=== PATIENT | male | born 1965 | race Caucasian/White ===

== ENCOUNTER 2021-10-31 12:19 | Emergency (ER) | payer OTHER ==
[~2021-10-31] VITALS: Ht 177.8 cm; Wt 81.7 kg
[2021-10-31 13:41] LABS: BASOPHILS ABSOLUTE AUTO 0.04 K/mm3 (0.00-0.23); BASOPHILS PERCENT AUTO 1 % (0-2); EOSINOPHILS ABSOLUTE AUTO 0.12 K/mm3 (0.00-0.68); EOSINOPHILS PERCENT AUTO 2 % (0-6); Hematocrit 37.1 % (37.0-53.0); Hemoglobin 12.7 g/dL (13.5-17.5); IMMATURE GRAN ABSOLUTE AUTO 0.01 K/mm3 (0.00-0.10); IMMATURE GRAN PERCENT AUTO 0 % (0-1); LYMPHOCYTES ABSOLUTE AUTO 0.56 K/mm3 (0.84-5.20); LYMPHOCYTES PERCENT AUTO 9 % (21-46); MONOCYTES ABSOLUTE AUTO 0.57 K/mm3 (0.16-1.47); MONOCYTES PERCENT AUTO 9 % (4-13); Mean Corpuscular HGB 29.3 pg (26.0-34.0); Mean Corpuscular HGB Conc 34.2 g/dL (31.5-36.5); Mean Corpuscular Volume 86 fL (80-100); Mean Platelet Volume 9.1 fL (9.1-12.4); NEUTROPHILS ABSOLUTE AUTO 5.01 K/mm3 (1.96-9.15); NEUTROPHILS PERCENT AUTO 79 % (41-73); Platelet Count 329 K/mm3 (150-400); RDW Coefficient Variation 12.9 % (11.7-14.2); RDW Standard Deviation 39.8 fL (35.1-46.3); Red Blood Cell Count 4.33 M/mm3 (4.30-5.90); White Blood Cell Count 6.31 K/mm3 (4.00-11.30)
[2021-10-31 13:58] LABS: Alanine Aminotransfer (ALT/SGP 138 U/L (12-78); Albumin, Blood 3.3 g/dL (3.4-5.0); Albumin/Globulin Ratio 0.8 (0.8-1.8); Alk Phos 80 U/L (50-136); Anion Gap 7 mmol/L (6-16); Aspartate Aminotrans (AST/SGOT 80 U/L (12-37); Bilirubin, Total 0.5 mg/dL (0.1-1.0); Blood Urea Nitrogen 11 mg/dL (8-24); Bun/Creatinine Ratio 15.2 (12.0-20.0); CO2, Blood 32 mmol/L (21-32); Calcium, Blood 9.4 mg/dL (8.5-10.1); Chloride, Blood 98 mmol/L (98-108); Creatinine, Blood 0.72 mg/dL (0.60-1.20); Glomerular Filtration Rate >60 (60-); Glucose, Blood 122 mg/dL (70-99); Potassium, Blood 2.8 mmol/L (3.5-5.5); Sodium, Blood 137 mmol/L (136-145); Total Protein, Blood 7.3 g/dL (6.4-8.2)
[2021-10-31] MEDS ORDERED: INSULIN GL100 UNIT/1 SQ (15:32)
[2021-10-31] MEDS ORDERED: KETOROLAC TROME10 M2 PO (15:32)
[2021-10-31] MEDS ORDERED: AMLODIPINE BESY10 MG PO (15:32)
[2021-10-31] MEDS ORDERED: REMERON30 M6 PO (15:32)
[2021-10-31] MEDS ORDERED: Potassium Chlo20 ME1 PO (15:33)
[2021-10-31] MEDS ORDERED: HUMULIN R100 UNIT/2 IJ (15:33)
[2021-10-31] MEDS ORDERED: ROSUVASTATIN CA20 MG PO (15:33)
[2021-10-31] MEDS ORDERED: LISI20 PO (15:33)
[2021-10-31] MEDS ORDERED: CHLO25B PO (15:34)
[2021-10-31] MEDS ORDERED: METF500 PO ×2 (15:34→16:13)
[2021-10-31] MEDS ORDERED: ETODOLAC PO (15:34)
[2021-10-31 15:47] LABS: Source, Urine Clean Catch
[2021-10-31 15:59] LABS: Bilirubin, Urine Neg (Neg); Blood, Urine 1+ (Neg); Glucose Qualitative, Urine Neg (Neg); Ketones, Urine Neg (Neg); Leukocyte Esterase, Urine 1+ (Neg); Nitrite, Urine Neg (Neg); Protein, Urine 1+ (Neg); Specific Gravity, Urine 1.015 (1.003-1.022); Urobilinogen, Urine NORM (Normal)
[2021-10-31 16:01] LABS: Appearance, Urine Hazy (Clear); Bacteria Few /hpf; Color, Urine Pale Yellow (P-Yellow); Squamous Epithelial Cells Few /hpf (Few)
[2021-10-31] MEDS ORDERED: K-Dur20 MEQ PO (16:13)
[2021-10-31] MEDS ORDERED: HUMULIN R100 UNIT/2 SC (16:21)
== END 2021-10-31 16:23 | disposition home or self-care (01) ==
LOC: ER 12:19
PROVIDERS: Physician Assistant
DX: S20.212A Contusion of left front wall of thorax, initial encounter (principal); E87.6 Hypokalemia; R42 Dizziness and giddiness; Z76.0 Encounter for issue of repeat prescription; E11.9 Type 2 diabetes mellitus without complications; I10 Essential (primary) hypertension; W18.30XA Fall on same level, unspecified, initial encounter
CPT/HCPCS: 36415; 71101; 80053; 81001; 84484; 85025; 87086; 93005; 93010; 99285-25; A9270

== ENCOUNTER 2022-02-01 12:41 | Inpatient (IN) | payer OTHER ==
[~2022-02-01] VITALS: Ht 177.8 cm; Wt 80.1 kg
[~2022-02-01 12:41] MED LIST: AMLODIPINE BESY10 MG PO; CHLO25B PO; ETODOLAC PO; HUMULIN R100 UNIT/2 IJ; HUMULIN R100 UNIT/2 SC; INSULIN GL100 UNIT/1 SQ; K-Dur20 MEQ PO; KETOROLAC TROME10 M2 PO; LISI20 PO; METF500 PO; Potassium Chlo20 ME1 PO; REMERON30 M6 PO; ROSUVASTATIN CA20 MG PO
[2022-02-01 13:48] LABS: Base Excess Venous 6.2 mmol/L; Bicarbonate Venous 28.8 mmol/L (24.0-30.0); PCO2 Venous 40.3 mmHg (38-42); pH Blood Venous 7.48 (7.34-7.37)
[2022-02-01 13:56] LABS: BASOPHILS ABSOLUTE AUTO 0.04 K/mm3 (0.00-0.23); BASOPHILS PERCENT AUTO 0 % (0-2); EOSINOPHILS ABSOLUTE AUTO 0.06 K/mm3 (0.00-0.68); EOSINOPHILS PERCENT AUTO 0 % (0-6); Hematocrit 35.5 % (37.0-53.0); Hemoglobin 12.9 g/dL (13.5-17.5); IMMATURE GRAN ABSOLUTE AUTO 0.26 K/mm3 (0.00-0.10); IMMATURE GRAN PERCENT AUTO 1 % (0-1); LYMPHOCYTES ABSOLUTE AUTO 0.37 K/mm3 (0.84-5.20); LYMPHOCYTES PERCENT AUTO 2 % (21-46); MONOCYTES ABSOLUTE AUTO 1.49 K/mm3 (0.16-1.47); MONOCYTES PERCENT AUTO 8 % (4-13); Mean Corpuscular HGB 29.3 pg (26.0-34.0); Mean Corpuscular HGB Conc 36.3 g/dL (31.5-36.5); Mean Corpuscular Volume 81 fL (80-100); Mean Platelet Volume 10.1 fL (9.1-12.4); NEUTROPHILS ABSOLUTE AUTO 16.01 K/mm3 (1.96-9.15); NEUTROPHILS PERCENT AUTO 88 % (41-73); Platelet Count 305 K/mm3 (150-400); RDW Coefficient Variation 12.9 % (11.7-14.2); RDW Standard Deviation 37.6 fL (35.1-46.3); White Blood Cell Count 18.23 K/mm3 (4.00-11.30)
[2022-02-01 14:13] LABS: Albumin, Blood 3.3 g/dL (3.4-5.0); Albumin/Globulin Ratio 0.7 (0.8-1.8); Bilirubin, Total 1.2 mg/dL (0.1-1.0); Bun/Creatinine Ratio 31.4 (12.0-20.0); Calcium, Blood 8.8 mg/dL (8.5-10.1); Creatinine, Blood 0.8 mg/dL (0.60-1.20); Globulin, Blood 4.7 g/dL (2.2-4.0); Potassium, Blood 2.7 mmol/L (3.5-5.5)
[2022-02-01 14:19] LABS: Source, Urine Foley catheter
[2022-02-01 14:35] LABS: Appearance, Urine Clear (Clear); Bilirubin, Urine Neg (Neg); Blood, Urine 5+ (Neg); Color, Urine Yellow (P-Yellow); Glucose Qualitative, Urine 4+ (Neg); Ketones, Urine 3+ (Neg); Leukocyte Esterase, Urine Neg (Neg); Nitrite, Urine Neg (Neg); Protein, Urine 2+ (Neg); Urobilinogen, Urine NORM (Normal)
[2022-02-01 14:53] LABS: Amorphous Light (0-Heavy); Bacteria Mod /hpf; Mucus Light (0-Heavy); Squamous Epithelial Cells Rare /hpf (Few); White Blood Cells, Urine 0-2 /hpf (0-5)
[2022-02-01 18:25] LABS: Bun/Creatinine Ratio 29.3 (12.0-20.0); Calcium, Blood 7.8 mg/dL (8.5-10.1); Creatinine, Blood 0.68 mg/dL (0.60-1.20); Potassium, Blood 2.4 mmol/L (3.5-5.5)
[2022-02-01 19:33] LABS: U Amphetamine Screen DETECTED; U Barbituate Screen Not Detected; U Benzodiazapine Screen Not Detected; U Buprenorphine Screen Not Detected; U Cannabinoids Screen Not Detected; U Cocaine Screen Not Detected; U Methadone Screen Not Detected; U Methamphetamine Screen DETECTED; U Opiates Screen Not Detected; U Oxycodone Screen Not Detected; U Phencyclidine Screen Not Detected; U Propoxyphene Screen Not Detected
[2022-02-01 19:52] LABS: Bun/Creatinine Ratio 28.9 (12.0-20.0); Calcium, Blood 8.2 mg/dL (8.5-10.1); Creatinine, Blood 0.73 mg/dL (0.60-1.20); Potassium, Blood 2.7 mmol/L (3.5-5.5)
[2022-02-01] MEDS ORDERED: GABA100 PO ×2 (21:53)
--- NOTE | 2022-02-02 02:11 | NUR ---
CARE ASSUMPTION: RECEIVED REPORT FROM JULY ED RN. PATIENT ARRIVED BY GURNEY AND WAS SLID TO PCU BED. PATIENT IS FEVERISH AND PAINFUL IN EXTREMETIES. MUNOZ PROBE IN PLACE FOR TEMP MONITORING. IV MEDICATIONS INFUSING. PATIENT STATES HE CAN WALK TO TOILET BUT REQUIRED HELP FROM TWO RNS TO ACHIEVE THE SITTING POSITION ON ADMIT. PATIENT ABLE TO GET OUT OF BED WITH SBA AND USE OF WALKER TO BSC, BUT IS NOT VERY STEADY ON HIS FEET D/T CELLULITIS OF THE RIGHT LEG. WOUND CONSULT ENTERED FOR ULCERS ON TOES/FEET; ED PUT IN A PODIATRY CONSULT WELL. BED LOW WITH CALL LIGHT IN REACH.
--- NOTE | 2022-02-02 03:11 | NUR ---
CRITICAL VALUE NOTIFICATION: JULY FROM LAB CALLED THAT BOTH BLOOD CUTURES WERE GRAM+ COCCI IN CHAINS. PHARMACIST WAS CALLED AND CONFIRMED CURRENT ABX REGIMENT WILL TREAT BACTERIA.
--- NOTE | 2022-02-02 05:25 | NUR ---
SHIFT SUMMARY: PATIENT FEBRILE, BP WNL, AND TACHYCARDIC. DENIES CHEST PAIN OR SOB. NEURO IMPROVED FROM TIME OF ADMIT. PATIENT PAINFUL IN EXTREMETIES AND TESTICLES. PATIENT ALSO REPORTS DEHYDRATION. FLUIDS RUNNING PER EMAR AND WATER PROVIDED. PATIENT FREQUENTLY REQUESTS DIET SODA, EDUCATED ON HYDRATION AND DISEASE PROCESS. MUNOZ DRAINING TO GRAVITY. LOWER EXTREMETIES ELEVATED BUT PATIENT KEEPS READJUSTING BED TO LOWER THEM - EDUCATION PROVIDED. BED LOW WITH CALL LIGHT IN PLACE. WILL CONTINUE TO MONITOR AND REPORT TO ONCOMING RN.
[2022-02-02 06:53] LABS: BASOPHILS ABSOLUTE AUTO 0.02 K/mm3 (0.00-0.23); BASOPHILS PERCENT AUTO 0 % (0-2); Hematocrit 26.3 % (37.0-53.0); Hemoglobin 9.4 g/dL (13.5-17.5); LYMPHOCYTES ABSOLUTE AUTO 0.38 K/mm3 (0.84-5.20); LYMPHOCYTES PERCENT AUTO 3 % (21-46); MONOCYTES ABSOLUTE AUTO 0.97 K/mm3 (0.16-1.47); MONOCYTES PERCENT AUTO 8 % (4-13); Mean Corpuscular HGB 29.7 pg (26.0-34.0); Mean Corpuscular HGB Conc 35.7 g/dL (31.5-36.5); Mean Corpuscular Volume 83 fL (80-100); Platelet Count 190 K/mm3 (150-400); RDW Coefficient Variation 13.2 % (11.7-14.2); Red Blood Cell Count 3.17 M/mm3 (4.30-5.90); White Blood Cell Count 11.54 K/mm3 (4.00-11.30)
[2022-02-02 06:57] LABS: EOSINOPHILS PERCENT AUTO 0 % (0-6); IMMATURE GRAN PERCENT AUTO 1 % (0-1); NEUTROPHILS ABSOLUTE AUTO 10.07 K/mm3 (1.96-9.15); NEUTROPHILS PERCENT AUTO 87 % (41-73)
[2022-02-02 07:21] LABS: Albumin, Blood 2.2 g/dL (3.4-5.0); Albumin/Globulin Ratio 0.7 (0.8-1.8); Bilirubin, Total 0.8 mg/dL (0.1-1.0); Bun/Creatinine Ratio 32.6 (12.0-20.0); Creatinine, Blood 0.58 mg/dL (0.60-1.20); Globulin, Blood 3.3 g/dL (2.2-4.0); Potassium, Blood 2.6 mmol/L (3.5-5.5)
[2022-02-02 07:22] LABS: Total Protein, Blood 5.5 g/dL (6.4-8.2)
[2022-02-02 15:05] LABS: Potassium, Blood 2.9 mmol/L (3.5-5.5); Uric Acid, Blood 3.2 mg/dL (3.5-7.2)
--- NOTE | 2022-02-02 18:33 | NUR ---
END OF SHIFT SUMMARY: PATIENT HAS BEEN ON AND OFF SLEEPING MOST OF THE DAY, INBETWEEN REQUESTING FOOD, AND LIQUIDS TO DRINK. PATIENT HAS BEEN INCREASED TO AC HS, LONG ACTING AND SHORT ARE ON BOARD, PATIENT HAD A LOW K+ OF 2.6 DROP FROM 2.7 AND THE MECCA AFTER 40MEQ,IV AND 60MEQ'S PO WAS 2.9. PATIETN RECIEVED ANOTHER DOSE OF 60MEQ PO. NO MECCA OF YET. PATIENT HAD DIFFICULTY PATIENT HAS AN RIGHT AC IV AND WOULD NOT LEAVE ARM IN POSITION. PATIENT ALSO WAS FIDGETING, MOVING, AND PRESSING BUTTONS ON THE MRI MACHINE DURING WHICH ULTIMATELY MADE THEM STOP THE PROCESS, NO MRI WAS PREFORMED, ORDERING PROVIDER AWARE. PATIENT HAS BEEN FEBRILE MOST OF THE DAY, TYLENOL GIVEN Q6 POSSIBLE. PATIENT CBG'S HAVE BEEN HIGH WILL CONTINUE TO MONITOR UNTIL SHIFT CHANGE. PATIENT DENIES CHEST PAIN/PRESSURE OR SOB.
[2022-02-02 19:05] LABS: Bun/Creatinine Ratio 21.6 (12.0-20.0); Calcium, Blood 7.8 mg/dL (8.5-10.1); Creatinine, Blood 0.65 mg/dL (0.60-1.20); Potassium, Blood 2.7 mmol/L (3.5-5.5)
[2022-02-03 04:30] LABS: BASOPHILS ABSOLUTE AUTO 0.01 K/mm3 (0.00-0.23); BASOPHILS PERCENT AUTO 0 % (0-2); Hematocrit 27.9 % (37.0-53.0); Hemoglobin 9.7 g/dL (13.5-17.5); LYMPHOCYTES ABSOLUTE AUTO 0.81 K/mm3 (0.84-5.20); LYMPHOCYTES PERCENT AUTO 6 % (21-46); MONOCYTES ABSOLUTE AUTO 0.82 K/mm3 (0.16-1.47); MONOCYTES PERCENT AUTO 6 % (4-13); Mean Corpuscular HGB 29.1 pg (26.0-34.0); Mean Corpuscular HGB Conc 34.8 g/dL (31.5-36.5); Mean Corpuscular Volume 84 fL (80-100); Mean Platelet Volume 10.1 fL (9.1-12.4); Platelet Count 203 K/mm3 (150-400); RDW Coefficient Variation 13.2 % (11.7-14.2); RDW Standard Deviation 40.1 fL (35.1-46.3); Red Blood Cell Count 3.33 M/mm3 (4.30-5.90); White Blood Cell Count 12.91 K/mm3 (4.00-11.30)
[2022-02-03 04:31] LABS: EOSINOPHILS ABSOLUTE AUTO 0.02 K/mm3 (0.00-0.68); EOSINOPHILS PERCENT AUTO 0 % (0-6); IMMATURE GRAN ABSOLUTE AUTO 0.33 K/mm3 (0.00-0.10); IMMATURE GRAN PERCENT AUTO 3 % (0-1); NEUTROPHILS ABSOLUTE AUTO 10.92 K/mm3 (1.96-9.15); NEUTROPHILS PERCENT AUTO 84 % (41-73)
[2022-02-03 04:53] LABS: Albumin, Blood 2.1 g/dL (3.4-5.0); Albumin/Globulin Ratio 0.6 (0.8-1.8); Bilirubin, Total 0.6 mg/dL (0.1-1.0); Bun/Creatinine Ratio 21.1 (12.0-20.0); Calcium, Blood 8.4 mg/dL (8.5-10.1); Creatinine, Blood 0.62 mg/dL (0.60-1.20); Globulin, Blood 3.7 g/dL (2.2-4.0); Total Protein, Blood 5.8 g/dL (6.4-8.2)
--- NOTE | 2022-02-03 05:07 | NUR ---
SHIFT SUMMARY: PATIENT HR 90-110S, BP WNL, STABLE ON RA, AND AFEBRILE. REPORTS PAIN IN LEGS AND ALL TOUCH/MOVEMENT MAKES HIM WINCE. MEDICATED PER EMAR. SLEEPS SOUNDLY AND DIFFICULT TO WAKE. MUNOZ DRAINING NARA URINE TO GRAVITY. POWERGLIDE IS POSITIONAL TO FLUSH/DRAW. PATIENT STATED HE THOUGHT HE WAS DISCHARGING LAST NIGHT AND WANTS TO KNOW WHEN HE CAN LEAVE. EDUCATED ON HIS CURRENT HEALTH STATUS. STATES "JUST CUT MY LEG OFF AND STRAP A RUBBER BRICK TO IT." BED LOW WITH CALL LIGHT IN PLACE. WILL CONTINUE TO MONITOR AND REPORT TO ONCOMING RN.
--- NOTE | 2022-02-03 05:51 | NUR ---
NOTIFIED MD OF K 3.0, NA 132, AND CA 8.4. DR. Bolden TO PUT IN NEW ORDERS.
--- NOTE | 2022-02-03 17:34 | NUR ---
SHIFT SUMMARY PT HAS SLEPT OFF AND ON THROUGHOUT THE DAY. PT BEGAN THE DAY LETHARGIC AND SLOW TO RESPOND. THE DAY PROGRESSED, PT BECAME LESS LETHARGIC THOUGH STILL SLOW TO RESPOND AND UNABLE TO FULLY ANSWER ORIENTATION QUESTIONS. PT C/O / PAIN TO BOTH LEGS THAT WAS MANAGED WELL, 2/, WITH MEDICATION AND NON-PHARMACOLOGIC INTERVENTIONS. SBP RANGE 137-149, HEART RATE HAS MAINTAINED 110-120.
--- NOTE | 2022-02-03 22:53 | NUR ---
CARE ASSUMPTION: RECEIVED REPORT FROM KENNETH JAY RN. PATIENT IN BED WITH NS RUNNING, MUNOZ DRAINING, AND LEGS ELEVATED. PATIENT IS AGITATED, PULLING AT LINES, AND SWEARING. REDIRECTABLE. TEMP SLIGHTLY ELEVATED, TACHYPNEIC, TACHYCARDIC. MEDICATED PER EMAR. BED LOW WITH CALL LIGHT IN REACH.
--- NOTE | 2022-02-04 05:51 | NUR ---
SHIFT SUMMARY: PATIENT DENIES CHEST PAIN OR SOB. VSS AND A&O X4. RESTED WELL T/O NIGHT. MEDICATED PER EMAR. MUNOZ DRAINING YELLOW URINE TO GRAVITY. NO ADVERSE EVENTS THIS SHIFT. BED LOW WITH CALL LIGHT IN REACH. WILL CONTINUE TO MONITOR AND REPORT TO ONCOMING RN.
[2022-02-04 07:58] LABS: BASOPHILS ABSOLUTE AUTO 0.02 K/mm3 (0.00-0.23); BASOPHILS PERCENT AUTO 0 % (0-2); Hematocrit 28.8 % (37.0-53.0); Hemoglobin 9.8 g/dL (13.5-17.5); Mean Corpuscular Volume 85 fL (80-100); Platelet Count 220 K/mm3 (150-400); RDW Coefficient Variation 13.7 % (11.7-14.2); RDW Standard Deviation 42.5 fL (35.1-46.3); Red Blood Cell Count 3.38 M/mm3 (4.30-5.90); White Blood Cell Count 11.36 K/mm3 (4.00-11.30)
[2022-02-04 08:01] LABS: EOSINOPHILS ABSOLUTE AUTO 0.06 K/mm3 (0.00-0.68); EOSINOPHILS PERCENT AUTO 1 % (0-6); IMMATURE GRAN PERCENT AUTO 1 % (0-1); LYMPHOCYTES ABSOLUTE AUTO 0.85 K/mm3 (0.84-5.20); LYMPHOCYTES PERCENT AUTO 8 % (21-46); MONOCYTES ABSOLUTE AUTO 0.61 K/mm3 (0.16-1.47); MONOCYTES PERCENT AUTO 5 % (4-13); NEUTROPHILS ABSOLUTE AUTO 9.72 K/mm3 (1.96-9.15); NEUTROPHILS PERCENT AUTO 86 % (41-73)
[2022-02-04 08:18] LABS: Albumin, Blood 1.8 g/dL (3.4-5.0); Albumin/Globulin Ratio 0.5 (0.8-1.8); Bilirubin, Total 0.4 mg/dL (0.1-1.0); Bun/Creatinine Ratio 14.8 (12.0-20.0); Creatinine, Blood 0.54 mg/dL (0.60-1.20); Globulin, Blood 3.7 g/dL (2.2-4.0); Potassium, Blood 2.5 mmol/L (3.5-5.5); Total Protein, Blood 5.5 g/dL (6.4-8.2)
--- NOTE | 2022-02-04 09:17 | NUR ---
WOUND ASSESSMENT AND PHOTOS IN HARD CHART. DRESSING ORDERS IN [facility]
--- NOTE | 2022-02-04 13:16 | NUR ---
CODE STATUS NOTE THIS NURSE WAS NOTIFIED AT APPROX. 1000 BY EMPLOYEE RELATIONS DIRECTOR THAT PT HAD EXPRESSED CONCERNS TO HER OVER CHANGING HIS CODE STATUS FROM FULL CODE TO DNR. THIS NURSE HAD A DISCUSSION WITH PT AND EDUCATED HIM ABOUT BOTH DNR CODE STATUS AND FULL CODE MEASURES. HE CONTINUED TO EXPRESS THAT HE DID NOT WANT CHEST COMPRESSIONS NOR SHOCK SHOULD HIS HEART STOP. HE ALSO EXPRESSED THAT HE WOULD NOT WANT INTUBATION SHOULD HE STOP BREATHING. THIS NURSE NOTIFIED DR. DIANA PLEITEZ ABOUT PT WISHES AT APPROX. 1315 AND CODE STATUS CHANGED TO REFLECT PT WISHES. HE HAS BEEN ALERT AND ORIENTED X 4 T/O SHIFT. CALL LIGHT IN REACH. PURPLE DNR WRISTBAND ON LEFT WRIST.
--- NOTE | 2022-02-04 17:19 | NUR ---
SHIFT SUMMARY PT HAS REMAINED ALERT AND ORIENTED X 4, HE ANSWERS QUESTIONS APPROPRIATLY AND IS COOPERATIVE WITH CARE. HE HAS HAD TEARFUL EPISODES DURING SHIFT BUT STATED THAT HE FELT BEETER AFTER EX FELA WAS AT BEDSIDE THIS AFTERNOON. HE APEARED ANXIOUS BUT BECAME MORE CALM WITH THERAPEUTIC COMMUNICATION. HR AND BP STABLE, SPO2 98% VIA ROOM AIR. HE COMPLAINED OF PAIN IN RIGHT FOOT, SEE EMAR. HE IS ABLE TO CHANGE POSITION IN BED BUT Q2 TURNING IMPLIMENTED TO ALLEVIATE PRESSURE POINTS. EX FELA AT BEDSIDE THIS AFTERNOON. MUNOZ CATHETER IS IN PLACE AND DRAINING TO GRAVITY CLEAR YELLOW OUTPUT. HE HAS DENIED FEELINGS OF CHEST PAIN/PRESSURE WELL FEELINGS OF NAUSEA/VOMITTING. WOUND RN DEN AT BEDSIDE AND PHOTOS IN CHART. R FOOT WOUNDS COVERED IN ABD DRESSING/GAUZE, DRESSING APPEARS DRY/CLEAN. LEFT FOOT WOUNDS OPEN TO AIR AND ARE DRY/CLEAN. WOUND CARE PROVIDED BY DEN CANSECO. NO OTHER ACUTE CHANGES NOTED, WILL CONTINUE TO MONITOR UNTIL REPORT GIVEN. CALL LIGHT IN REACH.
--- NOTE | 2022-02-04 23:41 | NUR ---
CARE ASSUMPTION: PATIENT AWAKE AT BEGINNING OF SHIFT WITH SODAS AT BEDSIDE AND TALKING TO STAFF. PATIENT COMPLAINS OF ROOM TEMPERATURE, WHICH IS VERY COLD, AND CALL IS MADE TO MAINTENANCE ROOM THERMOSTAT HAS BEEN TURNED ON HIGH SINCE PREVIOUS NOC SHIFT. PATIENT BECOMES FIXATED ON TESTICLES AND PULLING OFF SCABS/ SKIN ON TESTICLES, WELL SAVING THE SKIN "TO PUT ON SOMEONE'S CORN FLAKES LATER." STEEPLE JACK ADVISED NOT TO GIVE PATIENT PLASTIC BAGGIES. PATIENT ASKED TO STOP PULLING SKIN HE ALREADY HAS AN INFECTION AND SOME FRESH SCRATCHES ARE NOTED ON SKIN. PATIENT STATES "MA'AM, I'VE BEEN DOING THIS MY WHOLE LIFE." BARRIER CREAM IS APPLIED TO TESTICLES FOR RELIEF. PATIENT COMPLAINING OF PENIS/CATHETER PAIN. CATHETER REPOSITIONED AND SOME SEDIMENTATION IS NOTED IN TUBING. PATIENT NOW ASLEEP. BED LOW WITH CALL LIGHT IN REACH.
--- NOTE | 2022-02-05 05:59 | NUR ---
TX SUMMARY PT TX TO [facility] AT 0550 THIS AM. PT IS ALERT AND ORIENTED BUT MAKES ODD AND SOMEWHAT INAPPROPRIATE STATEMENTS. PT ASKING ABOUT BREAKFAST AND ASKING FOR WATER MIXED WITH SODA, STATING HE CANNOT DRINK REGULAR WATER BECAUSE HE KNOWS WHAT FISH DO IN IT. PT GIVEN CALL LIGHT.
[2022-02-05 08:38] LABS: Albumin, Blood 1.8 g/dL (3.4-5.0); Albumin/Globulin Ratio 0.4 (0.8-1.8); Bilirubin, Total 0.6 mg/dL (0.1-1.0); Bun/Creatinine Ratio 17.2 (12.0-20.0); Creatinine, Blood 0.52 mg/dL (0.60-1.20); Potassium, Blood 2.7 mmol/L (3.5-5.5); Total Protein, Blood 5.8 g/dL (6.4-8.2)
[2022-02-05 08:44] LABS: Hematocrit 23.6 % (37.0-53.0); Hemoglobin 8.5 g/dL (13.5-17.5); Mean Corpuscular HGB 29.3 pg (26.0-34.0); Mean Corpuscular Volume 81 fL (80-100); Mean Platelet Volume 10.4 fL (9.1-12.4); Platelet Count 254 K/mm3 (150-400); RDW Coefficient Variation 13.5 % (11.7-14.2); RDW Standard Deviation 40.6 fL (35.1-46.3); White Blood Cell Count 10.99 K/mm3 (4.00-11.30)
[2022-02-05 10:38] LABS: BAND PERCENT MAN 2 % (0-8); BASOPHILS PERCENT MAN 0 % (0-2); EOSINOPHILS ABSOLUTE MAN 0.21 K/mm3 (0.00-0.68); EOSINOPHILS PERCENT MAN 2 % (0-6); LYMPHOCYTES ABSOLUTE MAN 0.43 K/mm3 (0.84-5.20); LYMPHOCYTES PERCENT MAN 4 % (21-46); METAMYELOCYTE PERCENT MAN 1 % (0-0); MONOCYTES ABSOLUTE MAN 0.21 K/mm3 (0.16-1.47); MONOCYTES PERCENT MAN 2 % (4-13); SEG NEUTROPHILS PERCENT MAN 89 % (41-73); TOTAL CELLS COUNTED 100
--- NOTE | 2022-02-05 18:17 | NUR ---
SHIFT SUMMARY PT A/O X3 AND COOPERATIVE WITH CARE. WOUND DRESSINGS CHANGED THIS SHIFT PER EMR ORDERS. LARGE BLISTER ON CALF BOTHERING PATIENT AND COVERED FOR COMFORT. PT TO POSSIBLY DC HOME TOMORROW PENDING HE IS ABLE TO GET IN TOUCH WITH HIS FAMILY MEMBERS. VSS.
--- NOTE | 2022-02-06 04:51 | NUR ---
SHIFT SUMMARY 56 YR M ADMITTED ON 02/01/22 FOR SEPSIS/CELLULITIS. DNR. NO ACUTE CHANGES THIS SHIFT. PT C/O THAT HIS BUTTOCKS WERE SORE AND ASKED IF A BANDAGE COULD BE PUT ON IT TO PREVENT IT FROM RUBBING ON THE BED. A MEPILEX WAS PLACED AND PT STATED THAT IT FELT MUCH BETTER. HE DID MOAN AND GROAN ALOT THROUGHOUT THE SHIFT, BUT NO DIRECT C/O PAIN.
[2022-02-06 05:41] LABS: Hematocrit 27.5 % (37.0-53.0); Hemoglobin 9.4 g/dL (13.5-17.5); Mean Corpuscular HGB 28.8 pg (26.0-34.0); Mean Corpuscular HGB Conc 34.2 g/dL (31.5-36.5); Mean Corpuscular Volume 84 fL (80-100); Platelet Count 290 K/mm3 (150-400); RDW Coefficient Variation 13.8 % (11.7-14.2); RDW Standard Deviation 43.1 fL (35.1-46.3); Red Blood Cell Count 3.26 M/mm3 (4.30-5.90); White Blood Cell Count 11.22 K/mm3 (4.00-11.30)
[2022-02-06 06:02] LABS: Albumin, Blood 1.8 g/dL (3.4-5.0); Albumin/Globulin Ratio 0.4 (0.8-1.8); Bilirubin, Total 0.4 mg/dL (0.1-1.0); Bun/Creatinine Ratio 11.7 (12.0-20.0); Calcium, Blood 8.1 mg/dL (8.5-10.1); Creatinine, Blood 0.6 mg/dL (0.60-1.20); Globulin, Blood 4.5 g/dL (2.2-4.0); Potassium, Blood 2.9 mmol/L (3.5-5.5); Total Protein, Blood 6.3 g/dL (6.4-8.2)
[2022-02-06 06:07] LABS: BAND PERCENT MAN 5 % (0-8); BASOPHILS PERCENT MAN 0 % (0-2); EOSINOPHILS PERCENT MAN 0 % (0-6); LYMPHOCYTES % ATYPICAL MANUAL 1 % (0-0); LYMPHOCYTES ABSOLUTE MAN 0.89 K/mm3 (0.84-5.20); LYMPHOCYTES PERCENT MAN 7 % (21-46); METAMYELOCYTE ABSOLUTE MAN 0.11 K/mm3 (0.00-0.00); METAMYELOCYTE PERCENT MAN 1 % (0-0); MONOCYTES ABSOLUTE MAN 1.23 K/mm3 (0.16-1.47); MONOCYTES PERCENT MAN 11 % (4-13); NEUTROPHILS ABSOLUTE MAN 8.97 K/mm3 (1.96-9.15); SEG NEUTROPHILS PERCENT MAN 75 % (41-73); TOTAL CELLS COUNTED 100
[2022-02-07 05:34] LABS: Hematocrit 30.2 % (37.0-53.0); Hemoglobin 10.1 g/dL (13.5-17.5); Mean Corpuscular HGB Conc 33.4 g/dL (31.5-36.5); Mean Corpuscular Volume 87 fL (80-100); Mean Platelet Volume 9.7 fL (9.1-12.4); NRBC ABSOLUTE 0.02 K/mm3 (0.00-0.02); NRBC Auto 0.2 /100 WBC (0.0-0.2); Platelet Count 358 K/mm3 (150-400); RDW Coefficient Variation 14.1 % (11.7-14.2); RDW Standard Deviation 43.9 fL (35.1-46.3); Red Blood Cell Count 3.48 M/mm3 (4.30-5.90); White Blood Cell Count 11.71 K/mm3 (4.00-11.30)
--- NOTE | 2022-02-07 05:37 | NUR ---
SHIFT SUMMARY 56 YR M ADMITTED ON 02/01/22 FOR SEPSIS/CELLULITIS. DNR. PT WAS HOPING TO GO HOME BUT WAS INFORMED THAT HIS BLOOD CULTURES TODAY WERE STILL POSITIVE. HE IS VERY PARTICULAR IN WHAT HE WANTS AND HAD A VERBAL LIST FOR THIS NURSE. HE IS RELENTLESS UNTIL HIS WANTS AND/OR NEEDS ARE SATISFIED, THEN HE WILL SLEEP FOR THE REST OF THE SHIFT. HE IS PLEASANT, BUT DEMANDING. NO ACUTE CHANGES THIS SHIFT.
[2022-02-07 05:54] LABS: BAND PERCENT MAN 3 % (0-8); BASOPHILS ABSOLUTE MAN 0.11 K/mm3 (0.00-0.23); BASOPHILS PERCENT MAN 1 % (0-2); EOSINOPHILS ABSOLUTE MAN 0.11 K/mm3 (0.00-0.68); EOSINOPHILS PERCENT MAN 1 % (0-6); LYMPHOCYTES ABSOLUTE MAN 1.17 K/mm3 (0.84-5.20); LYMPHOCYTES PERCENT MAN 10 % (21-46); MONOCYTES ABSOLUTE MAN 0.35 K/mm3 (0.16-1.47); MONOCYTES PERCENT MAN 3 % (4-13); MYELOCYTE ABSOLUTE MAN 0.11 K/mm3 (0.00-0.00); MYELOCYTE PERCENT MAN 1 % (0-0); NEUTROPHILS ABSOLUTE MAN 9.83 K/mm3 (1.96-9.15); SEG NEUTROPHILS PERCENT MAN 81 % (41-73); TOTAL CELLS COUNTED 100
[2022-02-07 06:00] LABS: Albumin, Blood 2.2 g/dL (3.4-5.0); Albumin/Globulin Ratio 0.4 (0.8-1.8); Bilirubin, Total 0.4 mg/dL (0.1-1.0); Bun/Creatinine Ratio 16.3 (12.0-20.0); Calcium, Blood 8.6 mg/dL (8.5-10.1); Creatinine, Blood 0.61 mg/dL (0.60-1.20); Globulin, Blood 5.2 g/dL (2.2-4.0); Total Protein, Blood 7.4 g/dL (6.4-8.2)
--- NOTE | 2022-02-07 17:26 | NUR ---
SHIFT SUMMARY PATIENT A&O X4, WILL START TO RAMBLE OFF TOPIC. SBA WITH WALKER TO RESTROOM. DRESSINGS TO BLE CHANGED AND PHOTOS UPDATED IN CHART. NEW MEPILEX DRESSING APPLIED TO WOUNDS ON PATIENTS BOTTOM. IV DISLODGED AND KINKED. PATIENT VERY FEARFUL OF NEEDLES AND CLENCHES DOWN AND HAD SEVERE ANXIETY WHEN ATTEMPTING TO PLACE IV. NEW IV PLACED. PATIENT EXPRESSED HIS DESIRE TO GO HOME MULTIPLE TIMES T/O SHIFT. C/O PAIN, MEDICATED X1. VSS. WILL CONTINUE TO MONITOR.
[2022-02-08 05:39] LABS: BASOPHILS ABSOLUTE AUTO 0.04 K/mm3 (0.00-0.23); BASOPHILS PERCENT AUTO 0 % (0-2); EOSINOPHILS ABSOLUTE AUTO 0.12 K/mm3 (0.00-0.68); EOSINOPHILS PERCENT AUTO 1 % (0-6); Hematocrit 31.2 % (37.0-53.0); Hemoglobin 10.2 g/dL (13.5-17.5); IMMATURE GRAN ABSOLUTE AUTO 0.36 K/mm3 (0.00-0.10); IMMATURE GRAN PERCENT AUTO 2 % (0-1); LYMPHOCYTES ABSOLUTE AUTO 1.55 K/mm3 (0.84-5.20); LYMPHOCYTES PERCENT AUTO 10 % (21-46); MONOCYTES PERCENT AUTO 6 % (4-13); Mean Corpuscular HGB 28.7 pg (26.0-34.0); Mean Corpuscular HGB Conc 32.7 g/dL (31.5-36.5); Mean Corpuscular Volume 88 fL (80-100); Mean Platelet Volume 9.3 fL (9.1-12.4); NEUTROPHILS ABSOLUTE AUTO 11.96 K/mm3 (1.96-9.15); NEUTROPHILS PERCENT AUTO 80 % (41-73); Platelet Count 451 K/mm3 (150-400); RDW Coefficient Variation 13.9 % (11.7-14.2); RDW Standard Deviation 44.2 fL (35.1-46.3); Red Blood Cell Count 3.56 M/mm3 (4.30-5.90); White Blood Cell Count 14.93 K/mm3 (4.00-11.30)
[2022-02-08 06:16] LABS: Albumin, Blood 2.3 g/dL (3.4-5.0); Albumin/Globulin Ratio 0.4 (0.8-1.8); Bilirubin, Total 0.3 mg/dL (0.1-1.0); Bun/Creatinine Ratio 14.7 (12.0-20.0); Calcium, Blood 8.4 mg/dL (8.5-10.1); Creatinine, Blood 0.75 mg/dL (0.60-1.20); Potassium, Blood 3.6 mmol/L (3.5-5.5); Total Protein, Blood 8.3 g/dL (6.4-8.2)
--- NOTE | 2022-02-08 06:35 | NUR ---
SHIFT SUMMARY PATIENT ALERT AND ORIENTED. WAS VERY ANXIOUS AND WANTING TO LEAVE. NO ACUTE ISSUES NOTED OVERNIGHT. CALL LIGHT WITHIN REACH. REPORT GIVEN TO ONCOMING RN.
--- NOTE | 2022-02-08 18:47 | NUR ---
PT PREMEDICATED FOR WOUND CHANGE TODAY. PATIENT TOLERATED WELL. LEG WOUND APPEARS TO HAVE OLD BLISTER THAT WAS NOT INTACT. WRAPPED PER ORDERS. HE HAS BEEN LISTENING TO [employer] [facility] MOST OF DAY. MED FOR VERONICA ONCE MY SHIFT. BED CHANGED. BED IN LOW POSITION, CALL LITE IN REACH, CALLS APPROP
[2022-02-09 06:02] LABS: BASOPHILS ABSOLUTE AUTO 0.03 K/mm3 (0.00-0.23); BASOPHILS PERCENT AUTO 0 % (0-2); EOSINOPHILS ABSOLUTE AUTO 0.09 K/mm3 (0.00-0.68); EOSINOPHILS PERCENT AUTO 1 % (0-6); Hematocrit 26.6 % (37.0-53.0); Hemoglobin 8.8 g/dL (13.5-17.5); IMMATURE GRAN ABSOLUTE AUTO 0.23 K/mm3 (0.00-0.10); IMMATURE GRAN PERCENT AUTO 3 % (0-1); LYMPHOCYTES ABSOLUTE AUTO 1.27 K/mm3 (0.84-5.20); LYMPHOCYTES PERCENT AUTO 15 % (21-46); MONOCYTES ABSOLUTE AUTO 0.66 K/mm3 (0.16-1.47); MONOCYTES PERCENT AUTO 8 % (4-13); Mean Corpuscular HGB 28.7 pg (26.0-34.0); Mean Corpuscular HGB Conc 33.1 g/dL (31.5-36.5); Mean Corpuscular Volume 87 fL (80-100); Mean Platelet Volume 9.2 fL (9.1-12.4); NEUTROPHILS ABSOLUTE AUTO 6.37 K/mm3 (1.96-9.15); NEUTROPHILS PERCENT AUTO 74 % (41-73); Platelet Count 350 K/mm3 (150-400); RDW Coefficient Variation 13.9 % (11.7-14.2); RDW Standard Deviation 43.6 fL (35.1-46.3); Red Blood Cell Count 3.07 M/mm3 (4.30-5.90); White Blood Cell Count 8.65 K/mm3 (4.00-11.30)
--- NOTE | 2022-02-09 06:03 | NUR ---
SHIFT SUMMARY PATIENT ALERT AND ORIENTED. MEDICATED PER EMAR FOR PAIN. NO ACUTE ISSUES NOTED OVERNIGHT. CALL LIGHT WITHIN REACH. REPORT GIVEN TO ONCOMING RN.
[2022-02-09 06:19] LABS: Bun/Creatinine Ratio 14.2 (12.0-20.0); Calcium, Blood 8.1 mg/dL (8.5-10.1); Creatinine, Blood 0.56 mg/dL (0.60-1.20); Potassium, Blood 3.6 mmol/L (3.5-5.5)
--- NOTE | 2022-02-09 16:19 | NUR ---
DRESSING CHANGE BEING PERFORMED AT THIS TIME.
--- NOTE | 2022-02-09 18:27 | NUR ---
PT HAD WOUND CHANGED TODAY ON BOTTOM AND ON RT LEG PER THT DR LIMA. DR ADJUSTED HIS INSULIN TODAY FOR LONG ACTING. PT GOT A SHOWER TODAY. FELISHA WELL. STATES READY TO GO HOME TOMORROW. LISTENING TO [employer] ON HIS PHONE ALL DAY. CONTINUES TO BE EMOTIONALLY LABILE. NO NEW CONCERNS NOTED. BED IN LOW POSITION, CALL LITE IN REACH, CALLS APPROP
[2022-02-10 05:50] LABS: BASOPHILS ABSOLUTE AUTO 0.04 K/mm3 (0.00-0.23); BASOPHILS PERCENT AUTO 1 % (0-2); EOSINOPHILS ABSOLUTE AUTO 0.08 K/mm3 (0.00-0.68); EOSINOPHILS PERCENT AUTO 1 % (0-6); Hematocrit 27.9 % (37.0-53.0); Hemoglobin 9.2 g/dL (13.5-17.5); IMMATURE GRAN ABSOLUTE AUTO 0.19 K/mm3 (0.00-0.10); IMMATURE GRAN PERCENT AUTO 2 % (0-1); LYMPHOCYTES ABSOLUTE AUTO 1.38 K/mm3 (0.84-5.20); LYMPHOCYTES PERCENT AUTO 16 % (21-46); MONOCYTES ABSOLUTE AUTO 0.75 K/mm3 (0.16-1.47); MONOCYTES PERCENT AUTO 9 % (4-13); Mean Corpuscular HGB 28.8 pg (26.0-34.0); Mean Corpuscular Volume 88 fL (80-100); NEUTROPHILS ABSOLUTE AUTO 6.36 K/mm3 (1.96-9.15); NEUTROPHILS PERCENT AUTO 72 % (41-73); Platelet Count 403 K/mm3 (150-400); RDW Coefficient Variation 13.7 % (11.7-14.2); RDW Standard Deviation 43.7 fL (35.1-46.3); Red Blood Cell Count 3.19 M/mm3 (4.30-5.90)
[2022-02-10 06:33] LABS: Albumin, Blood 2.2 g/dL (3.4-5.0); Albumin/Globulin Ratio 0.4 (0.8-1.8); Bilirubin, Total 0.3 mg/dL (0.1-1.0); Bun/Creatinine Ratio 14.6 (12.0-20.0); Calcium, Blood 8.7 mg/dL (8.5-10.1); Creatinine, Blood 0.55 mg/dL (0.60-1.20); Globulin, Blood 5.4 g/dL (2.2-4.0); Potassium, Blood 3.9 mmol/L (3.5-5.5); Total Protein, Blood 7.6 g/dL (6.4-8.2)
--- NOTE | 2022-02-10 07:39 | NUR ---
SHIFT SUMMARY PATIENT ALERT AND ORIENTED. HAD NO COMPLAINTS OF PAIN OR SHORTNESS OF BREATH. NO ACUTE ISSUES NOTED OVERNIGHT. CALL LIGHT WITHIN REACH. REPORT GIVEN TO ONCOMING RN.
[2022-02-10] MEDS ORDERED: VISBIOME 112.51 EACH PO ×2 (16:17)
[2022-02-10] MEDS ORDERED: HUMULIN R100 UNIT/2 SC ×2 (16:18)
[2022-02-10] MEDS ORDERED: CEFP200 PO ×2 (16:18)
[2022-02-10] MEDS ORDERED: CEFTRIAXONE2 G1 IV ×2 (16:24)
--- NOTE | 2022-02-10 18:36 | NUR ---
SHIFT SUMMARY PT AxOx4. COOPERATIVE WITH CARE. PT HAD DRESSING CHANGE AND WOUND CARE COMPLETED TODAY ON RLE. PT DC COMPLETE FOR HIM TO DC TO HIS FRIEND'S HOME. PT GIVEN DC INSTRUCTIONS, INCLUDING FOLLOW UP APPOINTMENTS, DC MEDICATIONS, PATIENT EDUCATION, AND WOUND CARE ORDERS. PT VERBALIZES UNDERSTANDING. PT IS CURRENTLY RESTING IN BED WAITING FOR WHEEL CHAIR FROM [facility] SO HE CAN LEAVE. VERIFIED ORDER BY CONFERENCE SERVICES DIRECTOR. VITALS REVIEWED. PT MEDICATED FOR PAIN x2 TODAY. CURRENTLY DENIES ANY NEEDS. CALL LIGHT IN REACH.
--- NOTE | 2022-02-11 04:33 | NUR ---
AQUATIC ECOLOGIST SUMMARY WAS SCHEDULED TO BE DSICHARGED YESTERDAY, BUT AM RN VOICED HIS WHEELCHAIR HAD NOT BEEN DELIVERED AND PT HAS RIGHT LEG CELLULITIS AND CANNOT WALK. SO DISCHARGE WAS REARRANGED TO BE DISCHARGED TODAY INSTEAD. WILL BE OUT PT WOUND CARE. HAS BEEN RESTING QUIETLY WITH FEW INTERRUPTIONS OTHER THAN ASKING FOR PAIN MEDS AND SNACKS
--- NOTE | 2022-02-11 16:42 | NUR ---
DISCHARGE 1642 PATIENT WAS DUE TO DISCHARGE YESTERDAY, BUT HAD TO WAIT FOR HIS WC TO BE DELIVERED. TODAY, IT WAS AND HE WAS OFFICALLY DISCHARGED AT 0642. HE IS BEING PICKED UP BY A FRIEND, AFTER BEING WHEELED OUT BY [facility] STAFF. HIS IV WAS REMOVED YESTERDAY, AND HIS PAPERWORK, DISCHARGE INSTRUCTIONS AND EDUCATION WERE REVIEWED. HE IS AWARE OF [facility] BEING PREFERRED PHARMACY AND OF HIS PODIATRY APT TOMORROW. WOUND CARE ITEMS WERE SENT HOME WITH THE PATIENT.
== END 2022-02-11 16:44 | disposition home or self-care (01) | DRG 853 ==
LOC: ER 12:41 → PCU 18:18 → MEDS 02-05 05:52
PROVIDERS: Emergency Medicine; Family Medicine; Physician Assistant; Student in an Organized Health Care Education/Training Program; ADMIT Internal Medicine
PROC: 3E03329 Introduction of Other Anti-infective into Peripheral Vein, Percutaneous Approach (ICD-10-PCS; principal; 2022-02-01)
PROC: 0JBQ0ZZ Excision of Right Foot Subcutaneous Tissue and Fascia, Open Approach (ICD-10-PCS; 2022-02-02)
PROC: 0QBN0ZZ Excision of Right Metatarsal, Open Approach (ICD-10-PCS; 2022-02-02)
DX: A40.0 Sepsis due to streptococcus, group A (principal); G92.8 Other toxic encephalopathy; E87.1 Hypo-osmolality and hyponatremia; L03.115 Cellulitis of right lower limb; E87.2 Acidosis; A41.01 Sepsis due to Methicillin susceptible Staphylococcus aureus; Z66 Do not resuscitate; E11.621 Type 2 diabetes mellitus with foot ulcer; A40.1 Sepsis due to streptococcus, group B; R65.20 Severe sepsis without septic shock; L97.519 Non-pressure chronic ulcer of other part of right foot with unspecified severity; R74.02 Elevation of levels of lactic acid dehydrogenase [LDH]; E87.6 Hypokalemia; F15.10 Other stimulant abuse, uncomplicated; K59.03 Drug induced constipation; T43.625A Adverse effect of amphetamines, initial encounter; I10 Essential (primary) hypertension; E11.40 Type 2 diabetes mellitus with diabetic neuropathy, unspecified; L97.529 Non-pressure chronic ulcer of other part of left foot with unspecified severity; D64.9 Anemia, unspecified; E11.649 Type 2 diabetes mellitus with hypoglycemia without coma; E11.65 Type 2 diabetes mellitus with hyperglycemia; F17.210 Nicotine dependence, cigarettes, uncomplicated; Z79.84 Long term (current) use of oral hypoglycemic drugs; Z71.51 Drug abuse counseling and surveillance of drug abuser; Z88.0 Allergy status to penicillin; Z79.4 Long term (current) use of insulin; Z59.00 Homelessness unspecified; Z79.899 Other long term (current) drug therapy
CPT/HCPCS: 36415; 51702; 71045; 73620; 73701; 73718; 80048; 80053; 81001; 82010; 82803; 82947; 83036; 83605; 83690; 83735; 84132; 84550; 85025; 85651; 86140; 87040; 87070; 87075; 87077; 87086; 87147; 87186; 87205; 93306; 96361; 96365; 96366; 96367; 96368; 96375; 99285-25; A9270; C1751; J0692; J0696; J1650; J1815; J1885; J2405; J3370; J3480; J7030; J7050; J7060; J7120; Q9967

== ENCOUNTER 2022-02-12 03:38 | Day surgery (SDC) | payer OTHER ==
[~2022-02-12 03:38] MED LIST changes: +CEFP200 PO; +CEFTRIAXONE2 G1 IV; +GABA100 PO; +VISBIOME 112.51 EACH PO
== END 2022-02-12 10:25 | disposition home or self-care (01) ==
LOC: ATC 03:38
DX: L03.115 Cellulitis of right lower limb (principal); R78.81 Bacteremia; E11.40 Type 2 diabetes mellitus with diabetic neuropathy, unspecified; E11.65 Type 2 diabetes mellitus with hyperglycemia; I10 Essential (primary) hypertension; Z88.0 Allergy status to penicillin
CPT/HCPCS: 96372; J0696; J2001

== ENCOUNTER 2022-02-12 10:16 | Day surgery (SDC) | payer OTHER | END 2022-02-12 23:59 | disposition home or self-care (01) | LOC: WOUND 10:16 | DX: E11.621 Type 2 diabetes mellitus with foot ulcer (principal); L97.512 Non-pressure chronic ulcer of other part of right foot with fat layer exposed; E11.622 Type 2 diabetes mellitus with other skin ulcer; L89.152 Pressure ulcer of sacral region, stage 2; L89.312 Pressure ulcer of right buttock, stage 2; L03.115 Cellulitis of right lower limb; F15.10 Other stimulant abuse, uncomplicated; Z88.0 Allergy status to penicillin; F17.210 Nicotine dependence, cigarettes, uncomplicated; I10 Essential (primary) hypertension; Z59.00 Homelessness unspecified; Z79.899 Other long term (current) drug therapy; Z79.4 Long term (current) use of insulin | CPT/HCPCS: 99281; 99406; G0463 ==

== ENCOUNTER → 2022-02-18 | Day surgery (SDC) | payer OTHER | LOC: WOUND 03:33 | DX: L89.312 Pressure ulcer of right buttock, stage 2 (principal); L89.152 Pressure ulcer of sacral region, stage 2; E11.621 Type 2 diabetes mellitus with foot ulcer; L97.519 Non-pressure chronic ulcer of other part of right foot with unspecified severity; L03.115 Cellulitis of right lower limb; F15.10 Other stimulant abuse, uncomplicated; Z72.0 Tobacco use; R77.0 Abnormality of albumin; E11.65 Type 2 diabetes mellitus with hyperglycemia; D50.9 Iron deficiency anemia, unspecified; E11.610 Type 2 diabetes mellitus with diabetic neuropathic arthropathy | CPT/HCPCS: 99406; A9270; G0463 ==

== ENCOUNTER 2022-02-27 01:46 | Day surgery (SDC) | payer OTHER | END 2022-02-27 10:14 | disposition home or self-care (01) | LOC: ATC 01:46 | DX: E11.622 Type 2 diabetes mellitus with other skin ulcer (principal); L97.929 Non-pressure chronic ulcer of unspecified part of left lower leg with unspecified severity; Z87.891 Personal history of nicotine dependence; Z79.4 Long term (current) use of insulin; Z79.899 Other long term (current) drug therapy | CPT/HCPCS: 96372; J0696; J2001 ==

== ENCOUNTER 2022-02-28 01:00 | Day surgery (SDC) | payer OTHER | END 2022-02-28 09:07 | disposition home or self-care (01) | LOC: ATC 01:00 | DX: E11.622 Type 2 diabetes mellitus with other skin ulcer (principal); L97.929 Non-pressure chronic ulcer of unspecified part of left lower leg with unspecified severity; Z87.891 Personal history of nicotine dependence; Z79.4 Long term (current) use of insulin; Z79.899 Other long term (current) drug therapy | CPT/HCPCS: 96372; J0696; J2001 ==

== ENCOUNTER 2022-03-01 14:58 | Day surgery (SDC) | payer OTHER | END 2022-03-01 15:20 | disposition home or self-care (01) | LOC: ATC 14:58 | DX: E11.622 Type 2 diabetes mellitus with other skin ulcer (principal); L97.929 Non-pressure chronic ulcer of unspecified part of left lower leg with unspecified severity; I10 Essential (primary) hypertension; E11.40 Type 2 diabetes mellitus with diabetic neuropathy, unspecified; Z88.0 Allergy status to penicillin; Z79.4 Long term (current) use of insulin; F15.10 Other stimulant abuse, uncomplicated | CPT/HCPCS: 96372; J0696; J2001 ==

== ENCOUNTER 2022-03-02 04:09 | Day surgery (SDC) | payer OTHER | END 2022-03-03 23:20 | disposition home or self-care (01) | LOC: ATC 04:09 | DX: E11.622 Type 2 diabetes mellitus with other skin ulcer (principal); L97.929 Non-pressure chronic ulcer of unspecified part of left lower leg with unspecified severity; I10 Essential (primary) hypertension; E11.40 Type 2 diabetes mellitus with diabetic neuropathy, unspecified; Z88.0 Allergy status to penicillin; Z79.4 Long term (current) use of insulin; Z79.84 Long term (current) use of oral hypoglycemic drugs | CPT/HCPCS: J0696; J2001 ==

== ENCOUNTER 2022-03-03 01:41 | Day surgery (SDC) | payer OTHER | END 2022-03-03 09:37 | disposition home or self-care (01) | LOC: ATC 01:41 | DX: E11.622 Type 2 diabetes mellitus with other skin ulcer (principal); L97.929 Non-pressure chronic ulcer of unspecified part of left lower leg with unspecified severity; I10 Essential (primary) hypertension; E11.40 Type 2 diabetes mellitus with diabetic neuropathy, unspecified; Z88.0 Allergy status to penicillin | CPT/HCPCS: 96372; J0696; J0713; J2001 ==

== ENCOUNTER 2022-03-04 00:14 | Day surgery (SDC) | payer OTHER | END 2022-03-04 11:19 | disposition home or self-care (01) | LOC: ATC 00:14 | DX: E11.622 Type 2 diabetes mellitus with other skin ulcer (principal); L97.929 Non-pressure chronic ulcer of unspecified part of left lower leg with unspecified severity; I10 Essential (primary) hypertension; Z88.0 Allergy status to penicillin; Z79.4 Long term (current) use of insulin; L03.115 Cellulitis of right lower limb; L97.512 Non-pressure chronic ulcer of other part of right foot with fat layer exposed; F15.10 Other stimulant abuse, uncomplicated; L89.152 Pressure ulcer of sacral region, stage 2; L89.312 Pressure ulcer of right buttock, stage 2; R77.0 Abnormality of albumin; Z72.0 Tobacco use; E11.65 Type 2 diabetes mellitus with hyperglycemia; D50.9 Iron deficiency anemia, unspecified; E11.610 Type 2 diabetes mellitus with diabetic neuropathic arthropathy; L97.529 Non-pressure chronic ulcer of other part of left foot with unspecified severity | CPT/HCPCS: 96372; 99406; A9270; G0463; J0696; J2001 ==

== ENCOUNTER 2022-03-04 01:09 | Day surgery (SDC) | payer OTHER | END 2022-03-05 00:09 | disposition home or self-care (01) | LOC: WOUND 01:09 | DX: L03.115 Cellulitis of right lower limb (principal); L97.512 Non-pressure chronic ulcer of other part of right foot with fat layer exposed; E11.621 Type 2 diabetes mellitus with foot ulcer; F15.10 Other stimulant abuse, uncomplicated; Z72.0 Tobacco use; L89.152 Pressure ulcer of sacral region, stage 2; L89.312 Pressure ulcer of right buttock, stage 2; R77.0 Abnormality of albumin; E11.65 Type 2 diabetes mellitus with hyperglycemia; D50.9 Iron deficiency anemia, unspecified; E11.610 Type 2 diabetes mellitus with diabetic neuropathic arthropathy; L97.529 Non-pressure chronic ulcer of other part of left foot with unspecified severity | CPT/HCPCS: 99406; A9270; G0463 ==

== ENCOUNTER 2022-03-10 10:25 | Day surgery (SDC) | payer OTHER | END 2022-03-10 23:51 | disposition home or self-care (01) | LOC: WOUND 10:25 | DX: E11.621 Type 2 diabetes mellitus with foot ulcer (principal); L97.512 Non-pressure chronic ulcer of other part of right foot with fat layer exposed; E11.622 Type 2 diabetes mellitus with other skin ulcer; L97.312 Non-pressure chronic ulcer of right ankle with fat layer exposed; E11.65 Type 2 diabetes mellitus with hyperglycemia; F15.10 Other stimulant abuse, uncomplicated; D50.9 Iron deficiency anemia, unspecified; E11.610 Type 2 diabetes mellitus with diabetic neuropathic arthropathy; Z72.0 Tobacco use | CPT/HCPCS: 99406; A9270; G0463 ==

== ENCOUNTER 2022-03-20 13:31 | Emergency (ER) | payer OTHER ==
[~2022-03-20] VITALS: Ht 177.8 cm; Wt 72.6 kg
[2022-03-20] MEDS ORDERED: DOXY100 PO (17:33)
== END 2022-03-20 18:21 | disposition home or self-care (01) ==
LOC: ER 13:31
DX: L03.115 Cellulitis of right lower limb (principal); E11.9 Type 2 diabetes mellitus without complications; F17.210 Nicotine dependence, cigarettes, uncomplicated; Z79.4 Long term (current) use of insulin; Z88.0 Allergy status to penicillin
CPT/HCPCS: 73630; 96372; 99283-25; A9270; J1885

== ENCOUNTER 2022-04-04 23:06 | Inpatient (IN) | payer OTHER ==
[~2022-04-04] VITALS: Ht 177.8 cm; Wt 73.8 kg
[~2022-04-04 23:06] MED LIST changes: +DOXY100 PO
[2022-04-04 23:28] LABS: BASOPHILS ABSOLUTE AUTO 0.03 K/mm3 (0.00-0.23); BASOPHILS PERCENT AUTO 0 % (0-2); EOSINOPHILS ABSOLUTE AUTO 0.11 K/mm3 (0.00-0.68); EOSINOPHILS PERCENT AUTO 1 % (0-6); Hematocrit 29.4 % (37.0-53.0); Hemoglobin 10.1 g/dL (13.5-17.5); IMMATURE GRAN ABSOLUTE AUTO 0.04 K/mm3 (0.00-0.10); IMMATURE GRAN PERCENT AUTO 0 % (0-1); LYMPHOCYTES ABSOLUTE AUTO 0.77 K/mm3 (0.84-5.20); LYMPHOCYTES PERCENT AUTO 8 % (21-46); MONOCYTES ABSOLUTE AUTO 0.46 K/mm3 (0.16-1.47); MONOCYTES PERCENT AUTO 5 % (4-13); Mean Corpuscular HGB 28.6 pg (26.0-34.0); Mean Corpuscular HGB Conc 34.4 g/dL (31.5-36.5); Mean Corpuscular Volume 83 fL (80-100); Mean Platelet Volume 8.8 fL (9.1-12.4); NEUTROPHILS ABSOLUTE AUTO 7.89 K/mm3 (1.96-9.15); NEUTROPHILS PERCENT AUTO 85 % (41-73); Platelet Count 280 K/mm3 (150-400); RDW Coefficient Variation 13.7 % (11.7-14.2); RDW Standard Deviation 41.5 fL (35.1-46.3); Red Blood Cell Count 3.53 M/mm3 (4.30-5.90)
[2022-04-04 23:49] LABS: Albumin, Blood 3.5 g/dL (3.4-5.0); Albumin/Globulin Ratio 0.9 (0.8-1.8); Bilirubin, Total 0.4 mg/dL (0.1-1.0); Bun/Creatinine Ratio 14.5 (12.0-20.0); Creatinine, Blood 0.69 mg/dL (0.60-1.20); Globulin, Blood 3.9 g/dL (2.2-4.0); Potassium, Blood 2.6 mmol/L (3.5-5.5); Total Protein, Blood 7.4 g/dL (6.4-8.2)
[2022-04-05 00:07] LABS: C-REACTIVE PROTEIN, EXT RANGE 1.69 mg/dL (0.000-0.300)
[2022-04-05 05:17] LABS: BASOPHILS ABSOLUTE AUTO 0.03 K/mm3 (0.00-0.23); BASOPHILS PERCENT AUTO 0 % (0-2); EOSINOPHILS ABSOLUTE AUTO 0.16 K/mm3 (0.00-0.68); EOSINOPHILS PERCENT AUTO 2 % (0-6); Hematocrit 28.3 % (37.0-53.0); Hemoglobin 9.9 g/dL (13.5-17.5); IMMATURE GRAN ABSOLUTE AUTO 0.03 K/mm3 (0.00-0.10); IMMATURE GRAN PERCENT AUTO 0 % (0-1); LYMPHOCYTES ABSOLUTE AUTO 1.27 K/mm3 (0.84-5.20); LYMPHOCYTES PERCENT AUTO 18 % (21-46); MONOCYTES ABSOLUTE AUTO 0.49 K/mm3 (0.16-1.47); MONOCYTES PERCENT AUTO 7 % (4-13); Mean Corpuscular Volume 83 fL (80-100); Mean Platelet Volume 9.3 fL (9.1-12.4); NEUTROPHILS ABSOLUTE AUTO 5.24 K/mm3 (1.96-9.15); NEUTROPHILS PERCENT AUTO 73 % (41-73); Platelet Count 251 K/mm3 (150-400); RDW Coefficient Variation 13.8 % (11.7-14.2); RDW Standard Deviation 41.1 fL (35.1-46.3); Red Blood Cell Count 3.41 M/mm3 (4.30-5.90); White Blood Cell Count 7.22 K/mm3 (4.00-11.30)
[2022-04-05 05:39] LABS: Bun/Creatinine Ratio 12.4 (12.0-20.0); Calcium, Blood 8.7 mg/dL (8.5-10.1); Creatinine, Blood 0.64 mg/dL (0.60-1.20); Potassium, Blood 2.9 mmol/L (3.5-5.5)
--- NOTE | 2022-04-05 06:30 | NUR ---
SHIFT SUMMARY PT ARRIVED TO THE UNIT FROM THE ER AT 0335 WITH A DIABETIC FOOT ULCER WITH POSSIBLE OSTEOMYLITIS. A PODEITRY CONSULT WAS PUT INTO DR. CLINE'S ANSWERING SERVICE. PT IS AOX4, PLEASANT AND COOPERATIVE WITH CARE. PT HAS SKIN BREAKDOWN ON BOTH FEET, NEUROPATHY AND DM2. IN THE ER PT HAD A POTASSIUM OF 2.6, HE RECIEVED PO POTASSIUM IN THE ER AND HIS MOST RECENT LAB HERE WAS 2.9. PT IS ON MULTIPLE IV ANTIBIOTICS AND ONLY HAS 1 IV ACCESS DUE TO HAVING DIFFICULT VEINS.
--- NOTE | 2022-04-05 11:10 | NUR ---
DR CLINE ROUNDED, REPORTED NO BONE INVOLVEMENT AND NO NEED FOR SURGERY, DR WANTS PATIENT TO FOLLOW UP WITH HIM. PATIENT PLEASANT TO CARE, DENIES PAIN, DR SMITH ROUNDED EARLIER THIS AM SS INSULIN STARTED, CALL LIGHT WITH IN REACH, WCTM
--- NOTE | 2022-04-05 18:31 | NUR ---
ALERT, MORE ORIENTED TO SELF, STAFF, THING, PLACE. SLOW STAND BY GAIT FOR TRANSFERS. DR CLINE ROUNDED AND REPORTED NO BONE INVOLVEMENT IN JAMES FEET, MESSAGE LEFT WITH [employer] FOR HOME FACILILTY, PATIENT IN HOMELESS. VSS, LS CLEAR, SHALLOW CLEAR RESPIRATIONS, CLEARS CONGESTION WITH COUGH. ACTIVE BT, GOOD APPETITE, VOIDING PER BRP OR BSU. JAMES FEET WOUNDS DRAINING, ELEVATED ON CHUCKS, AREA CLEAN AND REDDEND, IV ANTIBIOTICS INFUSING. CALL LIGHT WITH IN REACH, WCTM
--- NOTE | 2022-04-05 19:30 | NUR ---
RECEIVED BEDSIDE REPORT FROM DAY SHIFT RN. PICTURES TAKEN OF PT'S BILAT FEET WOUNDS, PERMISSION TO PHOTOGRAPH GIVEN BY PT. A/O. ON RA. PLEASANT AND COOPERATIVE WITH CARE. WILL CONTINUE TO PROVIDE CARE T/O SHIFT. CALL LT IN REACH.
--- NOTE | 2022-04-05 20:23 | NUR ---
NOTIFIED HOSPITALIST PT NOT TOLERATING IV POTASSIUM. ORDER GIVEN TO DC IV POTASSIUM AND TO GIVE PO KCL 40 MEQ X 1 NOW AND THREE HOURS LATER GIVE A SECOND DOSE OF PO KCL 40 MEQ X 1.
--- NOTE | 2022-04-05 20:45 | NUR ---
WOUND CLEANSER APPLIED TO BILAT FOOT ULCERS AND DRIED WITH 4X4 GAUZE PADS, MEPILEX PADS AND FOAM BANDAGES PLACED, DRESSINGS TO R FOOT SECURED WITH ANTHONY BANDAGE.
--- NOTE | 2022-04-05 21:49 | NUR ---
PT RESTING QUIETLY, LYING ON LEFT SIDE. CALL LT IN REACH.
--- NOTE | 2022-04-05 22:08 | NUR ---
PT WOKE UP AND ASKED FOR A SNACK. NO OTHER NEEDS. CALL LT IN REACH.
--- NOTE | 2022-04-06 00:37 | NUR ---
ABX HUNG, NICOTINE GUM GIVEN TO PT. VOIDING WELL. NO OTHER NEEDS AT THIS TIME. CALL LT IN REACH.
--- NOTE | 2022-04-06 01:58 | NUR ---
PT RESTING QUIETLY. CALL LT IN REACH.
--- NOTE | 2022-04-06 02:03 | NUR ---
SNACK GIVEN TO PT.
[2022-04-06 02:12] LABS: BASOPHILS ABSOLUTE AUTO 0.04 K/mm3 (0.00-0.23); BASOPHILS PERCENT AUTO 1 % (0-2); EOSINOPHILS ABSOLUTE AUTO 0.17 K/mm3 (0.00-0.68); EOSINOPHILS PERCENT AUTO 4 % (0-6); Hemoglobin 9.6 g/dL (13.5-17.5); IMMATURE GRAN ABSOLUTE AUTO 0.01 K/mm3 (0.00-0.10); IMMATURE GRAN PERCENT AUTO 0 % (0-1); LYMPHOCYTES PERCENT AUTO 32 % (21-46); MONOCYTES ABSOLUTE AUTO 0.38 K/mm3 (0.16-1.47); MONOCYTES PERCENT AUTO 9 % (4-13); Mean Corpuscular HGB 28.7 pg (26.0-34.0); Mean Corpuscular HGB Conc 34.3 g/dL (31.5-36.5); Mean Corpuscular Volume 84 fL (80-100); Mean Platelet Volume 9.3 fL (9.1-12.4); NEUTROPHILS ABSOLUTE AUTO 2.44 K/mm3 (1.96-9.15); NEUTROPHILS PERCENT AUTO 55 % (41-73); Platelet Count 244 K/mm3 (150-400); RDW Coefficient Variation 13.8 % (11.7-14.2); Red Blood Cell Count 3.34 M/mm3 (4.30-5.90); White Blood Cell Count 4.44 K/mm3 (4.00-11.30)
[2022-04-06 03:00] LABS: Vancomycin, Trough 8.7 ug/mL (5.0-10.0)
[2022-04-06 03:53] LABS: Albumin, Blood 2.9 g/dL (3.4-5.0); Anion Gap 6 mmol/L (6-16); Blood Urea Nitrogen 11 mg/dL (8-24); Bun/Creatinine Ratio 15.8 (12.0-20.0); CO2, Blood 26 mmol/L (21-32); Calcium, Blood 8.8 mg/dL (8.5-10.1); Chloride, Blood 104 mmol/L (98-108); Glomerular Filtration Rate 109 (60-); Glucose, Blood 268 mg/dL (70-99); Magnesium, Blood 1.7 mg/dL (1.6-2.4); Phosphorus, Blood 3.5 mg/dL (2.5-4.9); Potassium, Blood 3.6 mmol/L (3.5-5.5); Sodium, Blood 136 mmol/L (136-145)
--- NOTE | 2022-04-06 04:12 | NUR ---
SHIFT SUMMARY: ALERT. ON RA. RESP E/U. USING URINAL AT BEDSIDE AND VOIDING WELL. RECEIVED RADHA ABX. PICS TAKEN OF BILAT FOOT WOUNDS AND PLACED IN CHART. WOUND CARE AND DRESSINGS PROVIDE TO BOTH FEET. R FOOT WRAPPED IN ANTHONY BANDAGE. PT PREFERS THE NICOTINE GUM REPLACEMENT WHILE IN HOSPITAL. REFUSES NICOTINE PATCH. PT EATING AND DRINKING FLUIDS WELL. NO ACUTE CHANGES. WILL CONTINUE TO PROVIDE CARE UNTIL SHIFT REPORT.
--- NOTE | 2022-04-06 04:15 | NUR ---
VANCO INFUSING. PT RESTING QUIETLY. NO NEEDS AT THIS TIME. CALL LT IN REACH.
--- NOTE | 2022-04-06 09:34 | NUR ---
WOUND CONSULT- MULTIPLE CALLS MADE FOR WOUND CARE CONSULT TO [phone] AND [phone]. [id number] IS CONSTANTLY BUSY AND [id number] IS DISCONNECTED. REPORTED TO SALES TRAINEE DYANI, WILL TRY CALLING AGAIN
--- NOTE | 2022-04-06 17:41 | NUR ---
MAKES NEEDS KNOWN, RESTING THROUGH OUT DAY, WAKES EASILY, USES CALL LIGHT, ALERT AND ORIENTED, INDEPENDENT TO BR OR BSU. LS CLEAR THROUGH OUT, ACTIVE BT, [place] N/V, [place] CP, VSS. ANTIBIOTIC CHANGES TODAY. RIGHT FOOT DRESSING WRAP INTACT. CALL LIGHT WITH IN REACH, NO ACUTE CHANGES, WCTM
--- NOTE | 2022-04-06 19:29 | NUR ---
RECEIVED REPORT FROM DAY SHIFT RN. PT SLEEPING AT THIS TIME. NO NEEDS. WILL PROVIDE CARE T/O SHIFT. CALL LT IN REACH.
--- NOTE | 2022-04-06 19:45 | NUR ---
PT EMOTIONAL WHEN IV DRESSING CHANGED, STATES, IT HURTS SO BAD, IT'S PULLING THE HAIR ON MY ARM, I WANT TO GO HOME. EXPLAINED TO PT THAT THIS NURSE WAS TRYING TO SAVE HIS IV AND WE MIGHT NOT NEED TO PUT ANOTHER IV IN BY CHANGING THE DRESSING. SNACK BROUGHT INTO PT WHICH HELPED HIS MOOD. CLEANSED WOUND AND LET IT AIR DRY FOR A WHILE. WILL PUT ON NEW DRESSINGS LATER. NO OTHER NEEDS. CALL LT IN REACH.
--- NOTE | 2022-04-06 20:45 | NUR ---
NEW DRESSING PLACED ON ULCER OF RIGHT FOOT AND WRAPPED WITH ANTHONY BANDAGE. ELEVATED RIGHT LEG ON PILLOW. NO OTHER NEEDS. CALL LT IN REACH.
--- NOTE | 2022-04-06 22:06 | NUR ---
PT RESTING QUIETLY. NO NEEDS AT THIS TIME. CALL LT IN REACH.
--- NOTE | 2022-04-06 23:40 | NUR ---
IV ABX INFUSING. PT LYING IN BED WITH EYES CLOSED, RESTING. CALL LT IN REACH.
--- NOTE | 2022-04-07 02:32 | NUR ---
PT RESTING QUIETLY. CALL LT IN REACH.
--- NOTE | 2022-04-07 04:23 | NUR ---
SHIFT SUMMARY: NO ACUTE CHANGES. ON RA. EMOTIONAL AT TIMES. WOUND CARE GIVEN FOR RIGHT FOOT, RIGHT FOOT WOUNDS CLEANSED AND NEW DRESSINGS APPLIED. RIGHT FOOT ELEVATED ON PILLOW. APPETITE GOOD. ORAL INTAKE OF FLUIDS GOOD. PT STATES HE'S READY TO GO HOME AND HOPES TO SOON. RADHA ABX GIVEN. WILL CONTINUE TO PROVIDE CARE UNTIL SHIFT REPORT.
--- NOTE | 2022-04-07 06:11 | NUR ---
PT RESTING WELL. CALL LT IN REACH.
[2022-04-07 08:32] LABS: Hematocrit 31.5 % (37.0-53.0); Hemoglobin 10.7 g/dL (13.5-17.5); Mean Corpuscular HGB 28.8 pg (26.0-34.0); Mean Corpuscular Volume 85 fL (80-100); Mean Platelet Volume 9.2 fL (9.1-12.4); Platelet Count 242 K/mm3 (150-400); RDW Coefficient Variation 13.9 % (11.7-14.2); RDW Standard Deviation 41.9 fL (35.1-46.3); Red Blood Cell Count 3.72 M/mm3 (4.30-5.90); White Blood Cell Count 5.22 K/mm3 (4.00-11.30)
[2022-04-07 08:52] LABS: Bun/Creatinine Ratio 21.2 (12.0-20.0); Calcium, Blood 9.3 mg/dL (8.5-10.1); Creatinine, Blood 0.66 mg/dL (0.60-1.20); Percent Saturation 20.4 % (20.0-50.0); Potassium, Blood 3.8 mmol/L (3.5-5.5)
--- NOTE | 2022-04-07 16:49 | NUR ---
PATIENT A/OX4, UNCOOPERATIVE AT TIMES WITH CARE. TEARFUL FOR A LOT OF THIS SHIFT DUE TO LAB DRAWS, IV STARTS, AND DIET ORDERED. ACHS BLOOD SUGARS, COVERAGE PER SLIDING SCALE. PATIENT EATING ALL OF HIS MEALS AND HAS BEEN GIVEN FREQUENT SNACKS AND STILL FEELS HUNGRY ALL THE TIME AND STATES "YOU GUYS ARE STARVING ME." EDUCATED PATIENT ABOUT AN ADA DIET AND THE IMPORTANCE OF CONTROLLING BLOOD SUGARS FOR THE HEALING PROCESS. DRESSINGS REMAIN C/D/I TO FEET. WOUND CARE CONSULT ORDERED. 22G IV TO R AC WNL, RECEIVING CEFEPIME TO TREAT INFECTION. VSS, ON RA. CONTINENT OF BOWEL/BLADDER. REPORTS NUMBNESS FROM THE ANKLE DOWN WHICH IS BASELINE.
--- NOTE | 2022-04-08 00:17 | NUR ---
SI THOUGHTS/PHYSICIAN COMMUNICATION DURING THIS EVENINGS ASSESSMENT PT VERY TEARFUL & EMOTIONAL. ASKED PT IF HE WAS FEELING DEPRESSED & HE STATED YES. PT ALSO STATED "IF I WAS IN MY CAR I WOULD JUST WANT TO SHOOT MYSELF," ASKED PT IF HE HAD ANY CURRENT THOUGHTS OR SI PLANS, PT DENIED ANY WHILE BEING IN THE HOSPITAL. ASKED HOW HE ISH c DEPRESSION & HE REFUSED THE IDEA OF MEDICATION. STATED HES JUST LIKE TO GO IN HIS TENT & IS A DAILY METH USER & HASNT USED IN 4 DAYS. 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 USED THERAPEUTIC LISTENING. INFORMED DR HYDE OF PTS THOUGHTS & HOW IT MAY BE RELATED TO PT NOT HAVING ANY DRUGS IN 4 DAYS. SHELBI ASKED FOR PT TO BE REASSESSED IN AM. WILL MONITOR PT CLOSELY.
--- NOTE | 2022-04-08 04:19 | NUR ---
SHIFT SUMMARY AOX3. TEARFUL, EMOTIONAL, DEPRESSED, READ PREVIOUS NOTE. DENIES N/V, DYSPNEA. REPORTS CHRONIC NEUROPATHY PAIN IN BLE, DENIES NEED FOR MEDICATION. VSS. CLEANSED & CHANGED BANDAGES ON R FOOT WOUNDS, SMALL AMOUNT PURULENT FOUL SMELLING DRAINAGE ON OLD BANDAGE. IND c URINAL. CALL LIGHT IN REACH & PT ABLE TO MAKE NEEDS KNOWN. WILL MONITOR.
--- NOTE | 2022-04-08 08:30 | NUR ---
PATIENT DENIES OF HAVING SI AT THIS TIME. PATIENT REPORT HE HAD IV INSERTION YESTERDAY THAT WAS REALLY PAINFUL. PATIENT STATES,"THE PAIN WAS UNBEARABLE AND I JUST WANT TO GO AND BE DONE WITH IT. THAT WAS LAST NIGHT AND I'M GOOD NOW". PATIENT DENIES OF HAVING PAIN ON IV INSERTION SITE. PATIENT REQUESTED TO BE DISCHARGE TODAY. DR SMITH IS AWARE OF THIS REQUEST. AWAITING FOR THE WOUND CONSULT.
--- NOTE | 2022-04-08 14:33 | NUR ---
Pt screaming and crying loudly into the hallway that hes being neglected and starved. Repeatedly. other pt family members and M.D. present dealing w actual emergencies. Continued yelling so went fast as possibly to see whats the cause. Pt started cryng saying he hasnt eaten yet today and when i reminded him he just finished lunch and snacks, he changed it to "my bandaid is loose and its an emergency." Bandaid on leg is placed and stuck well. NOT LOOSE. I comforted and reminded to call for help w issues, screaming "neglect" for extra snacks is innapropriate... but were doing our best to make you feel ok .
[2022-04-08] MEDS ORDERED: DOXY100 PO (14:57)
--- NOTE | 2022-04-08 15:51 | NUR ---
DISCHARGE SUMMARY: PATIENT D/C HOME VIA WHEELCHAIR VAN. PATIENT RIDE WAS ARRANGED BY D/C MARINE WELDER. DISCHARGED INSTRUCTION PACKET GIVEN TO PATIENT. [facility]. RX VOUCHER WAS GIVEN TO CIVIL ENGINEER. EDUCATE PATIENT WITH NEW RX MEDS SIDE EFFECTS. INSTRUCT PATIENT TO TAKE MEDICATION DIRECTED AND FINISHED INDICATED TIME FRAME. PATIENT WAS ANXIOUS AND EAGER TO GO HOME.
== END 2022-04-08 15:50 | disposition home or self-care (01) | DRG 603 ==
LOC: ER 23:06 → MEDS 23:07
PROVIDERS: Emergency Medicine; Internal Medicine; Student in an Organized Health Care Education/Training Program; ADMIT Family Medicine
DX: L03.115 Cellulitis of right lower limb (principal); I10 Essential (primary) hypertension; E87.6 Hypokalemia; E83.42 Hypomagnesemia; F17.210 Nicotine dependence, cigarettes, uncomplicated; D64.9 Anemia, unspecified; F15.10 Other stimulant abuse, uncomplicated; F12.10 Cannabis abuse, uncomplicated; F32.A Depression, unspecified; L97.519 Non-pressure chronic ulcer of other part of right foot with unspecified severity; F19.10 Other psychoactive substance abuse, uncomplicated; F10.10 Alcohol abuse, uncomplicated; E11.621 Type 2 diabetes mellitus with foot ulcer; Z88.0 Allergy status to penicillin; Z59.00 Homelessness unspecified; Z79.899 Other long term (current) drug therapy; Z79.811 Long term (current) use of aromatase inhibitors; Z79.4 Long term (current) use of insulin; Z79.2 Long term (current) use of antibiotics
CPT/HCPCS: 36415; 73620; 80048; 80053; 80069; 80202; 82728; 82947; 83036; 83540; 83550; 83605; 83735; 85025; 85027; 85651; 86140; 87040; 94760; 96365; 96366; 96367; 96372; 99285-25; A9270; G0378; J0692; J0696; J1650; J1815; J3370; J3475; J3480; J7050

== ENCOUNTER 2022-04-15 19:37 | Emergency (ER) | payer OTHER ==
[~2022-04-15] VITALS: Ht 177.8 cm; Wt 70.3 kg
[2022-04-15 20:12] LABS: BASOPHILS ABSOLUTE AUTO 0.04 K/mm3 (0.00-0.23); BASOPHILS PERCENT AUTO 1 % (0-2); EOSINOPHILS ABSOLUTE AUTO 0.05 K/mm3 (0.00-0.68); EOSINOPHILS PERCENT AUTO 1 % (0-6); Hematocrit 33.3 % (37.0-53.0); Hemoglobin 11.6 g/dL (13.5-17.5); IMMATURE GRAN ABSOLUTE AUTO 0.01 K/mm3 (0.00-0.10); IMMATURE GRAN PERCENT AUTO 0 % (0-1); LYMPHOCYTES ABSOLUTE AUTO 1.59 K/mm3 (0.84-5.20); LYMPHOCYTES PERCENT AUTO 24 % (21-46); MONOCYTES ABSOLUTE AUTO 0.29 K/mm3 (0.16-1.47); MONOCYTES PERCENT AUTO 4 % (4-13); Mean Corpuscular HGB 28.8 pg (26.0-34.0); Mean Corpuscular HGB Conc 34.8 g/dL (31.5-36.5); Mean Corpuscular Volume 83 fL (80-100); Mean Platelet Volume 9.2 fL (9.1-12.4); NEUTROPHILS ABSOLUTE AUTO 4.77 K/mm3 (1.96-9.15); NEUTROPHILS PERCENT AUTO 71 % (41-73); Platelet Count 291 K/mm3 (150-400); RDW Coefficient Variation 14.1 % (11.7-14.2); RDW Standard Deviation 42.6 fL (35.1-46.3); Red Blood Cell Count 4.03 M/mm3 (4.30-5.90); White Blood Cell Count 6.75 K/mm3 (4.00-11.30)
[2022-04-15 20:31] LABS: Albumin, Blood 3.7 g/dL (3.4-5.0); Albumin/Globulin Ratio 0.9 (0.8-1.8); Bilirubin, Total 0.3 mg/dL (0.1-1.0); Calcium, Blood 8.8 mg/dL (8.5-10.1); Creatinine, Blood 0.59 mg/dL (0.60-1.20); Globulin, Blood 4.3 g/dL (2.2-4.0); Potassium, Blood 3.2 mmol/L (3.5-5.5)
[2022-04-15] MEDS ORDERED: Mupirocin22 GM TOP (23:46)
== END 2022-04-16 00:18 | disposition home or self-care (01) ==
LOC: ER 19:37
PROVIDERS: Physician Assistant
DX: E11.621 Type 2 diabetes mellitus with foot ulcer (principal); I10 Essential (primary) hypertension; Z79.899 Other long term (current) drug therapy; Z79.4 Long term (current) use of insulin; Z88.0 Allergy status to penicillin
CPT/HCPCS: 36415; 73630; 80053; 85025; 85651; 99283-25

== ENCOUNTER → 2022-05-22 | Outpatient (CLI) | payer OTHER ==
[~2022-05-22] MED LIST changes: +Mupirocin22 GM TOP
[2022-05-22 15:18] LABS: BASOPHILS ABSOLUTE AUTO 0.05 K/mm3 (0.00-0.23); BASOPHILS PERCENT AUTO 0 % (0-2); EOSINOPHILS ABSOLUTE AUTO 0.04 K/mm3 (0.00-0.68); EOSINOPHILS PERCENT AUTO 0 % (0-6); Hematocrit 35.9 % (37.0-53.0); Hemoglobin 12.3 g/dL (13.5-17.5); IMMATURE GRAN ABSOLUTE AUTO 0.05 K/mm3 (0.00-0.10); IMMATURE GRAN PERCENT AUTO 0 % (0-1); LYMPHOCYTES ABSOLUTE AUTO 1.54 K/mm3 (0.84-5.20); LYMPHOCYTES PERCENT AUTO 13 % (21-46); MONOCYTES ABSOLUTE AUTO 0.88 K/mm3 (0.16-1.47); MONOCYTES PERCENT AUTO 7 % (4-13); Mean Corpuscular HGB 28.7 pg (26.0-34.0); Mean Corpuscular HGB Conc 34.3 g/dL (31.5-36.5); Mean Corpuscular Volume 84 fL (80-100); Mean Platelet Volume 9.6 fL (9.1-12.4); NEUTROPHILS ABSOLUTE AUTO 9.48 K/mm3 (1.96-9.15); NEUTROPHILS PERCENT AUTO 79 % (41-73); Platelet Count 226 K/mm3 (150-400); RDW Coefficient Variation 14.2 % (11.7-14.2); RDW Standard Deviation 43.3 fL (35.1-46.3); Red Blood Cell Count 4.29 M/mm3 (4.30-5.90); White Blood Cell Count 12.04 K/mm3 (4.00-11.30)
[2022-05-22 15:22] LABS: Bun/Creatinine Ratio 25.7 (12.0-20.0); Calcium, Blood 9.5 mg/dL (8.5-10.1); Creatinine, Blood 1.05 mg/dL (0.60-1.20); Potassium, Blood 3.7 mmol/L (3.5-5.5)
== END | disposition home or self-care (01) ==
LOC: LAB SHORT 15:13 → LAB 15:13
PROVIDERS: Physician Assistant Surgical
DX: R50.9 Fever, unspecified (principal)
CPT/HCPCS: 80048; 85025; 87040

== ENCOUNTER 2022-09-11 17:45 | Emergency (ER) | payer OTHER ==
[~2022-09-11] VITALS: Ht 177.8 cm; Wt 81.7 kg
[~2022-09-11 17:45] MED LIST changes: +Glucophage 850850 MG PO; +HUMALOG KW100 UNIT/1 SC; +INSULIN GL100 UNIT/1 SC; -INSULIN GL100 UNIT/1 SQ; +MIRT30 PO; +NEURONTIN300 MG PO; -REMERON30 M6 PO
== END 2022-09-11 21:09 | disposition left against medical advice (07) ==
LOC: ER 17:45
DX: M79.674 Pain in right toe(s) (principal); Z53.21 Procedure and treatment not carried out due to patient leaving prior to being seen by health care provider
CPT/HCPCS: 73630; 99282-25

== ENCOUNTER 2022-09-13 11:06 | Inpatient (IN) | payer OTHER ==
[~2022-09-13] VITALS: Ht 180.3 cm; Wt 77.0 kg
[2022-09-13 12:11] LABS: BASOPHILS ABSOLUTE AUTO 0.02 K/mm3 (0.00-0.23); BASOPHILS PERCENT AUTO 0 % (0-2); EOSINOPHILS ABSOLUTE AUTO 0.07 K/mm3 (0.00-0.68); EOSINOPHILS PERCENT AUTO 1 % (0-6); Hematocrit 33.8 % (37.0-53.0); Hemoglobin 11.7 g/dL (13.5-17.5); IMMATURE GRAN ABSOLUTE AUTO 0.03 K/mm3 (0.00-0.10); IMMATURE GRAN PERCENT AUTO 0 % (0-1); LYMPHOCYTES ABSOLUTE AUTO 0.68 K/mm3 (0.84-5.20); LYMPHOCYTES PERCENT AUTO 7 % (21-46); MONOCYTES ABSOLUTE AUTO 0.69 K/mm3 (0.16-1.47); MONOCYTES PERCENT AUTO 7 % (4-13); Mean Corpuscular HGB 28.5 pg (26.0-34.0); Mean Corpuscular HGB Conc 34.6 g/dL (31.5-36.5); Mean Corpuscular Volume 82 fL (80-100); Mean Platelet Volume 8.9 fL (9.1-12.4); NEUTROPHILS ABSOLUTE AUTO 8.17 K/mm3 (1.96-9.15); NEUTROPHILS PERCENT AUTO 85 % (41-73); Platelet Count 347 K/mm3 (150-400); RDW Coefficient Variation 12.8 % (11.7-14.2); RDW Standard Deviation 38.6 fL (35.1-46.3); Red Blood Cell Count 4.11 M/mm3 (4.30-5.90); White Blood Cell Count 9.66 K/mm3 (4.00-11.30)
[2022-09-13 12:25] LABS: Albumin, Blood 3.1 g/dL (3.4-5.0); Albumin/Globulin Ratio 0.6 (0.8-1.8); Bilirubin, Total 0.6 mg/dL (0.1-1.0); Bun/Creatinine Ratio 19.2 (12.0-20.0); Creatinine, Blood 0.89 mg/dL (0.60-1.20); Globulin, Blood 5.2 g/dL (2.2-4.0); Potassium, Blood 3.3 mmol/L (3.5-5.5); Total Protein, Blood 8.3 g/dL (6.4-8.2)
[2022-09-13 12:40] LABS: Ethanol (Alcohol), Blood, Med <3 mg/dL
[2022-09-13 13:26] LABS: Source, Urine Clean Catch
[2022-09-13 13:38] LABS: Appearance, Urine Clear (Clear); Bilirubin, Urine Neg (Neg); Blood, Urine 3+ (Neg); Color, Urine Yellow (P-Yellow); Glucose Qualitative, Urine 4+ (Neg); Ketones, Urine Neg (Neg); Leukocyte Esterase, Urine Neg (Neg); Nitrite, Urine Neg (Neg); Protein, Urine 2+ (Neg); Specific Gravity, Urine 1.015 (1.003-1.022); Urobilinogen, Urine NORM (Normal); pH, Urine 6.5 (5.0-8.0)
[2022-09-13 13:49] LABS: Amorphous Light (0-Heavy); Bacteria Few /hpf; Squamous Epithelial Cells Not Seen /hpf (Few); White Blood Cells, Urine 0-2 /hpf (0-5)
[2022-09-13 13:50] LABS: Mucus Light (0-Heavy)
[2022-09-13 13:53] LABS: U Amphetamine Screen DETECTED; U Barbituate Screen Not Detected; U Benzodiazapine Screen Not Detected; U Buprenorphine Screen Not Detected; U Cannabinoids Screen DETECTED; U Cocaine Screen Not Detected; U Methadone Screen Not Detected; U Methamphetamine Screen DETECTED; U Opiates Screen Not Detected; U Oxycodone Screen Not Detected; U Phencyclidine Screen Not Detected; U Propoxyphene Screen Not Detected
--- NOTE | 2022-09-13 19:12 | NUR ---
PT ALERT NO S/S OF ACUTE DISTRESS. SAFETY MEASURES IN PLACE, REPORT GIVEN TO ON COMING NURSE.
--- NOTE | 2022-09-14 05:09 | NUR ---
SHIFT SUMMARY 56 YR M ADMITTED ON 09/13/22 FOR DIABETIC FOOT ULCER OF RIGHT GREAT TOE. FULL CODE. NO ACUTE CHANGES THIS SHIFT. UNDERNEATH OF GREAT TOE ON RIGHT FOOT HAS A LARGE OPEN WOUND THAT PT WOULD NOT ALLOW THIS NURSE TO PUT A DRESSING ON IT. HIS ONLY C/O THIS SHIFT WAS THAT HE WAS HUNGRY AND HE ASKED FOR FOOD CONSTANTLY. HE MOANS AND MUMBLES ALOT BUT FOR NO APPARENT SPECIFIC REASON.
[2022-09-14 05:18] LABS: Hematocrit 28.6 % (37.0-53.0); Hemoglobin 9.8 g/dL (13.5-17.5); Mean Corpuscular HGB 28.2 pg (26.0-34.0); Mean Corpuscular HGB Conc 34.3 g/dL (31.5-36.5); Mean Corpuscular Volume 82 fL (80-100); Platelet Count 291 K/mm3 (150-400); RDW Coefficient Variation 12.8 % (11.7-14.2); RDW Standard Deviation 38.5 fL (35.1-46.3); Red Blood Cell Count 3.47 M/mm3 (4.30-5.90); White Blood Cell Count 7.97 K/mm3 (4.00-11.30)
[2022-09-14 06:23] LABS: Bun/Creatinine Ratio 21.1 (12.0-20.0); Calcium, Blood 8.4 mg/dL (8.5-10.1); Creatinine, Blood 0.76 mg/dL (0.60-1.20); Potassium, Blood 3.1 mmol/L (3.5-5.5)
--- NOTE | 2022-09-14 11:19 | NUR ---
CLEANED WOUND ON RIGHT GREAT TOE WITH WOUND FABRICATOR INDUSTRIAL FURNACE AND GUAZE. PETROLEUM DRESSING AND GUAZE PLACED OVER WOUND. WRAPED WITH GAUZE BANDAGE. PT TOLERATED WELL. NO C/O PAIN. PT VERABILZED NO FEELING IN BLE.
--- NOTE | 2022-09-14 18:39 | NUR ---
SHIFT SUMMARY PT A&OX4 AND COOPERATIVE OF CARE. PODIATRY IN TO SEE PT THIS AM. PT DECLINED SURGERY AND PREFERED TO TAKE ABX FOR TREATMENT. CONSULT FOR WOUND CARE PUT IN PER DR CLINE. DRESSING PLACED ON RIGHT GREAT TOE. PICTURES IN CHART. PT CONTINUES TO FEEL VERY HUNGRY AND ASKS FOR SNACKS THROUGH OUT DAY. EDUCATION GIVEN ON CONTROLLING BG TO HELP WITH WOUND HEALING AND SPREAD OF INFECTION. PT USES CALL LIGHT APPROPRIATELY. BED IN LOWEST POSITIOIN AND CALL LIGHT IN REACH.
[2022-09-15 01:14] LABS: Hematocrit 28.3 % (37.0-53.0); Hemoglobin 9.8 g/dL (13.5-17.5); Mean Corpuscular HGB 28.7 pg (26.0-34.0); Mean Corpuscular HGB Conc 34.6 g/dL (31.5-36.5); Mean Corpuscular Volume 83 fL (80-100); Platelet Count 273 K/mm3 (150-400); RDW Coefficient Variation 12.8 % (11.7-14.2); RDW Standard Deviation 39.2 fL (35.1-46.3); Red Blood Cell Count 3.41 M/mm3 (4.30-5.90); White Blood Cell Count 5.69 K/mm3 (4.00-11.30)
[2022-09-15 01:32] LABS: Albumin, Blood 2.2 g/dL (3.4-5.0); Anion Gap 5 mmol/L (6-16); Blood Urea Nitrogen 12 mg/dL (8-24); CO2, Blood 30 mmol/L (21-32); Calcium, Blood 8.2 mg/dL (8.5-10.1); Chloride, Blood 97 mmol/L (98-108); Creatinine, Blood 0.63 mg/dL (0.60-1.20); Glomerular Filtration Rate 112 (60-); Glucose, Blood 325 mg/dL (70-99); Potassium, Blood 3.2 mmol/L (3.5-5.5); Sodium, Blood 132 mmol/L (136-145)
--- NOTE | 2022-09-15 04:51 | NUR ---
SHIFT SUMMARY 56 YR M ADMITTED ON 09/13/21 FOR DIABETIC FOOT ULCER. FULL CODE. NO ACUTE CHANGES THIS SHIFT. BS HAS BEEN IN THE 300'S AND PT IS CONTINUALLY ASKED FOR SNAKS. IT WAS EXPLAINED TO HIM THAT SNACKS HAVE TO BE LIMITED DUE TO HIS HIGH BG LEVELS. HE C/O OF CHRONIC, SEVERE BACK PAIN AND WAS MEDICATED PER EMAR. HE HAS SLEPT FOR MOST OF THIS SHIFT BUT MOANS OUT LOUD WHEN HE IS AWAKE OR HAS TO MOVE.
--- NOTE | 2022-09-15 15:51 | NUR ---
WOUND CARE R GREAT TOE PHOTO AND ASSESSMENT IN HARD CHART. WOUND CLEANSED WITH NS, XEROFORM TO BONE, CALCIUM ALGINATE TO REMAINING WOUND BED, EXU-DRY, ROLLED GAUZE. PT EMOTIONALLY LABILE TODAY WITH SUICIDAL IDEATATION. PRIMARY RN AND CM NOTIFIED
--- NOTE | 2022-09-15 18:35 | NUR ---
SHIFT SUMMARY A&O X 4. VSS. DRESSING APPLIED TO L GREAT TOE WOUND. NO ACUTE CHANGES THIS SHIFT. PT COOPERATIVE WITH ALL CARE. PLAN IS FOR POSSIBLE PLACEMENT. PSYCH CONSULT PLACED PER MD.
[2022-09-16 05:40] LABS: Bun/Creatinine Ratio 20.8 (12.0-20.0); Calcium, Blood 8.4 mg/dL (8.5-10.1); Creatinine, Blood 0.62 mg/dL (0.60-1.20); Potassium, Blood 3.7 mmol/L (3.5-5.5)
--- NOTE | 2022-09-16 06:37 | NUR ---
COMPRESSED GASES TESTER SUMMARY: A&Ox4. PLEASANT AND COOPERATIVE WITH CARE. CALLS APPROPRIATELY AND IS ABLE TO COMMUNICATE NEEDS EFFECTIVELY, THOUGH SOMETIMES CALLS INTO HALLWAY. MEDICATED PRN PAIN x2. PT NOTED TO BE CRYING WHEN NURSE PRESENTED TO ROOM; IN A LOT OF PAIN BUT DID NOT WANT TO "BE A BOTHER" TO ASK FOR PAIN MEDS. WILL PASS ON TO NEXT SHIFT'S NURSE TO CHECK ON PAIN LEVEL AND OFFER PAIN MEDS. PSYCH CONSULT D/T SI AND HI COMMENTS WHEN TOLD HE WOULD LIKELY BE DISCHARGING. LABS DRAWN THIS MORNING; NO CRITICAL RESULTS RECEIVED. WILL REPORT TO ONCOMING RN.
[2022-09-16 13:40] LABS: Vancomycin, Trough 14.8 ug/mL (5.0-10.0)
--- NOTE | 2022-09-16 14:55 | NUR ---
Supportive visit this afternoon. Pt resting in bed and reports plan to have his toe amputated. Offered therapeutic listening and emotional support as Pt is tearful throughout visit. Pt reports having no family or friends. Listened as Pt reports being suicidal and states if he had gun "I would blow my head off or if I had my insulin I would take 60 units and just fall asleep". Contineud therapeutic listening and validated concerns. Instructed on distraction techniques. Pt agreeable to continued PC visits. Spoke with Heavy Duty Mechanic Ge and discussed case. Palliative Care will remain available
--- NOTE | 2022-09-16 15:43 | NUR ---
Patient is lying in bed and alert. He immediately tells me that he hates God and everyone who is associated with him. I explain that God can be off the topic list. He then talks about the horrible events and losses he has experienced. He shares his absolute bitterness toward God, Law Enforcement, [employer] and the medical system. He explains about how angery he is that he has to have his toe amputated and that subsequent to recovery he is forced back to the streets or to residential (for not registering as a sex offender). I attempt to highlight all that he has overcome, his ability to survive and the brighter future that still could be possible. I provide therapeutic listening and a calm presence. Patient does not show signs of change or improvement as a result of our converastion. I will continue to remain available to patient and family.
--- NOTE | 2022-09-16 16:13 | NUR ---
LATE ENTRY/1544 PT WAS OFFERED CHANCE TO LEAVE HOSPITAL BUT WOULD NEED TO SIGN AMA. HIS MEDICAL CHOICES WERE PRESENTED TO HIM AND HIS CLINICAL SITUATION WAS EXPLAINED TO HIM AGAIN. HIS DECISION UPON REFLECTION OF HIS CHOICES, HE HAS DECIDED TO REMAIN IN THE HOSPITAL AND AGREED TO PODIATRY SURGERY. DR. GARNER MADE AWARE.
--- NOTE | 2022-09-16 18:55 | NUR ---
SHIFT SUMMARY DR. DESHAUN SCHULTZ'd PT TODAY. PROVIDED NEW ORDER/SCRIPT FOR ONI TO START TONIGHT. PT CONTINUES TO STATE HE'S NOW WILLING & AGREEABLE TO HAVE PODIATRY DO SURGERY ON HIS R FOOT/R GREAT TOE. NO ACUTE CHANGES TODAY. MEDICATED FOR C/O PAIN ONCE PER EMAR WITH GOOD RELIEF STATED BY PT. BLOOD SUGARS COVERED PER INSULIN CORRECTION SCALE PER EMAR. BLOOD SUGARS REMAIN >200.
--- NOTE | 2022-09-17 06:31 | NUR ---
RETAIL BANKER SUMMARY: A&Ox4. VERY EMOTIONAL AND TEARFUL. STATED IF RN DID NOT REMOVE THE IV LINE, HE WAS GOING TO RIP IT OUT OF HIS ARM. ASKED THIS RN IF 60 UNITS OF INSULIN WAS ENOUGH TO KILL SOMEONE. HE DID HAVE A CIGARETTE SENIOR SQL SERVER DEVELOPER ON HIS BEDSIDE TABLE THAT WAS PLACED IN THE DRAWER OUTSIDE OF HIS ROOM. AWAITING PLAN FROM PROVIDER R/T SURGERY. CONTINUES w/ PAIN MEDS Q6H PRN. NO ACUTE EVENTS OVER THE NIGHT. WILL REPORT TO ONCOMING RN.
--- NOTE | 2022-09-17 17:14 | NUR ---
Shift Summary A/O, quite pleasant and cooperative today. Voiced frustration RE "losing my toe". Up with SBA. Eating well. Medicating for pain per EMAR. Dr. Prakash in to see patient. No acute concerns.
[2022-09-18 02:39] LABS: Vancomycin, Trough 15.3 ug/mL (5.0-10.0)
--- NOTE | 2022-09-18 05:37 | NUR ---
PATIENT ALERT AND ORIENTED, ROOM AIR, USES URINAL IN BED, STANBY ASSIST, NO TELE, 18 LAC. PATIENT DIAPHORETIC AND COMPLAINING OF INTENSE PAIN WITH MOVEMENT AND TOUCH, MEDICATED PER EMAR. PATIENT STATES HE HAS USED ALOT OF METHANPHETAMINES THROUGHOUT HIS LIFE AND JUST QUIT TWO WEEKS AGO. PATIENT ALSO STATES THAT A WEEK AGO SOMEONE PUT METHAMPHETAMINES IN HIS ALCOHOLIC BEVERAGE A JOKE. PATIENT STATED THAT HE USES MARIJUANA REGULARY AND NEEDS SOMETHING FOR ANXIETY. PATIENT CONTINUOUSLY CRIES AND SAYS HE WANTS TO MOVE ON TO THE NEXT LIFE AND START OVER. PATIENT CONTINUOUSLY MAKES REMARKS ABOUT WHY DOES GOD HATE HIM AND HE IS READY TO GO.
[2022-09-18] MEDS ORDERED: Cleocin HCl150 MG PO (13:45)
[2022-09-18] MEDS ORDERED: ACET500 PO (13:45)
[2022-09-18] MEDS ORDERED: LEVO750 PO (13:46)
[2022-09-18] MEDS ORDERED: VISBIOME 112.51 EACH PO (13:47)
--- NOTE | 2022-09-18 15:07 | NUR ---
DISCHARGE SUMMARY PATIENT IS ALERT AND ORIENTED. PATIENT HAS HAD NO ACUTE EVENTS THIS SHIFT. PATIENT IS BEING DISCHARGED HOME, OF WHICH IS THE STREETS. TRANSPORTATION IS BEING PROVIDED TO THE [place]. VITAL SIGNS REVIEWED. KARINA MONTOYA TRANSPORTED PATIENT TO [facility].
== END 2022-09-18 15:19 | disposition home or self-care (01) | DRG 637 ==
LOC: ER 11:06 → MEDS 13:46
PROVIDERS: Emergency Medicine; Student in an Organized Health Care Education/Training Program; ADMIT Internal Medicine
DX: E11.621 Type 2 diabetes mellitus with foot ulcer (principal); G92.8 Other toxic encephalopathy; L03.115 Cellulitis of right lower limb; M86.8X7 Other osteomyelitis, ankle and foot; R45.851 Suicidal ideations; L97.519 Non-pressure chronic ulcer of other part of right foot with unspecified severity; E11.69 Type 2 diabetes mellitus with other specified complication; F34.1 Dysthymic disorder; I10 Essential (primary) hypertension; E87.6 Hypokalemia; D63.8 Anemia in other chronic diseases classified elsewhere; F32.A Depression, unspecified; F17.210 Nicotine dependence, cigarettes, uncomplicated; F10.10 Alcohol abuse, uncomplicated; F15.10 Other stimulant abuse, uncomplicated; F12.10 Cannabis abuse, uncomplicated; Z91.199 Patient's noncompliance with other medical treatment and regimen due to unspecified reason; Z23 Encounter for immunization; Z59.00 Homelessness unspecified; Z88.0 Allergy status to penicillin; Z79.899 Other long term (current) drug therapy; Z79.811 Long term (current) use of aromatase inhibitors; Z79.84 Long term (current) use of oral hypoglycemic drugs; Z79.4 Long term (current) use of insulin; Z79.2 Long term (current) use of antibiotics
CPT/HCPCS: 36415; 73620; 80048; 80053; 80069; 80202; 81001; 82947; 83036; 83605; 85025; 85027; 86140; 87040; 90686; 93005; 93010; 96365; 96375; 99285-25; A9270; G0480; J0690; J0696; J1650; J1815; J1885; J3370; J7040; J7050; J7120

== ENCOUNTER → 2022-09-22 | Outpatient (CLI) | payer OTHER ==
[~2022-09-22] MED LIST changes: +ACET500 PO; +Cleocin HCl150 MG PO; +LEVO750 PO
== END ==
LOC: LAB 15:49 → LAB SHORT 15:49
DX: M86.171 Other acute osteomyelitis, right ankle and foot (principal)
CPT/HCPCS: 87070; 87075; 87077; 87186; 87205

== ENCOUNTER 2022-09-29 12:11 | Inpatient (IN) | payer OTHER ==
[~2022-09-29] VITALS: Ht 177.8 cm; Wt 76.4 kg
[2022-09-29 13:52] LABS: Albumin, Blood 3.1 g/dL (3.4-5.0); Albumin/Globulin Ratio 0.6 (0.8-1.8); Bilirubin, Total 0.2 mg/dL (0.1-1.0); Bun/Creatinine Ratio 33.8 (12.0-20.0); Calcium, Blood 9.1 mg/dL (8.5-10.1); Creatinine, Blood 0.53 mg/dL (0.60-1.20); Globulin, Blood 5.2 g/dL (2.2-4.0); Potassium, Blood 3.5 mmol/L (3.5-5.5); Total Protein, Blood 8.3 g/dL (6.4-8.2)
[2022-09-29 14:00] LABS: BASOPHILS ABSOLUTE AUTO 0.05 K/mm3 (0.00-0.23); BASOPHILS PERCENT AUTO 1 % (0-2); EOSINOPHILS PERCENT AUTO 1 % (0-6); Hematocrit 32.4 % (37.0-53.0); Hemoglobin 10.7 g/dL (13.5-17.5); IMMATURE GRAN ABSOLUTE AUTO 0.03 K/mm3 (0.00-0.10); IMMATURE GRAN PERCENT AUTO 0 % (0-1); LYMPHOCYTES ABSOLUTE AUTO 1.57 K/mm3 (0.84-5.20); LYMPHOCYTES PERCENT AUTO 18 % (21-46); MONOCYTES ABSOLUTE AUTO 0.49 K/mm3 (0.16-1.47); MONOCYTES PERCENT AUTO 6 % (4-13); Mean Corpuscular HGB 27.9 pg (26.0-34.0); Mean Corpuscular Volume 84 fL (80-100); Mean Platelet Volume 8.7 fL (9.1-12.4); NEUTROPHILS ABSOLUTE AUTO 6.44 K/mm3 (1.96-9.15); NEUTROPHILS PERCENT AUTO 74 % (41-73); Platelet Count 423 K/mm3 (150-400); RDW Coefficient Variation 13.1 % (11.7-14.2); RDW Standard Deviation 39.8 fL (35.1-46.3); Red Blood Cell Count 3.84 M/mm3 (4.30-5.90); White Blood Cell Count 8.68 K/mm3 (4.00-11.30)
--- NOTE | 2022-09-30 03:06 | NUR ---
SUPERVISOR CARBON ELECTRODES SUMMARY NO ACUTE EVENTS THROUGHOUT THE NIGHT. A&OX4. PATIENT EFFECTIVELY COMMUNICATES NEEDS. VSS. RR EVEN AND UNLABORED ON RA. RIGHT GREAT TOE OSTEOMYELITIS. AMPUTATION IS SCHEDULED FOR TOMORROW AFTERNOON. PATIENT NPO AFTER 0600 THIS MORNING. RIGHT GREAT TOE WOUND CARE PROVIDED PER ORDERS. BEDTIME MEDICATIONS ADMINISTERED PER EMAR. PATIENT OBSERVED SLEEPING THROUGHOUT THE NIGHT. BED LOW AND LOCKED. CALL LIGHT WITHIN REACH. THIS RN WILL CONTINUE TO MONITOR.
[2022-09-30 05:33] LABS: BASOPHILS ABSOLUTE AUTO 0.05 K/mm3 (0.00-0.23); BASOPHILS PERCENT AUTO 1 % (0-2); EOSINOPHILS ABSOLUTE AUTO 0.23 K/mm3 (0.00-0.68); EOSINOPHILS PERCENT AUTO 3 % (0-6); Hemoglobin 10.2 g/dL (13.5-17.5); IMMATURE GRAN ABSOLUTE AUTO 0.02 K/mm3 (0.00-0.10); IMMATURE GRAN PERCENT AUTO 0 % (0-1); LYMPHOCYTES ABSOLUTE AUTO 1.77 K/mm3 (0.84-5.20); LYMPHOCYTES PERCENT AUTO 25 % (21-46); MONOCYTES PERCENT AUTO 7 % (4-13); Mean Corpuscular HGB 27.4 pg (26.0-34.0); Mean Corpuscular HGB Conc 32.9 g/dL (31.5-36.5); Mean Corpuscular Volume 83 fL (80-100); Mean Platelet Volume 8.8 fL (9.1-12.4); NEUTROPHILS ABSOLUTE AUTO 4.53 K/mm3 (1.96-9.15); NEUTROPHILS PERCENT AUTO 64 % (41-73); Platelet Count 374 K/mm3 (150-400); RDW Coefficient Variation 13.2 % (11.7-14.2); RDW Standard Deviation 39.5 fL (35.1-46.3); Red Blood Cell Count 3.72 M/mm3 (4.30-5.90)
[2022-09-30 07:10] LABS: Albumin, Blood 2.7 g/dL (3.4-5.0); Anion Gap 6 mmol/L (6-16); Blood Urea Nitrogen 16 mg/dL (8-24); CO2, Blood 27 mmol/L (21-32); Calcium, Blood 8.7 mg/dL (8.5-10.1); Chloride, Blood 105 mmol/L (98-108); Creatinine, Blood 0.52 mg/dL (0.60-1.20); Glomerular Filtration Rate 119 (60-); Glucose, Blood 257 mg/dL (70-99); Phosphorus, Blood 3.5 mg/dL (2.5-4.9); Potassium, Blood 3.2 mmol/L (3.5-5.5); Sodium, Blood 138 mmol/L (136-145)
--- NOTE | 2022-09-30 10:00 | NUR ---
NEW DRESSING APPLIED TO PT'S RIGHT GREAT TOE. NON ADHERRENT PAD PLACED AND WRAPPED WITH GAUZE ROLE. PT TOLERATED WELL.
[2022-09-30] MEDS ORDERED: HUMULIN R100 UNIT/2 SC (15:18)
--- NOTE | 2022-09-30 15:51 | NUR ---
PT BROUGHT FROM FLOOR TO DAY SURGERY FOR PROCEDURE.
--- NOTE | 2022-09-30 15:52 | NUR ---
PT TAKEN TO SURGERY. TRANSPORTED BY [facility]. PT ABLE TO AMBULATE TO [facility] INDEPENDENTLY. PT VOIDED AND UNDERWEAR REMOVED. PT PROVIDED WARM BLANKET DURING TRANSPORT.
--- NOTE | 2022-09-30 16:01 | NUR ---
PT HAS 20G IV TO RIGHT AC THAT FLUSHES WELL AND FLOWS WELL TO GRAVITY.
--- NOTE | 2022-09-30 17:28 | NUR ---
SHIFT SUMMARY PT A&OX4 AND COOPERATIVE. PT VERY SLEEPY TODAY AND SLEPT T/O DAY. PT ABLE TO BE ROUSED BUT WOULD FALL BACK TO SLEEP QUICKLY. PT VERBALIZED FEELING TIRED. CLEAN DRESSING APPLIED TO R GREAT TOE IN AM. PT NPO FOR SURGERY. PT TAKEN TO SURGERY AT 1545 AND AT THE TIME OF THIS SUMMARY, PT STILL IN SURGERY.
--- NOTE | 2022-10-01 04:45 | NUR ---
SHIFT SUMMARY. 56 YR M ADMITTED ON 09/30/22 FOR OSTEOMYELITIS OF R GREAT TOE. FULL CODE. PT WAS BACK FROM SURGERY AT TIME OF SHIFT CHANGE AND ALL POST OP VITALS WERE WITHIN NORMAL LIMITS. PT HAD EATEN SEVERAL SARANYA CRACKERS WITH PEANUT BUTTER BEFORE THE START OF THIS SHIFT AND HE CONTINUALLY ASKED FOR MORE FOOD. CBS WAS 356 @ 20:29 SO PT WAS ADVISED THAT HE COULD ONLY BE GIVEN SUGAR FREE SNACKS. THIS AGITATED HIM AND HE STRONGLY EXPRESSED HIS DISAGREEMENT OF THAT DECISION. HE GOT ANGRY AND THREATENED TO LEAVE STATING THAT WE WERE "STARVING" HIM AND THAT HE WAS A MEAT AND POTATOES KIND OF ANNA. HE WAS GIVEN THE MEAT FROM PANTRY SANDWICHES, BUT NO BREAD. HE WAS ALSO OFFERED SUGAR FREE PUDDING AND JELLO. HE WAS GIVEN HIS SCHEDULED INSULIN AND ADVISED THAT WE WOULD RECHECK HIS CBS AFTER A COUPLE OF HOURS AND REEVALUATE THE FOOD SITUATION. @22:56 HIS CBS WAS 383 SO HE WAS ONLY PERMITTED TO HAVE SUGAR FREE FOOD AGAIN. AND AGAIN, THIS ANGERED HIM. HE WENT TO SLEEP SHORTLY AFTER THAT AND SLEPT FOR MOST OF THE REST OF THE SHIFT. HE C/O PHANTOM PAIN AND TINGLING IN HIS AMPUTATED TOE AND WAS GIVEN PAIN MEDS PER EMAR. OF NOW (0500) HE HAS NOT ASKED FOR MORE PAIN MEDS OR C/O MORE PAIN OR DISCOMFORT.
--- NOTE | 2022-10-01 12:36 | NUR ---
PT BLOOD SUGAR PRIOR TO LUNCH WAS 377. CALLED DR. GARNER WHO PUT IN AN ORDER FOR METFORMIN TID. GAVE PT 10 UNITS HUMALOG. PT IS STILL ASKING FOR SNACKS AND DIET PEPSI. OFFERED PT WATER WITH MEDICATIONS AND PT STATED "I DO NOT DRINK WATER!" PT IS GETTING VERY UPSET THAT WE ARE NOT GIVING HIM THE FOODS HE WANTS. ATTEMPTED TO TALK TO PT ABOUT HYPERGLYCEMIA. WILL CONTINUE TO MONITOR BS.
--- NOTE | 2022-10-01 15:39 | NUR ---
PT IS STATING HE WANTS TO GET OUT OF HERE. HE IS VERY MAD THAT I WILL NOT GIVE SUGARY SNACK FOODS WHEN HE HAS A BLOOD SUGAR OF 377. I HAVE OFFERED PT SEVERAL TIMES SUGAR FREE PUDDING OR JELLO, CHEESE, OR MEAT FROM SANDWICHES. PT STATES WE ARE FEEDING HIM "BIRD FOOD" AND IS CALLING SOMEONE TO GET HIM OUT OF HERE. WILL CONTINUE TO ATTEMPT TO CALM PT AND EDUCATE.
--- NOTE | 2022-10-01 17:52 | NUR ---
SHIFT SUMMARY: PT A&O X4. PT HAS BEEN EXTREMELY IRRITABLE MOST OF THIS SHIFT. PT STARTED THE DAY WITH A BLOOD SUGAR OF 343 AND EVENTUALLY PROGRESSED TO 377 PRIOR TO LUNCH. CALLED DR. GARNER WHO PUT IN AN ORDER FOR TID METFORMIN. PT WAS UPSET THAT HE WAS NOT GETTING SNACKS AFTER HIS LUNCH TIME BLOOD SUGAR. BOTH MYSELF AND THE CHARGE NURSE WENT IN TO TALK TO PT THAT THE HOSPITAL HAS PROTOCOLS THAT NEED TO BE FOLLOWED FOR HYPERGLYCEMIA. PT STATED HE DID NOT CARE AND WANTED TO GET OUT OF HERE AND EAT REAL FOOD. PT HAD EVENING BS OF 225. WAS ABLE TO GIVE PT SUGAR FREE JELLO, CHEESE, AND MEAT. PT WAS COOPERATIVE AFTER THIS. RECEIVED REPORT FROM EVENING SHIFT THAT THE SURGEON WOULD BE UP TO REDRESS WOUND THIS SHIFT. AT THIS TIME I HAVE NOT SEEN THE SURGEON. PT IS STILL STATING HE WANTS OUT OF HERE NOW. CALL LIGHT IN REACH. WILL CONTINUE TO MONITOR.
[2022-10-02 05:38] LABS: BASOPHILS ABSOLUTE AUTO 0.06 K/mm3 (0.00-0.23); BASOPHILS PERCENT AUTO 1 % (0-2); EOSINOPHILS ABSOLUTE AUTO 0.14 K/mm3 (0.00-0.68); EOSINOPHILS PERCENT AUTO 2 % (0-6); Hematocrit 31.9 % (37.0-53.0); Hemoglobin 10.5 g/dL (13.5-17.5); IMMATURE GRAN ABSOLUTE AUTO 0.02 K/mm3 (0.00-0.10); IMMATURE GRAN PERCENT AUTO 0 % (0-1); LYMPHOCYTES ABSOLUTE AUTO 2.39 K/mm3 (0.84-5.20); LYMPHOCYTES PERCENT AUTO 31 % (21-46); MONOCYTES ABSOLUTE AUTO 0.42 K/mm3 (0.16-1.47); MONOCYTES PERCENT AUTO 5 % (4-13); Mean Corpuscular HGB 27.7 pg (26.0-34.0); Mean Corpuscular HGB Conc 32.9 g/dL (31.5-36.5); Mean Corpuscular Volume 84 fL (80-100); Mean Platelet Volume 9.1 fL (9.1-12.4); NEUTROPHILS ABSOLUTE AUTO 4.68 K/mm3 (1.96-9.15); NEUTROPHILS PERCENT AUTO 61 % (41-73); Platelet Count 373 K/mm3 (150-400); RDW Coefficient Variation 13.6 % (11.7-14.2); RDW Standard Deviation 41.2 fL (35.1-46.3); Red Blood Cell Count 3.79 M/mm3 (4.30-5.90); White Blood Cell Count 7.71 K/mm3 (4.00-11.30)
--- NOTE | 2022-10-02 05:52 | NUR ---
SHIFT SUMMARY PT A&O X 4- PT SITTING UP IN BED DURING BEDSIDE ROUNDS- PT UPSET BECAUSE OF NOT HAVING ENOUGH FOOD T/O DAY- EXPLAINED TO PT THAT HIS CBGS WERE ELEVATED AND IMPORTANCE OF EATING LOWER CARBOHYDRATE FOODS- EDUCATED PT ON EATING A DIABETIC DIET- PT ATE A HIGH PROTEIN SNACK- PT REQUESTED PAIN MEDICATION FOR RIGHT FOOT PAIN- PT SLEPT T/O NIGHT - BED LOW POSITION, CALL LIGHT WITHIN REACH
[2022-10-02 16:24] LABS: Bun/Creatinine Ratio 28.6 (12.0-20.0); Calcium, Blood 8.7 mg/dL (8.5-10.1); Creatinine, Blood 0.73 mg/dL (0.60-1.20); Potassium, Blood 3.4 mmol/L (3.5-5.5)
[2022-10-02] MEDS ORDERED: AMOCLA875 PO (17:03)
--- NOTE | 2022-10-02 17:37 | NUR ---
PT SPOKE WITH DR GARNER ABOUT DISCHARGE. HE EXPRESSED THAT HE DID NOT WANT TO STAY ANY LONGER. DR GARNER DISCUSSED THAT IV ABX WOULD BE IDEAL FOR HIS INFECTION, BUT HE WOULD NEED TO COME IN EVERY DAY TO THE INFUSION CLINIC, THE OTHER OPTION WOULD BE TO TAKE ORAL ABX. PT OPTED FOR ORAL ABX. AUGMENTIN WAS ORDERED AND DR. GARNER WANTED THE PT TO REMAIN FOR TWO HOURS AFTER ADMINISTRATION TO MAKE SURE THERE WOULD NOT BE A REACTION. PT REPETEADLY CALLED [facility] THE FIRST HOUR REQUESTING TO LEAVE. PT BEGAN TO CRY IN THE HALLWAY AND BEGAIN TO SHOUT AND SWEAR AT STAFF. CALLED DR GARNER AND SHE AGRED TO WRITE ORDERS. IV WAS REMOVED. MEDICATIONS FAXED TO PHARMACY. TRAVEL REGISTERED NURSE ONCOLOGY CALLED TAXI FOR THE PT. HE AGREED TO SIT IN THE LOBBY TO WAIT FOR PAPERWORK BUT LEFT SHORTLY THERE AFTER. PT WAS FOUND DOWNSTAIRS BY THE CHARGE NURSE WHO ASKED HIM TO RETURN UPSTAIRS FOR HIS PAPERWORK. ONCE HE ARRIVED BACK TO THE FLOOR HE BEGAN TO RAISE HIS VOICE AND SWEAR WHEN HE FOUND OUT PAPERWORK WAS NOT FINISHED. PT LEFT AGAIN. HE RETURNED ONCE MORE AND PAPERWORK WAS PRINTED AND GIVEN TO PT. HE WAS INSTRUCTED TO REMAIN NON WEIGHT BEARING ON THE FOOT, BUT WAS AMBULATING OFF AND ON THE UNIT. ADVISED TO FOLLOW UP WITH PRIMARY CARE AND DR. MARTINO.
== END 2022-10-02 17:18 | disposition home or self-care (01) | DRG 617 ==
LOC: ER 12:11 → MEDS 17:03 → ER 17:03 → MEDS 17:03
PROVIDERS: Internal Medicine; Physician Assistant; Podiatrist; ADMIT Internal Medicine
PROC: 0Y6M0Z9 Detachment at Right Foot, Partial 1st Ray, Open Approach (ICD-10-PCS; principal; 2022-09-30 16:30)
DX: E11.69 Type 2 diabetes mellitus with other specified complication (principal); L03.115 Cellulitis of right lower limb; M86.8X7 Other osteomyelitis, ankle and foot; Z16.29 Resistance to other single specified antibiotic; E11.621 Type 2 diabetes mellitus with foot ulcer; F32.A Depression, unspecified; F34.1 Dysthymic disorder; I10 Essential (primary) hypertension; F15.10 Other stimulant abuse, uncomplicated; L97.514 Non-pressure chronic ulcer of other part of right foot with necrosis of bone; F17.210 Nicotine dependence, cigarettes, uncomplicated; E11.42 Type 2 diabetes mellitus with diabetic polyneuropathy; D63.8 Anemia in other chronic diseases classified elsewhere; B95.4 Other streptococcus as the cause of diseases classified elsewhere; B96.89 Other specified bacterial agents as the cause of diseases classified elsewhere; Z88.0 Allergy status to penicillin; Z79.899 Other long term (current) drug therapy; Z59.00 Homelessness unspecified; Z79.811 Long term (current) use of aromatase inhibitors; Z79.84 Long term (current) use of oral hypoglycemic drugs; Z79.4 Long term (current) use of insulin; Z79.2 Long term (current) use of antibiotics
CPT/HCPCS: 36415; 73620; 80048; 80053; 80069; 82947; 85025; 85651; 86141; 87071; 87075; 87076; 87077; 87147; 87185; 87186; 87205; 88305; 88311; 96365; 96372; 99284-25; A9270; G0378; J0692; J0696; J1100; J1650; J1815; J2250; J2370; J2405; J2704; J3010; J3370; J7030; J7120

== ENCOUNTER 2022-10-28 12:51 | Emergency (ER) | payer OTHER ==
[~2022-10-28] VITALS: Ht 177.8 cm; Wt 68.0 kg
[~2022-10-28 12:51] MED LIST changes: +AMOCLA875 PO
[2022-10-28 14:36] LABS: BASOPHILS ABSOLUTE AUTO 0.05 K/mm3 (0.00-0.23); BASOPHILS PERCENT AUTO 1 % (0-2); EOSINOPHILS ABSOLUTE AUTO 0.09 K/mm3 (0.00-0.68); EOSINOPHILS PERCENT AUTO 2 % (0-6); Hematocrit 34.8 % (37.0-53.0); Hemoglobin 11.7 g/dL (13.5-17.5); IMMATURE GRAN ABSOLUTE AUTO 0.01 K/mm3 (0.00-0.10); IMMATURE GRAN PERCENT AUTO 0 % (0-1); LYMPHOCYTES ABSOLUTE AUTO 1.58 K/mm3 (0.84-5.20); LYMPHOCYTES PERCENT AUTO 26 % (21-46); MONOCYTES ABSOLUTE AUTO 0.28 K/mm3 (0.16-1.47); MONOCYTES PERCENT AUTO 5 % (4-13); Mean Corpuscular HGB 28.3 pg (26.0-34.0); Mean Corpuscular HGB Conc 33.6 g/dL (31.5-36.5); Mean Corpuscular Volume 84 fL (80-100); Mean Platelet Volume 9.7 fL (9.1-12.4); NEUTROPHILS ABSOLUTE AUTO 4.02 K/mm3 (1.96-9.15); NEUTROPHILS PERCENT AUTO 67 % (41-73); Platelet Count 225 K/mm3 (150-400); RDW Coefficient Variation 14.9 % (11.7-14.2); RDW Standard Deviation 45.7 fL (35.1-46.3); Red Blood Cell Count 4.13 M/mm3 (4.30-5.90); White Blood Cell Count 6.03 K/mm3 (4.00-11.30)
[2022-10-28 14:53] LABS: Albumin, Blood 3.5 g/dL (3.4-5.0); Albumin/Globulin Ratio 0.9 (0.8-1.8); Bilirubin, Total 0.2 mg/dL (0.1-1.0); Calcium, Blood 8.9 mg/dL (8.5-10.1); Creatinine, Blood 0.63 mg/dL (0.60-1.20); Globulin, Blood 3.9 g/dL (2.2-4.0); Potassium, Blood 3.8 mmol/L (3.5-5.5); Total Protein, Blood 7.4 g/dL (6.4-8.2)
[2022-10-28] MEDS ORDERED: AMOCLA875 PO (15:10)
== END 2022-10-28 15:59 | disposition home or self-care (01) ==
LOC: ER 12:51
PROVIDERS: Physician Assistant
DX: L03.032 Cellulitis of left toe (principal); E11.9 Type 2 diabetes mellitus without complications; I10 Essential (primary) hypertension; F17.210 Nicotine dependence, cigarettes, uncomplicated; Z91.14 Patient's other noncompliance with medication regimen; Z59.00 Homelessness unspecified; Z89.411 Acquired absence of right great toe; Z79.4 Long term (current) use of insulin; Z79.899 Other long term (current) drug therapy
CPT/HCPCS: 36415; 80053; 83690; 85025; J7030

== ENCOUNTER 2022-11-07 23:02 | Emergency (ER) | payer OTHER ==
[~2022-11-07] VITALS: Ht 177.8 cm; Wt 72.6 kg
== END 2022-11-07 23:45 | disposition home or self-care (01) ==
LOC: ER 23:02
DX: R23.8 Other skin changes (principal); I10 Essential (primary) hypertension; E11.9 Type 2 diabetes mellitus without complications; F17.210 Nicotine dependence, cigarettes, uncomplicated; F17.290 Nicotine dependence, other tobacco product, uncomplicated; Z79.899 Other long term (current) drug therapy; Z79.4 Long term (current) use of insulin; Z79.84 Long term (current) use of oral hypoglycemic drugs; Z89.411 Acquired absence of right great toe
CPT/HCPCS: 99282

== ENCOUNTER 2022-11-27 19:22 | Emergency (ER) | payer OTHER ==
[~2022-11-27] VITALS: Ht 177.8 cm; Wt 72.6 kg
[2022-11-27 20:56] LABS: BASOPHILS ABSOLUTE AUTO 0.03 K/mm3 (0.00-0.23); BASOPHILS PERCENT AUTO 0 % (0-2); EOSINOPHILS ABSOLUTE AUTO 0.08 K/mm3 (0.00-0.68); EOSINOPHILS PERCENT AUTO 1 % (0-6); Hematocrit 34.2 % (37.0-53.0); Hemoglobin 11.8 g/dL (13.5-17.5); IMMATURE GRAN ABSOLUTE AUTO 0.02 K/mm3 (0.00-0.10); IMMATURE GRAN PERCENT AUTO 0 % (0-1); LYMPHOCYTES ABSOLUTE AUTO 1.12 K/mm3 (0.84-5.20); LYMPHOCYTES PERCENT AUTO 12 % (21-46); MONOCYTES ABSOLUTE AUTO 0.79 K/mm3 (0.16-1.47); MONOCYTES PERCENT AUTO 9 % (4-13); Mean Corpuscular HGB 28.2 pg (26.0-34.0); Mean Corpuscular HGB Conc 34.5 g/dL (31.5-36.5); Mean Corpuscular Volume 82 fL (80-100); Mean Platelet Volume 9.4 fL (9.1-12.4); NEUTROPHILS ABSOLUTE AUTO 7.18 K/mm3 (1.96-9.15); NEUTROPHILS PERCENT AUTO 78 % (41-73); Platelet Count 279 K/mm3 (150-400); RDW Coefficient Variation 14.8 % (11.7-14.2); RDW Standard Deviation 44.2 fL (35.1-46.3); Red Blood Cell Count 4.18 M/mm3 (4.30-5.90); White Blood Cell Count 9.22 K/mm3 (4.00-11.30)
[2022-11-27 21:16] LABS: Albumin, Blood 3.8 g/dL (3.4-5.0); Albumin/Globulin Ratio 0.9 (0.8-1.8); Bilirubin, Total 0.4 mg/dL (0.1-1.0); Bun/Creatinine Ratio 18.6 (12.0-20.0); Calcium, Blood 9.2 mg/dL (8.5-10.1); Creatinine, Blood 0.65 mg/dL (0.60-1.20); Globulin, Blood 4.2 g/dL (2.2-4.0); Potassium, Blood 3.4 mmol/L (3.5-5.5)
[2022-11-28] VITALS: BP 159/84
[2022-11-28] MEDS ORDERED: AMOCLA875 PO (01:37)
[2022-11-28] MEDS ORDERED: CLIN150 PO (01:37)
== END 2022-11-28 02:15 | disposition home or self-care (01) ==
LOC: ER 19:22
PROVIDERS: Student in an Organized Health Care Education/Training Program
DX: L03.031 Cellulitis of right toe (principal); E11.65 Type 2 diabetes mellitus with hyperglycemia; Z79.899 Other long term (current) drug therapy; Z79.84 Long term (current) use of oral hypoglycemic drugs; Z79.4 Long term (current) use of insulin; I10 Essential (primary) hypertension; D64.9 Anemia, unspecified; F17.210 Nicotine dependence, cigarettes, uncomplicated; F17.290 Nicotine dependence, other tobacco product, uncomplicated
CPT/HCPCS: 36415; 73620; 80053; 85025; 99283-25; A9270

== ENCOUNTER 2022-12-04 23:57 | Inpatient (IN) | payer OTHER ==
[~2022-12-04] VITALS: Ht 175.3 cm; Wt 69.6 kg
[~2022-12-04 23:57] MED LIST changes: +CLIN150 PO
[2022-12-05] VITALS (7 sets, daily range): BP systolic 133–145; BP diastolic 75–95
[2022-12-05 00:21] LABS: pH Blood Venous 7.48 (7.34-7.37)
[2022-12-05 00:22] LABS: Base Excess Venous 6.8 mmol/L; Bicarbonate Venous 30.1 mmol/L (24.0-30.0); PCO2 Venous 40.6 mmHg (38-42)
[2022-12-05 00:23] LABS: BASOPHILS ABSOLUTE AUTO 0.03 K/mm3 (0.00-0.23); BASOPHILS PERCENT AUTO 0 % (0-2); EOSINOPHILS ABSOLUTE AUTO 0.05 K/mm3 (0.00-0.68); EOSINOPHILS PERCENT AUTO 1 % (0-6); Hematocrit 28.9 % (37.0-53.0); IMMATURE GRAN ABSOLUTE AUTO 0.04 K/mm3 (0.00-0.10); IMMATURE GRAN PERCENT AUTO 0 % (0-1); LYMPHOCYTES ABSOLUTE AUTO 1.23 K/mm3 (0.84-5.20); LYMPHOCYTES PERCENT AUTO 12 % (21-46); MONOCYTES ABSOLUTE AUTO 0.72 K/mm3 (0.16-1.47); MONOCYTES PERCENT AUTO 7 % (4-13); Mean Corpuscular HGB 27.6 pg (26.0-34.0); Mean Corpuscular HGB Conc 34.6 g/dL (31.5-36.5); Mean Corpuscular Volume 80 fL (80-100); NEUTROPHILS ABSOLUTE AUTO 8.51 K/mm3 (1.96-9.15); NEUTROPHILS PERCENT AUTO 80 % (41-73); Platelet Count 334 K/mm3 (150-400); RDW Coefficient Variation 14.2 % (11.7-14.2); RDW Standard Deviation 41.5 fL (35.1-46.3); Red Blood Cell Count 3.62 M/mm3 (4.30-5.90); White Blood Cell Count 10.58 K/mm3 (4.00-11.30)
[2022-12-05] MEDS ORDERED: HUMULIN R100 UNIT/2 (00:35)
[2022-12-05 00:46] LABS: Alanine Aminotransfer (ALT/SGP 32 U/L (12-78); Albumin, Blood 2.9 g/dL (3.4-5.0); Albumin/Globulin Ratio 0.6 (0.8-1.8); Alk Phos 103 U/L (50-136); Anion Gap 6 mmol/L (6-16); Aspartate Aminotrans (AST/SGOT 24 U/L (12-37); Beta-hydroxybutyrate 4.7 mg/dL (0.2-2.8); Bilirubin, Total 0.6 mg/dL (0.1-1.0); Blood Urea Nitrogen 17 mg/dL (8-24); Bun/Creatinine Ratio 24.2 (12.0-20.0); CO2, Blood 29 mmol/L (21-32); Calcium, Blood 8.9 mg/dL (8.5-10.1); Chloride, Blood 93 mmol/L (98-108); Glomerular Filtration Rate 108 (60-); Glucose, Blood 273 mg/dL (70-99); Potassium, Blood 2.9 mmol/L (3.5-5.5); Sodium, Blood 128 mmol/L (136-145); Total Protein, Blood 7.9 g/dL (6.4-8.2)
[2022-12-05 00:57] LABS: Magnesium, Blood 1.7 mg/dL (1.6-2.4)
[2022-12-05 01:21] LABS: Osmolality, Serum 281 mos/KG (275-300)
[2022-12-05 03:17] LABS: C-Reactive Protein, High Sens. >190.000 mg/L (0.000-3.000)
--- NOTE | 2022-12-05 04:40 | NUR ---
ARRIVAL PT ARRIVED TO FLOOR AT 0355, IMMEDIATELY I NOTED THAT THE PATIENTS EYES WERE ROLLED BACK SO THAT THE IRIS WAS NOT VISIBLE AND THAT THE PATIENT WAS IN SOME SORT OF DISTRESS. I CALLED THE PCU CHARGE NURSE I WAS WORRIED THE PATIENT WAS HAVING A NEURO EVENT, SHE RECCOMENDED A RAPID RESPONSE WAS CALLED. THIS WAS THEN CALLED. THE PT WAS NOTED TO BE WRITHING IN THE BED, UNCONTROLLABLY MOANING, AND THRASHING. THE PT WAS UNABLE TO FOLLOW DIRECTIONS. THE RAPID RESPONSE TEAM SHOWED UP, THE NURSING OIL WELL DRILLER ASKED WHAT REPORT I HAD RECIEVED. I STATED THAT I WAS TOLD THE PATIENT COULD BEOME ADGITATED BUT OTHERWISE A/0X4 AND COOPERATIVE WITH CARE. THE ER NURSE DID NOTE THAT THE PT HAD ROLLED AROUND IN BED AND WAS "JERKY" BUT HIS CURRENT STATE WAS NOT DISCLOSED. THE NURSING OIL WELL DRILLER THEN CONCLUDED THAT HIS CURRENT STATE HAS NOT CHANGED FROM HOW HE WAS IN THE ER. THE NURSING OIL WELL DRILLER STATED SHE IS GOING TO GET A CLINICAL SITTER FOR DAY SHIFT. THE RAPID RESPONSE ENDED. PATIENT UNABLE TO PARTICIPATE IN ADMISSION, PLAN TO GO OFF OF VISUAL EVIDENCE AND ER REPORTS. NO H&P AT THIS TIME. THE BED IS IN LOW, BED ALARM ON, CALL LIGHT IN REACH
[2022-12-05 07:29] LABS: BASOPHILS ABSOLUTE AUTO 0.03 K/mm3 (0.00-0.23); BASOPHILS PERCENT AUTO 0 % (0-2); EOSINOPHILS ABSOLUTE AUTO 0.09 K/mm3 (0.00-0.68); EOSINOPHILS PERCENT AUTO 1 % (0-6); Hematocrit 30.1 % (37.0-53.0); Hemoglobin 10.2 g/dL (13.5-17.5); IMMATURE GRAN ABSOLUTE AUTO 0.03 K/mm3 (0.00-0.10); IMMATURE GRAN PERCENT AUTO 0 % (0-1); LYMPHOCYTES ABSOLUTE AUTO 1.46 K/mm3 (0.84-5.20); LYMPHOCYTES PERCENT AUTO 20 % (21-46); MONOCYTES ABSOLUTE AUTO 0.57 K/mm3 (0.16-1.47); MONOCYTES PERCENT AUTO 8 % (4-13); Mean Corpuscular HGB 27.1 pg (26.0-34.0); Mean Corpuscular HGB Conc 33.9 g/dL (31.5-36.5); Mean Corpuscular Volume 80 fL (80-100); Mean Platelet Volume 9.5 fL (9.1-12.4); NEUTROPHILS ABSOLUTE AUTO 4.99 K/mm3 (1.96-9.15); NEUTROPHILS PERCENT AUTO 70 % (41-73); Platelet Count 187 K/mm3 (150-400); RDW Coefficient Variation 14.1 % (11.7-14.2); RDW Standard Deviation 41.3 fL (35.1-46.3); Red Blood Cell Count 3.76 M/mm3 (4.30-5.90); White Blood Cell Count 7.17 K/mm3 (4.00-11.30)
[2022-12-05 07:43] LABS: Albumin, Blood 2.3 g/dL (3.4-5.0); Albumin/Globulin Ratio 0.5 (0.8-1.8); Bilirubin, Total 0.6 mg/dL (0.1-1.0); Bun/Creatinine Ratio 23.2 (12.0-20.0); Calcium, Blood 8.3 mg/dL (8.5-10.1); Creatinine, Blood 0.69 mg/dL (0.60-1.20); Globulin, Blood 4.4 g/dL (2.2-4.0); Potassium, Blood 3.5 mmol/L (3.5-5.5); Total Protein, Blood 6.7 g/dL (6.4-8.2)
[2022-12-05 13:51] LABS: U Amphetamine Screen DETECTED; U Barbituate Screen Not Detected; U Benzodiazapine Screen Not Detected; U Buprenorphine Screen Not Detected; U Cannabinoids Screen DETECTED; U Cocaine Screen Not Detected; U Methadone Screen Not Detected; U Methamphetamine Screen DETECTED; U Opiates Screen Not Detected; U Oxycodone Screen Not Detected; U Phencyclidine Screen Not Detected; U Propoxyphene Screen Not Detected
--- NOTE | 2022-12-05 14:17 | NUR ---
DR. MARTINO IN ROOM AT 1330. SEE NEW ORDERS
--- NOTE | 2022-12-05 15:08 | NUR ---
PER ORDER RIGHT FOOT CLEANSED WITH BETADINE. 4x4 GAUZE APPLIED AND FOOT WRAPPED WITH KERLIX AND ANTHONY WRAP. PT TOLERATE WELL. DRESSING NOW CDI.
--- NOTE | 2022-12-05 15:21 | NUR ---
SUMMARY: PT MUCH MORE ALERT AND REPONSIVE THIS AFTERNOON. ANSWERS QUESTIONS APPROPRIATELY. USING CALL LIGHT, VOIDING IN URINAL. PT DIET ADVANCED TO REGULAR AND PT HAS ATE. SEE CBG RESULTS AND INSULIN COVERAGE. MRI OF L FOOT ORDERED. DRESSING CONTINUES TO BE CDI. ANTIBIOTICS AND POTASSUM INFUSED. REPORT PASSED TO JEFFERY CANSECO.
--- NOTE | 2022-12-05 16:07 | NUR ---
THIS NURSE TOOK OVER CARE AT THIS TIME. PATIENT IS DOWN IN IMAGING GETTING HIS MRI DONE.
--- NOTE | 2022-12-05 18:28 | NUR ---
THIS NURSE NOTIFIED DR. MARTINO OF THE MRI RESULTS BEING COMPLETED. AWAITING A RESPONSE FROM HIM.
--- NOTE | 2022-12-05 19:05 | NUR ---
DR. MARTINO RESPONDED BACK AND WANTS THE PATIENT TO BE NPO AT MIDNIGHT TONIGHT AND THAT HE WILL ADD THE PATIENT ON FOR IN THE MORNING TOMORROW FOR SURGERY.
[2022-12-06] VITALS (14 sets, daily range): BP systolic 113–147; BP diastolic 68–80
--- NOTE | 2022-12-06 04:39 | NUR ---
SHIFT SUMMARY AOX4. ANSWERS ORIENTATION QUESTIONS CORRECTLY. TANGETABLE OFF TOPIC RESPONSES @TIMES, LABILE, TEARFUL, CALM, HAPPY. REPORTS USUALLY USES METH HOURLY. DENIES N/V. REPORTS 10/10 BURNING PAIN IN R FOOT, HOWEVER DENIES NEED FOR TYLENOL. R FOOT BANDAGE C/D/I UPON ASSESSMENT. CAP REFIL 2ND TOE R FOOT >3 SEC, TOE VERY SWOLLEN RED, SKIN TIGHT, FOUL ODOR NOTED. PT UNABLE TO FEEL TOUCH TO RLE. HAS BEEN NPO FOR POSSIBLE SURGERY TODAY. CALL LIGHT IN REACH. WILL MONITOR.
[2022-12-06 05:42] LABS: BASOPHILS ABSOLUTE AUTO 0.02 K/mm3 (0.00-0.23); BASOPHILS PERCENT AUTO 0 % (0-2); EOSINOPHILS ABSOLUTE AUTO 0.12 K/mm3 (0.00-0.68); EOSINOPHILS PERCENT AUTO 2 % (0-6); Hemoglobin 9.9 g/dL (13.5-17.5); IMMATURE GRAN ABSOLUTE AUTO 0.02 K/mm3 (0.00-0.10); IMMATURE GRAN PERCENT AUTO 0 % (0-1); LYMPHOCYTES PERCENT AUTO 17 % (21-46); MONOCYTES PERCENT AUTO 6 % (4-13); Mean Corpuscular Volume 82 fL (80-100); NEUTROPHILS ABSOLUTE AUTO 5.29 K/mm3 (1.96-9.15); NEUTROPHILS PERCENT AUTO 75 % (41-73); Platelet Count 289 K/mm3 (150-400); RDW Coefficient Variation 14.4 % (11.7-14.2); RDW Standard Deviation 43.8 fL (35.1-46.3); Red Blood Cell Count 3.66 M/mm3 (4.30-5.90); White Blood Cell Count 7.05 K/mm3 (4.00-11.30)
[2022-12-06 06:09] LABS: Albumin, Blood 2.2 g/dL (3.4-5.0); Anion Gap 5 mmol/L (6-16); Blood Urea Nitrogen 18 mg/dL (8-24); Bun/Creatinine Ratio 27.8 (12.0-20.0); CO2, Blood 29 mmol/L (21-32); Calcium, Blood 8.1 mg/dL (8.5-10.1); Chloride, Blood 100 mmol/L (98-108); Creatinine, Blood 0.65 mg/dL (0.60-1.20); Glomerular Filtration Rate 111 (60-); Glucose, Blood 318 mg/dL (70-99); Phosphorus, Blood 2.6 mg/dL (2.5-4.9); Potassium, Blood 3.3 mmol/L (3.5-5.5); Sodium, Blood 134 mmol/L (136-145)
[2022-12-06 10:46] LABS: Vancomycin, Trough 8.2 ug/mL (5.0-10.0)
--- NOTE | 2022-12-06 15:57 | NUR ---
SHIFT SUMMARY PT RETURNED FROM THE OR AT 1420 IN HIS OWN BED, R FOOT DRESSING IN GAUZE AND ANTHONY WRAP WITH ELIOT DRAIN EMERGING FROM THE SUPERIOR ANTERIOR ASPECT WITH SCANT AMT OF SANG DRAINAGE. PT RESTING BUT WAKES EASILY, VITALS OBTAINED PER UNIT PROTOCOL ON POST OP PATIENTS. NO ACUTE EVENTS THIS SHIFT, CALL LIGHT IN REACH, REPORT GIVEN TO DEMIAN CANSECO.
--- NOTE | 2022-12-07 03:57 | NUR ---
SHIFT SUMMARY A/0X3- POD1 R TMA, ANTHONY WRAP IN PLACE C/D/I. VITAL SIGNS STABLE. VOIDING WELL. TOLERATED PO INTAKE. NO PAIN REPORTED. USING URINAL INDEPENDENTLY.
[2022-12-07 05:11] VITALS: BP 147/84
[2022-12-07 05:31] LABS: BASOPHILS ABSOLUTE AUTO 0.02 K/mm3 (0.00-0.23); BASOPHILS PERCENT AUTO 0 % (0-2); EOSINOPHILS ABSOLUTE AUTO 0.01 K/mm3 (0.00-0.68); EOSINOPHILS PERCENT AUTO 0 % (0-6); Hemoglobin 10.2 g/dL (13.5-17.5); IMMATURE GRAN ABSOLUTE AUTO 0.03 K/mm3 (0.00-0.10); IMMATURE GRAN PERCENT AUTO 0 % (0-1); LYMPHOCYTES ABSOLUTE AUTO 0.98 K/mm3 (0.84-5.20); LYMPHOCYTES PERCENT AUTO 9 % (21-46); MONOCYTES ABSOLUTE AUTO 0.47 K/mm3 (0.16-1.47); MONOCYTES PERCENT AUTO 5 % (4-13); Mean Corpuscular HGB 26.9 pg (26.0-34.0); Mean Corpuscular HGB Conc 32.9 g/dL (31.5-36.5); Mean Corpuscular Volume 82 fL (80-100); Mean Platelet Volume 9.4 fL (9.1-12.4); NEUTROPHILS PERCENT AUTO 86 % (41-73); Platelet Count 367 K/mm3 (150-400); RDW Coefficient Variation 14.5 % (11.7-14.2); RDW Standard Deviation 43.2 fL (35.1-46.3); Red Blood Cell Count 3.79 M/mm3 (4.30-5.90); White Blood Cell Count 10.41 K/mm3 (4.00-11.30)
[2022-12-07 06:08] LABS: Albumin, Blood 2.2 g/dL (3.4-5.0); Anion Gap 3 mmol/L (6-16); Blood Urea Nitrogen 22 mg/dL (8-24); Bun/Creatinine Ratio 31.7 (12.0-20.0); CO2, Blood 28 mmol/L (21-32); Calcium, Blood 8.6 mg/dL (8.5-10.1); Chloride, Blood 103 mmol/L (98-108); Creatinine, Blood 0.69 mg/dL (0.60-1.20); Glomerular Filtration Rate 109 (60-); Glucose, Blood 347 mg/dL (70-99); Potassium, Blood 3.7 mmol/L (3.5-5.5); Sodium, Blood 134 mmol/L (136-145)
[2022-12-07 07:14] VITALS: BP 149/71
--- NOTE | 2022-12-07 11:06 | NUR ---
PT STATE "I AM WASTING AWAY IN HERE." PT GIVEN SUGAR FREE JELLO PER PT REQUEST. PT REPORTS TINGLING PAIN IN R FOOT. PT STATE "I DON'T WANT TO BE COOPED UP. GET ME OUT OF HERE. I AM IN PAIN." AWAITING ORDERES TO BE VERFIFIED FROM PHARMACY FOR NORCO TO RELIEVE R FOOT PAIN.
--- NOTE | 2022-12-07 12:02 | NUR ---
PT AGITATED. PT STATES DISLIKE FOR LUNCH TRAY. PT EDUCATED ON NEED FOR SPECIAL DIET. PT USING EXPLICIT LANGUAGE, "I DON'T FUCKING CARE ABOUT THAT. GET ME REAL FUCKING FOOD. GET ME OUT OF THIS FUCKING SHITHOLE"
--- NOTE | 2022-12-07 13:15 | NUR ---
PT GIVEN BED BATH. LINEN CHANGE COMPLETED. NOTICED SMALL REDDENED AREA ON SACRUM, APPROX 2CM. PT STATES "FEEL REFRESHED" AFTER CARE. PT THANKED THIS STUDENT RN AND ROBERT STUDENT RN. PT REPORT PAIN WITH TURNING IN BED. BED IN LOWEST POSITION WITH CALL LIGHT IN REACH.
[2022-12-07 15:19] VITALS: BP 148/84
--- NOTE | 2022-12-07 16:28 | NUR ---
SHIFT SUMMARY PT POD 1 R TMA. ELIOT DRAIN WITH SANGUINEOUS DRAINAGE. DRESSING C/D/I, ANTHONY WRAP IN PLACE. L IV D/C TODAY DUE TO INFILTRATION. VS WNL, SAT >95% ON RA. PT TOLERATING ORAL FLUIDS/ FOODS. USES URINAL APPROPRIATELY. NO BOWEL MOVEMENT TODAY. PT AGGITATED IN THE LATE MORNING. MOOD IMPROVED AFTER LUNCH, BED BATH, AND LINEN CHANGE. PT REPORTS INCREASING PAIN RELATED TO AMPUTATION, ELEVATION OF LEG DECREASES PAIN ALONG WITH MEDICATION PER EMAR. PT WATCHING TV IN BED. CALL LIGHT WITHIN REACH. WILL REPORT TO NOC NURSE.
[2022-12-07 19:40] VITALS: BP 150/79
[2022-12-08 03:55] LABS: BASOPHILS ABSOLUTE AUTO 0.04 K/mm3 (0.00-0.23); BASOPHILS PERCENT AUTO 1 % (0-2); EOSINOPHILS ABSOLUTE AUTO 0.09 K/mm3 (0.00-0.68); EOSINOPHILS PERCENT AUTO 1 % (0-6); Hematocrit 29.5 % (37.0-53.0); Hemoglobin 9.8 g/dL (13.5-17.5); IMMATURE GRAN ABSOLUTE AUTO 0.03 K/mm3 (0.00-0.10); IMMATURE GRAN PERCENT AUTO 0 % (0-1); LYMPHOCYTES PERCENT AUTO 21 % (21-46); MONOCYTES ABSOLUTE AUTO 0.42 K/mm3 (0.16-1.47); MONOCYTES PERCENT AUTO 5 % (4-13); Mean Corpuscular HGB 27.6 pg (26.0-34.0); Mean Corpuscular HGB Conc 33.2 g/dL (31.5-36.5); Mean Corpuscular Volume 83 fL (80-100); NEUTROPHILS PERCENT AUTO 72 % (41-73); Platelet Count 343 K/mm3 (150-400); RDW Coefficient Variation 14.6 % (11.7-14.2); RDW Standard Deviation 43.9 fL (35.1-46.3); Red Blood Cell Count 3.55 M/mm3 (4.30-5.90); White Blood Cell Count 7.78 K/mm3 (4.00-11.30)
[2022-12-08 04:13] LABS: Albumin, Blood 2.2 g/dL (3.4-5.0); Anion Gap 3 mmol/L (6-16); Blood Urea Nitrogen 19 mg/dL (8-24); Bun/Creatinine Ratio 27.5 (12.0-20.0); CO2, Blood 31 mmol/L (21-32); Calcium, Blood 8.5 mg/dL (8.5-10.1); Chloride, Blood 101 mmol/L (98-108); Creatinine, Blood 0.69 mg/dL (0.60-1.20); Glomerular Filtration Rate 109 (60-); Glucose, Blood 340 mg/dL (70-99); Potassium, Blood 3.8 mmol/L (3.5-5.5); Sodium, Blood 135 mmol/L (136-145)
[2022-12-08 05:10] VITALS: BP 155/85
--- NOTE | 2022-12-08 05:34 | NUR ---
SHIFT SUMMARY AOX4. VSS. POD 2-TMA. REPORTS 4-12/10 PAIN IN R FOOT. MEDICATED 1x c 2 TAB PERCOCET THIS AM, WILL MONITOR FOR RELIEF. REPORTS CHRONIC N/T TO BLE. ABLE TO WIGGLE/MOVE R FOOT. ANTHONY WRAP & DRESSING IN PLACE OVER R FOOT, C/D/I, NO DRAINAGE NOTED. ELIOT DRAIN TO R FOOT c 20ML SANGUINOUS DRAINAGE. CALL LIGHT IN REACH, WILL MONITOR.
[2022-12-08 07:33] VITALS: BP 147/89
[2022-12-08 11:27] LABS: Vancomycin, Trough 19.1 ug/mL (5.0-10.0)
[2022-12-08 15:26] VITALS: BP 150/82
--- NOTE | 2022-12-08 16:12 | NUR ---
SHIFT SUMMARY PT POD 2 R TMA. DRESSING CHANGED BY AFTER LUNCH. ELIOT DRAIN REMOVED. STAPLE CLOSURE. C/D/I. NEW CURAD DRESSING PLACED SOAKED WITH BETADINE AND EXU-DRY PLACED, WRAPPED WITH ANTHONY WRAP. VS WNL, SAT >95% ON RA. BLOOD SUGARS REMAINED ELEVATED. PT TOLERATED ORAL PO FLUIDS AND FOOD, REQUESTING SNACKS OFTEN. PT SLEPT THROUGH MOST OF THE AFTERNOON. USES URINAL APPROPRIATELY, NO BM. NO ACUTE CHANGES THIS SHIFT. PT IN BED, CALL LIGHT WITHIN REACH. WILL REPORT TO [facility] NURSE.
[2022-12-09 05:48] LABS: Hematocrit 33.3 % (37.0-53.0)
[2022-12-09 06:00] LABS: Bun/Creatinine Ratio 35.5 (12.0-20.0); Creatinine, Blood 0.59 mg/dL (0.60-1.20); Potassium, Blood 3.4 mmol/L (3.5-5.5)
[2022-12-09 06:41] VITALS: BP 155/81
[2022-12-09 07:09] VITALS: BP 163/76
[2022-12-09 07:14] VITALS: BP 163/76
--- NOTE | 2022-12-09 07:37 | NUR ---
SUMMARY PT MOVING SELF WELL IN BED.ANXIOUS INTERMITTENTLY, BUT REPOSNDS TO CALM AND ENCOURAGING INTERACTION.PERCOCET EFFECTIVE,PT SLEEPING AFTER .
[2022-12-09 11:39] LABS: Vancomycin, Trough 19.6 ug/mL (5.0-10.0)
--- NOTE | 2022-12-09 17:09 | NUR ---
PT SLEEPING WHEN UNDISTURBED, OOB X1 WITH STANDBY ASSIST TO SIT IN CHAIR. PT ENCOURAGED OOB BUT STATES HE IS TIRED AND WANTS TO SLEEP. RIGHT FOOT DRESSING INTACT WITHOUT DRAINAGE. PT MEDICATED X2 FOR 6-7/10 FOOT PAIN AND NOTED TO BE SLEEPING AFTERWARDS. PT WITH FREQUENT REQUESTS FOR FOODS AND DIET PEPSI. LARGE OUTPUT OF CLEAR YELLOW URINE.
[2022-12-09 18:31] VITALS: BP 139/82
[2022-12-09 19:54] VITALS: BP 159/83
[2022-12-10 04:25] VITALS: BP 132/74
[2022-12-10 05:46] LABS: Hematocrit 33.4 % (37.0-53.0); Hemoglobin 11.1 g/dL (13.5-17.5)
[2022-12-10 06:09] LABS: Albumin, Blood 2.6 g/dL (3.4-5.0); Anion Gap 5 mmol/L (6-16); Blood Urea Nitrogen 26 mg/dL (8-24); Bun/Creatinine Ratio 39.9 (12.0-20.0); CO2, Blood 30 mmol/L (21-32); Chloride, Blood 101 mmol/L (98-108); Creatinine, Blood 0.65 mg/dL (0.60-1.20); Glomerular Filtration Rate 111 (60-); Glucose, Blood 208 mg/dL (70-99); Phosphorus, Blood 3.8 mg/dL (2.5-4.9); Potassium, Blood 3.3 mmol/L (3.5-5.5); Sodium, Blood 136 mmol/L (136-145)
--- NOTE | 2022-12-10 06:30 | NUR ---
SHIFT SUMMARY PT A&Ox4, CALLS AND COMMUNCIATES NEEDS APPROPRIATELY. VITAL SIGNS STABLE. MANAGED PT's PAIN PER EMAR. [facility], NO BM THIS SHIFT. PT's IV NOT PATENT, UNABLE TO PLACE PERIPHERAL IV RESULTING IN VANCO AND ZOSYN ADMINISTRATION BEING DELAYED UNTIL POWERGLIDE PLACED BY PCU KILN FEEDER. DISCUSSED WITH PHARMACY. R FOOT DRESSING REMAINS C/D/I. NO OTHER EVENTS, WILL REPORT TO ONCOMING RN.
[2022-12-10 16:03] VITALS: BP 158/89
--- NOTE | 2022-12-10 18:08 | NUR ---
SUMMARY: PT IS POD4 R TRANS METATARSAL AMPUTATION. A/O, VSS. SURGICAL SITE CDI, PT DENIED PAIN TODAY. PT REFUSED THERAPY TODAY, DOES MOVE ABOUT ROOM WITH 1 ASSIST AND FWW WITHOUT DIFFICULTY AND FOLLOWS NWB PRECAUTION. OTHERWISE, LEG HAS BE ELEVATED ON PILLOWS IN BED. POTASSIUM REPLACED TODAY. IV ANTIBIOTICS INFUSED, POWERGLIDE WNL. PT GIVEN COVERAGE FOR CBG'S PER ORDER. NO ACUTE SAFETY CONCERNS, WILL PASS REPORT TO DEMIAN RN
[2022-12-10 19:12] VITALS: BP 147/91
[2022-12-11 05:12] VITALS: BP 139/78
[2022-12-11 05:26] LABS: BASOPHILS ABSOLUTE AUTO 0.04 K/mm3 (0.00-0.23); BASOPHILS PERCENT AUTO 1 % (0-2); EOSINOPHILS ABSOLUTE AUTO 0.19 K/mm3 (0.00-0.68); EOSINOPHILS PERCENT AUTO 3 % (0-6); Hematocrit 33.3 % (37.0-53.0); IMMATURE GRAN PERCENT AUTO 1 % (0-1); LYMPHOCYTES ABSOLUTE AUTO 1.81 K/mm3 (0.84-5.20); LYMPHOCYTES PERCENT AUTO 25 % (21-46); MONOCYTES ABSOLUTE AUTO 0.49 K/mm3 (0.16-1.47); MONOCYTES PERCENT AUTO 7 % (4-13); Mean Corpuscular HGB 27.4 pg (26.0-34.0); Mean Corpuscular Volume 83 fL (80-100); Mean Platelet Volume 8.8 fL (9.1-12.4); NEUTROPHILS ABSOLUTE AUTO 4.64 K/mm3 (1.96-9.15); NEUTROPHILS PERCENT AUTO 64 % (41-73); Platelet Count 447 K/mm3 (150-400); RDW Coefficient Variation 14.8 % (11.7-14.2); RDW Standard Deviation 44.5 fL (35.1-46.3); Red Blood Cell Count 4.01 M/mm3 (4.30-5.90); White Blood Cell Count 7.27 K/mm3 (4.00-11.30)
--- NOTE | 2022-12-11 05:41 | NUR ---
SUMMARY POD3 TM AMPUTATION. PATIENT AOX4, GAUZE AND ANTHONY WRAP TO R FOOT C/D/I. PATIENT TOLERATING FOOD AND DRINK, VOIDING AND PASSING GAS. MEDICATED FOR PAIN, WELL MANAGED. IV ABX AND FLUIDS RUNNING. NWB TO RLE, PLAN FOR PT TODAY VSS, AWAITING PLACEMENT. CALL LIGHT IN REACH.
[2022-12-11 05:56] LABS: Albumin, Blood 2.6 g/dL (3.4-5.0); Anion Gap 3 mmol/L (6-16); Blood Urea Nitrogen 21 mg/dL (8-24); CO2, Blood 31 mmol/L (21-32); Calcium, Blood 8.8 mg/dL (8.5-10.1); Chloride, Blood 106 mmol/L (98-108); Creatinine, Blood 0.64 mg/dL (0.60-1.20); Glomerular Filtration Rate 111 (60-); Glucose, Blood 139 mg/dL (70-99); Phosphorus, Blood 3.1 mg/dL (2.5-4.9); Potassium, Blood 3.7 mmol/L (3.5-5.5); Sodium, Blood 140 mmol/L (136-145)
[2022-12-11 07:29] VITALS: BP 152/89
--- NOTE | 2022-12-11 12:27 | NUR ---
1150 PT WALKED OUT TO DESK WHERE DR PADILLA WAS PRESENT, PT CRYING LOOUDLY, TELLS DR PADILLA "WE ARE KICKING HIM OUT" DR PADILLA SPOKE WITH PATIENT AND NEW ORDERS RECEIVED. WHEN THIS RN ENTERED ROOM PT SPEAKING LOUDLY, POUNDING HIS HEAD WITH HIS OWN FISTS. PT THREW PERSONAL BELONGINGS AND WALKING BOOT IN ROOM ONTO FLOOR. PT STATES "I SMELL LIKE PISS AND HAVE NOWHERE TO GO AND NO ONE WILL HELP ME" OFFERED PATIENT PAJAMA BOTTOMS AND A SHOWER AND DISCUSSED WITH HIM NEW ORDER FOR ATIVAN. PT INCREASINGLY LOUD, RAMBLING CONVERSATION. SECURITY TO ROOM AND SPOKE WITH PATIENT. PT REQUESTS IV BE REMOVED AND REQUESTS DISCHARGE, PT OFFERED PO ATIVAN AND CLEAN PANTS AND PT DECLINED. IV REMOVED PER PATIENT REQUEST. PT STATES HIS WALKING BOOT IS BROKEN, PT LEFT BEFORE NEW BOOT COULD BE OBTAINED. REVIEWED AMA FORM WITH PATIENT AND HIS RISK/BENEFITS OF BEING DISCHARGED. PT DECLINES TO SIGN AMA FORM AND AGAIN STATES HE WANTS TO LEAVE. SECURITY PROVIDED WHEELCHAIR FOR PATIENT AT 1205. NURSING FILE DRAWER FINISHER AND DR PADILLA NOTIFIED OF PATIENT DISCHARGE
== END 2022-12-11 12:05 | disposition left against medical advice (07) | DRG 854 ==
LOC: ER 23:57 → SURS 12-05 03:54
PROVIDERS: Family Medicine; Internal Medicine; Podiatrist Foot & Ankle Surgery; Student in an Organized Health Care Education/Training Program; ADMIT Internal Medicine
PROC: 3E03329 Introduction of Other Anti-infective into Peripheral Vein, Percutaneous Approach (ICD-10-PCS; 2022-12-05)
PROC: 0Y6M0ZB Detachment at Right Foot, Partial 2nd Ray, Open Approach (ICD-10-PCS; 2022-12-06)
PROC: 0Y6M0ZC Detachment at Right Foot, Partial 3rd Ray, Open Approach (ICD-10-PCS; 2022-12-06)
PROC: 0Y6M0ZD Detachment at Right Foot, Partial 4th Ray, Open Approach (ICD-10-PCS; 2022-12-06)
PROC: 0LBV0ZZ Excision of Right Foot Tendon, Open Approach (ICD-10-PCS; 2022-12-06)
PROC: 0Y6M0ZF Detachment at Right Foot, Partial 5th Ray, Open Approach (ICD-10-PCS; 2022-12-06)
PROC: 0Y6M0Z9 Detachment at Right Foot, Partial 1st Ray, Open Approach (ICD-10-PCS; principal; 2022-12-06 11:00)
DX: A41.01 Sepsis due to Methicillin susceptible Staphylococcus aureus (principal); E87.1 Hypo-osmolality and hyponatremia; M86.8X7 Other osteomyelitis, ankle and foot; L02.611 Cutaneous abscess of right foot; M00.071 Staphylococcal arthritis, right ankle and foot; L03.115 Cellulitis of right lower limb; E11.69 Type 2 diabetes mellitus with other specified complication; M65.871 Other synovitis and tenosynovitis, right ankle and foot; M60.871 Other myositis, right ankle and foot; D63.8 Anemia in other chronic diseases classified elsewhere; E87.6 Hypokalemia; E88.09 Other disorders of plasma-protein metabolism, not elsewhere classified; F15.10 Other stimulant abuse, uncomplicated; F12.10 Cannabis abuse, uncomplicated; I10 Essential (primary) hypertension; E11.42 Type 2 diabetes mellitus with diabetic polyneuropathy; F32.A Depression, unspecified; F17.210 Nicotine dependence, cigarettes, uncomplicated; E11.65 Type 2 diabetes mellitus with hyperglycemia; E11.621 Type 2 diabetes mellitus with foot ulcer; L97.519 Non-pressure chronic ulcer of other part of right foot with unspecified severity; Z89.411 Acquired absence of right great toe; Z91.148 Patient's other noncompliance with medication regimen for other reason; Z59.00 Homelessness unspecified; Z79.4 Long term (current) use of insulin; Z79.899 Other long term (current) drug therapy; Z79.811 Long term (current) use of aromatase inhibitors; Z79.84 Long term (current) use of oral hypoglycemic drugs; Z79.2 Long term (current) use of antibiotics
CPT/HCPCS: 36415; 71045; 73620; 73718; 80048; 80053; 80069; 80202; 82010; 82803; 82947; 83036; 83605; 83735; 83930; 85014; 85018; 85025; 85651; 86141; 86850; 86900; 86901; 87040; 87070; 87071; 87075; 87077; 87147; 87186; 87205; 88307; 88311; 93005; 93010; 96361; 96365; 96375; 97162; 99285-25; A9270; C1751; J1100; J1650; J1815; J1885; J2001; J2250; J2370; J2405; J2543; J2704; J2765; J3010; J3370; J3475; J3480; J7030; J7050

== ENCOUNTER 2022-12-11 13:06 | Emergency (ER) | payer OTHER ==
[~2022-12-11] VITALS: Ht 167.6 cm; Wt 68.0 kg
[~2022-12-11 13:06] MED LIST changes: +HUMULIN R100 UNIT/2
[2022-12-11 13:31] VITALS: BP 146/89
== END 2022-12-11 16:30 | disposition left against medical advice (07) ==
LOC: ER 13:06
DX: M79.671 Pain in right foot (principal); Z53.21 Procedure and treatment not carried out due to patient leaving prior to being seen by health care provider; E11.9 Type 2 diabetes mellitus without complications
CPT/HCPCS: 99281

== ENCOUNTER 2023-04-04 09:40 | Emergency (ER) | payer OTHER ==
[~2023-04-04] VITALS: Ht 175.3 cm; Wt 68.0 kg
[2023-04-04 09:59] VITALS: BP 145/88
== END 2023-04-04 10:00 | disposition home or self-care (01) ==
LOC: ER 09:40
DX: M79.672 Pain in left foot (principal); S90.412A Abrasion, left great toe, initial encounter; F17.210 Nicotine dependence, cigarettes, uncomplicated; F17.290 Nicotine dependence, other tobacco product, uncomplicated; E11.9 Type 2 diabetes mellitus without complications; X58.XXXA Exposure to other specified factors, initial encounter
CPT/HCPCS: 99283

== ENCOUNTER 2023-05-08 02:17 | Emergency (ER) | payer OTHER ==
[~2023-05-08] VITALS: Ht 180.3 cm; Wt 72.6 kg
[2023-05-08 02:42] VITALS: BP 162/99
[2023-05-08] MEDS ORDERED: CHLO25B (03:17)
[2023-05-08] MEDS ORDERED: AMLO10 (03:18)
[2023-05-08] MEDS ORDERED: Crestor20 MG (03:18)
[2023-05-08] MEDS ORDERED: LISI20 PO (03:18)
[2023-05-08] MEDS ORDERED: POTCHL20ER (03:18)
[2023-05-08] MEDS ORDERED: HUMALOG KW100 UNIT/1 (03:19)
[2023-05-08] MEDS ORDERED: BASAGLAR K100 UNIT/1 (03:19)
[2023-05-08] MEDS ORDERED: IBUP800 (03:19)
[2023-05-08] MEDS ORDERED: MIRT30 (03:19)
== END 2023-05-08 03:17 | disposition home or self-care (01) ==
LOC: ER 02:17
DX: S90.921A Unspecified superficial injury of right foot, initial encounter (principal); F17.210 Nicotine dependence, cigarettes, uncomplicated; F17.290 Nicotine dependence, other tobacco product, uncomplicated; E11.9 Type 2 diabetes mellitus without complications; X58.XXXA Exposure to other specified factors, initial encounter; Z59.00 Homelessness unspecified
CPT/HCPCS: 99283

== ENCOUNTER 2023-05-29 16:37 | Inpatient (IN) | payer OTHER ==
[~2023-05-29] VITALS: Ht 180.3 cm; Wt 72.6 kg
[~2023-05-29 16:37] MED LIST changes: +AMLO10 PO; +BASAGLAR K100 UNIT/1 SC; +CHLO25B; +Crestor20 MG PO; +HUMALOG KW100 UNIT/1; +IBUP400 PO; +POTCHL20ER PO
[2023-05-29 17:45] LABS: Hematocrit 30.3 % (37.0-53.0); Hemoglobin 10.9 g/dL (13.5-17.5); Mean Corpuscular HGB 29.4 pg (26.0-34.0); Mean Corpuscular Volume 82 fL (80-100); Mean Platelet Volume 10.2 fL (9.1-12.4); Platelet Count 175 K/mm3 (150-400); RDW Coefficient Variation 13.6 % (11.7-14.2); RDW Standard Deviation 40.5 fL (35.1-46.3); Red Blood Cell Count 3.71 M/mm3 (4.30-5.90); White Blood Cell Count 17.73 K/mm3 (4.00-11.30)
[2023-05-29 18:05] LABS: Albumin, Blood 3.5 g/dL (3.4-5.0); Albumin/Globulin Ratio 0.7 (0.8-1.8); Bilirubin, Total 0.9 mg/dL (0.1-1.0); Bun/Creatinine Ratio 34.6 (12.0-20.0); Calcium, Blood 8.5 mg/dL (8.5-10.1); Creatinine, Blood 1.36 mg/dL (0.60-1.20); Potassium, Blood 3.1 mmol/L (3.5-5.5); Total Protein, Blood 8.5 g/dL (6.4-8.2)
[2023-05-29 18:15] LABS: BAND PERCENT MAN 15 % (0-8); BASOPHILS PERCENT MAN 0 % (0-2); EOSINOPHILS PERCENT MAN 0 % (0-6); LYMPHOCYTES ABSOLUTE MAN 0.35 K/mm3 (0.84-5.20); LYMPHOCYTES PERCENT MAN 2 % (21-46); MONOCYTES ABSOLUTE MAN 0.17 K/mm3 (0.16-1.47); MONOCYTES PERCENT MAN 1 % (4-13); NEUTROPHILS ABSOLUTE MAN 17.19 K/mm3 (1.96-9.15); SEG NEUTROPHILS PERCENT MAN 82 % (41-73); TOTAL CELLS COUNTED 100
--- NOTE | 2023-05-30 01:01 | NUR ---
ADMIT NOTE LATE ENTRY PT ADMITTED AT 0030 BROUGHT TO UNIT BY WHEELCHAIR. PT TRANSFERRED FROM WC TO BED WITH NURSE ASSIST. PT CHANGED INTO GOWN. ORIENTED TO ROM. EDUCATED ON FIRE SAFETY. RECEIVED REPORT FROM ED AJITH CANSECO.
[2023-05-30 01:04] VITALS: BP 119/56
--- NOTE | 2023-05-30 04:21 | NUR ---
NO ANSWERING SERVICE AVAILABLE WILL INFORM DAY RN TO SCHEDULE PODIATRY CONSULT DURING OFFICE HOURS
[2023-05-30 05:00] LABS: Source, Urine Straight Cath
[2023-05-30 05:04] LABS: Bilirubin, Urine Neg (Neg); Blood, Urine 5+ (Neg); Glucose Qualitative, Urine 4+ (Neg); Ketones, Urine Neg (Neg); Leukocyte Esterase, Urine Neg (Neg); Nitrite, Urine Neg (Neg); Protein, Urine 3+ (Neg); Urobilinogen, Urine 1+ (Normal)
--- NOTE | 2023-05-30 05:14 | NUR ---
PODIATRY CONSULT ORDERED CALLED AND SPOKE WITH MENDEL AT ANSWERING SERVICE REGARDING PODIATRY CONSULT.
[2023-05-30 05:27] LABS: Hematocrit 28.2 % (37.0-53.0); Hemoglobin 9.8 g/dL (13.5-17.5); Mean Corpuscular HGB 28.8 pg (26.0-34.0); Mean Corpuscular HGB Conc 34.8 g/dL (31.5-36.5); Mean Corpuscular Volume 83 fL (80-100); Mean Platelet Volume 10.1 fL (9.1-12.4); Platelet Count 151 K/mm3 (150-400); RDW Coefficient Variation 13.5 % (11.7-14.2); RDW Standard Deviation 40.9 fL (35.1-46.3)
[2023-05-30 05:38] LABS: U Amphetamine Screen Not Detected; U Barbituate Screen Not Detected; U Benzodiazapine Screen Not Detected; U Buprenorphine Screen Not Detected; U Cannabinoids Screen Not Detected; U Cocaine Screen Not Detected; U Methadone Screen Not Detected; U Methamphetamine Screen Not Detected; U Opiates Screen Not Detected; U Oxycodone Screen Not Detected; U Phencyclidine Screen Not Detected; U Propoxyphene Screen Not Detected
--- NOTE | 2023-05-30 05:38 | NUR ---
PT A&O X3, MUMMBLED SPEECH. PT RLE SWOLLEN, RED, AND PAINFUL TO THE TOUCH. PLACED ORDER FOR VENOUS ULTRASOUND OF RLE. POTASSIUM, NORMAL SALINE, AND ABX CURRENTLY INFUISING. URINE SPECIMENS COLLECTED AND SENT TO LAB.PODIATRY CONSULT PLACED TO ANSWERING SERVICE. CONTACT PRECAUTIONS MAINTAINED. PT IS WHEELCHAIR BOUND AT BASELINE. HOME WHEELCHAIR IN ROOM. [place]. BED CURRENTLY N LOWEST POSITION WITH CALL LIGHT WITHIN REACH. PICS OF RLE IN CHART.
[2023-05-30 05:42] LABS: Appearance, Urine Hazy (Clear); Color, Urine Yellow (P-Yellow)
[2023-05-30 05:46] LABS: White Blood Cells, Urine 0-2 /hpf (0-5)
[2023-05-30 05:47] LABS: Amorphous Mod (0-Heavy); Squamous Epithelial Cells Rare /hpf (Few)
[2023-05-30 05:50] LABS: Bacteria Mod /hpf; Mucus Light (0-Heavy); Yeast/Fungi Urine Rare /hpf
[2023-05-30 06:07] LABS: Albumin/Globulin Ratio 0.7 (0.8-1.8); Bilirubin, Total 0.6 mg/dL (0.1-1.0); Bun/Creatinine Ratio 30.3 (12.0-20.0); Calcium, Blood 8.2 mg/dL (8.5-10.1); Creatinine, Blood 1.19 mg/dL (0.60-1.20); Globulin, Blood 4.6 g/dL (2.2-4.0); Magnesium, Blood 1.9 mg/dL (1.6-2.4); Potassium, Blood 2.7 mmol/L (3.5-5.5); Total Protein, Blood 7.6 g/dL (6.4-8.2)
[2023-05-30 06:35] LABS: BAND PERCENT MAN 2 % (0-8); BASOPHILS PERCENT MAN 0 % (0-2); EOSINOPHILS ABSOLUTE MAN 0.12 K/mm3 (0.00-0.68); EOSINOPHILS PERCENT MAN 1 % (0-6); LYMPHOCYTES ABSOLUTE MAN 0.48 K/mm3 (0.84-5.20); LYMPHOCYTES PERCENT MAN 4 % (21-46); METAMYELOCYTE ABSOLUTE MAN 0.12 K/mm3 (0.00-0.00); METAMYELOCYTE PERCENT MAN 1 % (0-0); MONOCYTES ABSOLUTE MAN 0.12 K/mm3 (0.16-1.47); MONOCYTES PERCENT MAN 1 % (4-13); NEUTROPHILS ABSOLUTE MAN 11.34 K/mm3 (1.96-9.15); SEG NEUTROPHILS PERCENT MAN 91 % (41-73); TOTAL CELLS COUNTED 100
[2023-05-30 07:48] VITALS: BP 130/75
[2023-05-30 15:10] VITALS: BP 123/70
--- NOTE | 2023-05-30 16:05 | NUR ---
SHIFT SUMMARY PATIENT SEEN BY PODIATRY THIS AM. US DOPPLER ORDERED, PRELIMINARY RESULTS NOTED. PATIENT TOLERATING DIET WELL. PAIN CONTROLLED BY APAP, PATIENT REQUESTING RECREATIONAL SUBSTANCES SEVERAL TIMES, NO SIGNS OF WITHDRAWL AT THIS TIME. VSS. REDNESS TO RIGHT LEG MARKED AT RED AREA AND PINK AREA PER DOC REQUEST. TOLERATING ABX WELL. WILL CONTINUE TO MONITOR
--- NOTE | 2023-05-31 05:41 | NUR ---
SHIFT SUMMARY PT IS A&O4 SOME CONFUSION OVERNIGHT, 1 ASSIST TO BSC, USING URINAL, RA, VSS, PRN PAIN MEDICATION GIVEN X2 PER OCT, NO ACUTE OVERNIGHT EVENTS, CONTINUE POC
[2023-05-31 05:50] LABS: Hematocrit 28.7 % (37.0-53.0); Hemoglobin 9.7 g/dL (13.5-17.5); Mean Corpuscular HGB 28.4 pg (26.0-34.0); Mean Corpuscular HGB Conc 33.8 g/dL (31.5-36.5); Mean Corpuscular Volume 84 fL (80-100); Mean Platelet Volume 10.6 fL (9.1-12.4); Platelet Count 128 K/mm3 (150-400); RDW Coefficient Variation 13.5 % (11.7-14.2); RDW Standard Deviation 41.7 fL (35.1-46.3); Red Blood Cell Count 3.41 M/mm3 (4.30-5.90)
[2023-05-31 06:38] LABS: Alanine Aminotransfer (ALT/SGP 41 U/L (12-78); Albumin, Blood 2.5 g/dL (3.4-5.0); Albumin/Globulin Ratio 0.5 (0.8-1.8); Alk Phos 86 U/L (50-136); Anion Gap 6 mmol/L (6-16); Aspartate Aminotrans (AST/SGOT 66 U/L (12-37); Bilirubin, Total 0.4 mg/dL (0.1-1.0); Blood Urea Nitrogen 22 mg/dL (8-24); Bun/Creatinine Ratio 25.2 (12.0-20.0); CO2, Blood 28 mmol/L (21-32); Calcium, Blood 8.1 mg/dL (8.5-10.1); Chloride, Blood 99 mmol/L (98-108); Creatinine, Blood 0.87 mg/dL (0.60-1.20); Globulin, Blood 4.6 g/dL (2.2-4.0); Glomerular Filtration Rate 101 (60-); Glucose, Blood 221 mg/dL (70-99); Sodium, Blood 133 mmol/L (136-145); Total Protein, Blood 7.1 g/dL (6.4-8.2); Vancomycin, Trough 9.4 ug/mL (5.0-10.0)
[2023-05-31 06:52] LABS: Potassium, Blood 2.4 mmol/L (3.5-5.5)
[2023-05-31 07:45] VITALS: BP 108/56
--- NOTE | 2023-05-31 15:25 | NUR ---
SHIFT SUMMARY PATIENT TOLERATING ABX WELL. REDNESS RECEEDING FROM MARKED LOCATIONS, APPEARS LESS SWOLLEN. C/O PAIN THIS SHIFT, RELIEVED WITH NORCO. LABILE MOOD, CRYING THEN LAUGHING WHILE CONVERSATING TO HIMSELF. VSS. WILL CONITNUE TO MONITOR
[2023-05-31 15:44] VITALS: BP 123/72
[2023-05-31 20:01] VITALS: BP 138/69
[2023-06-01 04:10] VITALS: BP 138/79
--- NOTE | 2023-06-01 05:04 | NUR ---
SHIFT SUMMARY PT IS A&O3 CONFUSION AT TIMES THIS SHIFT, UP WITH 1 TO BSC PT USES URINAL, RA, PRN PAIN MEDICATION GIVEN X3 OVERNIGHT FOR RIGHT LEG PAIN, NO ACUTE OVERNIGHT EVENTS, CONTINUE POC
[2023-06-01 07:28] LABS: Albumin, Blood 2.3 g/dL (3.4-5.0); Anion Gap 8 mmol/L (6-16); Blood Urea Nitrogen 12 mg/dL (8-24); Bun/Creatinine Ratio 15.2 (12.0-20.0); CO2, Blood 28 mmol/L (21-32); Calcium, Blood 8.1 mg/dL (8.5-10.1); Chloride, Blood 99 mmol/L (98-108); Creatinine, Blood 0.79 mg/dL (0.60-1.20); Glomerular Filtration Rate 104 (60-); Glucose, Blood 207 mg/dL (70-99); Magnesium, Blood 1.7 mg/dL (1.6-2.4); Phosphorus, Blood 1.8 mg/dL (2.5-4.9); Potassium, Blood 2.7 mmol/L (3.5-5.5); Sodium, Blood 135 mmol/L (136-145)
[2023-06-01 07:31] LABS: Vancomycin, Trough 17.6 ug/mL (5.0-10.0)
[2023-06-01 07:49] LABS: Calcium, Blood 8.2 mg/dL (8.5-10.1); Creatinine, Blood 0.81 mg/dL (0.60-1.20); Magnesium, Blood 1.6 mg/dL (1.6-2.4); Potassium, Blood 2.7 mmol/L (3.5-5.5)
[2023-06-01 08:01] VITALS: BP 123/70
[2023-06-01 15:29] VITALS: BP 125/75
--- NOTE | 2023-06-01 17:56 | NUR ---
SUMMARY- PAIN WELL CONTROLLED WITH EMAR PAIN MEDS THIS SHIFT. PT REFSUED TO GET OOB THIS SHIFT. BED BATH PERFORMED. AAOX3. X1 ASSIST IN BED. HIGHEST TEMP THIS SHIFT 99.0.
[2023-06-01 19:32] VITALS: BP 134/78
[2023-06-01] MEDS ORDERED: GABA300 PO (21:10)
[2023-06-01] MEDS ORDERED: Glucophage 850850 MG PO (21:12)
--- NOTE | 2023-06-02 03:52 | NUR ---
shift summary. shift has been mostly unremarkable. pt has been mostly pleasant, cooperative with care throughout shift thus far. can be somewhat irritable at times but is mostly easily redirectable. has been sleeping through most of morning since arriving back from MRI early in shift. notified by MRI transport that MRI was unable to be completed due to pt not cooperating. will need to be completed today. pt is 2 person transfer with fww. room air. fluids running throughout shift with no difficulty. vancomycin from yesterday at noon was never infused. called to notify pharmacy and they switched schedule to be given at timeof call and 12 hours later. pt rle is open to air, somewhat weepy, leaking. paper rogers bads down on bed. bed locked in lowest position. call light left within reach.
[2023-06-02 05:07] VITALS: BP 131/75
[2023-06-02 05:17] LABS: Bun/Creatinine Ratio 12.6 (12.0-20.0); Calcium, Blood 8.4 mg/dL (8.5-10.1); Creatinine, Blood 0.79 mg/dL (0.60-1.20); Magnesium, Blood 1.5 mg/dL (1.6-2.4); Potassium, Blood 2.8 mmol/L (3.5-5.5)
[2023-06-02 07:47] VITALS: BP 137/71
[2023-06-02 15:54] VITALS: BP 120/73
--- NOTE | 2023-06-02 16:29 | NUR ---
CALL TO PHARMACY: DUE TO ONLY HAVING ONE IV ACCESS ON THE PATIENT THIS MORNING AND HIM HAVING MULTIPLE IV MEDICATIONS TO GIVE, HIS 0900 VANCOMYCIN WAS DELAYED. MEDICATION WAS STARTED 1127 AFTER OTHER MEDICATIONS WERE DONE INFUSION. PHARMACY WAS NOTIFIED. SHORTLY AFTER VANCO WAS STARTED, IMAGING ARRIVED TO TAKE THE PATIENT DOWN FOR AN MRI. INFUSION WAS STOPPED. PATIENT RETURNED FROM IMAGING AFTER LUNCH TIME. IV ACCESS LOST AFTER IMAGING AND RESUMING VANCO INFUSION WASN'T ABLE TO BE STARTED. WASN'T ABLE TO GET IV ACCESS UNTIL THIS AFTERNOON VIA POWERGLIDE. VANCO RESUMED AT 1600. PHARMACY CONTACTED AGAIN, ADVISED TO FINISH INFUSION AND THEY WILL RETIME NEXT DOSE FOR 0400.
--- NOTE | 2023-06-02 17:30 | NUR ---
SHIFT SUMMARY: PT IS A 57 YEAR OLD MALE HERE FOR CELLULITIS OF HIS R LOWER LEG. 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 HE UNDERWENT A MRI OF THAT LEG TODAY. DR. CLINE NOTIFIED OF REPORT TO REVIEW. BEEN TREATING PATIENT WITH IV ANTIBIOTICS AND MANAGING PAIN. HE HAS BEEN IN BED RESTING, CALL LIGHT WITHIN REACH, AND HASN'T DISPLAYED SIGNS OR SYMPTOMS OF DISTRESS. PLAN OF CARE ONGOING.
[2023-06-02 19:31] VITALS: BP 116/70
[2023-06-03 03:40] VITALS: BP 131/73
--- NOTE | 2023-06-03 05:17 | NUR ---
SHIFT SUMMARY 57 YR M ADMITTED ON 05/29/23 FOR CELLULITIS OF RIGHT LEG. FULL CODE. NO ACUTE CHANGES THIS SHIFT. PT WAS MEDICATED FOR PAIN AND GIVEN A SNACK AT HIS REQUEST. HE SLEPT FOR MOST OF THIS SHIFT W/ NO FURTHER C/O. HE WAS PEELING SKIN OFF OF HIS RLE AND CAUSED A RAW SPOT THAT STARTED WEEPING. WOUND WAS COVERED W/ NON ADHESIVE PADS AND WRAPPED IN GAUZE.
[2023-06-03 06:20] LABS: BASOPHILS ABSOLUTE AUTO 0.01 K/mm3 (0.00-0.23); BASOPHILS PERCENT AUTO 0 % (0-2); EOSINOPHILS ABSOLUTE AUTO 0.17 K/mm3 (0.00-0.68); EOSINOPHILS PERCENT AUTO 3 % (0-6); Hematocrit 24.1 % (37.0-53.0); Mean Corpuscular HGB 28.5 pg (26.0-34.0); Mean Corpuscular HGB Conc 33.2 g/dL (31.5-36.5); Mean Corpuscular Volume 86 fL (80-100); Mean Platelet Volume 10.2 fL (9.1-12.4); Platelet Count 181 K/mm3 (150-400); RDW Coefficient Variation 13.8 % (11.7-14.2); Red Blood Cell Count 2.81 M/mm3 (4.30-5.90); White Blood Cell Count 6.33 K/mm3 (4.00-11.30)
[2023-06-03 06:31] LABS: IMMATURE GRAN ABSOLUTE AUTO 0.11 K/mm3 (0.00-0.10); IMMATURE GRAN PERCENT AUTO 2 % (0-1); LYMPHOCYTES ABSOLUTE AUTO 1.22 K/mm3 (0.84-5.20); LYMPHOCYTES PERCENT AUTO 19 % (21-46); MONOCYTES ABSOLUTE AUTO 0.45 K/mm3 (0.16-1.47); MONOCYTES PERCENT AUTO 7 % (4-13); NEUTROPHILS ABSOLUTE AUTO 4.37 K/mm3 (1.96-9.15); NEUTROPHILS PERCENT AUTO 69 % (41-73)
[2023-06-03 06:41] LABS: Bun/Creatinine Ratio 15.1 (12.0-20.0); Calcium, Blood 7.9 mg/dL (8.5-10.1); Creatinine, Blood 0.8 mg/dL (0.60-1.20); Magnesium, Blood 1.6 mg/dL (1.6-2.4); Potassium, Blood 3.2 mmol/L (3.5-5.5)
[2023-06-03 07:56] VITALS: BP 130/71
[2023-06-03 15:26] VITALS: BP 146/79
--- NOTE | 2023-06-03 16:02 | NUR ---
wound care THIS AM AT 1030 THE PATIENTS WOUND WAS CLEANED WITH WOUND FUGITIVE INVESTIGATOR COVERED WITH XERAFORM AND EXUDRY DRESSING. WRAPPED WITH KURLEX AND ANTHONY BANDAGE. THE PT TOLERATED THE PROCEDURE WELL
--- NOTE | 2023-06-03 19:05 | NUR ---
SHIFT SUMMARY: PT IS A 57 YEAR OLD MALE HERE FOR CELLULITIS OF HIS R LOWER EXTREMITY. BEEN TREATING WITH IV ANITBIOTICS AND MANAGING PAIN. HE IS TO UNDERGO A PROCEDURE TOMORROW 06/04/[address] CLINE. HE IS AMBULATORY WITH STAFF TO THE RESTROOM; USES URINAL. SHE IS ALERT AND ORIENTED X3, CAN BE EMOTIONAL, AND IRRITABLE. HE IS IN BED, CALL LIGHT WITHIN REACH, AND NO SIGNS OF SYMPTOMS OF DISTRESS. PLAN OF CARE ONGOING.
[2023-06-03 19:56] VITALS: BP 139/76
[2023-06-04] VITALS (17 sets, daily range): BP systolic 122–178; BP diastolic 59–97
[2023-06-04 03:06] LABS: Hematocrit 23.4 % (37.0-53.0); Hemoglobin 7.6 g/dL (13.5-17.5); Mean Corpuscular HGB 28.4 pg (26.0-34.0); Mean Corpuscular HGB Conc 32.5 g/dL (31.5-36.5); Mean Corpuscular Volume 87 fL (80-100); Mean Platelet Volume 10.2 fL (9.1-12.4); Platelet Count 218 K/mm3 (150-400); RDW Standard Deviation 44.5 fL (35.1-46.3); Red Blood Cell Count 2.68 M/mm3 (4.30-5.90); White Blood Cell Count 6.51 K/mm3 (4.00-11.30)
[2023-06-04 03:29] LABS: Magnesium, Blood 1.7 mg/dL (1.6-2.4)
[2023-06-04 03:30] LABS: Anion Gap 3 mmol/L (6-16); Blood Urea Nitrogen 9 mg/dL (8-24); Bun/Creatinine Ratio 11.2 (12.0-20.0); CO2, Blood 29 mmol/L (21-32); Calcium, Blood 7.8 mg/dL (8.5-10.1); Chloride, Blood 109 mmol/L (98-108); Glomerular Filtration Rate 104 (60-); Glucose, Blood 208 mg/dL (70-99); Potassium, Blood 3.7 mmol/L (3.5-5.5); Sodium, Blood 141 mmol/L (136-145); Vancomycin, Trough 15.5 ug/mL (5.0-10.0)
[2023-06-04 03:37] LABS: BAND PERCENT MAN 1 % (0-8); BASOPHILS PERCENT MAN 0 % (0-2); EOSINOPHILS ABSOLUTE MAN 0.26 K/mm3 (0.00-0.68); EOSINOPHILS PERCENT MAN 4 % (0-6); LYMPHOCYTES % ATYPICAL MANUAL 1 % (0-0); LYMPHOCYTES ABSOLUTE MAN 0.84 K/mm3 (0.84-5.20); LYMPHOCYTES PERCENT MAN 12 % (21-46); MONOCYTES ABSOLUTE MAN 0.52 K/mm3 (0.16-1.47); MONOCYTES PERCENT MAN 8 % (4-13); MYELOCYTE ABSOLUTE MAN 0.06 K/mm3 (0.00-0.00); MYELOCYTE PERCENT MAN 1 % (0-0); NEUTROPHILS ABSOLUTE MAN 4.81 K/mm3 (1.96-9.15); SEG NEUTROPHILS PERCENT MAN 73 % (41-73); TOTAL CELLS COUNTED 100
--- NOTE | 2023-06-04 04:10 | NUR ---
SHIFT SUMMARY; NO ACUTE CHANGES OVERNIGHT. THE PT IS AXO X3, VERY LABILE MOOD THIS EVENING. THE PT IS KIND AND COOPERATIVE W/ CARE AND AT OTHER TIMES THE PT IS CURSING. PT IS NOT HAPPY THAT HE IS NPO STATUS D/T TO SURGERY TODAY. PT COMPLAINS OF DRY MOUTH, SWABS CONTINUALLY OFFERED BUT PT REFUSES. PT ACCEPTED MOUTH MOISTURIZER THIS AM. PT HAS HAD PAIN OFF AND ON T/O THE NIGHT IN HIS R LOWER EXTREMITY, MEDICATED W/ PRN PAIN MEDICATION W/ GOOD RELIEF. THE PT HAS BEEN USING THE URINAL INDEPENDENTLY IN HIS BED. NS REMAINS RUNNING AT 125MLS/HR. THE PT DENIES ANY SOB, CHEST PAIN/PRESSURE OR N/V. CURRENTLY THE PT IS LAYING IN BED WITH THE BED IN THE LOWEST POSITION AND THE CALL LIGHT AT BEDSIDE. FIRE EDUCATION PROVIDED AND SAFETY ROUNDS COMPLETED.
[2023-06-04 10:59] LABS: Percent Saturation 8.4 % (20.0-50.0)
--- NOTE | 2023-06-04 12:29 | NUR ---
DAY SURGERY RN IN ROOM TO TRANSPORT PT FOR PLANNED SURGICAL INTERVENTION.
--- NOTE | 2023-06-04 18:00 | NUR ---
SHIFT SUMMARY: DARLIN IS A&OX3. VSS, NO ACUTE EVENTS THIS SHIFT. PT UNDERWENT AN I&D OF THE RLE TODAY, DRESSING C/D&I. PT IS TOLERATING PO INTAKE WELL, DENIES ANY NAUSEA, AND REPORTS MODERATE PAIN CONTROL WITH MEDICATIONS PER MAR. HE IS REQUIRING 3L VIA NC TO MAINTAIN SATS ABOVE 90%. PT HAS REMOVED O2 AT TIMES, REMINDED PT TO LEAVE O2 IN PLACE AND EDUCATED ON DEEP BREATHING AND COUGH. PT IS USING THE URINAL WITHOUT DIFFICULTY. HE IS LYING IN BED WITH THE CALL LIGHT IN REACH. WCTM UNTIL REPORT IS GIVEN TO PICK PACK WORKER RN.
[2023-06-05 00:03] VITALS: BP 178/95
--- NOTE | 2023-06-05 00:15 | NUR ---
CALL TO HOSPITALIST; CALLED DR. HYDE REGARDINGS PTS CHANGE IN O2 DEMAND, SHIVERING DESPITE NOT HAVING A FEVER AND INCREASED WORK OF BREATHING. AT THE BEGINNING OF SHIFT THE PT WAS ON 2L NC SATTING 94%. AROUND 2344, WE HAD ROUNDED ON THE PT AND FOUND HIM WITH HIS O2 OFF AND SATTING 76% ON ROOM AIR. I PLACED THE PT ON 6L NC AND HIS SATS WENT UP TO 86-92%. WE THEN PUT A NON-REBREATHER MASK ON THE PT WITH 6L AND THE PT WAS SATTING 86-94% BUT WAS NOT CONTINUALLY MAINTAINING SATURATION. RT EVALUATED PT AND STATED THAT HE SOUNDED CLEAR. RELAYED ALL OF THIS INFORMATION TO DR. HYDE. PER DR. HYDE ORDER A CHEST X-RAY AND TRY CPAP IF NEEDED.
--- NOTE | 2023-06-05 02:09 | NUR ---
UPDATE ON PT CONDITION; PT IS ON 6L HFNC SATTING 94-95%. I MEDICATED THE PT FOR PAIN W/ PRN PAIN MEDICATION AND THAT SEEMS TO HAVE HELPED CALM THE PT. PT IS NOT CALMLY LAYING IN BED, RR ARE EVEN AND UNLABORED. CHEST X-RAY RESULTS ARE NOT AVAILABLE YET.
--- NOTE | 2023-06-05 05:21 | NUR ---
NOTE; PT REFUSES AM VITALS THIS AM AND LAB DRAW. PT IS UNCOOPERATUVE W/ WEARING HIS O2 THIS AM WELL. PT IS CURSING AT STAFF DIRECTING THEM TO LEAVE HIM THE F ALONE AND LET HIM SLEEP. PT IS PRESENTLY SLEEPING IN BED WITH HIS HFNC HALF WAY IN HIS NOSE AT 6L, PT IS SATTING 90%.
--- NOTE | 2023-06-05 05:40 | NUR ---
SHIFT SUMMARY; PT WITH INCREASED AGITATION T/O THE NIGHT. THE PT IS AXO X3 AND USES THE URINL IN BED INDEPENDENTLY. T/O THE NIGHT THE PT HAS HAD ISSUES W/ URINARY URGENCY, HOWEVER PT EXPRESSED EXCITEMENT ABOUT URINATING ON THE FLOOR AND HOW STAFF FINELY HAD SOMETHING TO DO SO THEY COULD "GET OFF THEIR FAT BUTTS AND CLEAN UP HIS URINE". PT W/ RESPIRATPRY DISTRESS THIS EVENING, REFER TO PREVIOUS NOTES. PRESENTLY THE PT IS ON 7L HFNC SATTING 90-92%. PT IS NONCOMPLAINT WITH LEAVING OXYGEN IN PLACE. PT IS UNAGREEBABLE WITH ALMOST ALL CARE THIS AM. PT WILL NOT ALLOW A DRESSING CHANGE ON RLE. PT WOULD NOT ALLOW AM VITALS. PT WOULD NOT ALLOW AM LAB DRAW. PT IS VERBALLY ABUSIVE TO STAFF THIS AM. PTS RLE HAD A I&D PERFORMED ON IT YESTERDAY BY DR. REZA, SEROUSANGIOUS FLUID THROUGH THE DRESSING. PT CONTINUALLY REFUSES DRESSING CHANGE. PT HAS COMPLAINED OF PAIN IN HIS RLE ON AND OFF T/O THE NIGHT MEDICATED W/ PRN PAIN MEDICATION. CURRENTLY THE PT IS LAYING IN BED WITH THE BED IN THE LOWEST POSITION AND THE CALL LIGHT AT BEDSIDE. FIRE SAFETY CHECKS COMPLETED T/O THE NIGHT.
[2023-06-05 10:53] LABS: BASOPHILS ABSOLUTE AUTO 0.02 K/mm3 (0.00-0.23); BASOPHILS PERCENT AUTO 0 % (0-2); EOSINOPHILS PERCENT AUTO 2 % (0-6); Hematocrit 22.3 % (37.0-53.0); Hemoglobin 7.1 g/dL (13.5-17.5); IMMATURE GRAN PERCENT AUTO 3 % (0-1); LYMPHOCYTES PERCENT AUTO 12 % (21-46); MONOCYTES ABSOLUTE AUTO 0.43 K/mm3 (0.16-1.47); MONOCYTES PERCENT AUTO 7 % (4-13); Mean Corpuscular HGB 28.7 pg (26.0-34.0); Mean Corpuscular HGB Conc 31.8 g/dL (31.5-36.5); Mean Corpuscular Volume 90 fL (80-100); Mean Platelet Volume 9.9 fL (9.1-12.4); NEUTROPHILS ABSOLUTE AUTO 4.92 K/mm3 (1.96-9.15); NEUTROPHILS PERCENT AUTO 76 % (41-73); Platelet Count 294 K/mm3 (150-400); Red Blood Cell Count 2.47 M/mm3 (4.30-5.90); White Blood Cell Count 6.47 K/mm3 (4.00-11.30)
[2023-06-05 11:07] LABS: Bun/Creatinine Ratio 10.1 (12.0-20.0); Calcium, Blood 7.8 mg/dL (8.5-10.1); Creatinine, Blood 0.8 mg/dL (0.60-1.20)
[2023-06-05 15:55] VITALS: BP 142/69
[2023-06-05 16:20] LABS: Vancomycin, Trough 16.2 ug/mL (5.0-10.0)
--- NOTE | 2023-06-05 17:55 | NUR ---
SHIFT SUMMARY: DARLIN IS A&OX3. VSS, ABLE TO TITRATE O2 DOWN FROM 7LPM HI-RAHUL TO 2-3 LPM. PT REPORTS MINIMAL PAIN CONTROL WITH MEDICATIONS PER OCT. POWERGLIDE TO DOLORES SALAZAR, ABLE TO DRAW LABS THIS AM, NOT ABLE TO DRAW LABS THIS AFTERNOON. PT IS TOLERATING PO INTAKE WELL. IV FLUIDS DISCONTINUED AND IV LASIX STARTED THIS SHIFT. PT IS USING THE URINAL FREQUENTLY, NO BM THIS SHIFT. EDUCATION ON BLOOD SUGAR CONTROL AND HEALING PROVIDED. PT FREQUENTLY REQUESTING SNACKS BETWEEN MEALS. DRESSING TO RLE REINFORCED THIS AM D/T EXUDATE SOAKING THROUGH DRESSING, HAVE NOT HAD TO REINFORCE A SECOND TIME. PT IS LYING IN BED WITH THE CALL LIGHT IN REACH. WCTM UNTIL REPORT IS GIVEN TO TELECOMMUNICATIONS FIELD ENGINEER RN.
[2023-06-05 20:15] VITALS: BP 169/76
--- NOTE | 2023-06-06 04:09 | NUR ---
END OF SHIFT SUMMARY PT SLEPT WELL THROUGHOUT THE SHIFT. PT CALM AND COOPERATIVE WITH CARE PROVIDED. UPON ARRIVAL TO THE FLOOR, PT HAD A CONDOM CATHETER IN PLACE. HOWEVER, PT ABLE TO USE URINAL AT BEDSIDE. PT REQUESTED PAIN MEDICATION NORCO x1, WHICH WAS EFFECTIVE. PT A&O x3-4, AFEBRILE. PT ON 2L HI-RAHUL NC. NO SIGNS OF SOB/DIFFICULTY WITH BREATHING, RESP RATE EVEN AND UNLABORED. PT 1P STAND PIV TO BSC. PT HAS HIS OWN PERSONAL WC IN ROOM. PT ABLE TO MAKE NEEDS KNOWN. CALL LIGHT WITHIN REACH, WCTM.
[2023-06-06 04:52] VITALS: BP 151/77
[2023-06-06 06:04] LABS: BASOPHILS ABSOLUTE AUTO 0.02 K/mm3 (0.00-0.23); BASOPHILS PERCENT AUTO 0 % (0-2); EOSINOPHILS PERCENT AUTO 2 % (0-6); Hematocrit 23.4 % (37.0-53.0); Hemoglobin 7.8 g/dL (13.5-17.5); IMMATURE GRAN ABSOLUTE AUTO 0.18 K/mm3 (0.00-0.10); IMMATURE GRAN PERCENT AUTO 3 % (0-1); LYMPHOCYTES ABSOLUTE AUTO 0.93 K/mm3 (0.84-5.20); LYMPHOCYTES PERCENT AUTO 16 % (21-46); MONOCYTES PERCENT AUTO 9 % (4-13); Mean Corpuscular HGB 29.1 pg (26.0-34.0); Mean Corpuscular HGB Conc 33.3 g/dL (31.5-36.5); Mean Corpuscular Volume 87 fL (80-100); Mean Platelet Volume 9.8 fL (9.1-12.4); NEUTROPHILS ABSOLUTE AUTO 3.95 K/mm3 (1.96-9.15); NEUTROPHILS PERCENT AUTO 69 % (41-73); Platelet Count 328 K/mm3 (150-400); RDW Standard Deviation 43.8 fL (35.1-46.3); Red Blood Cell Count 2.68 M/mm3 (4.30-5.90); White Blood Cell Count 5.68 K/mm3 (4.00-11.30)
[2023-06-06 06:31] LABS: Bun/Creatinine Ratio 11.7 (12.0-20.0); Calcium, Blood 8.1 mg/dL (8.5-10.1); Creatinine, Blood 0.77 mg/dL (0.60-1.20); Potassium, Blood 3.8 mmol/L (3.5-5.5)
[2023-06-06 07:14] VITALS: BP 112/90
--- NOTE | 2023-06-06 11:38 | NUR ---
DR REZA MEDICATION ORDER DR JOY DID WOUND CARE THIS MORNING ON MR KALYAN R LEG. HE GAVE VERBAL ORDER FOR EXTRA 25MCG DOSE OF FENTANYL WHILE HE WAS DOING DRESSING CHANGE PT WAS HAVING SEVERE PAIN WITH DRESSING CHANGE. FENTANYL EXTRA DOSE CHARTED UNDER FENTANYL Q2HR DOSING ORDER.
[2023-06-06 15:39] VITALS: BP 150/71
--- NOTE | 2023-06-06 17:31 | NUR ---
SHIFT SUMMARY MR BIGGS IS CALM, RESTING IN BED FOR MOST OF THE DAY. RIGHT FOOT ELEVATED ON MULTIPLE PILLOWS. LARGE VOLUME PALE CLEAR UOP. DRESSING CHANGED BY DR REZA WITH FENTANYL 50MCG FOR DRESSING CHANGE EARLIER TODAY. HAD ONE NORCO SICE WHICH HAS HELPED THE PAIN. STAND PIVOT TO BSC WITH 1 PERSON ASSIST. 90-91% SAT ON ROOM AIR. BED LOW, CALL LIGHT IN REACH.
[2023-06-06 19:22] VITALS: BP 141/68
--- NOTE | 2023-06-07 01:58 | NUR ---
END OF SHIFT SUMMARY PT A&O x3, ORIENTATED TO PERSON, PLACE AND SITUATION. VSS, AFEBRILE. PT OXYGEN SAT AT 97% ON RA. RESP RATE EVEN AND UNLABORED. PT SLEPT WELL OVER NIGHT. CBG READING WAS 209, PT RECEIVED 15 UNITS OF GLARGINE PER EMAR ORDER. PT ABLE TO MAKE NEEDS KNOWN. PT REQUESTED PAIN MEDICATION. PAIN MANAGED WITH PRN NORCO AND IV FENTANYL, BOTH EFFECTIVE IN RELIEVING PAIN. DRSG TO R LEG IS C/D/I. DRSG WAS CHANGED YESTERDAY ON DAY SHIFT 06/06/23. PT ELEVATING R LEG ON PILLOW. PT CONTINENT OF B/B, PT USES URINAL AT BEDSIDE. PT ENCOURAGED TO GET OOB TO INCREASE MOBILITY DURING DAY SHIFT AND PREVENT PRESSURE ULCERS. PT IS INVOLVED IN CARE. CALL LIGHT WITHIN REACH, WCTM.
[2023-06-07 05:48] VITALS: BP 146/71
[2023-06-07 07:10] VITALS: BP 132/66
[2023-06-07 08:58] LABS: BASOPHILS ABSOLUTE AUTO 0.03 K/mm3 (0.00-0.23); BASOPHILS PERCENT AUTO 0 % (0-2); EOSINOPHILS ABSOLUTE AUTO 0.09 K/mm3 (0.00-0.68); EOSINOPHILS PERCENT AUTO 1 % (0-6); IMMATURE GRAN ABSOLUTE AUTO 0.13 K/mm3 (0.00-0.10); IMMATURE GRAN PERCENT AUTO 2 % (0-1); LYMPHOCYTES ABSOLUTE AUTO 1.36 K/mm3 (0.84-5.20); LYMPHOCYTES PERCENT AUTO 20 % (21-46); MONOCYTES ABSOLUTE AUTO 0.55 K/mm3 (0.16-1.47); MONOCYTES PERCENT AUTO 8 % (4-13); Mean Corpuscular HGB 28.5 pg (26.0-34.0); Mean Corpuscular HGB Conc 32.1 g/dL (31.5-36.5); Mean Corpuscular Volume 89 fL (80-100); Mean Platelet Volume 9.2 fL (9.1-12.4); NEUTROPHILS ABSOLUTE AUTO 4.78 K/mm3 (1.96-9.15); NEUTROPHILS PERCENT AUTO 69 % (41-73); Platelet Count 421 K/mm3 (150-400); RDW Coefficient Variation 13.7 % (11.7-14.2); RDW Standard Deviation 44.3 fL (35.1-46.3); Red Blood Cell Count 3.16 M/mm3 (4.30-5.90); White Blood Cell Count 6.94 K/mm3 (4.00-11.30)
[2023-06-07 09:16] LABS: Bun/Creatinine Ratio 11.3 (12.0-20.0); Calcium, Blood 8.3 mg/dL (8.5-10.1); Creatinine, Blood 0.71 mg/dL (0.60-1.20); Potassium, Blood 3.9 mmol/L (3.5-5.5)
[2023-06-07 15:17] LABS: Vancomycin, Trough 16.3 ug/mL (5.0-10.0)
--- NOTE | 2023-06-07 15:39 | NUR ---
SHIFT SUMMARY MR BIGGS HAS BEEN PLEASANT AND COOPERATIVE WITH HIS CARE TODAY, APPROPRIATE CONVERSATION. RIGHT LEG DRESSING LEFT UNCHANGED TODAY, OUTER DRESSING C,D,I. RIGHT LEG PAIN DOWN TO 2-3/10 AFTER 1 NORCO. ON ROOM AIR. NO C/O SOB. BLOOD SUGARS IN THE 200S BEFORE BREAKFAST AND LUNCH. BED LOW, CALL LIGHT IN REACH.
[2023-06-07 15:50] VITALS: BP 133/70
[2023-06-07 19:46] VITALS: BP 140/72
--- NOTE | 2023-06-08 04:06 | NUR ---
END OF SHIFT SUMMARY PT A&O x3, DOESN'T SEEM TO BE INTERESTED IN ANSWERING ASSESSMENT QUESTIONS. VSS, AFEBRILE. PT MADE SOME IMMATURE COMMENTS AT BEGINNING OF SHIFT, USING PROFANITY. CARE STAFF ABLE TO SHUT DOWN/REDIRECT PT. PAIN MANAGED WITH PRN NORCO AND FENTANYL, WHICH WERE EFFECTIVE. PT CONTINENT OF B/B. URINAL AT BEDSIDE. PT ON RA, OXYGEN SAT AT 97%. PT SLEPT WELL, R LEG ELEVATED ON PILLOW. PT RECEIVING IV ANTIBIOTICS. WOUND CARE WILL ASSESS R LEG TODAY ON DAY SHIFT. PT ABLE TO MAKE NEEDS KNOWN. CALL LIGHT WITHIN REACH, WCTM.
[2023-06-08 04:29] VITALS: BP 143/78
[2023-06-08 05:50] LABS: BASOPHILS ABSOLUTE AUTO 0.04 K/mm3 (0.00-0.23); BASOPHILS PERCENT AUTO 1 % (0-2); EOSINOPHILS PERCENT AUTO 2 % (0-6); Hematocrit 29.2 % (37.0-53.0); Hemoglobin 9.2 g/dL (13.5-17.5); IMMATURE GRAN ABSOLUTE AUTO 0.16 K/mm3 (0.00-0.10); IMMATURE GRAN PERCENT AUTO 3 % (0-1); LYMPHOCYTES ABSOLUTE AUTO 1.66 K/mm3 (0.84-5.20); LYMPHOCYTES PERCENT AUTO 26 % (21-46); MONOCYTES ABSOLUTE AUTO 0.56 K/mm3 (0.16-1.47); MONOCYTES PERCENT AUTO 9 % (4-13); Mean Corpuscular HGB 28.1 pg (26.0-34.0); Mean Corpuscular HGB Conc 31.5 g/dL (31.5-36.5); Mean Corpuscular Volume 89 fL (80-100); NEUTROPHILS ABSOLUTE AUTO 3.96 K/mm3 (1.96-9.15); NEUTROPHILS PERCENT AUTO 61 % (41-73); Platelet Count 438 K/mm3 (150-400); RDW Coefficient Variation 13.7 % (11.7-14.2); RDW Standard Deviation 44.4 fL (35.1-46.3); Red Blood Cell Count 3.27 M/mm3 (4.30-5.90); White Blood Cell Count 6.48 K/mm3 (4.00-11.30)
[2023-06-08 09:01] VITALS: BP 139/75
--- NOTE | 2023-06-08 14:56 | NUR ---
SHIFT SUMMARY PT RESTING QUIETLY AT START OF SHIFT, NOT WANTING TO BE WOKE OR BOTHERED UNTIL AFTER BREAKFAST. PT'S SON HERE THIS AM AND AFTERNOON. PT UP TO W/C AT BS TALKING WITH SON. CO-OP WITH LAB AND LAYOUT ARTIST AFTER BREAKFAST. PT ABLE TO TX SELF TO W/C AND BACK TO BED; 1P SBA FOR SAFETY, BUT DID NOT NEED ASSIST. PT ABLE TO DRESS HIMSELF. USES URINAL SELF. 1P SBA ASSIST TO BSC FOR BM. RESTING QUIETLY AGAIN AT THIS TIME, TAKING A NAP. CALL LT IN REACH. PT MEDICALLY STABLE WAITING FOR BED AVAILABILITY.
[2023-06-08 15:06] VITALS: BP 127/90
--- NOTE | 2023-06-08 15:20 | NUR ---
SHIFT SUMMARY PT RESTING QUIETLY AT START OF SHIFT. WOKE EASILY FOR CARE. DECLINED TO TAKE MEDICATIONS OR HAVE IV ABX UNTIL AFTER BREAKFAST. PT LATER CO-OP WITH CARE. DR REZA IN TO SEE PT AND CK ON RLE WOUND. DR REZA INFORM PT THAT GRADUATE TEACHER EDUCATION WOULD REMOVE CURRENT DRSG AND EVALUATE WOUND. DEN RN, FROM WOUND CARE CLINIC HERE TO REMOVE DRESSINGS, TAKE PIC'S AND UPDATE DR REZA ON WOUND STATUS. NEW ORDERS PLACED FOR WOUND VAC. PT MEDICATED PER EMAR FOR DRSG CHANGE AND WOUND VAC PLACEMENT. DR PANTOJA ALSO IN TO SEE PT TODAY. NO FURTHER ORDERS PLACED TO PRESENT. PT USING URINAL IN BED. CALLS FOR NEEDS. DIETARY CONSULT ORDERED FOR WOUND HEALING NUTRITION. PT RESTING QUIETLY WITH RLE ELEVATED ON PILLOWS. WATCHING TV. CALL LT IN REACH.
--- NOTE | 2023-06-08 15:45 | NUR ---
WOUND CARE WOUND PHOTO AND ASSESSMENT IN HARD CHART. WOUND BED IS RED WITH GRANULATION TISSUE FORMING. 2-6 AND 7-11 UNDERMINING NOTED 3.5 AT GREATEST. MINIMAL SLOUGH. TELEPHONE CALL TO DR. JOY ORDER FOR WOUND VAC RECIEVED. SKIN PREP AND TRANSPARENT FILM TO PERIWOUND. THREE PIECES BLACK FILM APPLIED TO WOUND BED. VAC SET TO CONTINUOUS 120MMHG. PT EMOTIONALLY LABILE AND PAINFUL DURING APPLICATION. IV AND ORAL MEDICATION ONBOARD. DID ENCOURAGE RELAXATION AND DEEP BREATHING.
[2023-06-08 20:00] VITALS: BP 143/74
[2023-06-09 03:03] VITALS: BP 134/78
[2023-06-09 03:08] LABS: BASOPHILS ABSOLUTE AUTO 0.05 K/mm3 (0.00-0.23); BASOPHILS PERCENT AUTO 1 % (0-2); EOSINOPHILS ABSOLUTE AUTO 0.13 K/mm3 (0.00-0.68); EOSINOPHILS PERCENT AUTO 2 % (0-6); Hematocrit 28.5 % (37.0-53.0); Hemoglobin 9.2 g/dL (13.5-17.5); IMMATURE GRAN ABSOLUTE AUTO 0.12 K/mm3 (0.00-0.10); IMMATURE GRAN PERCENT AUTO 1 % (0-1); LYMPHOCYTES ABSOLUTE AUTO 1.69 K/mm3 (0.84-5.20); LYMPHOCYTES PERCENT AUTO 20 % (21-46); MONOCYTES ABSOLUTE AUTO 0.54 K/mm3 (0.16-1.47); MONOCYTES PERCENT AUTO 6 % (4-13); Mean Corpuscular HGB 28.3 pg (26.0-34.0); Mean Corpuscular HGB Conc 32.3 g/dL (31.5-36.5); Mean Corpuscular Volume 88 fL (80-100); Mean Platelet Volume 8.8 fL (9.1-12.4); NEUTROPHILS ABSOLUTE AUTO 5.98 K/mm3 (1.96-9.15); NEUTROPHILS PERCENT AUTO 70 % (41-73); Platelet Count 527 K/mm3 (150-400); RDW Coefficient Variation 13.6 % (11.7-14.2); RDW Standard Deviation 43.2 fL (35.1-46.3); Red Blood Cell Count 3.25 M/mm3 (4.30-5.90); White Blood Cell Count 8.51 K/mm3 (4.00-11.30)
[2023-06-09 03:30] LABS: Albumin, Blood 2.5 g/dL (3.4-5.0); Anion Gap 6 mmol/L (6-16); Blood Urea Nitrogen 14 mg/dL (8-24); Bun/Creatinine Ratio 19.2 (12.0-20.0); CO2, Blood 25 mmol/L (21-32); Calcium, Blood 8.3 mg/dL (8.5-10.1); Chloride, Blood 108 mmol/L (98-108); Creatinine, Blood 0.73 mg/dL (0.60-1.20); Glomerular Filtration Rate 107 (60-); Glucose, Blood 172 mg/dL (70-99); Phosphorus, Blood 3.4 mg/dL (2.5-4.9); Potassium, Blood 4.2 mmol/L (3.5-5.5); Sodium, Blood 139 mmol/L (136-145)
[2023-06-09 03:53] LABS: Vancomycin, Trough 21.2 ug/mL (5.0-10.0)
--- NOTE | 2023-06-09 04:22 | NUR ---
SHIFT SUMMARY: PT IS ADMITTED FOR CELLULITIS OF THE RIGHT LEG AND IS A FULL CODE. IS ALERT AND ABLE TO MAKE NEEDS KNOWN. ADL S HAVE BEEN 1P FOR MOST. IS ON CONTACT ISO FOR MRSA. HAS MIDLINE TO RIGHT UPPER ARM THAT IS PATENT. STATES THAT HE HAS PAIN BUT HAS NOT GIVEN A RATING ON IT OR ACCEPTED PRN WHEN OFFERED. CRITICAL VANCO TROUGH REPORTED FROM LAB AT 21.2. REPORTED TO PHARMACY FOR DOSE ADJUSTMENT. REPORTED VALUE TO CHARGE NURSE (RN).
[2023-06-09 07:53] VITALS: BP 142/80
[2023-06-09 15:34] VITALS: BP 140/85
--- NOTE | 2023-06-09 15:49 | NUR ---
SHIFT SUMMARY PT RESTING QUIETLY AT START OF SHIFT. DOES NOT LIKE TO BE BOTHERED UNTIL HE WAKES UP ON HIS OWN. CAN BE IRRITABLE. MORE PLEASANT ONCE AWAKE. DR PANTOJA IN TO SEE PT THIS AM. PT/OT ORDERED TO ASSIST WITH GETTING PT MORE MOBILE. PT DID GET UP TO CHAIR AND LATER TO BSC FOR EX LRG BM. PT LACKS MOTIVATION TO HELP HIMSELF IMPROVE. NONCOMPLIANT WITH ADA DIET WHEN HE CAN BE. WOUND VAC REMAINS INTACT AND PATENT. NO FURTHER NEEDS AT THIS TIME. CALL LT IN REACH.
[2023-06-09 19:41] VITALS: BP 148/87
--- NOTE | 2023-06-10 03:58 | NUR ---
SHIFT SUMMARY: PT IS ADMITTED FOR CELLULITIS OF THE RIGHT LEG AND IS A FULL CODE. IS ALERT AND ABLE TO MAKE NEEDS KNOWN. ADL S ARE 1P MIN-MOD FOR MOST ACTIVITIES. DID NOT GET OUT OF BED THIS SHIFT. DID NOT STATE THAT HE WAS IN PAIN THIS SHIFT WHEN ASKED. MIDLINE TO LEFT UPPER ARM IS PATENT WITH A DRESSING THAT IS CDI. WOUND VAC TO RIGHT LOWER LEG IS PATENT. IS ON CONTACT ISO for MRSA.
[2023-06-10 04:22] VITALS: BP 145/80
[2023-06-10 04:26] LABS: BASOPHILS ABSOLUTE AUTO 0.06 K/mm3 (0.00-0.23); BASOPHILS PERCENT AUTO 1 % (0-2); EOSINOPHILS ABSOLUTE AUTO 0.09 K/mm3 (0.00-0.68); EOSINOPHILS PERCENT AUTO 1 % (0-6); Hematocrit 28.8 % (37.0-53.0); Hemoglobin 9.4 g/dL (13.5-17.5); IMMATURE GRAN PERCENT AUTO 1 % (0-1); LYMPHOCYTES ABSOLUTE AUTO 1.74 K/mm3 (0.84-5.20); LYMPHOCYTES PERCENT AUTO 14 % (21-46); MONOCYTES PERCENT AUTO 5 % (4-13); Mean Corpuscular HGB 28.5 pg (26.0-34.0); Mean Corpuscular HGB Conc 32.6 g/dL (31.5-36.5); Mean Corpuscular Volume 87 fL (80-100); Mean Platelet Volume 8.5 fL (9.1-12.4); NEUTROPHILS ABSOLUTE AUTO 10.06 K/mm3 (1.96-9.15); NEUTROPHILS PERCENT AUTO 80 % (41-73); Platelet Count 545 K/mm3 (150-400); RDW Coefficient Variation 13.8 % (11.7-14.2); RDW Standard Deviation 43.4 fL (35.1-46.3); White Blood Cell Count 12.65 K/mm3 (4.00-11.30)
[2023-06-10 04:57] LABS: Vancomycin, Trough 15.7 ug/mL (5.0-10.0)
[2023-06-10 07:57] VITALS: BP 140/63
--- NOTE | 2023-06-10 13:44 | NUR ---
WOUND CARE RLE WOUND VAC DRESSING CHANGED PER ORDER. LIDOCAINE TO FOAM BEFORE REMOVING TWO PIECES BLACK FOAM REMOVED CLEANSED WITH NS, SKIN PREP AND TRANSPARENT FILM TO PERIWOUND, ONE PIECE BLACK FOAM REAPPLIED. VAC SET TO 120MMHG. WOUND BED BEEFY RED. UNDERMINING IS REATTACHING, MINIMAL DRAINAGE
[2023-06-10 15:39] VITALS: BP 134/72
--- NOTE | 2023-06-10 18:39 | NUR ---
SUMMARY- PT A/O X4, WOUND VAC TX FOR LLE WOUND, CHANGED TODAY 1130 BY PRINTED CIRCUIT BOARDS LAMINATOR, SEE NOTE. 125MMHG CONT SUCTION. PAIN CONTROLLED WITH HYDROCODONE 10MG APPROX Q4 PRN. TOLERATING FOOD AND FLUIDS. STATED BM 06/09. BLOOD SUGARS STABLE, 5UNITS HUMALOG WITH MEALS. VSS. AWAITING PLACEMENT, POSSIBLE HOMELESS MCFP WITH TX TO WOUND VAC APTS. WILL REPORT TO NOC AJITH.
[2023-06-10 19:38] VITALS: BP 153/79
--- NOTE | 2023-06-11 06:02 | NUR ---
SHIFT SUMMERY, PT RSTING IN BED AT THIS TIME, PT NOT WANTING TO BE AWOKEN. PT MEDICATED FOR PAIN X 1. PT VOIDING IN URINAL SEVRAL TIMES. PT USING CALL LIGHT FOR NEEDS. CALL LIGHT IN REACH.
[2023-06-11 07:49] VITALS: BP 129/76
[2023-06-11 09:48] LABS: BASOPHILS ABSOLUTE AUTO 0.08 K/mm3 (0.00-0.23); BASOPHILS PERCENT AUTO 1 % (0-2); EOSINOPHILS ABSOLUTE AUTO 0.08 K/mm3 (0.00-0.68); EOSINOPHILS PERCENT AUTO 1 % (0-6); Hematocrit 29.9 % (37.0-53.0); Hemoglobin 9.4 g/dL (13.5-17.5); IMMATURE GRAN ABSOLUTE AUTO 0.07 K/mm3 (0.00-0.10); IMMATURE GRAN PERCENT AUTO 1 % (0-1); LYMPHOCYTES ABSOLUTE AUTO 1.77 K/mm3 (0.84-5.20); LYMPHOCYTES PERCENT AUTO 19 % (21-46); MONOCYTES ABSOLUTE AUTO 0.58 K/mm3 (0.16-1.47); MONOCYTES PERCENT AUTO 6 % (4-13); Mean Corpuscular HGB 28.2 pg (26.0-34.0); Mean Corpuscular HGB Conc 31.4 g/dL (31.5-36.5); Mean Corpuscular Volume 90 fL (80-100); Mean Platelet Volume 8.7 fL (9.1-12.4); NEUTROPHILS ABSOLUTE AUTO 6.77 K/mm3 (1.96-9.15); NEUTROPHILS PERCENT AUTO 72 % (41-73); Platelet Count 529 K/mm3 (150-400); RDW Coefficient Variation 14.3 % (11.7-14.2); RDW Standard Deviation 45.3 fL (35.1-46.3); Red Blood Cell Count 3.33 M/mm3 (4.30-5.90); White Blood Cell Count 9.35 K/mm3 (4.00-11.30)
[2023-06-11 15:19] VITALS: BP 140/76
--- NOTE | 2023-06-11 17:31 | NUR ---
SHIFT SUMMARY: Pt remains A&Ox3 this shift. VSS. RLE pain managed with po meds. Wound vac intact. Instructed pt not to disconnect wound vac to get up, pt to call staff for ast. Voiding per urinal. Tolerating diet. Resp even nonlabored on RA. Encouraged to use IS, pt demonstrated knowledge of use. No further needs id or verbalized at this time. Will continue to monitor this shift.
[2023-06-11 19:21] VITALS: BP 144/77
--- NOTE | 2023-06-12 02:15 | NUR ---
SHIFT JOYY, PT RESTING I ED, PT WAS MEDICATED FOR PAIN WHEN GIVEN HS MEDS. PT ALSO REQUESTED A SNACK AND PT GIVEN SOME FOOD. PT VOIDING LG AMOUTS DURING THE NIGHT SO FAR. CALL LIGHT IN REACH , WOUND VAC ON AND WORKING.
[2023-06-12 05:22] VITALS: BP 147/79
[2023-06-12 05:35] LABS: BASOPHILS ABSOLUTE AUTO 0.08 K/mm3 (0.00-0.23); BASOPHILS PERCENT AUTO 1 % (0-2); EOSINOPHILS ABSOLUTE AUTO 0.11 K/mm3 (0.00-0.68); EOSINOPHILS PERCENT AUTO 1 % (0-6); Hemoglobin 9.4 g/dL (13.5-17.5); IMMATURE GRAN ABSOLUTE AUTO 0.08 K/mm3 (0.00-0.10); IMMATURE GRAN PERCENT AUTO 1 % (0-1); LYMPHOCYTES ABSOLUTE AUTO 1.69 K/mm3 (0.84-5.20); LYMPHOCYTES PERCENT AUTO 21 % (21-46); MONOCYTES ABSOLUTE AUTO 0.57 K/mm3 (0.16-1.47); MONOCYTES PERCENT AUTO 7 % (4-13); Mean Corpuscular HGB 28.7 pg (26.0-34.0); Mean Corpuscular HGB Conc 32.4 g/dL (31.5-36.5); Mean Corpuscular Volume 89 fL (80-100); Mean Platelet Volume 8.5 fL (9.1-12.4); NEUTROPHILS ABSOLUTE AUTO 5.59 K/mm3 (1.96-9.15); NEUTROPHILS PERCENT AUTO 69 % (41-73); Platelet Count 533 K/mm3 (150-400); RDW Standard Deviation 45.1 fL (35.1-46.3); Red Blood Cell Count 3.27 M/mm3 (4.30-5.90); White Blood Cell Count 8.12 K/mm3 (4.00-11.30)
[2023-06-12 08:20] VITALS: BP 122/74
[2023-06-12 15:48] VITALS: BP 124/63
--- NOTE | 2023-06-12 17:27 | NUR ---
SHIFT SUMMARY: Pt remains A&O x3 this shift. VSS. RLE pain managed with po meds. Wound vac changed today after shower. Encouraged to do PT exercises on sheet on bedside table and white board. Tolerating diet. Voiding per urinal. Will continue to monitor this shift.
[2023-06-12 19:39] VITALS: BP 109/94
[2023-06-13 03:16] VITALS: BP 154/123
--- NOTE | 2023-06-13 03:37 | NUR ---
SHIFT SUMMERY, PT RESTING IN BED, PT JUST AWOKE AND REQUESTED A PAIN MED. PT NOW WATCHING TV AND TRYING TO GO BACK TO SLEEP. PT HAD AN HS SNACK AT BED TIME AND HAS BEEN SEEMING TO SLEEP COMFORTABLY TO THIS POINT IN TIME. CALL LIGHT IN REACH.
[2023-06-13 07:24] VITALS: BP 134/78
[2023-06-13 16:08] VITALS: BP 133/84
--- NOTE | 2023-06-13 17:13 | NUR ---
DAYSHIFT SUMMARY Patient alert & oriented x4, pleasant and cooperative.No acute changes to patient status. RN provided education on diabetes management, asked patient if he would like to self administer insulin. Patient declined to self adminter insulin at this time. Blood sugars this shift, breakfast (217), lunch (242), & dinner (186). Scheduled Humalog changed from 5u to 7u TIDM. Vitals stable this shift. Right foot covered with mepilex CDI, wound vac attached to RLE, set to continous suction. Patient declined to get OOB for meals. Will continue plan of care.
[2023-06-13 19:37] VITALS: BP 133/82
--- NOTE | 2023-06-14 04:03 | NUR ---
SHIFT SUMMARY PT COOPERATIVE WITH CARE. PT GIVEN NIGHTLY INSULIN AND GIVEN SNACKS WELL. IT APPEARED THAT PT SLEPT MUCH OF THE NIGHT. PT WAS MEDICATED FOR PAIN WITH NIGHT MEDS. NO COMPLAINTS OR NEEDS AT THIS TIME. CALL LIGHT WITHIN REACH.
[2023-06-14 04:08] VITALS: BP 154/83
[2023-06-14 07:28] VITALS: BP 139/75
[2023-06-14 10:10] LABS: Hematocrit 28.9 % (37.0-53.0); Hemoglobin 9.5 g/dL (13.5-17.5); Mean Corpuscular HGB 28.4 pg (26.0-34.0); Mean Corpuscular HGB Conc 32.9 g/dL (31.5-36.5); Mean Corpuscular Volume 87 fL (80-100); Mean Platelet Volume 8.3 fL (9.1-12.4); Platelet Count 471 K/mm3 (150-400); RDW Coefficient Variation 13.6 % (11.7-14.2); RDW Standard Deviation 42.4 fL (35.1-46.3); Red Blood Cell Count 3.34 M/mm3 (4.30-5.90); White Blood Cell Count 5.88 K/mm3 (4.00-11.30)
[2023-06-14 10:32] LABS: Albumin, Blood 2.8 g/dL (3.4-5.0); Anion Gap 7 mmol/L (6-16); Blood Urea Nitrogen 26 mg/dL (8-24); Bun/Creatinine Ratio 45.9 (12.0-20.0); CO2, Blood 27 mmol/L (21-32); Calcium, Blood 9.2 mg/dL (8.5-10.1); Chloride, Blood 104 mmol/L (98-108); Creatinine, Blood 0.57 mg/dL (0.60-1.20); Glomerular Filtration Rate 115 (60-); Glucose, Blood 201 mg/dL (70-99); Phosphorus, Blood 3.6 mg/dL (2.5-4.9); Potassium, Blood 3.8 mmol/L (3.5-5.5); Sodium, Blood 138 mmol/L (136-145)
[2023-06-14 16:13] VITALS: BP 133/79
[2023-06-14 19:26] VITALS: BP 140/77
--- NOTE | 2023-06-14 19:51 | NUR ---
DAY SHIFT SUMARY PT A/OX3, FORGETFUL. FOLLOWS DIRECTIONS. NOTED PARANOID THOUGHTS EVIDENCED BY VOICED CONCERNS ABOUT CONTAMINATED WATER AND "POISON" MEDICINE. NO ACUTE CHANGES. WOUND VAC INPLACE; SEAL PATENT; SUCTION AT 120.
--- NOTE | 2023-06-15 05:37 | NUR ---
NOC SHIFT SUMMARY: NORCO GIVEN AT BEDTIME. WOUND VAC INTACT. ?DISCHARGE PLAN. CALLS APPROPRIATELY. CALL LIGHT WITHIN REACH. BED IN LOW POSITION.
[2023-06-15 07:24] VITALS: BP 131/72
--- NOTE | 2023-06-15 15:15 | NUR ---
WOUND CARE WOUND VAC DRESSING CHANGED PER ORDER. NEW PHOTO, ASSESSMENT, AND MEASUREMENTS IN HARD CHART
[2023-06-15 16:23] VITALS: BP 149/84
--- NOTE | 2023-06-15 17:30 | NUR ---
SHIFT SUMMARY PT A&OX4. WOUND CARE NURSE IN TO CHANGE WOUND VAC THIS MORNING. PT MEDICATED BEFORE DRESSING CHANGE WITH GOOD EFFECT. PT STATED PAIN IS MORE INTENSE ON DAYS THAT THE DRESSING HAS BEEN CHANGED. MEDICATED PER EMAR AND EDUCATION PROVIDED ON PAIN MANAGAMENT. PT IS ABLE TO MAKE NEEDS KNOWN. VSS. NO ACUTE CHANGES. BED IN LOWEST POSITION AND CALL LIGHT IN REACH.
[2023-06-15 19:39] VITALS: BP 112/69
--- NOTE | 2023-06-16 04:58 | NUR ---
NOC SHIFT SUMMARY: NORCO GIVEN TWICE FOR PAIN CONTROL. WOUND VAC INTACT. PLACEMENT PENDING. ALERT AND ORIENTED X4. BED IN LOW POSITION. CALL LIGHT WITHIN REACH.
[2023-06-16 07:59] VITALS: BP 122/75
[2023-06-16 16:00] VITALS: BP 134/80
[2023-06-16 19:25] VITALS: BP 139/85
[2023-06-17 04:01] VITALS: BP 135/74
--- NOTE | 2023-06-17 05:00 | NUR ---
NOC SHIFT SUMMARY: NORCO GIVEN AT BEDTIME. AWAITING AUTHORIZATION TO MOVE TO [facility] WITH HOME HEALTH FOR WOUND VAC MAINTENANCE. SLEPT WELL OVERNIGHT. CALL LIGHT WITHIN REACH. BED IN LOW POSITION.
[2023-06-17 07:45] VITALS: BP 151/87
[2023-06-17 16:15] VITALS: BP 127/67
--- NOTE | 2023-06-17 19:19 | NUR ---
SHIFT SUMMARY PATIENT WITH NO ACUTE EVENTS DURING SHIFT. COOPERATIVE WITH CARE. BED IN LOW POSITION. CALL LIGHT IN REACH. PATIENT CALLS APPROPRIATELY. MEDICATED FOR PAIN PER EMAR, LOW CARB SNACKS PROVIDED TO PATIENT BETWEEN MEALS.
[2023-06-17 20:21] VITALS: BP 133/75
--- NOTE | 2023-06-18 05:30 | NUR ---
NOC SHIFT SUMMARY: POWERGLIDE DRESSING NOT CHANGE 06/17/23. WOUND VAC WILL BE CHANGED TODAY BY THE WOUND CARE NURSE. NORCO GIVEN TWICE FOR PAIN. ALERT AND ORIENTED X4. CALL LIGHT WITHIN REACH. BED IN LOW POSITION. WORKING ON DISCHARGE TO [place] WITH HOME HEALTH FOR WOUND VAC CARE.
[2023-06-18 06:31] VITALS: BP 118/95
[2023-06-18 07:35] VITALS: BP 115/68
[2023-06-18 13:05] LABS: BASOPHILS ABSOLUTE AUTO 0.08 K/mm3 (0.00-0.23); BASOPHILS PERCENT AUTO 1 % (0-2); EOSINOPHILS ABSOLUTE AUTO 0.11 K/mm3 (0.00-0.68); EOSINOPHILS PERCENT AUTO 2 % (0-6); Hematocrit 32.2 % (37.0-53.0); Hemoglobin 10.5 g/dL (13.5-17.5); IMMATURE GRAN ABSOLUTE AUTO 0.02 K/mm3 (0.00-0.10); IMMATURE GRAN PERCENT AUTO 0 % (0-1); LYMPHOCYTES ABSOLUTE AUTO 1.34 K/mm3 (0.84-5.20); LYMPHOCYTES PERCENT AUTO 22 % (21-46); MONOCYTES ABSOLUTE AUTO 0.41 K/mm3 (0.16-1.47); MONOCYTES PERCENT AUTO 7 % (4-13); Mean Corpuscular HGB 28.5 pg (26.0-34.0); Mean Corpuscular HGB Conc 32.6 g/dL (31.5-36.5); Mean Corpuscular Volume 87 fL (80-100); Mean Platelet Volume 8.6 fL (9.1-12.4); NEUTROPHILS ABSOLUTE AUTO 4.04 K/mm3 (1.96-9.15); NEUTROPHILS PERCENT AUTO 68 % (41-73); Platelet Count 367 K/mm3 (150-400); RDW Coefficient Variation 13.4 % (11.7-14.2); RDW Standard Deviation 42.6 fL (35.1-46.3); Red Blood Cell Count 3.69 M/mm3 (4.30-5.90)
[2023-06-18 14:00] LABS: Bun/Creatinine Ratio 48.3 (12.0-20.0); Calcium, Blood 9.1 mg/dL (8.5-10.1); Creatinine, Blood 0.75 mg/dL (0.60-1.20); Potassium, Blood 3.8 mmol/L (3.5-5.5)
--- NOTE | 2023-06-18 14:51 | NUR ---
WOUND CARE RLE WOUND VAC CHANGED PER ORDER. TWO PIECED BLACK FOAM REMOVED. WOUND CLEANSED WITH DERMAL WOUND. SKIN PREP AND TRANSPARENT FILM TO PERIWOUND. THREE PIECES OF BLACK FOAM REAPPLIED. VAC SET TO CONTINUOUS 120MMHG. CONSERNING TO THIS RN IS INCREASED EDEMA TO MEDIAL LLE. HOSPITALIST NOTIFIED OF CONCERN. CT ORDERED
[2023-06-18 15:44] VITALS: BP 139/78
--- NOTE | 2023-06-18 18:05 | NUR ---
SHIFT SUMMARY: PT A/O X 4, STANDBY ASSIST. WOUND VAC CHANGED TODAY AND WOUND RN NOTED NEW ONSET SWELLING. CT SCAN DONE. DR. JOY CAME IN THIS EVENING AND EVALUATED WOUND. ORDERS RECEIVED TO HAVE PT NPO AFTER MIDNIGHT AND DR. KENDALL WILL BE COMPLETING SURGERY TOMORROW. ORDER PLACED FOR NPO STATUS. PT BS STABLE, PAIN MANAGED WITH CURRENT PAIN MEDICATIONS. PT STARTED ON VANCO AND ANCEF PER ORDERS.
[2023-06-18 19:21] VITALS: BP 171/78
[2023-06-19] VITALS (13 sets, daily range): BP systolic 137–186; BP diastolic 74–138
--- NOTE | 2023-06-19 06:47 | NUR ---
SHIFT SUMMARY NO EVENTS OVERNIGHT
--- NOTE | 2023-06-19 17:48 | NUR ---
PT ARRIVED TO UNIT VIA GURN, PT REPORTS FEELING "ANXIOUS" ABOUT PROCEDURE AND IS TEARFUL. VSS. WOUND VAC IN PLACE ON RIGHT LEG. PT ABLE TO TRANSFER HIMSELF FROM HOSPITAL BED TO [facility] WITH MINIMAL ASSISTANCE. History, Chart, Medications and Allergies reviewed before start of procedure. Patient confirms NPO status and agrees with scheduled surgery.
--- NOTE | 2023-06-19 19:36 | NUR ---
SHIFT SUMMARY: PT RETURNED FROM SURGERY SHIFT CHANGE OCCURRED. REPORT GIVEN TO ONCOMING RN. PT CRYING IN PAIN ON RETURN. REPORTS 10/10 PAIN. PT TRANSFERRED TO BED FROM [facility]. WOUND VAC IN PLACE WITH SUCTION AND RED BLOODY DRAINAGE NOTED. PT CURRENTLY GETTING VANCO ABX INFUSION. CAITLIN RN TO GET PT PAIN MEDICATIONS.
[2023-06-20 03:58] VITALS: BP 150/84
--- NOTE | 2023-06-20 04:43 | NUR ---
SHIFT SUMMARY NOC PT A/O X 4. PLEASANT AND COOPERATIVE WITH CARE. PT HAD I/D PERFORMED ON RLE YESTERDAY, WOUND VAC CHANGED DRESSING IS C/D/I. PT HAD C/O OF PAIN AFTER RETURNING FROM PROCEDURE AND MEDICATED PER EMAR. PT CBG AFTER PROCEDURE WAS 128 AND 7 UNITS OF SCHEDULED SHORT ACTING WERE HELD. PT ATE ENTIRE MEAL AND SNACKS AND RECEIVED 25 UNITS LONG ACTING INSULIN SCHEDULED. PT WOUND VAC IS DRAINING SCANT RONY RED BLOOD FROM WOUND. PT HAS PG IN SHANNAN THAT DOES NOT DRAW. PT RECEIVING RETIMED CEFAZOLIN DUE TO I/D AND MIDNIGHT DOSE SKIPPED. 0500 DOSE OF VANCO GIVEN. PT IS CURRENTLY RESTING WITH BED IN LOWEST POSITION, AND CALL LIGHT WITHIN REACH.
[2023-06-20 05:47] LABS: BASOPHILS ABSOLUTE AUTO 0.04 K/mm3 (0.00-0.23); BASOPHILS PERCENT AUTO 1 % (0-2); EOSINOPHILS ABSOLUTE AUTO 0.18 K/mm3 (0.00-0.68); EOSINOPHILS PERCENT AUTO 3 % (0-6); Hematocrit 30.3 % (37.0-53.0); Hemoglobin 9.9 g/dL (13.5-17.5); IMMATURE GRAN ABSOLUTE AUTO 0.01 K/mm3 (0.00-0.10); IMMATURE GRAN PERCENT AUTO 0 % (0-1); LYMPHOCYTES ABSOLUTE AUTO 1.68 K/mm3 (0.84-5.20); LYMPHOCYTES PERCENT AUTO 28 % (21-46); MONOCYTES ABSOLUTE AUTO 0.51 K/mm3 (0.16-1.47); MONOCYTES PERCENT AUTO 9 % (4-13); Mean Corpuscular HGB 28.1 pg (26.0-34.0); Mean Corpuscular HGB Conc 32.7 g/dL (31.5-36.5); Mean Corpuscular Volume 86 fL (80-100); Mean Platelet Volume 8.8 fL (9.1-12.4); NEUTROPHILS ABSOLUTE AUTO 3.54 K/mm3 (1.96-9.15); NEUTROPHILS PERCENT AUTO 59 % (41-73); Platelet Count 323 K/mm3 (150-400); RDW Coefficient Variation 13.7 % (11.7-14.2); RDW Standard Deviation 41.7 fL (35.1-46.3); Red Blood Cell Count 3.52 M/mm3 (4.30-5.90); White Blood Cell Count 5.96 K/mm3 (4.00-11.30)
[2023-06-20 06:31] LABS: Calcium, Blood 8.5 mg/dL (8.5-10.1); Creatinine, Blood 0.72 mg/dL (0.60-1.20); Potassium, Blood 3.5 mmol/L (3.5-5.5)
[2023-06-20 08:01] VITALS: BP 142/76
[2023-06-20 15:18] VITALS: BP 149/83
[2023-06-20 16:23] LABS: Vancomycin, Trough 12.4 ug/mL (5.0-10.0)
--- NOTE | 2023-06-20 17:51 | NUR ---
SHIFT SUMMARY: NO ACUTE EVENTS. WOUND VAC TO RLE WITH MODERATE SEROSANG DRAINAGE, THERAPY RUNNING AT 120 MM HG NEGATIVE PRESSURE CONTINUOUS. C/O 10 PAIN IN RLE; MEDICATED PER EMAR WITHOUT COMPLETE RELIEF. USING URINAL INDEPENDENTLY, GOOD URINE OUTPUT. OK APPETITE. IRRITABLE AT TIMES.
[2023-06-20 19:25] VITALS: BP 153/84
[2023-06-21 04:03] VITALS: BP 138/85
--- NOTE | 2023-06-21 05:01 | NUR ---
SHIFT SUMMARY NOC A/O X 4. PLEASANT AND COOPERATIVE WITH CARE, BUT IRRITABLE AT TIMES. NO ACUTE CHANGES. PT HAS SEROSANGENOUS DRAINAGE @ 120 MM HG NEG PRESSURE THROUGH WOUND VAC ON R CALF. PG SHANNAN FOR IV ABX THERAPY. USING URINAL INDEPENDENTLY. MEDICATED FOR PAIN X 1 PER EMAR. DRESSING OVER WOUND VAC C/D/I. PT IS CURRENTLY RESTING WITH BED IN LOWEST POSITION, AND CALL LIGHT WITHIN REACH.
[2023-06-21 07:13] VITALS: BP 140/72
[2023-06-21 15:39] VITALS: BP 152/84
--- NOTE | 2023-06-21 17:10 | NUR ---
SHIFT SUMMARY PT A&O TO SELF, PLACE, AND SITUATION. PT EASILY AGITATED BUT REDIRECTABLE. PT RECEIVED IV ANTIBIOTICS, PT TEACHING GIVEN FOR THE INDICATION OF THE ANTIBIOTICS. NO ACUTE EVENTS AT THIS TIME, DRESSING C/D/I. DISCUSSED WITH DR PANTOJA REGARDING OPEN AREA ON LEFT LOWER BACK. PT LEFT IN A POSITION OF SAFETY WITH FALL PREVENTIONS IN PLACE AND CALL LIGHT WITHIN REACH.
[2023-06-21 19:34] VITALS: BP 147/87
--- NOTE | 2023-06-22 02:58 | NUR ---
FINANCE ANALYST SUMMARY VSS. CONTINUES TO RECEIVE IV ANTIBIOTICS FOR CELLULITIS OF RIGHT LOWER LEG. DRESSING INTACT. PT ABLE TO REPOSITION SELF IN BED. CONTINENT, USES URINAL. HAS BEEN RESTIG QUIETLY WITH FEW INTERRUPTIONS. CALL LIGHT IN REACH. ISOLATION PRECAUTIONS MAINTAINED.
[2023-06-22 03:04] VITALS: BP 161/88
[2023-06-22 08:48] VITALS: BP 135/77
--- NOTE | 2023-06-22 16:19 | NUR ---
WOUND CARE RLE WOUND VAC DRESSING CHANGED. UNDERMINING NOTED FROM 3-7 O'CLOCK. 6CM AT DEEPEST. WOUND CLEANSE WITH DERMAL WOUND. WHITE ANTIMICROBIAL GAUZE TO UNDERMINNING. ONE PIECE BLACK FOAM TO WOUND BED. SKIN PREP ANT TRANSPARENT FILM TO PERIWOUND. VAC SET TO CONTINUOUS 120 MMGH. PT PAIN FUL. NOTIFIED. 1X IV PAIN MEDICATION ORDERED WITH GOOD RESULTS
[2023-06-22 16:47] VITALS: BP 142/88
[2023-06-22 17:26] LABS: Creatinine, Blood 0.89 mg/dL (0.60-1.20); Vancomycin, Trough 12.4 ug/mL (5.0-10.0)
--- NOTE | 2023-06-22 18:33 | NUR ---
PT AOX3 AND COOPERATIVE OF CARE. PT CALLS APPROPRIATELY. TREATED FOR PAIN R WOUND VAC PER EMAR. ABLE TO GET TO COMMODE WITH TWO PERSON TRANSFER. NO DISTRESS NOTED AT THIS TIME WILL CONTINUE TO MONITOR.
[2023-06-22 19:21] VITALS: BP 147/83
--- NOTE | 2023-06-23 04:00 | NUR ---
SHIFT SUMMARY; NO ACUTE CHANGES OVERNIGHT. THE PT IS AXO X4 AND USES THE URINAL INDEPENDENTLY IN THE BED. THE PT WAS MEDICATED FOR R LEG PAIN ONCE W/ GOOD RELIEF. THE PT HAS BEEN SLEEPING IN BED FOR THE DURATION OF THE SHIFT. THE PT HAS A WOUND VAC TO THE R KEY/CALF AREA. RED BLOODY DRAINAGE IS DRAINING. THE WOUND VAC AND DRESSING WAS CHANGED YESTEREDAY 06/22/23, THE DRESSING IS STILL C/D/I. THE PT DENIES ANY SOB, CHEST PAIN/PRESSURE OR N/V T/O THE NIGHT. CURRENTLY THE PT IS SLEEPING IN BED WITH THE BED IN THE LOWEST POSITION AND THE CALL LIGHT AT BEDSIDE. FIRE SAFETY MAINTAINED T/O THE NIGHT.
[2023-06-23 05:26] VITALS: BP 157/91
[2023-06-23 07:47] VITALS: BP 144/80
[2023-06-23 15:56] VITALS: BP 140/99
--- NOTE | 2023-06-23 17:02 | NUR ---
NO ACUTE CHANGES PT IS AO AND COOPRERATIVE OF CARE. PT IS ABLE TO MAKE NEEDS KNOWN AND IS TREATED FOR PAIN PER EMAR. CALL LIGHT IS WITHIN REACH WILL CONTINUE TO MONITOR.
[2023-06-23 20:01] VITALS: BP 138/72
[2023-06-24 03:33] VITALS: BP 127/73
--- NOTE | 2023-06-24 04:27 | NUR ---
SHIFT SUMMARY PATIENT IS ALERT AND ORIENTED. PATIENT HAS HAD NO ACUTE EVENTS THIS SHIFT. VITAL SIGNS REVIEWED. ABX INFUSED ORDERED. PATIENT HAS NOT COMPLAINED OF PAIN, NAUSEA, SOB OR VOMITTING THIS SHIFT. PATIENT HAS BEEN RESTING MOST OF SHIFT. BED IN LOCKED AND LOWEST POSITION. CALL LIGHT IN PLACE. WILL MONITOR UNTIL SHIFT CHANGE.
[2023-06-24 06:59] LABS: Hematocrit 33.2 % (37.0-53.0); Hemoglobin 10.8 g/dL (13.5-17.5); Mean Corpuscular HGB 28.6 pg (26.0-34.0); Mean Corpuscular HGB Conc 32.5 g/dL (31.5-36.5); Mean Corpuscular Volume 88 fL (80-100); Mean Platelet Volume 9.7 fL (9.1-12.4); Platelet Count 224 K/mm3 (150-400); RDW Coefficient Variation 13.8 % (11.7-14.2); RDW Standard Deviation 43.4 fL (35.1-46.3); Red Blood Cell Count 3.78 M/mm3 (4.30-5.90); White Blood Cell Count 5.71 K/mm3 (4.00-11.30)
[2023-06-24 07:04] LABS: Bun/Creatinine Ratio 40.4 (12.0-20.0); Calcium, Blood 8.9 mg/dL (8.5-10.1); Creatinine, Blood 0.57 mg/dL (0.60-1.20); Potassium, Blood 4.1 mmol/L (3.5-5.5)
[2023-06-24 08:26] VITALS: BP 145/81
--- NOTE | 2023-06-24 16:00 | NUR ---
WOUND CARE WOUND VAC CHANGED PER ORDER. PRIMARY RN TO CHANGE THURSDAY. PLEASE NOTE THERE ARE TWO PIECES OF WHITE GAUZE PACKED TO MEDIAL AND LATERAL UNDERMINNING. THIS IS OUTLINED WITH MARKER. THESE WILL NEED REMOVED AND REPACKED. PLEASE SOAK WHITE GAUZE WITH NS BEFORE REPACKING. ANTIMICROBIAL GAUZE IS IN PEREIRA BUCKET LIQUID LIDOCAINE ORDERED PRN IN THE PIXIS. PLEASE CUT A HOLE IN FOAM AND POUR LIDOCAINE INTO BLACK FOAM AND ALLOW TO SOAK FOR 15 MINUTES PRIOR TO REMOVING FOAM. PLEASE USE SKIN PREP AND WINDOWPANE PERIWOUND WITH TRANSPARENT FILM TO PROTECT WOUND EDGES.
--- NOTE | 2023-06-24 18:35 | NUR ---
SHIFT SUMMARY PT SWEARING AT STAFF AT BEGINNING OF SHIFT BUT HAS BEEN COOPERATIVE AND APPROPRIATE SINCE. MEDICATED FOR PAIN BUT DENIES ANY CHANGE IN PAIN FROM PAIN MEDS. DRESSING CHANGED TO RLE BY WOUND CLINIC RN. UP TO BEDSIDE COMMODE FOR BM. WILL REPORT CONDITION TO ONCOMING SHIFT.
[2023-06-24 19:06] VITALS: BP 144/77
--- NOTE | 2023-06-25 05:28 | NUR ---
END OF SHIFT SUMMARY PT A&O x4, VSS, AFEBRILE. PT CALM AND COOPERATIVE WITH CARE PROVIDED. PT SLEPT ON AND OFF THROUGHOUT THE NIGHT. PT REQUESTED PAIN MEDICATION WITH EVENING MED PASS. PT RECEIVING PRN NORCO, WHICH WAS EFFECTIVE. WOUND VAC SET AT 120mmHg, DRESSING C/D/I. PT CONTINENT OF B&B, USES THE URINAL AT THE BEDSIDE. PT ABLE TO MAKE NEEDS KNOWN. CALL LIGHT WITHIN REACH, WCTM.
[2023-06-25 05:45] VITALS: BP 137/75
[2023-06-25 08:19] VITALS: BP 143/79
[2023-06-25 15:45] VITALS: BP 146/81
--- NOTE | 2023-06-25 17:24 | NUR ---
SHIFT SUMMARY PT HAS BEEN COOPERATIVE AND APPROPRIATE WITH STAFF. WOUND VAC TO R LEG INTACT WITH SANGUINESS DISCHARGE IN TUBING. IN ROOM IN THE DARK WITH DOOR CLOSED MOST OF THE DAY. MEDICATED FOR PAIN. RECEIVING IV ANTIBIOTICS ORDERED.
[2023-06-25 19:35] VITALS: BP 148/76
[2023-06-26 03:46] VITALS: BP 142/73
--- NOTE | 2023-06-26 04:16 | NUR ---
SHIFT SUMMARY PATIENT A/Ox4, PLEASANT/COOPERATIVE, PAIN MANAGED PER EMAR. WOUND VAC IN PLACE TO RLE, C/D/I, NO LEAKS. CONTINUES ON IV ABX THERAPY FOR RLE INFECTION, TOLERATING WELL. ASLEEP OFF AND ON THROUGHOUT SHIFT. NO ACUTE CHANGES NOTED OVERNIGHT. BED LOCKED AND IN LOWEST POSITION, HOB ELEVATED FOR COMFORT, CALL LIGHT WITHIN REACH.
[2023-06-26 07:34] VITALS: BP 142/76
[2023-06-26 15:08] VITALS: BP 133/77
--- NOTE | 2023-06-26 18:24 | NUR ---
PT A/OX4, PLEASANT AND COOPERATIVE. THE PT IS UP TO THE C STAND AND PIVOT. THE PT WAS MEDICATED FOR PAIN T/O THE SHIFT. THE PTS WOUND DRESSING WAS CHANGED BY THE NURSE LEADERS. THE PT APPEARS TO BE BREATHING EASILY WITH OUT OSYGEN. CALL LIGHT IN REACH. BED IN THE LOW POSITION
[2023-06-26 19:47] VITALS: BP 148/69
[2023-06-27 02:21] VITALS: BP 136/79
[2023-06-27 07:32] VITALS: BP 141/68
[2023-06-27 15:00] VITALS: BP 136/82
[2023-06-27 20:08] VITALS: BP 131/81
[2023-06-28 05:17] VITALS: BP 139/69
--- NOTE | 2023-06-28 05:42 | NUR ---
SUMMARY NO NEW ISSUES. PT DENIES PAIN OR DISCOMFORT. PT HAS BEEN VOIDING AND HAD A BM. PT WOUND VAC IS OPERATING WELL WITH NO DRAINAGE NOTED. PT HAS BEEN SLEEPING WELL. PT DENIES SOB OR N/V. CALL LIGHT IN REACH.
[2023-06-28 10:48] LABS: Hematocrit 31.1 % (37.0-53.0); Hemoglobin 10.4 g/dL (13.5-17.5); Mean Corpuscular HGB 28.3 pg (26.0-34.0); Mean Corpuscular HGB Conc 33.4 g/dL (31.5-36.5); Mean Corpuscular Volume 85 fL (80-100); Mean Platelet Volume 9.2 fL (9.1-12.4); Platelet Count 197 K/mm3 (150-400); RDW Coefficient Variation 13.8 % (11.7-14.2); RDW Standard Deviation 42.5 fL (35.1-46.3); Red Blood Cell Count 3.67 M/mm3 (4.30-5.90); White Blood Cell Count 5.97 K/mm3 (4.00-11.30)
[2023-06-28 11:11] LABS: Bun/Creatinine Ratio 56.6 (12.0-20.0); Calcium, Blood 9.2 mg/dL (8.5-10.1); Creatinine, Blood 0.53 mg/dL (0.60-1.20)
--- NOTE | 2023-06-28 18:24 | NUR ---
PATIENT WITH NO ACUTE EVENTS DURING SHIFT. BED IN LOW POSITION, CALL LIGHT IN REACH, PATIENT COMMUNICATES NEEDS. MEDICATED FOR PAIN PER EMAR.
[2023-06-28 19:49] VITALS: BP 140/85
[2023-06-29 03:57] VITALS: BP 124/75
--- NOTE | 2023-06-29 05:29 | NUR ---
NOC SHIFT SUMMARY: WOUND VAC IN PLACE. NORCO GIVEN AT BEDTIME FOR PAIN CONTROL. ALERT AND OREINTED X4. CALLS APPROPRIATELY. BED IN LOW POSITION. CALL LIGHT WITHIN REACH.
[2023-06-29 07:14] VITALS: BP 144/71
[2023-06-29 15:07] VITALS: BP 125/70
--- NOTE | 2023-06-29 15:58 | NUR ---
WOUND CARE WOUND VAC CHANGED PER ORDER. ANTIMICROBIAL GAUZE TO MEDIAL EDGE AND ONE PIECE BLACK FOAM REMOVED. UNDERMINNING TO MEDIAL EDGE MEASURES 1.5 CM AT DEEPEST. WOUND CLEANSED WITH DERMAL WOUND. SKIN PREP AND TRANSPARENT FILM TO PERIWOUND. ONE PIECE WHITE ANTIMICROBIAL GAUZE TO MEDIAL UNDRMINING THEN ONE PIECE BLACK FOAM REAPPLIED. VAC SET TO CONTINUOUS 120MMHG. PT EMOTIONALY LABILE AT TIMES BUT EASILY DISTRACTED.
--- NOTE | 2023-06-29 18:00 | NUR ---
SHIFT SUMMARY; PATIENT HAD WOUND VAC CHANGE TODAY BY DEN CANSECO. HE REQUESTED PAIN MEDICATIONS PRIOR AND DID TAKE SHOWER PRIOR TO WOUND CHANGE. HE REMAINS IN BED THROUGHOUT THE DAY. REFUSING TO GET UP TO CHAIR OR RECLINER. HIS BLOOD SUGARS ARE ELEVATED THROUGHOUT THE DAY AND DID CHANGE HER TO INCREASE OF 9 UNITS SC OF HUMALIN AND LOW CS OF HUMULIN R AT DINNER TONIGHT. ISAAC WILL BE GOING TO [facility] FOR DISCHARGE WHEN A BED BECOMES AVAILABLE.
[2023-06-29 20:34] VITALS: BP 125/71
--- NOTE | 2023-06-30 04:15 | NUR ---
PT A&O X4. PT ABLE TO MAKE NEEDS KNOWN. NORCO GIVEN AT BEDTIME. IV ANTIBIOTICS CONTINUE. BED IN LOW POSITION. CALL LIGHT WITHIN REACH.
[2023-06-30 04:21] VITALS: BP 134/73
[2023-06-30 07:10] VITALS: BP 142/75
[2023-06-30] MEDS ORDERED: METF500 PO (11:18)
[2023-06-30] MEDS ORDERED: JUVEN PACKET1 EAC3 PO (11:18)
[2023-06-30] MEDS ORDERED: TAZICEF IV (11:20)
[2023-06-30] MEDS ORDERED: FERSU300 PO (11:20)
[2023-06-30] MEDS ORDERED: Norco 7.5-3251 EACH PO (11:20)
[2023-06-30] MEDS ORDERED: HUMALOG KW100 UNIT/1 SC (11:21)
[2023-06-30] MEDS ORDERED: VISBIOME 112.51 EACH PO (11:22)
[2023-06-30] MEDS ORDERED: Senna-Extra17.2 MG PO (11:22)
[2023-06-30 11:25] LABS: Influenza A, PCR NEGATIVE (NEGATIVE); Influenza B, PCR NEGATIVE (NEGATIVE); Resp Syncytial Virus, PCR NEGATIVE (NEGATIVE); SARS-Cov-2 (COVID-19) PCR, MMC NEGATIVE (NEGATIVE)
[2023-06-30 15:40] VITALS: BP 140/74
--- NOTE | 2023-06-30 18:23 | NUR ---
SHIFT/DISCHARGE SUMMARY Pt remains A&Ox3 this shift. VSS Resp even nonlabored on RA. Reposition self in bed. Wound vac intact. Disconected for discharge to rehab who will reconnect at their facility. Report given to Patti. Pt transferred via his own wheelchair. commercial relief driver lynne gan with hard copy rx inside.
== END 2023-06-30 18:36 | DRG 853 ==
LOC: ER 16:37 → MEDS 22:33 → ENPENDDIS 06-30 11:07 → MEDS 06-30 18:36
PROVIDERS: Emergency Medicine; Internal Medicine; Orthopaedic Surgery; Physician Assistant; Podiatrist Foot & Ankle Surgery; ADMIT Student in an Organized Health Care Education/Training Program
PROC: 3E03329 Introduction of Other Anti-infective into Peripheral Vein, Percutaneous Approach (ICD-10-PCS; 2023-05-29)
PROC: 0JDN0ZZ Extraction of Right Lower Leg Subcutaneous Tissue and Fascia, Open Approach (ICD-10-PCS; principal; 2023-06-04 13:30)
PROC: 0JDN0ZZ Extraction of Right Lower Leg Subcutaneous Tissue and Fascia, Open Approach (ICD-10-PCS; 2023-06-19)
DX: A41.9 Sepsis, unspecified organism (principal); I50.31 Acute diastolic (congestive) heart failure; J96.01 Acute respiratory failure with hypoxia; E87.20 Acidosis, unspecified; N17.9 Acute kidney failure, unspecified; L03.115 Cellulitis of right lower limb; E87.1 Hypo-osmolality and hyponatremia; Z59.01 Sheltered homelessness; L02.415 Cutaneous abscess of right lower limb; I96 Gangrene, not elsewhere classified; R65.20 Severe sepsis without septic shock; D50.9 Iron deficiency anemia, unspecified; D63.8 Anemia in other chronic diseases classified elsewhere; I11.0 Hypertensive heart disease with heart failure; E78.5 Hyperlipidemia, unspecified; E11.621 Type 2 diabetes mellitus with foot ulcer; L97.519 Non-pressure chronic ulcer of other part of right foot with unspecified severity; F17.290 Nicotine dependence, other tobacco product, uncomplicated; E11.65 Type 2 diabetes mellitus with hyperglycemia; F15.10 Other stimulant abuse, uncomplicated; E87.6 Hypokalemia; G47.00 Insomnia, unspecified; E83.42 Hypomagnesemia; Z79.4 Long term (current) use of insulin; Z79.1 Long term (current) use of non-steroidal anti-inflammatories (NSAID); Z88.8 Allergy status to other drugs, medicaments and biological substances; Z89.421 Acquired absence of other right toe(s); Z89.411 Acquired absence of right great toe; Z11.52 Encounter for screening for COVID-19
CPT/HCPCS: 0241U; 36415; 71045; 71260; 73701; 73720; 76770; 80048; 80053; 80069; 80202; 81001; 82565; 82570; 82728; 82947; 83540; 83550; 83605; 83735; 83880; 83935; 84132; 84300; 85025; 85027; 85379; 87040; 87070; 87075; 87086; 87205; 93005; 93010; 93306; 93971; 94760; 94762; 96361; 96365-59; 96366; 96375; 97110; 97162; 97165; 97530; 99285-25; A9270; A9579; C1751; J0690; J1170; J1650; J1815; J1940; J2060; J2250; J2270; J2543; J2704; J2916; J3010; J3370; J3475; J3480; J7030; J7050; J7120; Q9967

== ENCOUNTER 2023-09-20 16:59 | Emergency (ER) | payer OTHER ==
[~2023-09-20] VITALS: Ht 177.8 cm; Wt 90.7 kg
[~2023-09-20 16:59] MED LIST changes: +FERSU300 PO; +GABA300 PO; +JUVEN PACKET1 EAC3 PO; +Norco 7.5-3251 EACH PO; +Senna-Extra17.2 MG PO; +TAZICEF IV
[2023-09-20 18:02] LABS: BASOPHILS ABSOLUTE AUTO 0.04 K/mm3 (0.00-0.23); BASOPHILS PERCENT AUTO 0 % (0-2); EOSINOPHILS ABSOLUTE AUTO 0.08 K/mm3 (0.00-0.68); EOSINOPHILS PERCENT AUTO 1 % (0-6); Hematocrit 35.4 % (37.0-53.0); Hemoglobin 12.2 g/dL (13.5-17.5); IMMATURE GRAN ABSOLUTE AUTO 0.02 K/mm3 (0.00-0.10); IMMATURE GRAN PERCENT AUTO 0 % (0-1); LYMPHOCYTES ABSOLUTE AUTO 0.91 K/mm3 (0.84-5.20); LYMPHOCYTES PERCENT AUTO 9 % (21-46); MONOCYTES ABSOLUTE AUTO 0.56 K/mm3 (0.16-1.47); MONOCYTES PERCENT AUTO 6 % (4-13); Mean Corpuscular HGB 28.6 pg (26.0-34.0); Mean Corpuscular HGB Conc 34.5 g/dL (31.5-36.5); Mean Corpuscular Volume 83 fL (80-100); Mean Platelet Volume 8.9 fL (9.1-12.4); NEUTROPHILS ABSOLUTE AUTO 8.66 K/mm3 (1.96-9.15); NEUTROPHILS PERCENT AUTO 84 % (41-73); Platelet Count 423 K/mm3 (150-400); RDW Coefficient Variation 12.4 % (11.7-14.2); RDW Standard Deviation 37.6 fL (35.1-46.3); Red Blood Cell Count 4.27 M/mm3 (4.30-5.90); White Blood Cell Count 10.27 K/mm3 (4.00-11.30)
[2023-09-20 18:21] LABS: Influenza A, PCR NEGATIVE (NEGATIVE); Influenza B, PCR NEGATIVE (NEGATIVE); Resp Syncytial Virus, PCR NEGATIVE (NEGATIVE); SARS-Cov-2 (COVID-19) PCR, MMC NEGATIVE (NEGATIVE)
[2023-09-20 18:27] LABS: Albumin/Globulin Ratio 0.6 (0.8-1.8); Bilirubin, Total 0.6 mg/dL (0.1-1.0); Bun/Creatinine Ratio 24.2 (12.0-20.0); Calcium, Blood 9.5 mg/dL (8.5-10.1); Creatinine, Blood 0.62 mg/dL (0.60-1.20); Globulin, Blood 5.2 g/dL (2.2-4.0); Potassium, Blood 3.6 mmol/L (3.5-5.5); Total Protein, Blood 8.2 g/dL (6.4-8.2)
[2023-09-20 20:10] VITALS: BP 149/84
[2023-09-20 20:59] LABS: Source, Urine Clean Catch
[2023-09-20 21:01] LABS: Bilirubin, Urine Neg (Neg); Blood, Urine 2+ (Neg); Glucose Qualitative, Urine 4+ (Neg); Ketones, Urine 4+ (Neg); Leukocyte Esterase, Urine Neg (Neg); Nitrite, Urine Neg (Neg); Protein, Urine 2+ (Neg); Urobilinogen, Urine 1+ (Normal)
[2023-09-20 21:07] LABS: Appearance, Urine Clear (Clear); Color, Urine Yellow (P-Yellow); Mucus Mod (0-Heavy)
[2023-09-20 21:09] LABS: Bacteria Mod /hpf; Squamous Epithelial Cells Rare /hpf (Few)
[2023-09-20] MEDS ORDERED: Trimethoprim/Sulfamethoxazole DS Tab PO ONE (21:55)
[2023-09-20] MEDS ORDERED: Ketorolac Tromethamine 30mg Vial IM ONE (21:55)
[2023-09-20 22:32] LABS: U Amphetamine Screen DETECTED; U Barbituate Screen Not Detected; U Benzodiazapine Screen Not Detected; U Buprenorphine Screen Not Detected; U Cannabinoids Screen DETECTED; U Cocaine Screen Not Detected; U Methadone Screen Not Detected; U Methamphetamine Screen DETECTED; U Opiates Screen Not Detected; U Oxycodone Screen Not Detected; U Phencyclidine Screen Not Detected
== END 2023-09-20 22:23 | disposition home or self-care (01) ==
LOC: ER 16:59
PROVIDERS: Emergency Medicine; Student in an Organized Health Care Education/Training Program
DX: G89.29 Other chronic pain (principal); L30.8 Other specified dermatitis; E11.65 Type 2 diabetes mellitus with hyperglycemia; I11.0 Hypertensive heart disease with heart failure; I50.30 Unspecified diastolic (congestive) heart failure; E78.5 Hyperlipidemia, unspecified; F17.210 Nicotine dependence, cigarettes, uncomplicated; F17.290 Nicotine dependence, other tobacco product, uncomplicated; Z88.8 Allergy status to other drugs, medicaments and biological substances; Z79.899 Other long term (current) drug therapy; Z79.4 Long term (current) use of insulin; Z79.84 Long term (current) use of oral hypoglycemic drugs
CPT/HCPCS: 0241U; 80053; 81001; 83690; 85025; 87081; 87086; 87147; 93005; 93010; 96372; 99284-25; A9270; J1885

== ENCOUNTER 2023-09-28 17:26 | Emergency (ER) | payer OTHER ==
[~2023-09-28] VITALS: Ht 172.7 cm; Wt 74.8 kg
[2023-09-28 17:36] VITALS: BP 142/61
[2023-09-28] MEDS ORDERED: Doxycycline Hyclate 100 MG TAB PO ONE (17:45)
[2023-09-28 18:13] LABS: BASOPHILS ABSOLUTE AUTO 0.05 K/mm3 (0.00-0.23); BASOPHILS PERCENT AUTO 1 % (0-2); EOSINOPHILS PERCENT AUTO 1 % (0-6); Hematocrit 39.1 % (37.0-53.0); Hemoglobin 13.3 g/dL (13.5-17.5); IMMATURE GRAN ABSOLUTE AUTO 0.03 K/mm3 (0.00-0.10); IMMATURE GRAN PERCENT AUTO 0 % (0-1); LYMPHOCYTES ABSOLUTE AUTO 0.95 K/mm3 (0.84-5.20); LYMPHOCYTES PERCENT AUTO 10 % (21-46); MONOCYTES PERCENT AUTO 5 % (4-13); Mean Corpuscular HGB 28.4 pg (26.0-34.0); Mean Corpuscular Volume 83 fL (80-100); Mean Platelet Volume 8.6 fL (9.1-12.4); NEUTROPHILS ABSOLUTE AUTO 7.58 K/mm3 (1.96-9.15); NEUTROPHILS PERCENT AUTO 82 % (41-73); Platelet Count 482 K/mm3 (150-400); RDW Coefficient Variation 12.5 % (11.7-14.2); RDW Standard Deviation 37.6 fL (35.1-46.3); Red Blood Cell Count 4.69 M/mm3 (4.30-5.90); White Blood Cell Count 9.21 K/mm3 (4.00-11.30)
[2023-09-28 18:31] LABS: Albumin, Blood 3.5 g/dL (3.4-5.0); Albumin/Globulin Ratio 0.6 (0.8-1.8); Bilirubin, Total 0.4 mg/dL (0.1-1.0); Bun/Creatinine Ratio 19.2 (12.0-20.0); Calcium, Blood 9.5 mg/dL (8.5-10.1); Creatinine, Blood 0.73 mg/dL (0.60-1.20); Globulin, Blood 5.7 g/dL (2.2-4.0); Potassium, Blood 3.6 mmol/L (3.5-5.5); Total Protein, Blood 9.2 g/dL (6.4-8.2)
[2023-09-28] MEDS ORDERED: DOXY100 PO (18:45)
[2023-09-29] MEDS ORDERED: Keflex125 MG/5 M PO (16:34)
== END 2023-09-28 19:24 | disposition home or self-care (01) ==
LOC: ER 17:26
PROVIDERS: Student in an Organized Health Care Education/Training Program
DX: S81.801A Unspecified open wound, right lower leg, initial encounter (principal); Z89.421 Acquired absence of other right toe(s); L02.01 Cutaneous abscess of face; E11.65 Type 2 diabetes mellitus with hyperglycemia; I11.0 Hypertensive heart disease with heart failure; I50.30 Unspecified diastolic (congestive) heart failure; E78.5 Hyperlipidemia, unspecified; G47.00 Insomnia, unspecified; M86.9 Osteomyelitis, unspecified; Z79.4 Long term (current) use of insulin; Z79.84 Long term (current) use of oral hypoglycemic drugs; Z79.899 Other long term (current) drug therapy; Z88.8 Allergy status to other drugs, medicaments and biological substances; X58.XXXA Exposure to other specified factors, initial encounter
CPT/HCPCS: 80053; 85025; 99283; A9270

== ENCOUNTER 2023-11-14 14:08 | Emergency (ER) | payer OTHER ==
[~2023-11-14] VITALS: Ht 177.8 cm; Wt 74.8 kg
[~2023-11-14 14:08] MED LIST changes: +ACYC800 PO; +BACTRIM DS TAB1 EAC1 PO; +CEPH500 PO; +IBUP600 PO; +Keflex125 MG/5 M PO; +ROXYBOND5 MG PO; +Robaxin750 MG PO
[2023-11-14] MEDS ORDERED: NS 1,000 ML IV ONE (14:55)
[2023-11-14] MEDS ORDERED: OLANZapine 10 MG Vial IM ONE (15:00)
[2023-11-14] MEDS ORDERED: OLANZapine 10 MG Vial ONE (15:05)
[2023-11-14 16:06] LABS: BASOPHILS ABSOLUTE AUTO 0.04 K/mm3 (0.00-0.23); BASOPHILS PERCENT AUTO 1 % (0-2); EOSINOPHILS ABSOLUTE AUTO 0.12 K/mm3 (0.00-0.68); EOSINOPHILS PERCENT AUTO 2 % (0-6); Hematocrit 34.9 % (37.0-53.0); Hemoglobin 11.8 g/dL (13.5-17.5); IMMATURE GRAN ABSOLUTE AUTO 0.01 K/mm3 (0.00-0.10); IMMATURE GRAN PERCENT AUTO 0 % (0-1); LYMPHOCYTES PERCENT AUTO 15 % (21-46); MONOCYTES ABSOLUTE AUTO 0.62 K/mm3 (0.16-1.47); MONOCYTES PERCENT AUTO 8 % (4-13); Mean Corpuscular HGB 28.4 pg (26.0-34.0); Mean Corpuscular HGB Conc 33.8 g/dL (31.5-36.5); Mean Corpuscular Volume 84 fL (80-100); NEUTROPHILS ABSOLUTE AUTO 5.89 K/mm3 (1.96-9.15); NEUTROPHILS PERCENT AUTO 75 % (41-73); Platelet Count 201 K/mm3 (150-400); RDW Standard Deviation 46.1 fL (35.1-46.3); Red Blood Cell Count 4.15 M/mm3 (4.30-5.90); White Blood Cell Count 7.88 K/mm3 (4.00-11.30)
[2023-11-14 16:20] LABS: Alanine Aminotransfer (ALT/SGP 35 U/L (12-78); Albumin, Blood 3.9 g/dL (3.4-5.0); Alk Phos 93 U/L (50-136); Anion Gap 11 mmol/L (3-11); Aspartate Aminotrans (AST/SGOT 45 U/L (12-37); Bilirubin, Total 0.8 mg/dL (0.1-1.0); Blood Urea Nitrogen 30 mg/dL (8-24); Bun/Creatinine Ratio 55.6 (12.0-20.0); CO2, Blood 24 mmol/L (21-32); Calcium, Blood 9.2 mg/dL (8.5-10.1); Chloride, Blood 106 mmol/L (98-108); Creatinine, Blood 0.54 mg/dL (0.60-1.20); Ethanol (Alcohol), Blood, Med <3 mg/dL; Globulin, Blood 3.8 g/dL (2.2-4.0); Glomerular Filtration Rate 116 (60-); Glucose, Blood 210 mg/dL (70-99); Sodium, Blood 138 mmol/L (136-145); Total Protein, Blood 7.7 g/dL (6.4-8.2)
[2023-11-14 18:52] LABS: U Amphetamine Screen DETECTED; U Barbituate Screen Not Detected; U Benzodiazapine Screen Not Detected; U Buprenorphine Screen Not Detected; U Cannabinoids Screen Not Detected; U Cocaine Screen Not Detected; U Methadone Screen Not Detected; U Methamphetamine Screen DETECTED; U Opiates Screen Not Detected; U Oxycodone Screen Not Detected; U Phencyclidine Screen Not Detected
[2023-11-14 19:30] VITALS: BP 169/96
== END 2023-11-14 20:19 | disposition home or self-care (01) ==
LOC: ER 14:08
PROVIDERS: Emergency Medicine
DX: R41.0 Disorientation, unspecified (principal); F15.10 Other stimulant abuse, uncomplicated; E11.9 Type 2 diabetes mellitus without complications; Z88.8 Allergy status to other drugs, medicaments and biological substances; Z79.899 Other long term (current) drug therapy; Z79.84 Long term (current) use of oral hypoglycemic drugs; Z79.4 Long term (current) use of insulin
CPT/HCPCS: 36415; 71045; 80053; 82140; 83605; 85025; 87040; 96360; 96372-59; 99285-25; J7030

== ENCOUNTER 2024-03-19 16:33 | Emergency (ER) | payer OTHER ==
[~2024-03-19] VITALS: Ht 177.8 cm; Wt 68.0 kg
[2024-03-19] MEDS ORDERED: Loperamide HCl 2 MG Cap PO ONE (17:15)
[2024-03-19 17:32] VITALS: BP 147/87
== END 2024-03-19 18:13 | disposition home or self-care (01) ==
LOC: ER 16:33
DX: K58.0 Irritable bowel syndrome with diarrhea (principal); Z88.8 Allergy status to other drugs, medicaments and biological substances; Z79.4 Long term (current) use of insulin; Z79.899 Other long term (current) drug therapy; E78.5 Hyperlipidemia, unspecified; I11.0 Hypertensive heart disease with heart failure; I50.30 Unspecified diastolic (congestive) heart failure; E11.9 Type 2 diabetes mellitus without complications; F17.210 Nicotine dependence, cigarettes, uncomplicated; F17.290 Nicotine dependence, other tobacco product, uncomplicated
CPT/HCPCS: 99284; A9270

== ENCOUNTER 2024-03-22 16:10 | Emergency (ER) | payer OTHER ==
[~2024-03-22] VITALS: Ht 167.6 cm; Wt 74.8 kg
[2024-03-22] MEDS ORDERED: NS 1,000 ML IV SCH (18:25)
[2024-03-22 18:39] LABS: BASOPHILS ABSOLUTE AUTO 0.05 K/mm3 (0.00-0.23); BASOPHILS PERCENT AUTO 1 % (0-2); EOSINOPHILS ABSOLUTE AUTO 0.15 K/mm3 (0.00-0.68); EOSINOPHILS PERCENT AUTO 3 % (0-6); Hematocrit 36.8 % (37.0-53.0); Hemoglobin 12.3 g/dL (13.5-17.5); IMMATURE GRAN ABSOLUTE AUTO 0.01 K/mm3 (0.00-0.10); IMMATURE GRAN PERCENT AUTO 0 % (0-1); LYMPHOCYTES ABSOLUTE AUTO 1.48 K/mm3 (0.84-5.20); LYMPHOCYTES PERCENT AUTO 28 % (21-46); MONOCYTES ABSOLUTE AUTO 0.53 K/mm3 (0.16-1.47); MONOCYTES PERCENT AUTO 10 % (4-13); Mean Corpuscular HGB 29.1 pg (26.0-34.0); Mean Corpuscular HGB Conc 33.4 g/dL (31.5-36.5); Mean Corpuscular Volume 87 fL (80-100); Mean Platelet Volume 9.2 fL (9.1-12.4); NEUTROPHILS ABSOLUTE AUTO 3.15 K/mm3 (1.96-9.15); NEUTROPHILS PERCENT AUTO 59 % (41-73); Platelet Count 206 K/mm3 (150-400); RDW Coefficient Variation 13.5 % (11.7-14.2); RDW Standard Deviation 43.4 fL (35.1-46.3); Red Blood Cell Count 4.22 M/mm3 (4.30-5.90); White Blood Cell Count 5.37 K/mm3 (4.00-11.30)
[2024-03-22 18:47] LABS: Source, Urine Clean Catch
[2024-03-22 18:57] LABS: Appearance, Urine Clear (Clear); Bilirubin, Urine Neg (Neg); Blood, Urine 3+ (Neg); Color, Urine Yellow (P-Yellow); Glucose Qualitative, Urine 4+ (Neg); Ketones, Urine 1+ (Neg); Leukocyte Esterase, Urine Neg (Neg); Nitrite, Urine Neg (Neg); Protein, Urine 2+ (Neg); Urobilinogen, Urine NORM (Normal)
[2024-03-22 19:04] LABS: Albumin/Globulin Ratio 0.9 (0.8-1.8); Bilirubin, Total 0.5 mg/dL (0.1-1.0); Bun/Creatinine Ratio 27.2 (12.0-20.0); Calcium, Blood 9.4 mg/dL (8.5-10.1); Creatinine, Blood 0.59 mg/dL (0.60-1.20); Globulin, Blood 4.3 g/dL (2.2-4.0); Potassium, Blood 3.7 mmol/L (3.5-5.5); Total Protein, Blood 8.3 g/dL (6.4-8.2)
[2024-03-22 19:14] LABS: Bacteria Few /hpf; Squamous Epithelial Cells Rare /hpf (Few); White Blood Cells, Urine 0-2 /hpf (0-5)
[2024-03-22] MEDS ORDERED: Insulin Regular 100 Unit/ML 1ML Dose IV ONE (20:35)
[2024-03-22 20:45] VITALS: BP 145/72
== END 2024-03-22 20:59 | disposition home or self-care (01) ==
LOC: ER 16:10
PROVIDERS: Student in an Organized Health Care Education/Training Program
DX: R07.9 Chest pain, unspecified (principal); R10.9 Unspecified abdominal pain; W55.12XA Struck by horse, initial encounter; E11.65 Type 2 diabetes mellitus with hyperglycemia; Z91.148 Patient's other noncompliance with medication regimen for other reason; E11.42 Type 2 diabetes mellitus with diabetic polyneuropathy; I11.0 Hypertensive heart disease with heart failure; I50.30 Unspecified diastolic (congestive) heart failure; E78.5 Hyperlipidemia, unspecified; F32.A Depression, unspecified; F17.210 Nicotine dependence, cigarettes, uncomplicated; F17.290 Nicotine dependence, other tobacco product, uncomplicated; Z88.8 Allergy status to other drugs, medicaments and biological substances; Z79.4 Long term (current) use of insulin; Z79.84 Long term (current) use of oral hypoglycemic drugs; Z79.899 Other long term (current) drug therapy
CPT/HCPCS: 71260; 74177; 80053; 81001; 82947; 85025; 93005; 93010; 96360-59; 99284-25; J7030; Q9967

== ENCOUNTER 2024-03-29 17:18 | Emergency (ER) | payer OTHER ==
[~2024-03-29] VITALS: Ht 177.8 cm; Wt 68.0 kg
[~2024-03-29 17:18] MED LIST changes: -Crestor20 MG PO
[2024-03-29 17:47] LABS: BASOPHILS ABSOLUTE AUTO 0.03 K/mm3 (0.00-0.23); BASOPHILS PERCENT AUTO 0 % (0-2); EOSINOPHILS ABSOLUTE AUTO 0.13 K/mm3 (0.00-0.68); EOSINOPHILS PERCENT AUTO 2 % (0-6); Hematocrit 31.5 % (37.0-53.0); Hemoglobin 10.9 g/dL (13.5-17.5); IMMATURE GRAN ABSOLUTE AUTO 0.02 K/mm3 (0.00-0.10); IMMATURE GRAN PERCENT AUTO 0 % (0-1); LYMPHOCYTES ABSOLUTE AUTO 1.22 K/mm3 (0.84-5.20); LYMPHOCYTES PERCENT AUTO 18 % (21-46); MONOCYTES ABSOLUTE AUTO 0.56 K/mm3 (0.16-1.47); MONOCYTES PERCENT AUTO 8 % (4-13); Mean Corpuscular HGB 29.2 pg (26.0-34.0); Mean Corpuscular HGB Conc 34.6 g/dL (31.5-36.5); Mean Corpuscular Volume 85 fL (80-100); Mean Platelet Volume 9.1 fL (9.1-12.4); NEUTROPHILS PERCENT AUTO 71 % (41-73); Platelet Count 261 K/mm3 (150-400); RDW Coefficient Variation 13.5 % (11.7-14.2); RDW Standard Deviation 41.3 fL (35.1-46.3); Red Blood Cell Count 3.73 M/mm3 (4.30-5.90); White Blood Cell Count 6.76 K/mm3 (4.00-11.30)
[2024-03-29 18:06] LABS: Albumin, Blood 3.4 g/dL (3.4-5.0); Albumin/Globulin Ratio 0.9 (0.8-1.8); Bilirubin, Total 0.3 mg/dL (0.1-1.0); Bun/Creatinine Ratio 22.2 (12.0-20.0); Calcium, Blood 8.9 mg/dL (8.5-10.1); Creatinine, Blood 0.68 mg/dL (0.60-1.20); Globulin, Blood 3.6 g/dL (2.2-4.0); Potassium, Blood 3.2 mmol/L (3.5-5.5)
[2024-03-29 19:15] VITALS: BP 172/78
[2024-04-04] MEDS ORDERED: MUPIROCIN1 G1 TOP (22:28)
[2024-04-08] MEDS ORDERED: TAMS.4ER PO (12:58)
[2024-04-08] MEDS ORDERED: SILVADENE20 G8 TOP (12:58)
== END 2024-03-29 20:27 | disposition home or self-care (01) ==
LOC: ER 17:18
PROVIDERS: Emergency Medicine
DX: L03.115 Cellulitis of right lower limb (principal); E11.42 Type 2 diabetes mellitus with diabetic polyneuropathy; I11.0 Hypertensive heart disease with heart failure; I50.30 Unspecified diastolic (congestive) heart failure; G47.00 Insomnia, unspecified; F17.290 Nicotine dependence, other tobacco product, uncomplicated; Z79.84 Long term (current) use of oral hypoglycemic drugs; Z79.4 Long term (current) use of insulin; Z79.899 Other long term (current) drug therapy; Z88.8 Allergy status to other drugs, medicaments and biological substances
CPT/HCPCS: 36415; 80053; 85025; 99283

== ENCOUNTER 2024-05-05 02:55 | Emergency (ER) | payer OTHER ==
[~2024-05-05] VITALS: Ht 177.8 cm; Wt 90.3 kg
[~2024-05-05 02:55] MED LIST changes: +MUPIROCIN1 G1 TOP; +SILVADENE20 G8 TOP; +TAMS.4ER PO
[2024-05-05] MEDS ORDERED: NS 1,000 ML IV SCH (04:50)
[2024-05-05 05:23] LABS: BASOPHILS ABSOLUTE AUTO 0.04 K/mm3 (0.00-0.23); BASOPHILS PERCENT AUTO 1 % (0-2); EOSINOPHILS ABSOLUTE AUTO 0.07 K/mm3 (0.00-0.68); EOSINOPHILS PERCENT AUTO 1 % (0-6); Hematocrit 40.9 % (37.0-53.0); Hemoglobin 14.5 g/dL (13.5-17.5); IMMATURE GRAN ABSOLUTE AUTO 0.03 K/mm3 (0.00-0.10); IMMATURE GRAN PERCENT AUTO 0 % (0-1); LYMPHOCYTES ABSOLUTE AUTO 1.22 K/mm3 (0.84-5.20); LYMPHOCYTES PERCENT AUTO 17 % (21-46); MONOCYTES ABSOLUTE AUTO 0.59 K/mm3 (0.16-1.47); MONOCYTES PERCENT AUTO 8 % (4-13); Mean Corpuscular HGB 28.8 pg (26.0-34.0); Mean Corpuscular HGB Conc 35.5 g/dL (31.5-36.5); Mean Corpuscular Volume 81 fL (80-100); NEUTROPHILS ABSOLUTE AUTO 5.32 K/mm3 (1.96-9.15); NEUTROPHILS PERCENT AUTO 73 % (41-73); RDW Coefficient Variation 13.4 % (11.7-14.2); RDW Standard Deviation 39.4 fL (35.1-46.3); Red Blood Cell Count 5.04 M/mm3 (4.30-5.90); White Blood Cell Count 7.27 K/mm3 (4.00-11.30)
[2024-05-05 05:28] LABS: Bun/Creatinine Ratio 35.4 (12.0-20.0); Calcium, Blood 9.5 mg/dL (8.5-10.1); Creatinine, Blood 0.54 mg/dL (0.60-1.20); Globulin, Blood 3.9 g/dL (2.2-4.0); Potassium, Blood 2.9 mmol/L (3.5-5.5); Total Protein, Blood 7.9 g/dL (6.4-8.2)
[2024-05-05 05:48] LABS: Platelet Count 240 K/mm3 (150-400)
[2024-05-05] MEDS ORDERED: Potassium Chloride 20 MEQ/15 ML UDC PO ONE (05:55)
[2024-05-05 06:00] VITALS: BP 145/72
== END 2024-05-05 06:23 | disposition home or self-care (01) ==
LOC: ER 02:55
PROVIDERS: Emergency Medicine
DX: R56.9 Unspecified convulsions (principal); E11.65 Type 2 diabetes mellitus with hyperglycemia; E11.42 Type 2 diabetes mellitus with diabetic polyneuropathy; I11.0 Hypertensive heart disease with heart failure; I50.30 Unspecified diastolic (congestive) heart failure; G47.00 Insomnia, unspecified; F17.210 Nicotine dependence, cigarettes, uncomplicated; Z79.4 Long term (current) use of insulin; Z88.8 Allergy status to other drugs, medicaments and biological substances
CPT/HCPCS: 80053; 83605; 85025; 99283; J7030

== ENCOUNTER 2024-05-07 19:10 | Emergency (ER) | payer OTHER ==
[~2024-05-07] VITALS: Ht 177.8 cm; Wt 86.2 kg
[2024-05-07 20:50] LABS: BASOPHILS ABSOLUTE AUTO 0.04 K/mm3 (0.00-0.23); BASOPHILS PERCENT AUTO 1 % (0-2); EOSINOPHILS ABSOLUTE AUTO 0.15 K/mm3 (0.00-0.68); EOSINOPHILS PERCENT AUTO 2 % (0-6); Hematocrit 38.9 % (37.0-53.0); Hemoglobin 13.6 g/dL (13.5-17.5); IMMATURE GRAN ABSOLUTE AUTO 0.03 K/mm3 (0.00-0.10); IMMATURE GRAN PERCENT AUTO 0 % (0-1); LYMPHOCYTES ABSOLUTE AUTO 1.17 K/mm3 (0.84-5.20); LYMPHOCYTES PERCENT AUTO 14 % (21-46); MONOCYTES ABSOLUTE AUTO 0.66 K/mm3 (0.16-1.47); MONOCYTES PERCENT AUTO 8 % (4-13); Mean Corpuscular HGB 28.5 pg (26.0-34.0); Mean Corpuscular Volume 81 fL (80-100); NEUTROPHILS ABSOLUTE AUTO 6.29 K/mm3 (1.96-9.15); NEUTROPHILS PERCENT AUTO 75 % (41-73); Platelet Count 254 K/mm3 (150-400); RDW Coefficient Variation 13.2 % (11.7-14.2); RDW Standard Deviation 39.1 fL (35.1-46.3); Red Blood Cell Count 4.78 M/mm3 (4.30-5.90); White Blood Cell Count 8.34 K/mm3 (4.00-11.30)
[2024-05-07 20:59] LABS: Albumin, Blood 3.9 g/dL (3.4-5.0); Bilirubin, Total 0.6 mg/dL (0.1-1.0); Bun/Creatinine Ratio 38.2 (12.0-20.0); Calcium, Blood 8.9 mg/dL (8.5-10.1); Creatinine, Blood 0.71 mg/dL (0.60-1.20); Total Protein, Blood 7.9 g/dL (6.4-8.2)
[2024-05-07] MEDS ORDERED: Potassium Chloride 20 MEQ TabCR PO ONE (21:40)
[2024-05-07 22:37] VITALS: BP 136/73
== END 2024-05-07 22:35 | disposition home or self-care (01) ==
LOC: ER 19:10
PROVIDERS: Student in an Organized Health Care Education/Training Program
DX: R56.9 Unspecified convulsions (principal); E11.42 Type 2 diabetes mellitus with diabetic polyneuropathy; I11.0 Hypertensive heart disease with heart failure; I50.30 Unspecified diastolic (congestive) heart failure; E78.5 Hyperlipidemia, unspecified; G47.00 Insomnia, unspecified; K74.60 Unspecified cirrhosis of liver; D63.8 Anemia in other chronic diseases classified elsewhere; F17.210 Nicotine dependence, cigarettes, uncomplicated; F17.290 Nicotine dependence, other tobacco product, uncomplicated; Z79.4 Long term (current) use of insulin; Z88.8 Allergy status to other drugs, medicaments and biological substances; Z79.84 Long term (current) use of oral hypoglycemic drugs; Z79.899 Other long term (current) drug therapy
CPT/HCPCS: 70450; 80053; 85025; 93005; 93010; 99284-25; A9270

== ENCOUNTER 2024-06-03 19:56 | Emergency (ER) | payer OTHER ==
[~2024-06-03] VITALS: Ht 172.7 cm; Wt 77.1 kg
[2024-06-03 20:39] VITALS: BP 164/101
[2024-06-03 21:27] LABS: BASOPHILS ABSOLUTE AUTO 0.05 K/mm3 (0.00-0.23); BASOPHILS PERCENT AUTO 1 % (0-2); EOSINOPHILS ABSOLUTE AUTO 0.15 K/mm3 (0.00-0.68); EOSINOPHILS PERCENT AUTO 2 % (0-6); Hematocrit 38.9 % (37.0-53.0); Hemoglobin 13.8 g/dL (13.5-17.5); IMMATURE GRAN ABSOLUTE AUTO 0.01 K/mm3 (0.00-0.10); IMMATURE GRAN PERCENT AUTO 0 % (0-1); LYMPHOCYTES ABSOLUTE AUTO 1.76 K/mm3 (0.84-5.20); LYMPHOCYTES PERCENT AUTO 22 % (21-46); MONOCYTES PERCENT AUTO 9 % (4-13); Mean Corpuscular HGB 29.1 pg (26.0-34.0); Mean Corpuscular HGB Conc 35.5 g/dL (31.5-36.5); Mean Corpuscular Volume 82 fL (80-100); Mean Platelet Volume 9.5 fL (9.1-12.4); NEUTROPHILS ABSOLUTE AUTO 5.53 K/mm3 (1.96-9.15); NEUTROPHILS PERCENT AUTO 68 % (41-73); Platelet Count 258 K/mm3 (150-400); RDW Coefficient Variation 13.8 % (11.7-14.2); RDW Standard Deviation 40.2 fL (35.1-46.3); Red Blood Cell Count 4.74 M/mm3 (4.30-5.90)
[2024-06-03 21:47] LABS: Albumin, Blood 4.7 g/dL (3.4-5.0); Albumin/Globulin Ratio 1.3 (0.8-1.8); Bilirubin, Total 0.8 mg/dL (0.1-1.0); Bun/Creatinine Ratio 33.3 (12.0-20.0); Calcium, Blood 9.8 mg/dL (8.5-10.1); Creatinine, Blood 0.54 mg/dL (0.60-1.20); Globulin, Blood 3.5 g/dL (2.2-4.0); Magnesium, Blood 1.6 mg/dL (1.6-2.4); Potassium, Blood 3.9 mmol/L (3.5-5.5); Total Protein, Blood 8.2 g/dL (6.4-8.2)
[2024-06-03] MEDS ORDERED: Methocarbamol 500 MG Tab PO ONE (23:50)
[2024-06-03] MEDS ORDERED: Robaxin750 MG PO (23:57)
== END 2024-06-04 00:05 | disposition home or self-care (01) ==
LOC: ER 19:56
PROVIDERS: Emergency Medicine
DX: M79.604 Pain in right leg (principal); M79.605 Pain in left leg; Z88.8 Allergy status to other drugs, medicaments and biological substances; Z79.4 Long term (current) use of insulin; E11.42 Type 2 diabetes mellitus with diabetic polyneuropathy; I50.30 Unspecified diastolic (congestive) heart failure; I11.0 Hypertensive heart disease with heart failure; F17.210 Nicotine dependence, cigarettes, uncomplicated; F17.290 Nicotine dependence, other tobacco product, uncomplicated
CPT/HCPCS: 80053; 83735; 85025; 99283; A9270

== ENCOUNTER 2024-06-08 17:18 | Emergency (ER) | payer OTHER ==
[~2024-06-08] VITALS: Ht 177.8 cm; Wt 83.9 kg
[2024-06-08 17:37] VITALS: BP 127/100
[2024-06-08] MEDS ORDERED: Ketorolac Tromethamine 15mg Vial IM ONE (20:50)
== END 2024-06-08 21:05 | disposition home or self-care (01) ==
LOC: ER 17:18
DX: M25.552 Pain in left hip (principal); E11.9 Type 2 diabetes mellitus without complications; Z88.8 Allergy status to other drugs, medicaments and biological substances; Z79.4 Long term (current) use of insulin; Z79.899 Other long term (current) drug therapy; Z99.3 Dependence on wheelchair; W05.0XXA Fall from non-moving wheelchair, initial encounter
CPT/HCPCS: 73502; 96372; 99283-25; J1885

== ENCOUNTER → 2024-06-11 | Emergency (ER) | payer OTHER ==
[~2024-06-11] VITALS: Wt 74.8 kg
[2024-06-11 14:20] VITALS: BP 149/94
== END ==
LOC: ER 13:52
DX: Z76.89 Persons encountering health services in other specified circumstances (principal); I11.0 Hypertensive heart disease with heart failure; I50.30 Unspecified diastolic (congestive) heart failure; E11.42 Type 2 diabetes mellitus with diabetic polyneuropathy; Z59.00 Homelessness unspecified; Z88.8 Allergy status to other drugs, medicaments and biological substances; Z79.4 Long term (current) use of insulin; Z79.899 Other long term (current) drug therapy
CPT/HCPCS: 99281

== ENCOUNTER 2024-06-22 17:51 | Observation (INO) | payer OTHER ==
[~2024-06-22] VITALS: Ht 162.6 cm; Wt 68.0 kg
[2024-06-22 19:07] LABS: BASOPHILS ABSOLUTE AUTO 0.04 K/mm3 (0.00-0.23); BASOPHILS PERCENT AUTO 1 % (0-2); EOSINOPHILS ABSOLUTE AUTO 0.08 K/mm3 (0.00-0.68); EOSINOPHILS PERCENT AUTO 1 % (0-6); Hematocrit 34.5 % (37.0-53.0); Hemoglobin 12.1 g/dL (13.5-17.5); IMMATURE GRAN ABSOLUTE AUTO 0.01 K/mm3 (0.00-0.10); IMMATURE GRAN PERCENT AUTO 0 % (0-1); LYMPHOCYTES ABSOLUTE AUTO 1.05 K/mm3 (0.84-5.20); LYMPHOCYTES PERCENT AUTO 15 % (21-46); MONOCYTES ABSOLUTE AUTO 0.53 K/mm3 (0.16-1.47); MONOCYTES PERCENT AUTO 8 % (4-13); Mean Corpuscular HGB 29.2 pg (26.0-34.0); Mean Corpuscular HGB Conc 35.1 g/dL (31.5-36.5); Mean Corpuscular Volume 83 fL (80-100); Mean Platelet Volume 9.4 fL (9.1-12.4); NEUTROPHILS ABSOLUTE AUTO 5.26 K/mm3 (1.96-9.15); NEUTROPHILS PERCENT AUTO 76 % (41-73); Platelet Count 310 K/mm3 (150-400); RDW Coefficient Variation 13.8 % (11.7-14.2); RDW Standard Deviation 41.8 fL (35.1-46.3); Red Blood Cell Count 4.14 M/mm3 (4.30-5.90); White Blood Cell Count 6.97 K/mm3 (4.00-11.30)
[2024-06-22 19:31] LABS: Albumin, Blood 3.3 g/dL (3.4-5.0); Albumin/Globulin Ratio 0.9 (0.8-1.8); Bilirubin, Total 0.5 mg/dL (0.1-1.0); Calcium, Blood 8.8 mg/dL (8.5-10.1); Creatinine, Blood 0.59 mg/dL (0.60-1.20); Globulin, Blood 3.7 g/dL (2.2-4.0); Potassium, Blood 3.7 mmol/L (3.5-5.5)
[2024-06-22] MEDS ORDERED: NS 1,000 ML IV SCH (20:05)
[2024-06-22] MEDS ORDERED: Insulin Regular 100 Unit/ML 1ML Dose IV ONE (20:05)
[2024-06-22] MEDS ORDERED: CeFAZolin Sodium 2,000 MG in NS 100 ML IV ONE (20:05)
[2024-06-22 20:22] LABS: Beta-hydroxybutyrate 1.3 mg/dL (0.2-2.8)
[2024-06-22] MEDS ORDERED: Ondansetron HCl 2 MG / ML 2ML Vial IV PRN (21:20)
[2024-06-22] MEDS ORDERED: Lactated Ringer's 1,000 ML IV SCH (21:20)
[2024-06-22] MEDS ORDERED: FLU VACC TS2024-25(6MOS UP)/PF 45 MCG/0.5 ML SYRINGE IM ONE (21:25)
[2024-06-22] MEDS ORDERED: OxyCODONE 5 mg/Acetamin 325 mg TABLET PO PRN (21:25)
[2024-06-22] MEDS ORDERED: Metoclopramide HCl 5MG / ML 2ML Vial IV PRN (21:25)
[2024-06-22] MEDS ORDERED: Labetalol HCL 5 MG/ML 4ML Injection (Single Dose) IV PRN (21:30)
[2024-06-22] MEDS ORDERED: FentaNYL Citrate 50 MCG/ML 2 ML Injection IV ONE (22:00)
[2024-06-22] MEDS ORDERED: Insulin Glargine-Yfgn 100 Unit/mL 3 ML SYR SC SCH (22:00)
[2024-06-22 23:41] VITALS: BP 173/76
[2024-06-23] MEDS ORDERED: JUVEN PACKET1 EAC3 PO (00:02)
[2024-06-23] MEDS ORDERED: FERSU300 PO (00:02)
[2024-06-23] MEDS ORDERED: GABA300 PO (00:03)
[2024-06-23] MEDS ORDERED: VSL#3 112.5B1 EACH PO ×2 (00:04)
[2024-06-23] MEDS ORDERED: LISI20 PO (00:04)
[2024-06-23] MEDS ORDERED: INSULIN LI100 UNIT/6 SC ×2 (00:05)
[2024-06-23] MEDS ORDERED: METF500 PO (00:05)
[2024-06-23] MEDS ORDERED: ROSUVASTATIN CA20 MG PO (00:06)
[2024-06-23] MEDS ORDERED: MIRT30 PO (00:06)
[2024-06-23] MEDS ORDERED: MUPIROCIN1 G1 TOP (00:06)
[2024-06-23] MEDS ORDERED: SILVADENE20 G8 TOP (00:07)
[2024-06-23] MEDS ORDERED: TAMS.4ER PO (00:07)
[2024-06-23] MEDS ORDERED: SENN187 PO ×2 (00:07)
[2024-06-23] MEDS ORDERED: CeFAZolin Sodium 2,000 MG in NS 100 ML IV SCH (02:00)
--- NOTE | 2024-06-23 04:49 | NUR ---
SHIFT SUMMARY 58 YR M ADMITTED THIS SHIFT FROM THE ED. FULL CODE. PT HAS A RIGHT BKA AND MULTIPLE SORES, SCABS, AND WOUNDS ON BOTH LEGS. HE C/O PAIN AND KEPT SAYING "OWIE, OWIE, OWIE" AND "I WANT MY MOMMY". HE WAS MEDICATED PER EMAR AND WAS FINALLY ABLE TO FALL ASLEEP. HE IS CONTINENT AND ABLE TO USE A URINAL IN BED BUT WILL ASK THE NURSE OR AID TO "DO IT FOR HIM". THIS HAS NOT BEEN DONE FOR HIM HE IS VERY CAPABLE OF DOING IT HIMSELF. HE WAS EDUCATED ON THE IMPORTANCE OF CONTROLLING HIS BLOOD SUGARS HE CAME IN WITH A BLOOD SUGAR OF OVER 600. HE STATED THAT IF HIS BS WAS NOT OVER 1000 THEN IT WAS NOT HIGH AND THAT HE JUST WANTS TO EAT. PT STATES HE IS HOMELESS AND WHEELCHAIR BOUND. HE WAS GIVEN A BED BATH UPON ARRIVAL HE SMELLED BAD. PT STATED TO THIS NURSE THAT HIS STEP DAUGHTER IS CONSTANTLY HAVING HIM BEAT UP, KIDNAPPED, AND TRIED TO HAVE HIM KILLED BY RECRUITING MEN TO THROW HIM OFF THE FREEWAY OVERPASS AT [place]. HE STATED THE POLICE SHOWED UP JUST IN TIME TO SAVE HIS LIFE. 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 HE WAS ABLE TO FALL ASLEEP AFTER RECEIVING PAIN MEDS AND HE HAS BEEN ASLEEP FOR SEVERAL HOURS. BED IS IN LOW POSITION AND CALL LIGHT IN REACH.
[2024-06-23 05:04] VITALS: BP 144/66
[2024-06-23] MEDS ORDERED: Insulin Human Lispro 100 Units/ML 3ML Syringe SC SCH ×3 (07:30→16:30)
[2024-06-23 07:52] VITALS: BP 144/82
[2024-06-23] MEDS ORDERED: Enoxaparin 40 MG/0.4 ML SYR SC SCH (09:00)
[2024-06-23] MEDS ORDERED: Gabapentin 300 MG Cap PO SCH (09:00)
[2024-06-23] MEDS ORDERED: Lisinopril 20 MG Tab PO SCH (09:00)
[2024-06-23] MEDS ORDERED: Tamsulosin HCl 0.4 MG Cap PO SCH (09:00)
[2024-06-23] MEDS ORDERED: Lactobacil 2-S.Thermo-Bifido 1 1 Cap PO SCH (09:00)
[2024-06-23 10:06] LABS: U Amphetamine Screen Not Detected; U Cannabinoids Screen DETECTED; U Oxycodone Screen DETECTED
[2024-06-23 10:07] LABS: U Barbituate Screen Not Detected; U Benzodiazapine Screen Not Detected; U Buprenorphine Screen Not Detected; U Cocaine Screen Not Detected; U Methadone Screen Not Detected; U Methamphetamine Screen Not Detected; U Opiates Screen Not Detected; U Phencyclidine Screen Not Detected
[2024-06-23 10:57] LABS: BASOPHILS ABSOLUTE AUTO 0.02 K/mm3 (0.00-0.23); BASOPHILS PERCENT AUTO 0 % (0-2); EOSINOPHILS ABSOLUTE AUTO 0.06 K/mm3 (0.00-0.68); EOSINOPHILS PERCENT AUTO 1 % (0-6); Hematocrit 30.9 % (37.0-53.0); IMMATURE GRAN ABSOLUTE AUTO 0.02 K/mm3 (0.00-0.10); IMMATURE GRAN PERCENT AUTO 0 % (0-1); LYMPHOCYTES ABSOLUTE AUTO 0.86 K/mm3 (0.84-5.20); LYMPHOCYTES PERCENT AUTO 18 % (21-46); MONOCYTES ABSOLUTE AUTO 0.35 K/mm3 (0.16-1.47); MONOCYTES PERCENT AUTO 7 % (4-13); Mean Corpuscular HGB 29.2 pg (26.0-34.0); Mean Corpuscular HGB Conc 35.6 g/dL (31.5-36.5); Mean Corpuscular Volume 82 fL (80-100); Mean Platelet Volume 9.3 fL (9.1-12.4); NEUTROPHILS ABSOLUTE AUTO 3.59 K/mm3 (1.96-9.15); NEUTROPHILS PERCENT AUTO 73 % (41-73); Platelet Count 248 K/mm3 (150-400); RDW Coefficient Variation 13.7 % (11.7-14.2); RDW Standard Deviation 40.9 fL (35.1-46.3); Red Blood Cell Count 3.77 M/mm3 (4.30-5.90)
[2024-06-23 11:10] LABS: International Normalized Ratio 0.97; Prothrombin Time Results 10.4 Sec (9.7-11.5)
[2024-06-23 11:25] LABS: Albumin, Blood 2.7 g/dL (3.4-5.0); Albumin/Globulin Ratio 0.9 (0.8-1.8); Bilirubin, Total 0.4 mg/dL (0.1-1.0); Creatinine, Blood 0.47 mg/dL (0.60-1.20); Globulin, Blood 3.1 g/dL (2.2-4.0); Potassium, Blood 3.2 mmol/L (3.5-5.5); Total Protein, Blood 5.8 g/dL (6.4-8.2)
[2024-06-23] MEDS ORDERED: Doxycycline Hyclate 100 MG TAB PO SCH (11:55)
[2024-06-23] MEDS ORDERED: Potassium Chloride 20 MEQ TabCR PO ONE (12:00)
[2024-06-23] MEDS ORDERED: Insulin Glargine-Yfgn 100 Unit/mL 3 ML SYR SC SCH (12:00)
[2024-06-23] MEDS ORDERED: Insulin Glargine-Yfgn 100 Unit/mL 3 ML SYR SC ONE (13:00)
[2024-06-23 15:19] VITALS: BP 129/70
--- NOTE | 2024-06-23 18:40 | NUR ---
SHIFT SUMMARY PATIENT A/OX4, ABLE TO MAKE NEEDS KNOWN. COMPLAINING OF PAIN "ALL OVER" PRIMARILY BIATERAL LEGS. PRN PERCOCET GIVEN PER MAR. BLOOD SUGARS REMAINS ELEVATED THIS SHIFT, MD NOTIFIED MULTIPLE TIMES THROUGHOUT THE DAY. PATIENT SHORT ACTING INSULIN INCREASED TO HIGH DOSE SCALE. BLOOD SUGARS 300-400s. POTASSIUM REPLACED ORALLY THIS AM. PATIENT PROVIDED WITH CELL PHONE THIS EVENING AND BECAME TEARFUL AND STATED HIS EXCITEMENT. PATIENT STATES HAS NOT HAD A PHONE FOR 3 YEARS. IV ABX INFUSED PER MAR, NO OTHER CONCERNS AT THIS TIME.
[2024-06-23 20:34] VITALS: BP 132/62
[2024-06-23] MEDS ORDERED: Sennosides 8.6 MG Tab PO SCH (21:00)
--- NOTE | 2024-06-24 05:43 | NUR ---
DAIRY FARM WORKER SUMMARY NO ACUTE CHANGES OVERNIGHT. PT HAS BEEN COOPERATIVE WITH CARE.
[2024-06-24 05:45] VITALS: BP 122/58
[2024-06-24 06:14] LABS: BASOPHILS ABSOLUTE AUTO 0.03 K/mm3 (0.00-0.23); BASOPHILS PERCENT AUTO 1 % (0-2); EOSINOPHILS ABSOLUTE AUTO 0.08 K/mm3 (0.00-0.68); EOSINOPHILS PERCENT AUTO 2 % (0-6); Hematocrit 30.3 % (37.0-53.0); Hemoglobin 10.4 g/dL (13.5-17.5); IMMATURE GRAN ABSOLUTE AUTO 0.01 K/mm3 (0.00-0.10); IMMATURE GRAN PERCENT AUTO 0 % (0-1); LYMPHOCYTES PERCENT AUTO 25 % (21-46); MONOCYTES ABSOLUTE AUTO 0.35 K/mm3 (0.16-1.47); MONOCYTES PERCENT AUTO 8 % (4-13); Mean Corpuscular HGB 29.1 pg (26.0-34.0); Mean Corpuscular HGB Conc 34.3 g/dL (31.5-36.5); Mean Corpuscular Volume 85 fL (80-100); Mean Platelet Volume 9.4 fL (9.1-12.4); NEUTROPHILS ABSOLUTE AUTO 2.85 K/mm3 (1.96-9.15); NEUTROPHILS PERCENT AUTO 65 % (41-73); Platelet Count 237 K/mm3 (150-400); RDW Coefficient Variation 13.9 % (11.7-14.2); RDW Standard Deviation 42.9 fL (35.1-46.3); Red Blood Cell Count 3.58 M/mm3 (4.30-5.90); White Blood Cell Count 4.42 K/mm3 (4.00-11.30)
[2024-06-24 06:37] LABS: Bun/Creatinine Ratio 23.9 (12.0-20.0); Calcium, Blood 8.3 mg/dL (8.5-10.1); Creatinine, Blood 0.54 mg/dL (0.60-1.20); Potassium, Blood 3.3 mmol/L (3.5-5.5)
[2024-06-24 07:58] VITALS: BP 120/63
[2024-06-24] MEDS ORDERED: Potassium Chloride 20 MEQ TabCR PO ONE (08:00)
[2024-06-24] MEDS ORDERED: Insulin Glargine-Yfgn 100 Unit/mL 3 ML SYR SC SCH (10:00)
[2024-06-24] MEDS ORDERED: DOXY100 PO (11:26)
== END 2024-06-24 15:11 | disposition home or self-care (01) ==
LOC: ER 17:51 → MEDS 17:52 → ERHOLD 17:52 → MEDS 23:15 → ENPENDDIS 06-24 11:05 → MEDS 06-24 15:11
PROVIDERS: Emergency Medicine; Nurse Practitioner Acute Care; Student in an Organized Health Care Education/Training Program; ADMIT Student in an Organized Health Care Education/Training Program
DX: L03.115 Cellulitis of right lower limb (principal); N40.0 Benign prostatic hyperplasia without lower urinary tract symptoms; E11.9 Type 2 diabetes mellitus without complications; I11.0 Hypertensive heart disease with heart failure; I50.30 Unspecified diastolic (congestive) heart failure; K74.60 Unspecified cirrhosis of liver; E11.40 Type 2 diabetes mellitus with diabetic neuropathy, unspecified; E78.5 Hyperlipidemia, unspecified; Z59.02 Unsheltered homelessness; Z88.8 Allergy status to other drugs, medicaments and biological substances; Z89.511 Acquired absence of right leg below knee; Z91.148 Patient's other noncompliance with medication regimen for other reason
CPT/HCPCS: 36415; 71045; 73701; 80048; 80053; 82010; 82947; 83605; 83880; 83930; 85025; 85610; 86140; 87040; 93005; 93010; 96365; 96366; 96372; 96375; 96376; 99285-25; A9270; G0378; J0690; J1650; J1815; J3010; J7030; Q9967

== ENCOUNTER 2024-06-25 18:05 | Emergency (ER) | payer OTHER ==
[~2024-06-25] VITALS: Ht 177.8 cm; Wt 72.6 kg
[~2024-06-25 18:05] MED LIST changes: +INSULIN LI100 UNIT/6 SC; +SENN187 PO; +VSL#3 112.5B1 EACH PO
[2024-06-25] MEDS ORDERED: NS 1,000 ML IV SCH (18:20)
[2024-06-25] MEDS ORDERED: Thiamine HCl 100 MG Tab PO ONE (18:20)
[2024-06-25] MEDS ORDERED: Folic Acid 1 MG TAB PO ONE (18:20)
[2024-06-25 18:34] LABS: Source, Urine Clean Catch
[2024-06-25 18:36] LABS: BASOPHILS ABSOLUTE AUTO 0.03 K/mm3 (0.00-0.23); BASOPHILS PERCENT AUTO 1 % (0-2); EOSINOPHILS ABSOLUTE AUTO 0.05 K/mm3 (0.00-0.68); EOSINOPHILS PERCENT AUTO 1 % (0-6); Hematocrit 39.5 % (37.0-53.0); Hemoglobin 13.6 g/dL (13.5-17.5); IMMATURE GRAN ABSOLUTE AUTO 0.01 K/mm3 (0.00-0.10); IMMATURE GRAN PERCENT AUTO 0 % (0-1); LYMPHOCYTES ABSOLUTE AUTO 1.15 K/mm3 (0.84-5.20); LYMPHOCYTES PERCENT AUTO 20 % (21-46); MONOCYTES ABSOLUTE AUTO 0.42 K/mm3 (0.16-1.47); MONOCYTES PERCENT AUTO 7 % (4-13); Mean Corpuscular HGB 29.3 pg (26.0-34.0); Mean Corpuscular HGB Conc 34.4 g/dL (31.5-36.5); Mean Corpuscular Volume 85 fL (80-100); Mean Platelet Volume 9.1 fL (9.1-12.4); NEUTROPHILS ABSOLUTE AUTO 4.04 K/mm3 (1.96-9.15); NEUTROPHILS PERCENT AUTO 71 % (41-73); Platelet Count 271 K/mm3 (150-400); RDW Coefficient Variation 13.8 % (11.7-14.2); RDW Standard Deviation 43.1 fL (35.1-46.3); Red Blood Cell Count 4.64 M/mm3 (4.30-5.90)
[2024-06-25 18:38] LABS: Appearance, Urine Clear (Clear); Bilirubin, Urine Neg (Neg); Blood, Urine 2+ (Neg); Glucose Qualitative, Urine 4+ (Neg); Ketones, Urine 1+ (Neg); Leukocyte Esterase, Urine Neg (Neg); Nitrite, Urine Neg (Neg); Protein, Urine 1+ (Neg); Urobilinogen, Urine NORM (Normal)
[2024-06-25 18:42] LABS: Color, Urine Pale Yellow (P-Yellow)
[2024-06-25 18:43] LABS: Base Excess Venous 3.7 mmol/L; PCO2 Venous 32.9 mmHg (38-42); pH Blood Venous 7.52 (7.34-7.37)
[2024-06-25 18:44] LABS: Bacteria Few /hpf; Squamous Epithelial Cells Rare /hpf (Few); White Blood Cells, Urine 0-2 /hpf (0-5); Yeast/Fungi Urine Few /hpf
[2024-06-25 18:48] LABS: U Amphetamine Screen Not Detected; U Barbituate Screen Not Detected; U Benzodiazapine Screen Not Detected; U Cannabinoids Screen Not Detected; U Cocaine Screen Not Detected; U Methadone Screen Not Detected; U Methamphetamine Screen Not Detected; U Opiates Screen Not Detected; U Phencyclidine Screen Not Detected
[2024-06-25 18:49] LABS: U Buprenorphine Screen Not Detected; U Oxycodone Screen Not Detected
[2024-06-25 19:08] LABS: Ethanol (Alcohol), Blood, Med <3 mg/dL; Magnesium, Blood 1.6 mg/dL (1.6-2.4); Prolactin 6.6 ng/mL (2.5-17.4)
[2024-06-25 19:15] VITALS: BP 165/105
[2024-06-25 19:17] LABS: Anion Gap 12 mmol/L (3-11); Beta-hydroxybutyrate 2.3 mg/dL (0.2-2.8); Blood Urea Nitrogen 8 mg/dL (8-24); Bun/Creatinine Ratio 20.2 (12.0-20.0); CO2, Blood 27 mmol/L (21-32); Chloride, Blood 99 mmol/L (98-108); Glomerular Filtration Rate 127 (60-); Glucose, Blood 417 mg/dL (70-99); Potassium, Blood 3.5 mmol/L (3.5-5.5); Sodium, Blood 134 mmol/L (136-145)
== END 2024-06-25 20:05 | disposition home or self-care (01) ==
LOC: ER 18:05
PROVIDERS: Emergency Medicine
DX: R56.9 Unspecified convulsions (principal); E11.649 Type 2 diabetes mellitus with hypoglycemia without coma; I11.0 Hypertensive heart disease with heart failure; I50.9 Heart failure, unspecified; F17.210 Nicotine dependence, cigarettes, uncomplicated; F17.290 Nicotine dependence, other tobacco product, uncomplicated; Z88.8 Allergy status to other drugs, medicaments and biological substances; Z79.4 Long term (current) use of insulin; Z79.899 Other long term (current) drug therapy; Z79.84 Long term (current) use of oral hypoglycemic drugs; Z59.00 Homelessness unspecified
CPT/HCPCS: 80048; 80320; 81001; 82010; 82803; 82947; 83605; 83735; 84146; 85025; 93005; 93010; 96360; 99285-25; A9270; J7030

== ENCOUNTER 2024-06-29 03:58 | Emergency (ER) | payer OTHER ==
[~2024-06-29] VITALS: Ht 157.5 cm; Wt 68.0 kg
[2024-06-29 06:00] VITALS: BP 148/72
[2024-06-29] MEDS ORDERED: HUMALOG KW100 UNIT/1 SC (12:30)
[2024-06-29] MEDS ORDERED: BASAGLAR K100 UNIT/1 SC (12:30)
== END 2024-06-29 06:26 | disposition home or self-care (01) ==
LOC: ER 03:58
DX: S06.9X1A Unspecified intracranial injury with loss of consciousness of 30 minutes or less, initial encounter (principal); E11.42 Type 2 diabetes mellitus with diabetic polyneuropathy; I11.0 Hypertensive heart disease with heart failure; I50.30 Unspecified diastolic (congestive) heart failure; G47.00 Insomnia, unspecified; F17.290 Nicotine dependence, other tobacco product, uncomplicated; W07.XXXA Fall from chair, initial encounter; Z79.899 Other long term (current) drug therapy; Z79.84 Long term (current) use of oral hypoglycemic drugs; Z79.4 Long term (current) use of insulin; Z88.8 Allergy status to other drugs, medicaments and biological substances
CPT/HCPCS: 70450; 72125; 99284-25

== ENCOUNTER 2024-06-29 11:50 | Emergency (ER) | payer OTHER ==
[~2024-06-29] VITALS: Ht 167.6 cm; Wt 74.8 kg
[2024-06-29 12:20] VITALS: BP 142/75
[2024-06-29] MEDS ORDERED: Insulin Glargine-Yfgn 100 Unit/mL 3 ML SYR SC ONE (12:25)
[2024-06-29] MEDS ORDERED: BASAGLAR K100 UNIT/1 SC (12:30)
[2024-06-29] MEDS ORDERED: HUMALOG KW100 UNIT/1 SC (12:30)
== END 2024-06-29 12:49 | disposition home or self-care (01) ==
LOC: ER 11:50
DX: Z76.0 Encounter for issue of repeat prescription (principal); E11.9 Type 2 diabetes mellitus without complications; Z79.84 Long term (current) use of oral hypoglycemic drugs; Z79.899 Other long term (current) drug therapy; Z79.4 Long term (current) use of insulin; Z88.8 Allergy status to other drugs, medicaments and biological substances
CPT/HCPCS: 99283; J1815

== ENCOUNTER 2024-07-03 13:49 | Emergency (ER) | payer OTHER ==
[~2024-07-03] VITALS: Ht 177.8 cm; Wt 88.5 kg
[2024-07-03 14:31] LABS: BASOPHILS ABSOLUTE AUTO 0.04 K/mm3 (0.00-0.23); BASOPHILS PERCENT AUTO 1 % (0-2); EOSINOPHILS ABSOLUTE AUTO 0.08 K/mm3 (0.00-0.68); EOSINOPHILS PERCENT AUTO 2 % (0-6); Hematocrit 37.8 % (37.0-53.0); Hemoglobin 12.8 g/dL (13.5-17.5); IMMATURE GRAN ABSOLUTE AUTO 0.01 K/mm3 (0.00-0.10); IMMATURE GRAN PERCENT AUTO 0 % (0-1); LYMPHOCYTES ABSOLUTE AUTO 1.21 K/mm3 (0.84-5.20); LYMPHOCYTES PERCENT AUTO 26 % (21-46); MONOCYTES ABSOLUTE AUTO 0.35 K/mm3 (0.16-1.47); MONOCYTES PERCENT AUTO 8 % (4-13); Mean Corpuscular HGB 28.8 pg (26.0-34.0); Mean Corpuscular HGB Conc 33.9 g/dL (31.5-36.5); Mean Corpuscular Volume 85 fL (80-100); Mean Platelet Volume 8.9 fL (9.1-12.4); NEUTROPHILS ABSOLUTE AUTO 2.94 K/mm3 (1.96-9.15); NEUTROPHILS PERCENT AUTO 64 % (41-73); Platelet Count 319 K/mm3 (150-400); RDW Coefficient Variation 13.5 % (11.7-14.2); RDW Standard Deviation 42.1 fL (35.1-46.3); Red Blood Cell Count 4.45 M/mm3 (4.30-5.90); White Blood Cell Count 4.63 K/mm3 (4.00-11.30)
[2024-07-03 15:02] LABS: Albumin, Blood 3.7 g/dL (3.4-5.0); Albumin/Globulin Ratio 0.9 (0.8-1.8); Bilirubin, Total 0.4 mg/dL (0.1-1.0); Bun/Creatinine Ratio 19.6 (12.0-20.0); Calcium, Blood 9.6 mg/dL (8.5-10.1); Creatinine, Blood 0.51 mg/dL (0.60-1.20); Globulin, Blood 4.2 g/dL (2.2-4.0); Potassium, Blood 3.9 mmol/L (3.5-5.5); Total Protein, Blood 7.9 g/dL (6.4-8.2)
[2024-07-03 16:11] LABS: Source, Urine Clean Catch
[2024-07-03 16:17] LABS: Appearance, Urine Clear (Clear); Bilirubin, Urine Neg (Neg); Blood, Urine 1+ (Neg); Color, Urine Yellow (P-Yellow); Glucose Qualitative, Urine 4+ (Neg); Ketones, Urine Neg (Neg); Leukocyte Esterase, Urine Neg (Neg); Nitrite, Urine Neg (Neg); Protein, Urine Neg (Neg); Urobilinogen, Urine NORM (Normal)
[2024-07-03 16:29] LABS: Bacteria Rare /hpf; Squamous Epithelial Cells Rare /hpf (Few); White Blood Cells, Urine 0-2 /hpf (0-5); Yeast/Fungi Urine Few /hpf
[2024-07-03 16:30] VITALS: BP 159/89
[2024-07-03] MEDS ORDERED: Insulin Human Lispro 100 Units/ML 3ML Syringe SC ONE (16:35)
[2024-07-03] MEDS ORDERED: Doxycycline Hyclate 100 MG TAB PO ONE (16:35)
[2024-07-03] MEDS ORDERED: Insulin Glargine-Yfgn 100 Unit/mL 3 ML SYR SC ONE (18:00)
[2024-07-03] MEDS ORDERED: INSULANI SC (18:02)
[2024-07-03] MEDS ORDERED: Vibramycin100 MG PO (18:02)
== END 2024-07-03 18:50 | disposition home or self-care (01) ==
LOC: ER 13:49
PROVIDERS: Emergency Medicine; Physician Assistant
DX: E11.65 Type 2 diabetes mellitus with hyperglycemia (principal); G89.29 Other chronic pain; M79.604 Pain in right leg; Z76.0 Encounter for issue of repeat prescription; F17.290 Nicotine dependence, other tobacco product, uncomplicated; Z79.4 Long term (current) use of insulin; Z79.899 Other long term (current) drug therapy; E11.40 Type 2 diabetes mellitus with diabetic neuropathy, unspecified; I11.9 Hypertensive heart disease without heart failure; I50.30 Unspecified diastolic (congestive) heart failure
CPT/HCPCS: 80053; 81001; 82010; 82947; 85025; 99283; A9270; J1815

== ENCOUNTER 2024-07-09 09:40 | Emergency (ER) | payer OTHER ==
[~2024-07-09] VITALS: Ht 177.8 cm; Wt 90.7 kg
[~2024-07-09 09:40] MED LIST changes: +INSULANI SC; +Vibramycin100 MG PO
[2024-07-09 09:58] VITALS: BP 164/91
== END 2024-07-09 11:07 | disposition home or self-care (01) ==
LOC: ER 09:40
DX: T69.9XXA Effect of reduced temperature, unspecified, initial encounter (principal); Z59.00 Homelessness unspecified; E11.42 Type 2 diabetes mellitus with diabetic polyneuropathy; I11.0 Hypertensive heart disease with heart failure; I50.30 Unspecified diastolic (congestive) heart failure; E78.5 Hyperlipidemia, unspecified; F17.210 Nicotine dependence, cigarettes, uncomplicated; F17.290 Nicotine dependence, other tobacco product, uncomplicated; Z88.8 Allergy status to other drugs, medicaments and biological substances; Z79.4 Long term (current) use of insulin; Z79.84 Long term (current) use of oral hypoglycemic drugs; Z79.899 Other long term (current) drug therapy; Z89.511 Acquired absence of right leg below knee
CPT/HCPCS: 99284

== ENCOUNTER 2024-07-10 05:14 | Emergency (ER) | payer OTHER ==
[~2024-07-10] VITALS: Ht 177.8 cm; Wt 90.7 kg
[2024-07-10 06:00] VITALS: BP 129/69
== END 2024-07-10 08:04 | disposition home or self-care (01) ==
LOC: ER 05:14
DX: T69.9XXA Effect of reduced temperature, unspecified, initial encounter (principal); Z71.88 Encounter for counseling for socioeconomic factors; E11.42 Type 2 diabetes mellitus with diabetic polyneuropathy; I11.0 Hypertensive heart disease with heart failure; I50.30 Unspecified diastolic (congestive) heart failure; E78.5 Hyperlipidemia, unspecified; K74.60 Unspecified cirrhosis of liver; F17.210 Nicotine dependence, cigarettes, uncomplicated; F17.290 Nicotine dependence, other tobacco product, uncomplicated; Z89.422 Acquired absence of other left toe(s); Z89.511 Acquired absence of right leg below knee; Z99.3 Dependence on wheelchair; Z88.8 Allergy status to other drugs, medicaments and biological substances; Z79.84 Long term (current) use of oral hypoglycemic drugs; Z79.899 Other long term (current) drug therapy; Z79.4 Long term (current) use of insulin
CPT/HCPCS: 99284

== ENCOUNTER 2024-07-12 18:17 | Emergency (ER) | payer OTHER ==
[~2024-07-12] VITALS: Ht 177.8 cm; Wt 72.6 kg
[2024-07-12 19:09] VITALS: BP 168/95
[2024-07-12 19:33] LABS: BASOPHILS ABSOLUTE AUTO 0.05 K/mm3 (0.00-0.23); BASOPHILS PERCENT AUTO 1 % (0-2); EOSINOPHILS ABSOLUTE AUTO 0.06 K/mm3 (0.00-0.68); EOSINOPHILS PERCENT AUTO 1 % (0-6); Hematocrit 37.4 % (37.0-53.0); IMMATURE GRAN ABSOLUTE AUTO 0.03 K/mm3 (0.00-0.10); IMMATURE GRAN PERCENT AUTO 1 % (0-1); LYMPHOCYTES ABSOLUTE AUTO 1.32 K/mm3 (0.84-5.20); LYMPHOCYTES PERCENT AUTO 23 % (21-46); MONOCYTES ABSOLUTE AUTO 0.41 K/mm3 (0.16-1.47); MONOCYTES PERCENT AUTO 7 % (4-13); Mean Corpuscular HGB 29.1 pg (26.0-34.0); Mean Corpuscular HGB Conc 34.8 g/dL (31.5-36.5); Mean Corpuscular Volume 84 fL (80-100); Mean Platelet Volume 9.6 fL (9.1-12.4); NEUTROPHILS ABSOLUTE AUTO 3.99 K/mm3 (1.96-9.15); NEUTROPHILS PERCENT AUTO 68 % (41-73); Platelet Count 269 K/mm3 (150-400); RDW Coefficient Variation 13.4 % (11.7-14.2); RDW Standard Deviation 41.5 fL (35.1-46.3); Red Blood Cell Count 4.46 M/mm3 (4.30-5.90); White Blood Cell Count 5.86 K/mm3 (4.00-11.30)
[2024-07-12 20:02] LABS: Albumin, Blood 3.6 g/dL (3.4-5.0); Albumin/Globulin Ratio 0.9 (0.8-1.8); Bilirubin, Total 0.3 mg/dL (0.1-1.0); Calcium, Blood 9.3 mg/dL (8.5-10.1); Creatinine, Blood 0.55 mg/dL (0.60-1.20); Globulin, Blood 3.8 g/dL (2.2-4.0); Potassium, Blood 3.5 mmol/L (3.5-5.5); Total Protein, Blood 7.4 g/dL (6.4-8.2)
[2024-07-12] MEDS ORDERED: Insulin Regular 100 Unit/ML 1ML Dose IV ONE (22:25)
[2024-07-12] MEDS ORDERED: NS 1,000 ML IV SCH (22:25)
[2024-07-12] MEDS ORDERED: Cephalexin Monohydrate 500 MG Cap PO ONE (22:25)
[2024-07-12] MEDS ORDERED: Trimethoprim/Sulfamethoxazole DS Tab PO ONE (22:25)
== END 2024-07-13 02:10 | disposition home or self-care (01) ==
LOC: ER 18:17
PROVIDERS: Student in an Organized Health Care Education/Training Program
DX: L03.115 Cellulitis of right lower limb (principal); E11.65 Type 2 diabetes mellitus with hyperglycemia; F17.290 Nicotine dependence, other tobacco product, uncomplicated; Z79.4 Long term (current) use of insulin; Z79.84 Long term (current) use of oral hypoglycemic drugs; Z79.899 Other long term (current) drug therapy; Z88.8 Allergy status to other drugs, medicaments and biological substances
CPT/HCPCS: 80053; 82947; 85025; 96360; 99284-25; A9270; J1815; J7030

== ENCOUNTER 2024-07-18 15:43 | Emergency (ER) | payer OTHER ==
[~2024-07-18] VITALS: Ht 177.8 cm; Wt 90.7 kg
[2024-07-18 15:46] VITALS: BP 153/105
== END 2024-07-18 19:52 | disposition home or self-care (01) ==
LOC: ER 15:43
DX: G89.29 Other chronic pain (principal); M79.605 Pain in left leg; M79.604 Pain in right leg; I11.0 Hypertensive heart disease with heart failure; I50.30 Unspecified diastolic (congestive) heart failure; G47.00 Insomnia, unspecified; E11.42 Type 2 diabetes mellitus with diabetic polyneuropathy; F17.210 Nicotine dependence, cigarettes, uncomplicated; Z79.4 Long term (current) use of insulin; Z79.899 Other long term (current) drug therapy; Z88.8 Allergy status to other drugs, medicaments and biological substances
CPT/HCPCS: 99283

== ENCOUNTER 2024-07-24 20:21 | Emergency (ER) | payer OTHER ==
[~2024-07-24] VITALS: Ht 167.6 cm; Wt 68.0 kg
[2024-07-24 20:40] VITALS: BP 171/78
[2024-07-24] MEDS ORDERED: Cyclobenzaprine HCl 10 MG Tab PO ONE (20:45)
[2024-07-24] MEDS ORDERED: Ibuprofen 400 MG Tab PO ONE (20:50)
== END 2024-07-24 21:51 | disposition home or self-care (01) ==
LOC: ER 20:21
DX: M62.838 Other muscle spasm (principal); J10.1 Influenza due to other identified influenza virus with other respiratory manifestations; E11.42 Type 2 diabetes mellitus with diabetic polyneuropathy; I11.0 Hypertensive heart disease with heart failure; I50.30 Unspecified diastolic (congestive) heart failure; E78.5 Hyperlipidemia, unspecified; K74.60 Unspecified cirrhosis of liver; F17.210 Nicotine dependence, cigarettes, uncomplicated; F17.290 Nicotine dependence, other tobacco product, uncomplicated; Z88.8 Allergy status to other drugs, medicaments and biological substances; Z79.84 Long term (current) use of oral hypoglycemic drugs; Z79.4 Long term (current) use of insulin; Z79.899 Other long term (current) drug therapy; Z91.81 History of falling
CPT/HCPCS: 99282; A9270

== ENCOUNTER 2024-08-01 17:00 | Emergency (ER) | payer OTHER ==
[~2024-08-01] VITALS: Ht 177.8 cm; Wt 86.2 kg
[2024-08-01 17:12] VITALS: BP 162/88
== END 2024-08-01 20:40 | disposition left against medical advice (07) ==
LOC: ER 17:00
DX: Z00.8 Encounter for other general examination (principal); E11.9 Type 2 diabetes mellitus without complications; Z88.8 Allergy status to other drugs, medicaments and biological substances; Z79.899 Other long term (current) drug therapy; Z79.4 Long term (current) use of insulin
CPT/HCPCS: 99283-25

== ENCOUNTER 2024-08-04 03:07 | Emergency (ER) | payer OTHER ==
[~2024-08-04] VITALS: Ht 170.2 cm; Wt 90.7 kg
[2024-08-04 04:00] VITALS: BP 150/77
[2024-08-04] MEDS ORDERED: SULTRIDS PO (08:29)
[2024-08-04] MEDS ORDERED: CEPH500 PO (08:29)
== END 2024-08-04 08:43 | disposition left against medical advice (07) ==
LOC: ER 03:07
DX: L03.116 Cellulitis of left lower limb (principal); Z53.29 Procedure and treatment not carried out because of patient's decision for other reasons; F17.210 Nicotine dependence, cigarettes, uncomplicated; F17.290 Nicotine dependence, other tobacco product, uncomplicated; E78.5 Hyperlipidemia, unspecified; I11.0 Hypertensive heart disease with heart failure; R39.198 Other difficulties with micturition; I50.30 Unspecified diastolic (congestive) heart failure; E11.42 Type 2 diabetes mellitus with diabetic polyneuropathy; Z79.4 Long term (current) use of insulin; Z79.84 Long term (current) use of oral hypoglycemic drugs; Z79.899 Other long term (current) drug therapy; Z88.8 Allergy status to other drugs, medicaments and biological substances; Z59.00 Homelessness unspecified
CPT/HCPCS: 99282; 99283

== ENCOUNTER 2024-08-05 14:05 | Inpatient (IN) | payer OTHER ==
[~2024-08-05] VITALS: Ht 177.8 cm; Wt 73.3 kg
[~2024-08-05 14:05] MED LIST changes: +SULTRIDS PO
[2024-08-05] MEDS ORDERED: Ondansetron HCl 2 MG / ML 2ML Vial IV ONE (14:40)
[2024-08-05] MEDS ORDERED: Morphine Sulfate 4 MG/1 ML Injection IV ONE (14:40)
[2024-08-05] MEDS ORDERED: NS 1,000 ML IV SCH ×2 (14:40→17:30)
[2024-08-05 15:24] LABS: Base Excess Venous -0.9 mmol/L; Bicarbonate Venous 23.2 mmol/L (24.0-30.0); PCO2 Venous 44.4 mmHg (38-42); pH Blood Venous 7.35 (7.34-7.37)
[2024-08-05 15:28] LABS: BASOPHILS ABSOLUTE AUTO 0.03 K/mm3 (0.00-0.23); BASOPHILS PERCENT AUTO 0 % (0-2); EOSINOPHILS ABSOLUTE AUTO 0.07 K/mm3 (0.00-0.68); EOSINOPHILS PERCENT AUTO 1 % (0-6); Hematocrit 31.7 % (37.0-53.0); Hemoglobin 10.9 g/dL (13.5-17.5); IMMATURE GRAN ABSOLUTE AUTO 0.03 K/mm3 (0.00-0.10); IMMATURE GRAN PERCENT AUTO 0 % (0-1); LYMPHOCYTES ABSOLUTE AUTO 0.82 K/mm3 (0.84-5.20); LYMPHOCYTES PERCENT AUTO 10 % (21-46); MONOCYTES ABSOLUTE AUTO 0.61 K/mm3 (0.16-1.47); MONOCYTES PERCENT AUTO 8 % (4-13); Mean Corpuscular HGB 29.1 pg (26.0-34.0); Mean Corpuscular HGB Conc 34.4 g/dL (31.5-36.5); Mean Corpuscular Volume 85 fL (80-100); Mean Platelet Volume 9.3 fL (9.1-12.4); NEUTROPHILS ABSOLUTE AUTO 6.34 K/mm3 (1.96-9.15); NEUTROPHILS PERCENT AUTO 80 % (41-73); Platelet Count 342 K/mm3 (150-400); RDW Coefficient Variation 13.3 % (11.7-14.2); RDW Standard Deviation 41.1 fL (35.1-46.3); Red Blood Cell Count 3.74 M/mm3 (4.30-5.90)
[2024-08-05 16:01] LABS: Albumin, Blood 2.9 g/dL (3.4-5.0); Albumin/Globulin Ratio 0.7 (0.8-1.8); Bilirubin, Total 0.4 mg/dL (0.1-1.0); Bun/Creatinine Ratio 33.5 (12.0-20.0); Calcium, Blood 9.1 mg/dL (8.5-10.1); Creatinine, Blood 0.69 mg/dL (0.60-1.20); Globulin, Blood 4.2 g/dL (2.2-4.0); Potassium, Blood 3.9 mmol/L (3.5-5.5); Total Protein, Blood 7.1 g/dL (6.4-8.2)
[2024-08-05] MEDS ORDERED: CeFAZolin Sodium 1,000 MG in NS 50 ML IV ONE (16:30)
[2024-08-05] MEDS ORDERED: Ondansetron HCl 2 MG / ML 2ML Vial IV PRN (17:20)
[2024-08-05] MEDS ORDERED: Naloxone HCl 0.4MG / ML 1ML Vial IV PRN (17:20)
[2024-08-05] MEDS ORDERED: Morphine Sulfate 4 MG/1 ML Injection IV PRN (17:25)
[2024-08-05] MEDS ORDERED: HYDROcodone 5-APAP 325 TAB PO PRN (17:25)
[2024-08-05] MEDS ORDERED: Acetaminophen 325 MG TABLET PO PRN (17:25)
[2024-08-05] MEDS ORDERED: FLU VACC TS2024-25(6MOS UP)/PF 45 MCG/0.5 ML SYRINGE IM SCH (17:25)
[2024-08-05] MEDS ORDERED: Insulin Human Lispro 100 Units/ML 3ML Syringe SC SCH (17:30)
[2024-08-05] MEDS ORDERED: Ketorolac Tromethamine 15mg Vial IV PRN (17:35)
[2024-08-05 17:53] LABS: U Amphetamine Screen DETECTED; U Cannabinoids Screen DETECTED; U Methamphetamine Screen DETECTED; U Opiates Screen DETECTED
[2024-08-05 17:54] LABS: U Barbituate Screen Not Detected; U Benzodiazapine Screen Not Detected; U Buprenorphine Screen Not Detected; U Cocaine Screen Not Detected; U Methadone Screen Not Detected; U Oxycodone Screen Not Detected; U Phencyclidine Screen Not Detected
[2024-08-05] MEDS ORDERED: Insulin Regular 100 UNIT/ML 10ML Vial SC SCH ×2 (18:00→19:00)
[2024-08-05] MEDS ORDERED: Vancomycin HCL 1,750 MG in NS 500 ML IV ONE (18:00)
[2024-08-05] MEDS ORDERED: Methocarbamol 500 MG Tab PO PRN (18:10)
[2024-08-05] MEDS ORDERED: Sennosides 8.6 MG Tab PO PRN (18:10)
[2024-08-05] MEDS ORDERED: BASAGLAR K100 UNIT/1 SC (20:49)
[2024-08-05] MEDS ORDERED: Mirtazapine 30 MG SoluTab PO SCH (21:00)
[2024-08-05] MEDS ORDERED: Insulin Glargine-Yfgn 100 Unit/mL 3 ML SYR SC SCH (21:00)
[2024-08-05] MEDS ORDERED: Docusate Sodium 100 MG Cap PO SCH (21:00)
[2024-08-05 21:12] VITALS: BP 174/84
[2024-08-06] MEDS ORDERED: LORazepam 2 MG/ML 1ML Injection IV ONE (01:30)
[2024-08-06 04:16] VITALS: BP 143/64
[2024-08-06] MEDS ORDERED: NS 250 ML IV PRN (05:00)
[2024-08-06 05:28] LABS: BASOPHILS ABSOLUTE AUTO 0.02 K/mm3 (0.00-0.23); BASOPHILS PERCENT AUTO 0 % (0-2); EOSINOPHILS ABSOLUTE AUTO 0.08 K/mm3 (0.00-0.68); EOSINOPHILS PERCENT AUTO 1 % (0-6); Hematocrit 28.8 % (37.0-53.0); Hemoglobin 9.7 g/dL (13.5-17.5); IMMATURE GRAN ABSOLUTE AUTO 0.02 K/mm3 (0.00-0.10); IMMATURE GRAN PERCENT AUTO 0 % (0-1); LYMPHOCYTES ABSOLUTE AUTO 0.87 K/mm3 (0.84-5.20); LYMPHOCYTES PERCENT AUTO 16 % (21-46); MONOCYTES ABSOLUTE AUTO 0.42 K/mm3 (0.16-1.47); MONOCYTES PERCENT AUTO 8 % (4-13); Mean Corpuscular HGB 28.8 pg (26.0-34.0); Mean Corpuscular HGB Conc 33.7 g/dL (31.5-36.5); Mean Corpuscular Volume 86 fL (80-100); Mean Platelet Volume 9.1 fL (9.1-12.4); NEUTROPHILS ABSOLUTE AUTO 4.12 K/mm3 (1.96-9.15); NEUTROPHILS PERCENT AUTO 75 % (41-73); Platelet Count 282 K/mm3 (150-400); RDW Coefficient Variation 13.3 % (11.7-14.2); RDW Standard Deviation 41.2 fL (35.1-46.3); Red Blood Cell Count 3.37 M/mm3 (4.30-5.90); White Blood Cell Count 5.53 K/mm3 (4.00-11.30)
[2024-08-06] MEDS ORDERED: Vancomycin HCL 1,250 MG in NS 250 ML IV SCH (06:00)
[2024-08-06 06:24] LABS: Albumin, Blood 2.4 g/dL (3.4-5.0); Albumin/Globulin Ratio 0.7 (0.8-1.8); Bilirubin, Total 0.4 mg/dL (0.1-1.0); Bun/Creatinine Ratio 28.1 (12.0-20.0); Calcium, Blood 8.5 mg/dL (8.5-10.1); Creatinine, Blood 0.5 mg/dL (0.60-1.20); Globulin, Blood 3.6 g/dL (2.2-4.0); Magnesium, Blood 1.8 mg/dL (1.6-2.4)
--- NOTE | 2024-08-06 07:29 | NUR ---
NEW ADMIT/ELECTRICAL CONTACTS ADJUSTER SUMMARY PT ADMIT FOR SEPSIS SECONDARY TO CELLULITIS. FULL CODE. PT ARRIVED TO ROOM AND TRANSFERED USING SLIDER SHEET AND 4 STAFF. PT IS VERY PAINFUL WITH MOVEMENT WITH CONTINUAL CRYING OUT "OW OW OW" PT AGITATED WITH STAFF DURING DIRECT CARE WAS YELLING AT CUSSING. PT ALERT BUT NOT ANSWERING ORIENTATION QUESTIONS. PT HAS HX OF RT BKA. SKIN ASSESSMENT COMPLETE AND PHOTOS IN CHART. PT HAS EXTENSIVE SKIN CONCERNS; SCATTERED ULCERS DOWN LEFT LEG, TISSUE IS BRIGHT RED AND WARM, HANDS ARE RED AND WARM, PT HAS LARGE WEEPING EXCORIATION TO RIGHT POSTERIOR THIGH, COCYX, AN DROIN. PT CONTINUES TO TOUCH WOUNDS WITH HANDS AND THEN RUBS FACE/MOUTH. REPEAT EDUCATION AND REDIRECTION REQUIRED FOR INFECTION CONTROL. PT HAS HX OF MRSA; PT IN CONTACT. PT MEDICATED FOR PAIN PER MAR. NEW IV PLACED IN DOLORES. PT HAS HX OF HOMELESSNESS AND SUBSTANCE USE. PT NOT RESPONDING TO QUESTIONS ABOUT CURRENT LIVING SITUATION SAFETY CONCERNS. PT LIABLE WITH STAFF DURING DIRECT CARE. PT ADMITS HE CAN GET ANGRY BUT DOES NOT MEAN TO. PT IS INCONTINENT OF BLADDER. PT NOT CALLING FOR ASSIST. BED ALARM IN PLACE. PT ORIENTED TO ROOM AND CALL LIGHT. REGULAR INTERVAL ROUNDING COMPLETE TO ASSESS AND MEET NEEDS. PER ER NURSE/ANGELO--PT PERSONAL BELONGINGS/WHEEL CHAIR WAS PLACED IN ED STORAGE ROOM. PT CONTENTS HAD STRONG ODOR.
[2024-08-06] MEDS ORDERED: Insulin Regular 100 UNIT/ML 10ML Vial SC SCH (07:30)
[2024-08-06 07:33] VITALS: BP 127/58
[2024-08-06] MEDS ORDERED: Potassium Chloride 20 MEQ TabCR PO ONE (08:00)
[2024-08-06] MEDS ORDERED: Lisinopril 20 MG Tab PO SCH (09:00)
[2024-08-06] MEDS ORDERED: Ferrous Sulfate 325 MG Tab PO SCH (09:00)
[2024-08-06] MEDS ORDERED: Tamsulosin HCl 0.4 MG Cap PO SCH (09:00)
[2024-08-06] MEDS ORDERED: Atorvastatin 40 MG Tab PO SCH (09:00)
[2024-08-06] MEDS ORDERED: Enoxaparin 40 MG/0.4 ML SYR SC SCH (09:00)
[2024-08-06] MEDS ORDERED: Insulin Human Lispro 100 Units/ML 3ML Syringe SC SCH (11:30)
--- NOTE | 2024-08-06 13:47 | NUR ---
MEDICATED PT FOR BG 184- PT MEDICATED WITH 9 UNIT SET BEFORE MEALS AND 1 UNIT PER SS. PT ACKNOWLEDGED THAT LUNCH WAS COMING AND SAID HE WANTED TO EAT, HE WAS STILL VERY TIRED. AT BREAKFAST TIME THE PT BECAME UPSET YELLING "NOW IM MAD" AND "I WANT FOOD", "OW, OW, OW". PT MEDICATED FOR PAIN AT THAT TIME. WHEN LUNCH ARRIVED HE WAS STILL SLEEPING, STAFF ATTEMPTED TO WAKE HIM FOR HIS FOOD BUT HE GRUMBLED THAT HE HURT AND WAS TOO TIRED TO EAT. STAFF STAYED AT THE BEDSIDE AND WOKE THE PT REPEATEDLY REMINDING HIM FOOD WAS HERE AND FED HIM 100% OF HIS LUNCH. AFTER FINISHING HIS JELLO THE PT DRIFTED BACK OFF TO SLEEP. WILL CTM.
[2024-08-06 15:48] VITALS: BP 141/57
--- NOTE | 2024-08-06 16:10 | NUR ---
CALLED DR GARNER- PT LETHARGIC, TEMP 103.2 RESP RATE 40 O2 SATS 96% ON 2L VIA NC. ATTENDS CHANGE COMPLETED PT BEGAN FLAILING WITH STAFF TOUCHES. PT HAS REFUSED PO MEDICATIONS ALL SHIFT. OFFERED PO TYLENOL AND PT REFUSED. PT HAS 1 GOOD IV SITE ON THE RIGHT AC. PT MEDICATED WITH IV TORADOL FOR PAIN AND FEVER. PT HACKING UP THICH SPUTUM AND SPITTING IT OUT, DOES NOT SEEM TO REALIZE THERE ARE PEOPLE IN THE ROOM. HE APPOLOGIZES FOR HIS ACTIONS AND THEN CRIES OUT IN PAIN AND LASHES OUT. PLACED ICE PACKS ON THE PT TO ATTEMPT TO REDUCE FEVER. CALLED DR GARNER AND RECIEVED AN ORDER FOR TRANSFER TO PCU FOR WORSENING SEPSIS.
[2024-08-06] MEDS ORDERED: Lactated Ringer's 1,000 ML IV SCH ×2 (16:15→18:25)
[2024-08-06] MEDS ORDERED: Morphine Sulfate 4 MG/1 ML Injection IV PRN (16:20)
[2024-08-06] MEDS ORDERED: Piperacillin/Tazobactam Sod 4.5 GM in NS 100 ML IV SCH (17:00)
[2024-08-06 17:18] VITALS: BP 127/78
--- NOTE | 2024-08-06 17:19 | NUR ---
PT ARRIVES TO PCU RM 8 WITH MANNY CANSECO. PT WILDLY SOBBING SCRAMING "OW OW OW" WITHOUT TEAR PRODUCTION. HE REPORTS PAIN TO LEGS HE INITIALLY TOLD STAFF "FUCK YOURSELF" WHEN OFFERED PAIN MEDICATION, PT REFUSING ADDITIONAL IV START. AFTER BRIEF EDCUATION ABOUT THE ESCIALTION OF HIS CARE AND THE SERIOUSNESS OF HIS SITUATION HE STS "LET ME FUCKING " PT ADDITIONALLY EDUCATED ABOUT HIS STATUS AND THE EXPECTION OF HIS BEHAVIOR AND LANGUAGE, PT THEN STS THAT HE WILL ALLOW FOR ADDITIONAL IV START AND WOULD LIKE PAIN MEDICATION. PT IS MODERATELY COOPERATIVE, WILL NOT ALLOW NASAL CANNULA TO BE PLACED SPO2 IS 91-04% ON RA. FEVER HAS REDUCED WITH TORADOL ON MEDICAL FLOOR AND ICE PACKS ON MEDICAL FLOOR. PT NOW APPEARS TO BE RESTING COMFORTABLY IN BED WITH EVEN OCTAVIO RISE AND FALLNOTED, EYES CLOSED. VSS
[2024-08-06 17:27] LABS: BASOPHILS ABSOLUTE AUTO 0.03 K/mm3 (0.00-0.23); BASOPHILS PERCENT AUTO 1 % (0-2); EOSINOPHILS ABSOLUTE AUTO 0.06 K/mm3 (0.00-0.68); EOSINOPHILS PERCENT AUTO 1 % (0-6); Hematocrit 28.2 % (37.0-53.0); Hemoglobin 9.6 g/dL (13.5-17.5); IMMATURE GRAN ABSOLUTE AUTO 0.03 K/mm3 (0.00-0.10); IMMATURE GRAN PERCENT AUTO 1 % (0-1); LYMPHOCYTES ABSOLUTE AUTO 0.89 K/mm3 (0.84-5.20); LYMPHOCYTES PERCENT AUTO 14 % (21-46); MONOCYTES PERCENT AUTO 7 % (4-13); Mean Corpuscular HGB 29.1 pg (26.0-34.0); Mean Corpuscular Volume 86 fL (80-100); Mean Platelet Volume 9.1 fL (9.1-12.4); NEUTROPHILS ABSOLUTE AUTO 4.78 K/mm3 (1.96-9.15); NEUTROPHILS PERCENT AUTO 77 % (41-73); Platelet Count 280 K/mm3 (150-400); RDW Coefficient Variation 13.2 % (11.7-14.2); RDW Standard Deviation 41.4 fL (35.1-46.3); White Blood Cell Count 6.19 K/mm3 (4.00-11.30)
[2024-08-06 17:49] LABS: Albumin, Blood 2.4 g/dL (3.4-5.0); Albumin/Globulin Ratio 0.7 (0.8-1.8); Bilirubin, Total 0.2 mg/dL (0.1-1.0); Bun/Creatinine Ratio 22.6 (12.0-20.0); Calcium, Blood 8.5 mg/dL (8.5-10.1); Creatinine, Blood 0.53 mg/dL (0.60-1.20); Globulin, Blood 3.4 g/dL (2.2-4.0); Potassium, Blood 3.2 mmol/L (3.5-5.5); Total Protein, Blood 5.8 g/dL (6.4-8.2)
--- NOTE | 2024-08-06 17:52 | NUR ---
CALLED DR GARNER- PT TRANSFERED TO PCU 8, BEDSIDE REPORT COMPLETED WITH AJITH Ryan. CHEST XR COMPLETED IN THE ROOM PRIOR TO TRANSFER, PT COUGHING AND SPITTING UP THICK SPUTUM. CALLED DR GARNER THE PT HAS NOT HAD A RESP PANEL COMPLETED RECIEVED AND ORDER FOR A FULL RESP PANEL. PLACED ORDER IN ORDER MANAGEMENT AND PASSED ON TO STOCKHOLDERAJITH LOZANO.
[2024-08-06] MEDS ORDERED: Potassium Chloride 40 MEQ in NS 250 ML IV SCH (18:30)
[2024-08-06 19:46] VITALS: BP 182/82
[2024-08-06 21:01] LABS: Adenovirus Not Detected (NOT DETECT); Bordetella pertussis Not Detected (NOT DETECT); Chlamydophila pneumoniae Not Detected (NOT DETECT); Coronavirus 229E Not Detected (NOT DETECT); Coronavirus HKU1 Not Detected (NOT DETECT); Coronavirus NL63 Not Detected (NOT DETECT); Coronavirus OC43 Not Detected (NOT DETECT); Human Metapneumovirus Not Detected (NOT DETECT); Human Rhinovirus/Enterovirus Not Detected (NOT DETECT); Influenza A/2009-H1 Not Detected (NOT DETECT); Influenza A/H1 Not Detected (NOT DETECT); Influenza A/H3 Not Detected (NOT DETECT); Influenza B Not Detected (NOT DETECT); Mycoplasma pneumoniae Not Detected (NOT DETECT); Parainfluenza Virus 1 Not Detected (NOT DETECT); Parainfluenza Virus 2 Not Detected (NOT DETECT); Parainfluenza Virus 3 Not Detected (NOT DETECT); Parainfluenza Virus 4 Not Detected (NOT DETECT); Respiratory Syncytial Virus Not Detected (NOT DETECT); SARS-Cov-2 (COVID-19), BioFire Not Detected (NOT DETECT)
[2024-08-07] VITALS (7 sets, daily range): BP systolic 110–183; BP diastolic 55–103
[2024-08-07 04:54] LABS: BASOPHILS ABSOLUTE AUTO 0.01 K/mm3 (0.00-0.23); BASOPHILS PERCENT AUTO 0 % (0-2); EOSINOPHILS ABSOLUTE AUTO 0.07 K/mm3 (0.00-0.68); EOSINOPHILS PERCENT AUTO 1 % (0-6); Hematocrit 26.7 % (37.0-53.0); IMMATURE GRAN ABSOLUTE AUTO 0.01 K/mm3 (0.00-0.10); IMMATURE GRAN PERCENT AUTO 0 % (0-1); LYMPHOCYTES ABSOLUTE AUTO 0.89 K/mm3 (0.84-5.20); LYMPHOCYTES PERCENT AUTO 17 % (21-46); MONOCYTES ABSOLUTE AUTO 0.42 K/mm3 (0.16-1.47); MONOCYTES PERCENT AUTO 8 % (4-13); Mean Corpuscular HGB Conc 33.7 g/dL (31.5-36.5); Mean Corpuscular Volume 86 fL (80-100); Mean Platelet Volume 8.9 fL (9.1-12.4); NEUTROPHILS ABSOLUTE AUTO 3.87 K/mm3 (1.96-9.15); NEUTROPHILS PERCENT AUTO 73 % (41-73); Platelet Count 250 K/mm3 (150-400); RDW Coefficient Variation 13.3 % (11.7-14.2); RDW Standard Deviation 41.6 fL (35.1-46.3); White Blood Cell Count 5.27 K/mm3 (4.00-11.30)
[2024-08-07 05:28] LABS: Alanine Aminotransfer (ALT/SGP 18 U/L (12-78); Albumin, Blood 2.1 g/dL (3.4-5.0); Albumin/Globulin Ratio 0.6 (0.8-1.8); Alk Phos 88 U/L (50-136); Anion Gap 7 mmol/L (3-11); Aspartate Aminotrans (AST/SGOT 22 U/L (12-37); Bilirubin, Total 0.2 mg/dL (0.1-1.0); Blood Urea Nitrogen 10 mg/dL (8-24); Bun/Creatinine Ratio 17.9 (12.0-20.0); CO2, Blood 27 mmol/L (21-32); Calcium, Blood 8.1 mg/dL (8.5-10.1); Chloride, Blood 106 mmol/L (98-108); Creatinine, Blood 0.56 mg/dL (0.60-1.20); Globulin, Blood 3.3 g/dL (2.2-4.0); Glomerular Filtration Rate 115 (60-); Glucose, Blood 325 mg/dL (70-99); Potassium, Blood 3.4 mmol/L (3.5-5.5); Sodium, Blood 137 mmol/L (136-145); Total Protein, Blood 5.4 g/dL (6.4-8.2); Vancomycin, Trough 13.1 ug/mL (5.0-10.0)
--- NOTE | 2024-08-07 06:18 | NUR ---
SHIFT SUMMARY PT ALERT AND ORIENTED X 3-4 , SR 90S, SBP 110-150S WHILE AT REST, SBP 180S WHILE IN PAIN, TMAX 99.6F THIS SHIFT, PT YELLS OUT AND RESTLESS WHILE IN PAIN, IRRITABLE AND UNCOOPERATIVE WITH ANY CARE WHILE YELLING "OW,OW, OW" OVER AND OVER, C/O PAIN ALL OVER WITH NOTED MULTIPLE WOUNDS TO BUE, BLE, LEFT HIP, GROIN AND SACRUM, MEDICATED WITH MORPHINE X1, TORADOL X1, MEDS EFFECTIVE, PLACED CONDOM CATH AFTER PT INCONTINENT X3 LARGE AMOUNTS IN BRIEF, RIGHT ROSS NOTED AND DRESSING WITH MEDIHONEY APPLIED TO WOUNDS AFTER PT NOTED PICKING AT SCABS AND C/O PAIN TO TOUCH OF THE BED, DRESSING DRY AND INTACT AND PT VOICES RELIEF, O2 AT 2 LPM NC, RESP EVEN AND UNLABORED, COARSE JAMES LUNG SOUNDS NOTED, WITH PRODUCTIVE, MOIST COUGH AND JAIMES,YELLOW THICK SPUTUM, PT GIVEN KLEENEX AT BEDSIDE AND TRASHCAN BESIDE BED FOR KLEENEX AND PT COMPLIANT WITH NOT SPITTING IN BED OR AT STAFF, PT ATE 100% OF DINNER AND 100% OF HS SNACK STATING HE IS JUST HUNGRY ALL TIME, EATS, DRINKS AND TAKE PO MEDS WITHOUT DIFFICULTY, PIV TO LEFT UPPER ARM AND RIGHT AC PATENT, POWERGLIDE TO RIGHT UPPER ARM PATENT WITH LR INFUSING AT 75 ML/HR, BRIEF ON PER PT REQUEST WITH PROTECTIVE OINTMENT APPLIED TO SACRUM AND LEFT HIP,K SIDE RAILS UP X2, BED ALARM ON, CALL LIGHT IN REACH
--- NOTE | 2024-08-07 17:59 | NUR ---
TRANSFER SUMMARY PT ALERT, ORIENTED, FOLLOWS MOST COMMANDS BUT NOT HAPPILY. FOR INSTANCE, ASKS PT IF CAN TAKE BLOOD PRESSURE. PT LIFTS ARM FOR RN BUT STATES, "TRYING TO EAT MY FOOD YOU GUYS ARE KING ABAD". SP02>90% ON 2L NC. PT FREQUENTLY REMOVES NC, SATS GO TO 87%. MEDICAL STATUS NO TELE. PT INCONTINENT OF STOOL/URINE. C/D ATTENDS IN PLACE. 1 FORMED BM THIS AM. PT C/O OF ALL OVER PAIN. MEDICATED W/ NORCO PER EMAR. ABX INFUSING PER EMAR. FLUIDS INFUSING PER EMAR. PT REPOSITIONED SELF IN BED. BOOSTED MULTIPLE TIMES. REPORT GIVEN TO MEDICAL RN.
--- NOTE | 2024-08-07 19:22 | NUR ---
ASSUMPTION OF CARE: PATIENT ARRIVES TO ROOM AT 1843 VIA BED FROM PCU. PATIENT REPORTS PAIN AND CRYING, "OW.OW.OW", MEDICATED FOR PAIN PER EMAR. BED ALARM ON FOR SAFETY. CALL LIGHT IN REACH. REPORTS GIVEN TO DEMIAN RN, MAT.
[2024-08-08 02:35] VITALS: BP 175/97
[2024-08-08 05:52] LABS: BASOPHILS ABSOLUTE AUTO 0.03 K/mm3 (0.00-0.23); BASOPHILS PERCENT AUTO 0 % (0-2); EOSINOPHILS ABSOLUTE AUTO 0.07 K/mm3 (0.00-0.68); EOSINOPHILS PERCENT AUTO 1 % (0-6); Hematocrit 29.6 % (37.0-53.0); Hemoglobin 9.9 g/dL (13.5-17.5); IMMATURE GRAN ABSOLUTE AUTO 0.03 K/mm3 (0.00-0.10); IMMATURE GRAN PERCENT AUTO 0 % (0-1); LYMPHOCYTES ABSOLUTE AUTO 1.32 K/mm3 (0.84-5.20); LYMPHOCYTES PERCENT AUTO 17 % (21-46); MONOCYTES ABSOLUTE AUTO 0.62 K/mm3 (0.16-1.47); MONOCYTES PERCENT AUTO 8 % (4-13); Mean Corpuscular HGB 28.6 pg (26.0-34.0); Mean Corpuscular HGB Conc 33.4 g/dL (31.5-36.5); Mean Corpuscular Volume 86 fL (80-100); Mean Platelet Volume 9.3 fL (9.1-12.4); NEUTROPHILS ABSOLUTE AUTO 5.82 K/mm3 (1.96-9.15); NEUTROPHILS PERCENT AUTO 74 % (41-73); Platelet Count 308 K/mm3 (150-400); RDW Coefficient Variation 13.2 % (11.7-14.2); RDW Standard Deviation 40.3 fL (35.1-46.3); Red Blood Cell Count 3.46 M/mm3 (4.30-5.90); White Blood Cell Count 7.89 K/mm3 (4.00-11.30)
[2024-08-08 06:32] LABS: Bun/Creatinine Ratio 13.2 (12.0-20.0); Calcium, Blood 9.2 mg/dL (8.5-10.1); Creatinine, Blood 0.53 mg/dL (0.60-1.20); Potassium, Blood 2.9 mmol/L (3.5-5.5)
--- NOTE | 2024-08-08 06:34 | NUR ---
SHIFT SUMMARY PATIENT IS ALERT AND ORIENTED. PATIENT HAS HAD NO ACUTE EVENTS THIS SHIFT. PATIENT HAS HAD IV FLUIDS INFUSING PER EMAR ALL SHIFT. PATIENT HAS HAD PAIN THIS SHIFT AND MEDICATED PER EMAR. PATIENT HAS HAD NO COMPLAINTS OF SOB, NAUSEA OR VOMITTING THIS SHIFT. PATIENT REMAINS ON 2L NC. PATIENT HAS WOUND CARE ORDERS IN PLACE, DAY SHIFT HAS APPLIED WOUND CARE ORDERS AND WILL PASS ON INFORMATION FOR WOUNDS. PATIENT FREQUENTLY CALLS OUT FOR ASSISTANCE AND COMPLAINTS. PATIENT HAS BEEN VERBALLY AGRESSIVE TOWARDS STAFF. PATIENT REMAINS INCONTINENT. BED IN LOCKED AND LOWEST POSITION. CALL LIGHT IN PLACE.
[2024-08-08 08:10] VITALS: BP 164/94
[2024-08-08] MEDS ORDERED: Potassium Chloride 20 MEQ TabCR PO ONE (09:00)
[2024-08-08 15:40] VITALS: BP 158/81
--- NOTE | 2024-08-08 18:06 | NUR ---
SHIFT SUMMARY PT A&OX4 AND ANSWERS QUESTIONS APPROPRIATELY. PT VSS, NO COMPLAINTS OF CP/PRESSURE OR SOB. PT RECEIVED SCHEDULED AND PRN MEDICATIONS. PT SPENT THE SHIFT IN BED RESTING. PT REQUESTS ROOT BEER FROM THIS RN AND SCHEDULED MASK FORMER. PT HAS HX OF DM, EDUCATION PROVIDED ON BLOOD SUGARS AND DIET. NO ACUTE EVENTS AT THIS TIME. PT SPENT MOST OF THE SHIFT IN BED WITH EYES CLOSED AND RESPIRATIONS EVEN AND UNLABORED. REPOSITIONED INDEPENDENTLY. LEFT IN A POSITION OF SAFETY WITH FALL PRECAUTIONS IN PLACE AND CALL LIGHT IN REACH.
[2024-08-08 21:31] VITALS: BP 179/84
[2024-08-08] MEDS ORDERED: TraZODone HCl 50 MG Tab PO PRN (22:30)
[2024-08-08] MEDS ORDERED: HydrALAZINE HCl 20 MG / ML 1ML Vial IV PRN (22:30)
[2024-08-09] MEDS ORDERED: NS 250 ML IV PRN (00:30)
[2024-08-09 04:48] VITALS: BP 142/85
[2024-08-09 05:45] LABS: BASOPHILS ABSOLUTE AUTO 0.03 K/mm3 (0.00-0.23); BASOPHILS PERCENT AUTO 1 % (0-2); EOSINOPHILS ABSOLUTE AUTO 0.16 K/mm3 (0.00-0.68); EOSINOPHILS PERCENT AUTO 3 % (0-6); Hematocrit 31.7 % (37.0-53.0); Hemoglobin 10.8 g/dL (13.5-17.5); IMMATURE GRAN ABSOLUTE AUTO 0.03 K/mm3 (0.00-0.10); IMMATURE GRAN PERCENT AUTO 1 % (0-1); LYMPHOCYTES ABSOLUTE AUTO 1.12 K/mm3 (0.84-5.20); LYMPHOCYTES PERCENT AUTO 22 % (21-46); MONOCYTES ABSOLUTE AUTO 0.52 K/mm3 (0.16-1.47); MONOCYTES PERCENT AUTO 10 % (4-13); Mean Corpuscular HGB 29.2 pg (26.0-34.0); Mean Corpuscular HGB Conc 34.1 g/dL (31.5-36.5); Mean Corpuscular Volume 86 fL (80-100); NEUTROPHILS PERCENT AUTO 63 % (41-73); Platelet Count 294 K/mm3 (150-400); RDW Coefficient Variation 12.9 % (11.7-14.2); RDW Standard Deviation 40.1 fL (35.1-46.3); White Blood Cell Count 5.06 K/mm3 (4.00-11.30)
[2024-08-09 06:11] LABS: Anion Gap 8 mmol/L (3-11); Blood Urea Nitrogen 11 mg/dL (8-24); Bun/Creatinine Ratio 19.2 (12.0-20.0); CO2, Blood 27 mmol/L (21-32); Calcium, Blood 8.5 mg/dL (8.5-10.1); Chloride, Blood 105 mmol/L (98-108); Creatinine, Blood 0.57 mg/dL (0.60-1.20); Glomerular Filtration Rate 114 (60-); Glucose, Blood 251 mg/dL (70-99); Potassium, Blood 3.4 mmol/L (3.5-5.5); Sodium, Blood 137 mmol/L (136-145); Vancomycin, Trough 10.1 ug/mL (5.0-10.0)
[2024-08-09 07:08] VITALS: BP 145/91
--- NOTE | 2024-08-09 07:34 | NUR ---
Shift Summary Pt AOx4, painful and uncomfortable during pt care. Incontinent voids, changed and cleaned PRN. Pt did verbalize that he would 'shoot himself in the head with a gun' once he arrives home but states he has no intention of harming himself while in the hospital. I notified the hospitalist who said to notify day shift so they can decide if a psych consult is warrented. Pt cooperative with care, no attempts to harm himself or staff.
[2024-08-09] MEDS ORDERED: Potassium Chloride 20 MEQ TabCR PO ONE (15:00)
[2024-08-09 15:12] LABS: Percent Saturation 14.1 % (20.0-50.0)
[2024-08-09 16:55] VITALS: BP 155/91
--- NOTE | 2024-08-09 19:29 | NUR ---
PT ALERT AND ORIENTED X4, VSS, RA. CRIES IN PAIN, MEDICATED PER EMAR. CALLED FREQUENTLY FOR SNACKS AND SODA, SUGAR FREE SNACKS AND DIET SODA PROVIDED. USES URINAL, DID NOT HAVE A BM THIS SHIFT. DID NOT GET OUT OF BED THIS SHIFT. CALL LIGHT IN REACH, BED IN LOWEST POSITION.
[2024-08-09 21:42] VITALS: BP 159/82
[2024-08-10 05:32] VITALS: BP 155/85
--- NOTE | 2024-08-10 05:48 | NUR ---
Pt VS WNL, PO intake above average, UOP above average also. Pt with significant pain and cries at times, medicated with norco, and torodol. Slept for approximately 4 hrs. Pt with hyperglycemia, and medicated with 3 units short acting, and 25 units long acting. Pt independent with bed mobility. Lg BM. Awaiting Psych and Pallative consult. Midline in SHANNAN flushs well draws slow, very positional.
[2024-08-10 06:43] LABS: Bun/Creatinine Ratio 29.9 (12.0-20.0); Calcium, Blood 6.9 mg/dL (8.5-10.1); Creatinine, Blood 0.47 mg/dL (0.60-1.20); Potassium, Blood 3.1 mmol/L (3.5-5.5)
[2024-08-10 07:48] VITALS: BP 156/91
[2024-08-10] MEDS ORDERED: Potassium Chloride 20 MEQ TabCR PO ONE (08:00)
[2024-08-10] MEDS ORDERED: Lisinopril 20 MG Tab PO SCH (09:00)
[2024-08-10] MEDS ORDERED: HYDROcodone 5-APAP 325 TAB PO PRN (11:45)
[2024-08-10 15:07] VITALS: BP 130/118
[2024-08-10 18:44] VITALS: BP 145/82
--- NOTE | 2024-08-10 19:31 | NUR ---
SHIFT SUMMARY PATIENT A/OX3, ABLE TO MAKE NEEDS KNOWN. WITHDRAWN AND EASILY IRRATABLE AT TIMES. MOANS IN PAIN INTERMITTENTLY. PATIENT MEDICATED PER MAR WITH PAIN MEDICATIONS. POTASSIUM REPLACED ORALLY TODAY. PSYCH ASSESSED PATIENT TODAY AND CLEARED FOR DISCHARGE FROM PSYCH STANDPOINT. WOUND CARE PROVIDED TO RIGHT STUMP, WOUND WITH GREEN THICK ODOROUS DRAINAGE. WHEN ASKED WHAT PATIENT DOES FOR PAIN WHEN HE IS NOT IN THE HOSPITAL HE STATES "USUALLY JUST DRUGS". PATIENT REMAINS IN CONTACT PREACUATIONS. NO OTHER CONCERNS AT THIS TIME.
[2024-08-10 20:03] VITALS: BP 153/85
[2024-08-10] MEDS ORDERED: Mirtazapine 30 MG Tab PO SCH (21:00)
--- NOTE | 2024-08-11 03:56 | NUR ---
SHIFT SUMMARY PT IS A/O X3, ABLE TO MAKE HIS NEEDS KNOWN. @HS PT C/O 05/12 RIGHT BKA PAIN, MEDICATED PER EMAR. IV ABX INFUSED ORDERED. HS MIRTAZAPINE ADMINISTERED PER PT REQUEST. HS B. RA, SAT'S> 95%. NO ACUTE EVENTS DURING THIS SHIFT. BED AT THE LOWEST POSITION, CALL LIGHT W/I REACH.
--- NOTE | 2024-08-11 05:35 | NUR ---
pt refusing am sita mckenzie, label rewinder notified charge nurse Andrew.
[2024-08-11 06:21] VITALS: BP 174/91
[2024-08-11 08:04] VITALS: BP 166/89
[2024-08-11 10:27] LABS: BASOPHILS ABSOLUTE AUTO 0.06 K/mm3 (0.00-0.23); BASOPHILS PERCENT AUTO 1 % (0-2); EOSINOPHILS ABSOLUTE AUTO 0.13 K/mm3 (0.00-0.68); EOSINOPHILS PERCENT AUTO 2 % (0-6); Hematocrit 33.4 % (37.0-53.0); Hemoglobin 11.2 g/dL (13.5-17.5); IMMATURE GRAN ABSOLUTE AUTO 0.04 K/mm3 (0.00-0.10); IMMATURE GRAN PERCENT AUTO 1 % (0-1); LYMPHOCYTES ABSOLUTE AUTO 1.21 K/mm3 (0.84-5.20); LYMPHOCYTES PERCENT AUTO 16 % (21-46); MONOCYTES ABSOLUTE AUTO 0.49 K/mm3 (0.16-1.47); MONOCYTES PERCENT AUTO 7 % (4-13); Mean Corpuscular HGB 28.6 pg (26.0-34.0); Mean Corpuscular HGB Conc 33.5 g/dL (31.5-36.5); Mean Corpuscular Volume 85 fL (80-100); Mean Platelet Volume 8.9 fL (9.1-12.4); NEUTROPHILS ABSOLUTE AUTO 5.51 K/mm3 (1.96-9.15); NEUTROPHILS PERCENT AUTO 74 % (41-73); Platelet Count 358 K/mm3 (150-400); RDW Coefficient Variation 12.8 % (11.7-14.2); RDW Standard Deviation 39.3 fL (35.1-46.3); Red Blood Cell Count 3.92 M/mm3 (4.30-5.90); White Blood Cell Count 7.44 K/mm3 (4.00-11.30)
[2024-08-11 10:44] LABS: Magnesium, Blood 1.8 mg/dL (1.6-2.4)
[2024-08-11 10:58] LABS: Albumin, Blood 2.5 g/dL (3.4-5.0); Albumin/Globulin Ratio 0.6 (0.8-1.8); Bilirubin, Total 0.2 mg/dL (0.1-1.0); Bun/Creatinine Ratio 29.7 (12.0-20.0); Creatinine, Blood 0.64 mg/dL (0.60-1.20); Globulin, Blood 4.4 g/dL (2.2-4.0); Phosphorus, Blood 3.4 mg/dL (2.5-4.9); Potassium, Blood 3.8 mmol/L (3.5-5.5); Total Protein, Blood 6.9 g/dL (6.4-8.2)
[2024-08-11 11:37] LABS: Calcium, Blood 8.9 mg/dL (8.5-10.1)
[2024-08-11] MEDS ORDERED: HYDROmorphone HCl/Pf 1MG SYR IV ONE ×2 (14:00→16:40)
[2024-08-11 15:36] VITALS: BP 120/57
--- NOTE | 2024-08-11 18:58 | NUR ---
SHIFT SUMMARY: PT A&OX3-4; LABILE, IRRITABLE, CRIES, VERY INTOLERABLE OF PAIN. PATIENT REFUSING OF SOME ASPECTS OF CARE, BUT AT TIMES WILL ALLOW. PATIENT RECEIVED WOUND CARE THIS SHIFT; WAS GIVEN IV DILAUDID PRIOR AND CRIED AND SAID "BRITTON JARQUIN" THE ENTIRE TIME EVEN WITH GENTLE APPLICATION. PATIENT WILL USE CALL LIGHT OR SHOUT OUT, CALL LIGHT WITHIN REACH, NO SIGNS OR SYMPTOMS OF DISTRESS, PLAN OF CARE ONGOING.
[2024-08-11 20:07] VITALS: BP 158/77
[2024-08-12 03:11] VITALS: BP 157/86
--- NOTE | 2024-08-12 03:31 | NUR ---
SHIFT SUMMARY PT IS A/O X3, RUDE TO STAFF AT TIMES, SOMEWHAT COOPERATIVE WITH CARE. MEDICATED PER EMAR FOR 10/10 RIGHT BKA PAIN. PT CRYING OUT LOUD AT TIMES. INCONTINENT OF URINE, ATTENDS IN PLACE. IV ABX'S INFUSED ORDERED. NO ACUTE EVENTS/DISTRESS NOTED/REPORTED DURING THIS SHIFT. BED AT THE LOWEST POSITION, CALL LIGHT W/I REACH. PT IS ABLE TO MAKE HIS NEEDS KNOWN.
[2024-08-12 05:12] LABS: BASOPHILS ABSOLUTE AUTO 0.05 K/mm3 (0.00-0.23); BASOPHILS PERCENT AUTO 1 % (0-2); EOSINOPHILS ABSOLUTE AUTO 0.13 K/mm3 (0.00-0.68); EOSINOPHILS PERCENT AUTO 3 % (0-6); Hematocrit 32.8 % (37.0-53.0); IMMATURE GRAN ABSOLUTE AUTO 0.04 K/mm3 (0.00-0.10); IMMATURE GRAN PERCENT AUTO 1 % (0-1); LYMPHOCYTES ABSOLUTE AUTO 1.29 K/mm3 (0.84-5.20); LYMPHOCYTES PERCENT AUTO 30 % (21-46); MONOCYTES ABSOLUTE AUTO 0.43 K/mm3 (0.16-1.47); MONOCYTES PERCENT AUTO 10 % (4-13); Mean Corpuscular HGB 28.4 pg (26.0-34.0); Mean Corpuscular HGB Conc 33.5 g/dL (31.5-36.5); Mean Corpuscular Volume 85 fL (80-100); Mean Platelet Volume 8.5 fL (9.1-12.4); NEUTROPHILS ABSOLUTE AUTO 2.38 K/mm3 (1.96-9.15); NEUTROPHILS PERCENT AUTO 55 % (41-73); Platelet Count 319 K/mm3 (150-400); RDW Coefficient Variation 12.8 % (11.7-14.2); RDW Standard Deviation 39.2 fL (35.1-46.3); Red Blood Cell Count 3.87 M/mm3 (4.30-5.90); White Blood Cell Count 4.32 K/mm3 (4.00-11.30)
[2024-08-12 05:51] LABS: Anion Gap 10 mmol/L (3-11); Blood Urea Nitrogen 20 mg/dL (8-24); Bun/Creatinine Ratio 35.8 (12.0-20.0); CO2, Blood 25 mmol/L (21-32); Chloride, Blood 108 mmol/L (98-108); Creatinine, Blood 0.56 mg/dL (0.60-1.20); Glomerular Filtration Rate 115 (60-); Glucose, Blood 272 mg/dL (70-99); Magnesium, Blood 2.1 mg/dL (1.6-2.4); Phosphorus, Blood 3.1 mg/dL (2.5-4.9); Potassium, Blood 3.8 mmol/L (3.5-5.5); Sodium, Blood 139 mmol/L (136-145); Vancomycin, Trough 13.3 ug/mL (5.0-10.0)
[2024-08-12 07:56] VITALS: BP 143/80
[2024-08-12 15:14] VITALS: BP 147/78
--- NOTE | 2024-08-12 17:56 | NUR ---
SHIFT SUMMARY: NO EVENTS OR CHANGES WITH THE PATIENT. WOUND CARE PERFORMED DURING THIS SHIFT, WOUND LOOKS GOOD; MOST SLOUGH IS GONE AND GRADULATED PINK/BLEEDING TISSUE EXPOSED. CONTIUING WOUND CARE AND ANTIBIOTICS. PATIENT IN BED, CALL LIGHT WITHIN REACH, NO SIGNS OR SYMPTOMS OF DISTRESS, PLAN OF CARE ONGOING.
[2024-08-12 20:04] VITALS: BP 169/73
--- NOTE | 2024-08-13 03:12 | NUR ---
SHIFT SUMMARY NO ACUTE EVENTS DURING THIS SHIFT. MEDICATED PER EMAR FOR C/O 05/12 RIGHT BKA R/T PAIN. PT CRIES OUT LOUD WHEN ASKING FOR PAIN MEDICATIONS. APPEARS RELAXED AND CALM WHEN ADMINISTERING THE PO MEDICATION FOR PAIN. BED AT THE LOWEST POSITION, CALL LIGHT W/I REACH. PT ABLE TO MAKE HIS NEEDS KNOWN AND COOPERATIVE AT HS WITH CARE.
[2024-08-13 05:38] VITALS: BP 160/71
[2024-08-13 07:55] VITALS: BP 150/71
[2024-08-13 10:49] LABS: Hematocrit 34.6 % (37.0-53.0); Hemoglobin 11.3 g/dL (13.5-17.5); Mean Corpuscular HGB 27.8 pg (26.0-34.0); Mean Corpuscular HGB Conc 32.7 g/dL (31.5-36.5); Mean Corpuscular Volume 85 fL (80-100); Mean Platelet Volume 8.6 fL (9.1-12.4); Platelet Count 337 K/mm3 (150-400); RDW Standard Deviation 39.8 fL (35.1-46.3); Red Blood Cell Count 4.06 M/mm3 (4.30-5.90); White Blood Cell Count 7.73 K/mm3 (4.00-11.30)
[2024-08-13 11:23] LABS: Bun/Creatinine Ratio 40.7 (12.0-20.0); Calcium, Blood 9.4 mg/dL (8.5-10.1); Creatinine, Blood 0.54 mg/dL (0.60-1.20); Magnesium, Blood 1.9 mg/dL (1.6-2.4)
[2024-08-13 14:58] VITALS: BP 136/68
--- NOTE | 2024-08-13 18:41 | NUR ---
SHIFT SUMMARY: NO EVENTS OR CHANGES WITH THE PATIENT THROUGHOUT THE SHIFT. WOUND CARE PROVIDED TO RBKA. PATIENT IN BED, ALERT, EATING DINNER, NO SIGNS OR SYMPTOMS OF DISTRESS, PLAN OF CARE ONGOING.
[2024-08-13 21:10] VITALS: BP 154/67
--- NOTE | 2024-08-14 05:33 | NUR ---
SHIFT SUMMARY; PATIENT REMAINED IN CONTACT ISOLATION FOR MRSA AND ESBL. GIVEN PRN TYLENOL. ABLE TO MOVE READILY IN BED.
[2024-08-14 07:54] VITALS: BP 164/83
[2024-08-14] MEDS ORDERED: HYDROmorphone HCl/Pf 1MG SYR IV ONE (11:25)
--- NOTE | 2024-08-14 17:16 | NUR ---
DISCHARGE NOTE PT WAS DISCHARGED AT 15:15 - D/C INSTRUCTIONS REVIEWED WITH PT, TO SET UP APPT WITH DR. BAZAN AND TO CONTACT WOUND CARE CLINIC FOR OUTPT FOLLOWUP. ALSO WOUNDCARE INSTRUCTIONS GIVEN, ALTHOUGH PT IS HOMELESS AND HAS NO ACCESS TO SOAP AND WATER PER PT REPORT. WRITTEN SCRIPT SIGNED BY FOR BACTRIM GIVEN TO PT WITH INSTRUCTIONS TO GIVE TO [facility] TO THERAPEUTIC RECREATION DIRECTOR MEDICATIONS. POWERGLIDE WAS REMOVED. PT WAS ESCORTED TO ER WITH A NURSE AND A [employer] MERCHANDISING MANAGER VIA FACILITY'S WC. ONCE AT THE ER, PT WAS REUNITED WITH HIS PERSONAL WC AND HIS PERSONAL BELONGINGS WITH HELP FROM SECURITY. CARE MANAGEMENT ORGANIZED A RIDE FROM THE HOSPITAL TO [facility] ON [address], PER PT'S REQUEST.
--- NOTE | 2024-08-14 17:19 | NUR ---
LATE ENTRY: WOUND CARE PERFORMED - RN CLEANSED WOUND TO RIGHT STUMP, APPLIED XEROFOAM, AND EXUDRY BANDAGE TO STUMP, THEN WRAPPED WITH KERLEX. THEN WRAPPED WITH ANTHONY BANDAGE, THEN APPLIED A STUMP SOCK TO KEEP AREA CLEAN POSSIBLE DUE TO PT BEING UNHOUSED. PT TOLERATED PROCEDURE WELL.
== END 2024-08-14 15:04 | disposition home or self-care (01) | DRG 871 ==
LOC: ER 14:05 → MEDS 14:06 → ERHOLD 14:06 → MEDS 21:00 → PCU 08-06 16:41 → MEDS 08-07 18:40
PROVIDERS: Emergency Medicine; Hospitalist; Internal Medicine; Student in an Organized Health Care Education/Training Program; ADMIT Student in an Organized Health Care Education/Training Program
DX: A41.9 Sepsis, unspecified organism (principal); G93.41 Metabolic encephalopathy; Z59.00 Homelessness unspecified; I50.32 Chronic diastolic (congestive) heart failure; E87.20 Acidosis, unspecified; L03.115 Cellulitis of right lower limb; L03.116 Cellulitis of left lower limb; R45.851 Suicidal ideations; F15.10 Other stimulant abuse, uncomplicated; E11.621 Type 2 diabetes mellitus with foot ulcer; L97.529 Non-pressure chronic ulcer of other part of left foot with unspecified severity; K74.60 Unspecified cirrhosis of liver; E11.65 Type 2 diabetes mellitus with hyperglycemia; E78.5 Hyperlipidemia, unspecified; I11.0 Hypertensive heart disease with heart failure; F10.10 Alcohol abuse, uncomplicated; F32.A Depression, unspecified; E11.42 Type 2 diabetes mellitus with diabetic polyneuropathy; D63.8 Anemia in other chronic diseases classified elsewhere; Z86.14 Personal history of Methicillin resistant Staphylococcus aureus infection; Z89.511 Acquired absence of right leg below knee; Z88.8 Allergy status to other drugs, medicaments and biological substances; Z79.899 Other long term (current) drug therapy; Z79.4 Long term (current) use of insulin; Z79.84 Long term (current) use of oral hypoglycemic drugs; N40.0 Benign prostatic hyperplasia without lower urinary tract symptoms; R65.20 Severe sepsis without septic shock; Z91.199 Patient's noncompliance with other medical treatment and regimen due to unspecified reason; E87.6 Hypokalemia; D50.0 Iron deficiency anemia secondary to blood loss (chronic); Z89.422 Acquired absence of other left toe(s); Z99.3 Dependence on wheelchair; Z86.19 Personal history of other infectious and parasitic diseases
CPT/HCPCS: 0202U; 36415; 71045; 80048; 80053; 80202; 82607; 82728; 82746; 82803; 82947; 83540; 83550; 83605; 83735; 84100; 85025; 85027; 87040; 87070; 87077; 87205; 94760; 94762; 96361; 96365; 96366; 96367; 96372; 96375; 96376; 99285-25; A9270; G0378; J0690; J1171; J1650; J1815; J1885; J2060; J2270; J2405; J2543; J3370; J3480; J7030; J7040; J7050; J7120

== ENCOUNTER → 2024-08-25 | Day surgery (SDC) | payer OTHER ==
[~2024-08-25] MED LIST changes: +Lidocaine HCl 4% Cream 5 GM ONE
== END ==
LOC: WOUND 04:51
DX: E11.622 Type 2 diabetes mellitus with other skin ulcer (principal); L97.812 Non-pressure chronic ulcer of other part of right lower leg with fat layer exposed; T81.31XD Disruption of external operation (surgical) wound, not elsewhere classified, subsequent encounter; F17.200 Nicotine dependence, unspecified, uncomplicated; I10 Essential (primary) hypertension; E11.51 Type 2 diabetes mellitus with diabetic peripheral angiopathy without gangrene; E11.40 Type 2 diabetes mellitus with diabetic neuropathy, unspecified; Y83.8 Other surgical procedures as the cause of abnormal reaction of the patient, or of later complication, without mention of misadventure at the time of the procedure; Z88.0 Allergy status to penicillin
CPT/HCPCS: A9270; G0463

== ENCOUNTER 2024-10-01 19:49 | Emergency (ER) | payer OTHER ==
[~2024-10-01] VITALS: Ht 177.8 cm; Wt 65.8 kg
[~2024-10-01 19:49] MED LIST changes: -Lidocaine HCl 4% Cream 5 GM ONE
[2024-10-01 19:51] VITALS: BP 169/89
== END 2024-10-01 20:07 | disposition home or self-care (01) ==
LOC: ER 19:49
DX: S80.811A Abrasion, right lower leg, initial encounter (principal); E11.42 Type 2 diabetes mellitus with diabetic polyneuropathy; I11.0 Hypertensive heart disease with heart failure; I50.30 Unspecified diastolic (congestive) heart failure; F17.290 Nicotine dependence, other tobacco product, uncomplicated; X58.XXXA Exposure to other specified factors, initial encounter; Z89.511 Acquired absence of right leg below knee; Z79.84 Long term (current) use of oral hypoglycemic drugs; Z79.4 Long term (current) use of insulin; Z79.899 Other long term (current) drug therapy; Z88.8 Allergy status to other drugs, medicaments and biological substances
CPT/HCPCS: 99283

== ENCOUNTER 2024-10-02 07:47 | Emergency (ER) | payer OTHER | END 2024-10-02 11:45 | disposition home or self-care (01) | LOC: ER 07:47 | DX: S20.212A Contusion of left front wall of thorax, initial encounter (principal); W07.XXXA Fall from chair, initial encounter; S90.02XA Contusion of left ankle, initial encounter; F17.290 Nicotine dependence, other tobacco product, uncomplicated; E11.9 Type 2 diabetes mellitus without complications; I11.0 Hypertensive heart disease with heart failure; I50.30 Unspecified diastolic (congestive) heart failure | CPT/HCPCS: 71046; 73610; 99283-25 ==

== ENCOUNTER 2024-10-10 00:51 | Emergency (ER) | payer OTHER ==
[~2024-10-10] VITALS: Ht 177.8 cm; Wt 61.2 kg
[2024-10-10 01:33] VITALS: BP 181/99
[2024-10-10] MEDS ORDERED: Bacitracin Zinc Oint 1GRAM UD Packet TOP ONE (01:45)
[2024-10-10 02:22] LABS: BASOPHILS ABSOLUTE AUTO 0.04 K/mm3 (0.00-0.23); BASOPHILS PERCENT AUTO 1 % (0-2); EOSINOPHILS ABSOLUTE AUTO 0.09 K/mm3 (0.00-0.68); EOSINOPHILS PERCENT AUTO 1 % (0-6); Hematocrit 37.6 % (37.0-53.0); Hemoglobin 13.3 g/dL (13.5-17.5); IMMATURE GRAN ABSOLUTE AUTO 0.04 K/mm3 (0.00-0.10); IMMATURE GRAN PERCENT AUTO 1 % (0-1); LYMPHOCYTES ABSOLUTE AUTO 0.89 K/mm3 (0.84-5.20); LYMPHOCYTES PERCENT AUTO 13 % (21-46); MONOCYTES ABSOLUTE AUTO 0.55 K/mm3 (0.16-1.47); MONOCYTES PERCENT AUTO 8 % (4-13); Mean Corpuscular HGB Conc 35.4 g/dL (31.5-36.5); Mean Corpuscular Volume 82 fL (80-100); Mean Platelet Volume 9.8 fL (9.1-12.4); NEUTROPHILS ABSOLUTE AUTO 5.26 K/mm3 (1.96-9.15); NEUTROPHILS PERCENT AUTO 77 % (41-73); Platelet Count 288 K/mm3 (150-400); RDW Standard Deviation 38.5 fL (35.1-46.3); Red Blood Cell Count 4.59 M/mm3 (4.30-5.90); White Blood Cell Count 6.87 K/mm3 (4.00-11.30)
[2024-10-10 02:46] LABS: Albumin, Blood 3.9 g/dL (3.4-5.0); Albumin/Globulin Ratio 0.9 (0.8-1.8); Bilirubin, Total 0.5 mg/dL (0.1-1.0); Bun/Creatinine Ratio 13.8 (12.0-20.0); Calcium, Blood 9.4 mg/dL (8.5-10.1); Creatinine, Blood 0.65 mg/dL (0.60-1.20); Globulin, Blood 4.4 g/dL (2.2-4.0); Total Protein, Blood 8.3 g/dL (6.4-8.2)
[2024-10-10] MEDS ORDERED: Insulin Human Lispro 100 Units/ML 3ML Syringe SC ONE (03:00)
[2024-10-10] MEDS ORDERED: Lisinopril 20 MG Tab PO ONE (03:00)
[2024-10-10] MEDS ORDERED: Insulin Glargine-Yfgn 100 Unit/mL 3 ML SYR SC ONE (03:00)
[2024-10-10] MEDS ORDERED: MetFORMIN HCl 500 mg PO ONE (03:00)
[2024-10-10] MEDS ORDERED: NS 1,000 ML IV SCH (03:05)
== END 2024-10-10 04:59 ==
LOC: ER 00:51
PROVIDERS: Emergency Medicine
DX: Z02.89 Encounter for other administrative examinations (principal); E11.65 Type 2 diabetes mellitus with hyperglycemia; E11.42 Type 2 diabetes mellitus with diabetic polyneuropathy; Z47.81 Encounter for orthopedic aftercare following surgical amputation; Z89.511 Acquired absence of right leg below knee; Z91.199 Patient's noncompliance with other medical treatment and regimen due to unspecified reason; I11.0 Hypertensive heart disease with heart failure; I50.30 Unspecified diastolic (congestive) heart failure; Z88.8 Allergy status to other drugs, medicaments and biological substances; Z79.891 Long term (current) use of opiate analgesic; Z79.2 Long term (current) use of antibiotics; Z79.899 Other long term (current) drug therapy; Z79.84 Long term (current) use of oral hypoglycemic drugs; Z79.02 Long term (current) use of antithrombotics/antiplatelets; Z88.2 Allergy status to sulfonamides; Z79.83 Long term (current) use of bisphosphonates; Z79.1 Long term (current) use of non-steroidal anti-inflammatories (NSAID); Z79.4 Long term (current) use of insulin; F17.290 Nicotine dependence, other tobacco product, uncomplicated
CPT/HCPCS: 73560-RT; 80053; 82947; 83930; 85025; 99283-25; A9270; J1815; J7030

== ENCOUNTER 2024-10-12 20:11 | Emergency (ER) | payer OTHER ==
[~2024-10-12] VITALS: Ht 177.8 cm; Wt 72.6 kg
[2024-10-12 20:47] VITALS: BP 149/85
[2024-10-13 00:08] LABS: BASOPHILS ABSOLUTE AUTO 0.03 K/mm3 (0.00-0.23); BASOPHILS PERCENT AUTO 1 % (0-2); EOSINOPHILS ABSOLUTE AUTO 0.09 K/mm3 (0.00-0.68); EOSINOPHILS PERCENT AUTO 1 % (0-6); Hematocrit 41.4 % (37.0-53.0); Hemoglobin 14.1 g/dL (13.5-17.5); IMMATURE GRAN ABSOLUTE AUTO 0.01 K/mm3 (0.00-0.10); IMMATURE GRAN PERCENT AUTO 0 % (0-1); LYMPHOCYTES ABSOLUTE AUTO 1.57 K/mm3 (0.84-5.20); LYMPHOCYTES PERCENT AUTO 24 % (21-46); MONOCYTES ABSOLUTE AUTO 0.35 K/mm3 (0.16-1.47); MONOCYTES PERCENT AUTO 5 % (4-13); Mean Corpuscular HGB 28.5 pg (26.0-34.0); Mean Corpuscular HGB Conc 34.1 g/dL (31.5-36.5); Mean Corpuscular Volume 84 fL (80-100); NEUTROPHILS PERCENT AUTO 68 % (41-73); Platelet Count 226 K/mm3 (150-400); RDW Coefficient Variation 13.2 % (11.7-14.2); RDW Standard Deviation 39.9 fL (35.1-46.3); Red Blood Cell Count 4.95 M/mm3 (4.30-5.90); White Blood Cell Count 6.45 K/mm3 (4.00-11.30)
[2024-10-13 00:26] LABS: Albumin, Blood 3.6 g/dL (3.4-5.0); Albumin/Globulin Ratio 0.9 (0.8-1.8); Bilirubin, Total 0.2 mg/dL (0.1-1.0); Bun/Creatinine Ratio 23.2 (12.0-20.0); Calcium, Blood 8.9 mg/dL (8.5-10.1); Creatinine, Blood 0.52 mg/dL (0.60-1.20); Globulin, Blood 4.2 g/dL (2.2-4.0); Potassium, Blood 3.4 mmol/L (3.5-5.5); Total Protein, Blood 7.8 g/dL (6.4-8.2)
== END 2024-10-13 01:10 | disposition home or self-care (01) ==
LOC: ER 20:11
PROVIDERS: Student in an Organized Health Care Education/Training Program
DX: E11.621 Type 2 diabetes mellitus with foot ulcer (principal); L97.529 Non-pressure chronic ulcer of other part of left foot with unspecified severity; L03.032 Cellulitis of left toe; Z89.511 Acquired absence of right leg below knee; Z59.00 Homelessness unspecified; Z88.8 Allergy status to other drugs, medicaments and biological substances; Z79.4 Long term (current) use of insulin; Z79.84 Long term (current) use of oral hypoglycemic drugs; Z79.899 Other long term (current) drug therapy
CPT/HCPCS: 73660; 80053; 85025; 99283-25

== ENCOUNTER 2024-10-21 14:11 | Inpatient (IN) | payer OTHER ==
[~2024-10-21] VITALS: Ht 170.2 cm; Wt 69.3 kg
[2024-10-21] MEDS ORDERED: Piperacillin/Tazobactam Sod 3.375 GM in NS 100 ML IV ONE (14:20)
[2024-10-21] MEDS ORDERED: Acetaminophen 650 MG Supp PR ONE (14:25)
[2024-10-21] MEDS ORDERED: NS 1,000 ML IV SCH (14:45)
[2024-10-21] MEDS ORDERED: Vancomycin HCL 1,750 MG in NS 500 ML IV ONE (14:50)
[2024-10-21] MEDS ORDERED: dexmedeTOMIDine 100 ML IV SCH (15:10)
[2024-10-21 15:12] LABS: Alanine Aminotransfer (ALT/SGP 24 U/L (12-78); Albumin, Blood 3.8 g/dL (3.4-5.0); Albumin/Globulin Ratio 0.9 (0.8-1.8); Alk Phos 167 U/L (50-136); Anion Gap 13 mmol/L (3-11); Aspartate Aminotrans (AST/SGOT 24 U/L (12-37); Beta-hydroxybutyrate 23.5 mg/dL (0.2-2.8); Bilirubin, Total 0.9 mg/dL (0.1-1.0); Blood Urea Nitrogen 16 mg/dL (8-24); Bun/Creatinine Ratio 26.1 (12.0-20.0); CO2, Blood 25 mmol/L (21-32); Calcium, Blood 9.3 mg/dL (8.5-10.1); Chloride, Blood 97 mmol/L (98-108); Creatinine, Blood 0.61 mg/dL (0.60-1.20); Ethanol (Alcohol), Blood, Med <3 mg/dL; Globulin, Blood 4.2 g/dL (2.2-4.0); Glomerular Filtration Rate 111 (60-); Glucose, Blood 437 mg/dL (70-99); Magnesium, Blood 1.7 mg/dL (1.6-2.4); Phosphorus, Blood 2.6 mg/dL (2.5-4.9); Potassium, Blood 4.3 mmol/L (3.5-5.5); Sodium, Blood 131 mmol/L (136-145)
[2024-10-21 15:12] LABS: Base Excess Venous 5.3 mmol/L; Bicarbonate Venous 27.3 mmol/L (24.0-30.0); PCO2 Venous 48.5 mmHg (38-42)
[2024-10-21 16:09] LABS: BASOPHILS ABSOLUTE AUTO 0.05 K/mm3 (0.00-0.23); BASOPHILS PERCENT AUTO 0 % (0-2); EOSINOPHILS ABSOLUTE AUTO 0.01 K/mm3 (0.00-0.68); EOSINOPHILS PERCENT AUTO 0 % (0-6); Hematocrit 42.6 % (37.0-53.0); Hemoglobin 14.3 g/dL (13.5-17.5); IMMATURE GRAN ABSOLUTE AUTO 0.06 K/mm3 (0.00-0.10); IMMATURE GRAN PERCENT AUTO 0 % (0-1); LYMPHOCYTES ABSOLUTE AUTO 0.49 K/mm3 (0.84-5.20); LYMPHOCYTES PERCENT AUTO 3 % (21-46); MONOCYTES ABSOLUTE AUTO 0.71 K/mm3 (0.16-1.47); MONOCYTES PERCENT AUTO 5 % (4-13); Mean Corpuscular HGB 28.7 pg (26.0-34.0); Mean Corpuscular HGB Conc 33.6 g/dL (31.5-36.5); Mean Corpuscular Volume 86 fL (80-100); Mean Platelet Volume 9.2 fL (9.1-12.4); NEUTROPHILS ABSOLUTE AUTO 14.37 K/mm3 (1.96-9.15); NEUTROPHILS PERCENT AUTO 92 % (41-73); Platelet Count 355 K/mm3 (150-400); RDW Coefficient Variation 13.7 % (11.7-14.2); RDW Standard Deviation 42.3 fL (35.1-46.3); Red Blood Cell Count 4.98 M/mm3 (4.30-5.90); White Blood Cell Count 15.69 K/mm3 (4.00-11.30)
[2024-10-21] MEDS ORDERED: LORazepam 2 MG/ML 1ML Injection IV PRN ×2 (17:25→23:30)
[2024-10-21] MEDS ORDERED: Lactated Ringer's 1,000 ML IV SCH (17:30)
[2024-10-21] MEDS ORDERED: Haloperidol Lactate Inj. 5 MG/ML Injection IV PRN (17:30)
[2024-10-21] MEDS ORDERED: Ondansetron HCl 2 MG / ML 2ML Vial IV PRN (17:30)
[2024-10-21] MEDS ORDERED: FentaNYL Citrate 50 MCG/ML 2 ML Injection IV PRN (17:35)
[2024-10-21] MEDS ORDERED: FLU VACC TS2024-25(6MOS UP)/PF 45 MCG/0.5 ML SYRINGE IM ONE (17:35)
[2024-10-21 17:55] LABS: Source, Urine Foley catheter
[2024-10-21] MEDS ORDERED: Ketorolac Tromethamine 15mg Vial IV PRN (17:55)
[2024-10-21] MEDS ORDERED: Insulin Human Lispro 100 Units/ML 3ML Syringe SC SCH (18:00)
[2024-10-21] MEDS ORDERED: Lactated Ringer's 1,000 ML IV ONE (18:00)
[2024-10-21] MEDS ORDERED: Ketorolac Tromethamine 15mg Vial IV ONE (18:00)
[2024-10-21 18:25] LABS: Appearance, Urine Clear (Clear); Bilirubin, Urine Neg (Neg); Blood, Urine 3+ (Neg); Glucose Qualitative, Urine 4+ (Neg); Ketones, Urine 4+ (Neg); Leukocyte Esterase, Urine Neg (Neg); Nitrite, Urine Neg (Neg); Protein, Urine 2+ (Neg); Specific Gravity, Urine 1.015 (1.003-1.022); Urobilinogen, Urine NORM (Normal)
[2024-10-21 18:40] LABS: U Amphetamine Screen Not Detected; U Barbituate Screen Not Detected; U Benzodiazapine Screen Not Detected; U Buprenorphine Screen Not Detected; U Cannabinoids Screen DETECTED; U Cocaine Screen Not Detected; U Methadone Screen Not Detected; U Methamphetamine Screen DETECTED; U Opiates Screen Not Detected; U Oxycodone Screen Not Detected; U Phencyclidine Screen Not Detected
[2024-10-21 18:41] LABS: Color, Urine Pale Yellow (P-Yellow)
[2024-10-21 18:42] LABS: Bacteria Not Seen /hpf; Red Blood Cells, Urine 0-2 /hpf (0-2); Squamous Epithelial Cells Not Seen /hpf (Few); White Blood Cells, Urine 0-2 /hpf (0-5)
[2024-10-21 20:51] LABS: Bun/Creatinine Ratio 27.2 (12.0-20.0); Calcium, Blood 8.1 mg/dL (8.5-10.1); Creatinine, Blood 0.59 mg/dL (0.60-1.20); Potassium, Blood 3.4 mmol/L (3.5-5.5)
[2024-10-21] MEDS ORDERED: Insulin Glargine-Yfgn 100 Unit/mL 3 ML SYR SC SCH (21:00)
[2024-10-21] MEDS ORDERED: Piperacillin/Tazobactam Sod 3.375 GM in NS 100 ML IV SCH (22:00)
[2024-10-21 23:42] VITALS: BP 141/65
[2024-10-22 03:52] LABS: BASOPHILS ABSOLUTE AUTO 0.04 K/mm3 (0.00-0.23); BASOPHILS PERCENT AUTO 1 % (0-2); EOSINOPHILS ABSOLUTE AUTO 0.04 K/mm3 (0.00-0.68); EOSINOPHILS PERCENT AUTO 1 % (0-6); Hematocrit 33.3 % (37.0-53.0); Hemoglobin 11.2 g/dL (13.5-17.5); IMMATURE GRAN ABSOLUTE AUTO 0.02 K/mm3 (0.00-0.10); IMMATURE GRAN PERCENT AUTO 0 % (0-1); LYMPHOCYTES ABSOLUTE AUTO 1.35 K/mm3 (0.84-5.20); LYMPHOCYTES PERCENT AUTO 16 % (21-46); MONOCYTES PERCENT AUTO 8 % (4-13); Mean Corpuscular HGB 27.9 pg (26.0-34.0); Mean Corpuscular HGB Conc 33.6 g/dL (31.5-36.5); Mean Corpuscular Volume 83 fL (80-100); Mean Platelet Volume 9.2 fL (9.1-12.4); NEUTROPHILS ABSOLUTE AUTO 6.36 K/mm3 (1.96-9.15); NEUTROPHILS PERCENT AUTO 75 % (41-73); Platelet Count 257 K/mm3 (150-400); RDW Coefficient Variation 13.4 % (11.7-14.2); RDW Standard Deviation 41.2 fL (35.1-46.3); Red Blood Cell Count 4.01 M/mm3 (4.30-5.90); White Blood Cell Count 8.51 K/mm3 (4.00-11.30)
[2024-10-22 04:11] LABS: International Normalized Ratio 0.97; Prothrombin Time Results 10.4 Sec (9.7-11.5)
[2024-10-22 04:12] LABS: Albumin/Globulin Ratio 0.9 (0.8-1.8); Bilirubin, Total 0.9 mg/dL (0.1-1.0); Bun/Creatinine Ratio 27.2 (12.0-20.0); Calcium, Blood 8.3 mg/dL (8.5-10.1); Creatinine, Blood 0.59 mg/dL (0.60-1.20); Globulin, Blood 3.3 g/dL (2.2-4.0); Potassium, Blood 3.1 mmol/L (3.5-5.5); Total Protein, Blood 6.3 g/dL (6.4-8.2)
[2024-10-22] MEDS ORDERED: Potassium Chloride 20 MEQ TabCR PO ONE (04:43)
[2024-10-22] MEDS ORDERED: Vancomycin HCL 1,500 MG in NS 250 ML IV SCH (05:00)
[2024-10-22] MEDS ORDERED: Magnesium Sulf 2 GM/Water 50ML 50 ML IV ONE (05:05)
[2024-10-22] MEDS ORDERED: Potassium Chloride 40 MEQ in NS 250 ML IV ONE (06:25)
[2024-10-22 08:00] VITALS: BP 163/98
[2024-10-22] MEDS ORDERED: Enoxaparin 40 MG/0.4 ML SYR SC SCH (09:00)
[2024-10-22] MEDS ORDERED: Atorvastatin 40 MG Tab PO SCH (09:00)
[2024-10-22] MEDS ORDERED: Tamsulosin HCl 0.4 MG Cap PO SCH (09:00)
[2024-10-22] MEDS ORDERED: Lisinopril 20 MG Tab PO SCH (09:00)
[2024-10-22 11:31] VITALS: BP 146/86
[2024-10-22] MEDS ORDERED: Empagliflozin 10 MG TAB PO SCH (16:00)
[2024-10-22 16:33] VITALS: BP 153/72
--- NOTE | 2024-10-22 19:33 | NUR ---
End of Shift Assumed care of pt in PCU-9 @ approx 0700 this am. Pt sleeping heavily, upon care assumption. VSS. Spo2 > 92% on RA. Monitor showing SR, HR 70s-100. Bilat soft wrist restraints in place upon care assumption. Pt yelling once awake. Pt only answering some questions & not following simple instructions. Pt w/ wounds to L foot great toe & R BKA stump. Wound photos in chart. Ortho & podiatry both to bedside this shift, both w/ wound care orders. Wounds open to air until wound care orders provided & done this shift. Pt more alert, answering some questions, not pulling on lines & able to be redirected. Bilat soft wrist restraints removed this afternoon w/ pt not pulling at lines & allowing pt care. Pt medicated for pain per emar d/t pt grimacing, restlessness & full body tensing. Pt not answering assessment questions for pain. LR gtt & IV abx infusing per orders this shift. Report given to accepting warehouse worker 2nd shift RN.
[2024-10-22 19:51] VITALS: BP 145/85
[2024-10-22] MEDS ORDERED: Arginine/Glutamine/Calcium Hmb 1 Packet PO SCH (21:00)
[2024-10-22 23:54] VITALS: BP 151/76
--- NOTE | 2024-10-23 00:19 | NUR ---
UPDATE: PT REMOVED WOUND DRESSINGS. THIS RN ATTEMPTED TO DO WOUND CARE BUT PATIENT ADAMANTLY REFUSING, SCREAMING/YELLING/CRYING FOR RN AND HATCHERY ATTENDANT TO LEAVE HIM ALONE. PRN MEDS FOR AGITATION HAVE BEEN GIVEN. THIS RN WILL ATTEMPT TO DO WOUND CARE AGAIN ONCE PATIENT HAS CALMED DOWN.
--- NOTE | 2024-10-23 00:32 | NUR ---
MD NOTIFICATION/UPDATE PT NONCOMPLIANT WITH CARES, PULLING OFF TELEMETRY AND MEDICAL DEVICES. THIS RN NOTIFIED DR. WANG. CUI TO INPUT ORDERS.
[2024-10-23] MEDS ORDERED: Haloperidol Lactate Inj. 5 MG/ML Injection IM PRN ×2 (00:33→11:25)
[2024-10-23] MEDS ORDERED: DiphenhydrAMINE HCl 50 MG/ML 1ML Vial IV PRN (00:33)
[2024-10-23] MEDS ORDERED: LORazepam 2 MG/ML 1ML Injection IV ONE (00:34)
[2024-10-23 03:35] VITALS: BP 124/70
[2024-10-23 04:18] LABS: BASOPHILS ABSOLUTE AUTO 0.03 K/mm3 (0.00-0.23); BASOPHILS PERCENT AUTO 0 % (0-2); EOSINOPHILS ABSOLUTE AUTO 0.11 K/mm3 (0.00-0.68); EOSINOPHILS PERCENT AUTO 1 % (0-6); Hematocrit 30.9 % (37.0-53.0); Hemoglobin 10.7 g/dL (13.5-17.5); IMMATURE GRAN ABSOLUTE AUTO 0.01 K/mm3 (0.00-0.10); IMMATURE GRAN PERCENT AUTO 0 % (0-1); LYMPHOCYTES ABSOLUTE AUTO 1.17 K/mm3 (0.84-5.20); LYMPHOCYTES PERCENT AUTO 15 % (21-46); MONOCYTES ABSOLUTE AUTO 0.52 K/mm3 (0.16-1.47); MONOCYTES PERCENT AUTO 7 % (4-13); Mean Corpuscular HGB 29.1 pg (26.0-34.0); Mean Corpuscular HGB Conc 34.6 g/dL (31.5-36.5); Mean Corpuscular Volume 84 fL (80-100); NEUTROPHILS ABSOLUTE AUTO 5.87 K/mm3 (1.96-9.15); NEUTROPHILS PERCENT AUTO 76 % (41-73); Platelet Count 218 K/mm3 (150-400); RDW Coefficient Variation 13.2 % (11.7-14.2); RDW Standard Deviation 40.5 fL (35.1-46.3); Red Blood Cell Count 3.68 M/mm3 (4.30-5.90); White Blood Cell Count 7.71 K/mm3 (4.00-11.30)
[2024-10-23 04:36] LABS: Anion Gap 8 mmol/L (3-11); Blood Urea Nitrogen 17 mg/dL (8-24); Bun/Creatinine Ratio 27.4 (12.0-20.0); CO2, Blood 26 mmol/L (21-32); Calcium, Blood 8.3 mg/dL (8.5-10.1); Chloride, Blood 101 mmol/L (98-108); Creatinine, Blood 0.62 mg/dL (0.60-1.20); Glomerular Filtration Rate 111 (60-); Glucose, Blood 144 mg/dL (70-99); Potassium, Blood 3.3 mmol/L (3.5-5.5); Sodium, Blood 132 mmol/L (136-145); Vancomycin, Trough 11.8 ug/mL (5.0-10.0)
[2024-10-23] MEDS ORDERED: Vancomycin HCL 1,750 MG in NS 500 ML IV SCH (05:05)
[2024-10-23 07:41] VITALS: BP 149/74
[2024-10-23] MEDS ORDERED: Potassium Chl 20MEQ/Water100ML 100 ML IV STA (08:46)
[2024-10-23] MEDS ORDERED: OxyCODONE HCL 5 MG TAB PO PRN (11:25)
[2024-10-23] MEDS ORDERED: HYDROmorphone HCl/Pf 1MG SYR IV PRN (11:25)
[2024-10-23] MEDS ORDERED: Acetaminophen 325 MG TABLET PO PRN (11:25)
[2024-10-23] MEDS ORDERED: Insulin Human Lispro 100 Units/ML 3ML Syringe SC SCH (11:30)
[2024-10-23] MEDS ORDERED: Ketorolac Tromethamine 15mg Vial IV PRN (11:30)
[2024-10-23 15:37] VITALS: BP 131/72
--- NOTE | 2024-10-23 16:07 | NUR ---
SHIFT SUMMARY: PT VERY LETHARGIC, EASY TO WAKE W/ VERBAL/TOUCH, IS SELECTIVE W/WHICH QUESTIONS HE ANSWERS, CAN BE DIFFICULT TO UNDERSTAND BECAUSE HE IS FREQUENTLY CRYING/MOANING WHEN AWAKE AND WILL OCCASIONALLY PULL AT LINES/CORDS. O2 SATS >92% ON RA, RESPIRATIONS EVEN AND UNLABORED. SR ON MONITOR PRIOR TO TELEMETRY BEING DC'd, VSS. WHEN AWAKE PT OFTEN REQUESTING FOOD, CONSISTENT CARB DIET, ACHS GLUCOSE CHECKS IN PLACE. INDWELLING TEMP MUNOZ PATENT, DRAINING LIGHT YELLOW COLORED URINE TO GRAVITY. WHARF WORKER TO BEDSIDE, WOUND CARE COMPLETED PER ORDERS. PT MEDICATED PER EMAR FOR AGITATION/PAIN. LR INFUSING PER ORDERS. CALL LIGHT IN REACH.
--- NOTE | 2024-10-23 17:50 | NUR ---
TRANSFER: PT HAS RECEIVED NEW ROOM ASSIGNMENT IN MEDICAL DEPT. REPORT GIVEN TO AJITH WHITLOCK TO RECEIVE PT. PT TO BE TRANSFERED ONCE FINISHED W/DINNER.
--- NOTE | 2024-10-23 18:24 | NUR ---
ASSUMED CARE NOTE RECEIVED REPORT FROM LEGAL ADVISOR HARLEEN AND ASSUMED CARE OF PT AT APPROX 1815. PT TEARFUL UPON ARRIVAL, MUNOZ IN PLACE, AND DENIED PAIN. PT ORIENTED TO ROOM AND CALL LIGHT. CALL LIGHT PLACED WITHIN REACH.
[2024-10-23 19:25] VITALS: BP 145/84
[2024-10-23] MEDS ORDERED: NS 250 ML IV PRN (21:10)
[2024-10-24 05:04] VITALS: BP 154/82
--- NOTE | 2024-10-24 05:18 | NUR ---
SHIFT SUMMARY NOC PT A/O TO SELF AND PLACE. LETHARGIC AND DROWSY SINCE TRANSFER TO UNIT BEFORE SHIFT CHANGE. VSS. HS CBG 287 WITH 1 UNIT SLIDING SCALE SHORT ACTING AND 10 UNITS SCHEDULED GLARGINE GIVEN. PT R BKA HAS DRESSING IN PLACE C/D/I. L GREAT TOE HAS BAND AID IN PLACE. PT HAD MUNOZ REMOVED PT NO LONGER INDICATED CRITICAL CARE. IVF INFUSING PER EMAR. PT GIVEN AGITATION/PAIN BEING MANAGED PER EMAR. PT CURRENTLY RESTING WITH BED ALARM ON, BED IN LOWEST POSITION, AND CALL LIGHT WITHIN REACH.
[2024-10-24] MEDS ORDERED: Piperacillin/Tazobactam Sod 3.375 GM in NS 100 ML IV SCH (06:00)
[2024-10-24 06:11] LABS: BASOPHILS ABSOLUTE AUTO 0.03 K/mm3 (0.00-0.23); BASOPHILS PERCENT AUTO 1 % (0-2); EOSINOPHILS ABSOLUTE AUTO 0.09 K/mm3 (0.00-0.68); EOSINOPHILS PERCENT AUTO 2 % (0-6); Hematocrit 32.4 % (37.0-53.0); Hemoglobin 11.2 g/dL (13.5-17.5); IMMATURE GRAN ABSOLUTE AUTO 0.02 K/mm3 (0.00-0.10); IMMATURE GRAN PERCENT AUTO 0 % (0-1); LYMPHOCYTES ABSOLUTE AUTO 0.87 K/mm3 (0.84-5.20); LYMPHOCYTES PERCENT AUTO 15 % (21-46); MONOCYTES ABSOLUTE AUTO 0.39 K/mm3 (0.16-1.47); MONOCYTES PERCENT AUTO 7 % (4-13); Mean Corpuscular HGB 28.6 pg (26.0-34.0); Mean Corpuscular HGB Conc 34.6 g/dL (31.5-36.5); Mean Corpuscular Volume 83 fL (80-100); Mean Platelet Volume 9.4 fL (9.1-12.4); NEUTROPHILS ABSOLUTE AUTO 4.52 K/mm3 (1.96-9.15); NEUTROPHILS PERCENT AUTO 76 % (41-73); Platelet Count 205 K/mm3 (150-400); RDW Coefficient Variation 13.5 % (11.7-14.2); RDW Standard Deviation 40.2 fL (35.1-46.3); Red Blood Cell Count 3.92 M/mm3 (4.30-5.90); White Blood Cell Count 5.92 K/mm3 (4.00-11.30)
[2024-10-24 06:27] LABS: Bun/Creatinine Ratio 15.4 (12.0-20.0); Calcium, Blood 8.4 mg/dL (8.5-10.1); Creatinine, Blood 0.65 mg/dL (0.60-1.20); Potassium, Blood 3.3 mmol/L (3.5-5.5)
[2024-10-24 07:32] VITALS: BP 144/80
--- NOTE | 2024-10-24 11:26 | NUR ---
IN ROOM ASSISTING WITH CARE. PT STATES" I WANT TO , I WANT A GUN TO SHOOT MYSELF AND " OSCAR ESPINO PRESENT IN PATIENT AT TIME OF THIS STATEMENT. NOTIFIED DR BAILEY OF PATIENTS STATEMENT AND ALSO NOTIFIED CECY BEDSIDE RN AND CASSIE FRANKLIN DEVELOPMENT REPRESENTATIVE NURSE OF PATIENTS STATEMENTS
--- NOTE | 2024-10-24 12:03 | NUR ---
PATIENT STARTED CRYING WHEN MYSELF AND THE BREAK NURSE HAD TO DO A BED CHANGE PATIENT HAD BEEN INCONTINENT. ONCE THE BED WAS CHANGED AND THE PATIENT WAS DRY THE BREAK NURSE LEFT. PATIENT CONTINUED TO CRY. I HELD HIS HAND AND ASKED HIM ABOUT IT GIVING HIM TISSUES FOR HIS NOSE. HE STATED TO ME THAT "I JUST WANT TO ". I STAYED WITH HIM LONGER AND TALKED TO HIM UNTIL HE DOZED OFF. THE BREAK NURSE HEARD THIS FROM OUTSIDE THE ROOM AND RELAYED IT TO HIS NURSE. PATIENT WAS THEN ASKED "DO YOU WANT TO HURT YOURSELF?", PATIENT SHOOK HIS HEAD NO. "DO YOU WANT TO HURT OTHERS?", THIS TIME THE PATIENT NODDED YES AND TOLD THE NURSE "GET OUT OF MY FACE". THE PATIENT CONTINUED TO CRY AND I JUST STAYED WITH HIM UNTIL HE DOZED OFF AGAIN.
[2024-10-24 16:53] LABS: Vancomycin, Trough 21.3 ug/mL (5.0-10.0)
[2024-10-24 17:05] VITALS: BP 160/83
--- NOTE | 2024-10-24 17:48 | NUR ---
PT HAS HAD PAIN THROUGHOUT THE DAY, SEE EMAR FOR DETAILS. PT HAD NO SOB OR CHEST PAIN REPORTED
[2024-10-24 20:05] VITALS: BP 158/91
[2024-10-24] MEDS ORDERED: Vancomycin HCL 1,500 MG in NS 250 ML IV SCH (21:00)
[2024-10-25 04:13] VITALS: BP 161/84
--- NOTE | 2024-10-25 04:48 | NUR ---
SHIFT SUMMARY; PATIENT SLEPT IN LONG INTERVALS. DID NOT HAVE BM. CONTACTED HOSPITALIST FOR NICOTINE PATCH ORDER. WAS TEARFULO AT TIMES, WONDERING WHERE HE WILL GO. INCONT/CONTINENT OF URINE. IV FLUIDS INFUSING ALL NIGHYT. MEDICATED FOR PAIN, NAUSEA AND ANXIETY. REMAINS IN CONTACT PRECAUTIONS
[2024-10-25 06:52] LABS: BASOPHILS ABSOLUTE AUTO 0.02 K/mm3 (0.00-0.23); BASOPHILS PERCENT AUTO 0 % (0-2); EOSINOPHILS ABSOLUTE AUTO 0.14 K/mm3 (0.00-0.68); EOSINOPHILS PERCENT AUTO 3 % (0-6); Hematocrit 33.5 % (37.0-53.0); Hemoglobin 11.6 g/dL (13.5-17.5); IMMATURE GRAN PERCENT AUTO 0 % (0-1); LYMPHOCYTES ABSOLUTE AUTO 0.87 K/mm3 (0.84-5.20); LYMPHOCYTES PERCENT AUTO 19 % (21-46); MONOCYTES ABSOLUTE AUTO 0.41 K/mm3 (0.16-1.47); MONOCYTES PERCENT AUTO 9 % (4-13); Mean Corpuscular HGB 28.7 pg (26.0-34.0); Mean Corpuscular HGB Conc 34.6 g/dL (31.5-36.5); Mean Corpuscular Volume 83 fL (80-100); Mean Platelet Volume 9.3 fL (9.1-12.4); NEUTROPHILS ABSOLUTE AUTO 3.16 K/mm3 (1.96-9.15); NEUTROPHILS PERCENT AUTO 69 % (41-73); Platelet Count 228 K/mm3 (150-400); RDW Coefficient Variation 13.2 % (11.7-14.2); RDW Standard Deviation 39.9 fL (35.1-46.3); Red Blood Cell Count 4.04 M/mm3 (4.30-5.90)
[2024-10-25 07:12] LABS: Bun/Creatinine Ratio 17.8 (12.0-20.0); Calcium, Blood 8.7 mg/dL (8.5-10.1); Creatinine, Blood 0.79 mg/dL (0.60-1.20); Potassium, Blood 3.6 mmol/L (3.5-5.5)
[2024-10-25 07:54] VITALS: BP 132/86
[2024-10-25] MEDS ORDERED: Insulin Human Lispro 100 Units/ML 3ML Syringe SC ONE (08:00)
[2024-10-25] MEDS ORDERED: Insulin Glargine-Yfgn 100 Unit/mL 3 ML SYR SC SCH (08:00)
[2024-10-25] MEDS ORDERED: HYDROmorphone HCl/Pf 1MG SYR IV PRN (08:55)
[2024-10-25] MEDS ORDERED: Nicotine 21 MG PATCH TOP SCH (09:00)
[2024-10-25] MEDS ORDERED: Vancomycin HCL 1,250 MG in NS 250 ML IV SCH (09:00)
--- NOTE | 2024-10-25 10:25 | NUR ---
TODAY THE PATIENT DID ADMIT TO ME THAT HE WANTED TO KILL HIMSELF. HIS BLOOD SUGAR WAS 351 AT BREAKFAST, HE PROCEEDED TO ASK FOR SOMETHING SWEET. I INFORMED HIM THAT BECAUSE OF HIS HIGH BLOOD SUGAR I COULD NOT GIVE HIM ANYTHING SWEET. HE SAID THE SOMETHING SWEET WOULD HELP HIM . THE PATIENT IS VERY EMOTIONAL TODAY, CRYING, HITTING HIMSELF IN THE HEAD WITH HIS HAND. I INFORMED THE NURSE OF THE WANTING TO KILL HIMSELF AND THE NURSE WITNESSED THE PATIENT HITTING HIMSELF.
--- NOTE | 2024-10-25 17:47 | NUR ---
no changes clinically for pt. pt was very upset and cried throught the day, this nurse called for a psych consult
[2024-10-25 19:33] VITALS: BP 171/89
[2024-10-26 03:53] VITALS: BP 176/99
--- NOTE | 2024-10-26 05:06 | NUR ---
SHIFT SUMMARY; PATIENT SLEEPS IN LONG INTERVALS. HAS BIZARRE IDEAS AT TIMES. MEDICATED WITH ATIVAN AND DILAUDID. IV FLUIDS INFUSING THRU POWERGLIDE.
[2024-10-26 07:13] VITALS: BP 151/86
[2024-10-26 09:38] LABS: Vancomycin, Trough 15.6 ug/mL (5.0-10.0)
[2024-10-26 15:15] VITALS: BP 134/89
--- NOTE | 2024-10-26 17:38 | NUR ---
SUMMARY- PT A/O X3, MILD CONFUSION. PT AMBULATES SBA. HAD A SHOWER TODAY, STARTED HYDROCORTISONE CREAM TO BILAT ARM RASH. NORCO EFFECTIVE FOR PAIN RELEIF. NO DERM CONSULT AVAILABLE UNTIL 10/31- DR LAMAS AWARE. NA 131 UP FROM PREVIOUS. STARTED ON NA TABE. WILL REPORT TO NOC RN
[2024-10-26 19:14] VITALS: BP 161/85
--- NOTE | 2024-10-26 19:50 | NUR ---
SUMMARY- PT A/OX4, USES CALL LIGHT TO MAKE NEEDS KNOWN. BEDREST CURRENTLY, ADJUSTS WEIGHT INDEPENDANT, ASSIST WITH REPOSION. PAIN CONTROLLED WITH OXYCODONE AND DILUADID FOR BPT. DRESSING CHANGED TO RLE STUMP, MIN DEAINAGE, EDGES WELL APPROXIMATED. CLEANSED, APPLIES XERREFORM, ABD AND KERLEX. SEVERE PAIN WITH CHANGE, MEDICATED WITH DILAUDID 2MG POST CHANGE WITH GREAT RELEIF. PT TOLERATING FOOD AND FLUID. VSS. SUGARS HIGH. DOSE INCERASE TODAY ON GLARGENE. WILL REOPRT TO NOC RN
[2024-10-26] MEDS ORDERED: Insulin Glargine-Yfgn 100 Unit/mL 3 ML SYR SC SCH (21:00)
[2024-10-26] MEDS ORDERED: Mirtazapine 30 MG SoluTab PO SCH (21:00)
[2024-10-27 05:10] VITALS: BP 163/94
--- NOTE | 2024-10-27 05:50 | NUR ---
SHIFT SUMMARY PT SLEPT LONG INTERVALS THROUGH THE NIGHT. STATES "I'M ANGRY" WHEN AWAKE. MEDICATED FOR PAIN PER EMAR. IV ANTIBX INFUSING PER ORDERS. DRESSING TO LEFT GREAT TOE CHANGED PER ORDER. DRESSING TO RIGHT STUMP HAD BEEN CHANGED ON DAY SHIFT. PT ABLE TO TURN SELF THROUGH THE NIGHT. BED IN LOWEST POSITION, CALL LIGHT WITHIN REACH, SIDERAILS UP X2.
[2024-10-27 07:12] VITALS: BP 129/61
--- NOTE | 2024-10-27 07:34 | NUR ---
ASSUMPTION OF CARE: ASSUMED CARE OF PATIENT. LYING IN BED, ASLEEP AND SNORING DURING SHIFT CHANGE REPORT. IV RUNNING DOLORES PG. BED IN LOWEST POSITION. CALL LIGHT WITHIN REACH. NO ACUTE NEEDS.
[2024-10-27 10:05] LABS: Vancomycin, Trough 17.6 ug/mL (5.0-10.0)
[2024-10-27] MEDS ORDERED: Vancomycin HCL 1,000 MG in NS 250 ML IV SCH (10:09)
--- NOTE | 2024-10-27 10:50 | NUR ---
PATIENT BEING OBSTINENT WITH CARE FOR THIS RN AND BRIEFCASE SEWERAWILDA. REFUSING TO USE WALKER, THEN REQUESTIN WALKER ONCE MOVED. REFUSING TO DO THINGS FOR HERSELF SHE'S TYPICALLY ABLE TO DO.
[2024-10-27 14:22] VITALS: BP 113/63
--- NOTE | 2024-10-27 19:13 | NUR ---
[id number] REPORT: A&Ox4. OBSTINANT WITH A LOT OF CARE, BUT EVENTUALLY CONCEDES. TOLD THIS RN "I'M JUST UPSET TODAY. I JUST WANT TO BE ABLE TO SLEEP AND BE OUT OF PAIN!" MEDS PROVIDED AND PATIENT AGITATION AND PAIN SIGNIFICANTLY DECREASED. ANTICIPATE DC THURSDAY PER DR. BAILEY. HEATHER Copeland.
[2024-10-27 19:18] VITALS: BP 117/59
[2024-10-27] MEDS ORDERED: Insulin Glargine-Yfgn 100 Unit/mL 3 ML SYR SC SCH (21:00)
[2024-10-28 04:53] VITALS: BP 147/70
[2024-10-28 05:25] LABS: BASOPHILS ABSOLUTE AUTO 0.04 K/mm3 (0.00-0.23); BASOPHILS PERCENT AUTO 1 % (0-2); EOSINOPHILS ABSOLUTE AUTO 0.16 K/mm3 (0.00-0.68); EOSINOPHILS PERCENT AUTO 3 % (0-6); Hematocrit 33.9 % (37.0-53.0); Hemoglobin 11.7 g/dL (13.5-17.5); IMMATURE GRAN ABSOLUTE AUTO 0.01 K/mm3 (0.00-0.10); IMMATURE GRAN PERCENT AUTO 0 % (0-1); LYMPHOCYTES ABSOLUTE AUTO 1.36 K/mm3 (0.84-5.20); LYMPHOCYTES PERCENT AUTO 24 % (21-46); MONOCYTES PERCENT AUTO 9 % (4-13); Mean Corpuscular HGB 29.1 pg (26.0-34.0); Mean Corpuscular HGB Conc 34.5 g/dL (31.5-36.5); Mean Corpuscular Volume 84 fL (80-100); NEUTROPHILS ABSOLUTE AUTO 3.54 K/mm3 (1.96-9.15); NEUTROPHILS PERCENT AUTO 63 % (41-73); Platelet Count 249 K/mm3 (150-400); RDW Coefficient Variation 13.2 % (11.7-14.2); RDW Standard Deviation 40.8 fL (35.1-46.3); Red Blood Cell Count 4.02 M/mm3 (4.30-5.90); White Blood Cell Count 5.61 K/mm3 (4.00-11.30)
--- NOTE | 2024-10-28 05:32 | NUR ---
SHIFT SUMMARY PT SLEPT LONG INTERVALS THROUGH THE NIGHT. MEDICATED FOR PAIN AND ANXIETY PER EMAR. PT YELLS OUT/ MOANS/ GROANS WITH PAIN. DRESSINGS CHANGED TO LEFT TOE AND RIGHT STUMP PER ORDER. IV ANTIBIOTICS PER ORDER. INCONT OF URINE WHILE SLEEPING- PT STATES "JUST LEAVE IT, I AM GETTING ANGRY" DURING HYGEINE AND LINEN CHANGE. BED IN LOWEST POSITION, CALL LIGHT WITHIN REACH, SIDERAILS UP X2.
[2024-10-28 05:50] LABS: Bun/Creatinine Ratio 22.8 (12.0-20.0); Calcium, Blood 8.4 mg/dL (8.5-10.1); Creatinine, Blood 0.83 mg/dL (0.60-1.20); Potassium, Blood 3.5 mmol/L (3.5-5.5)
--- NOTE | 2024-10-28 07:36 | NUR ---
ASSUMED CARE OF PATIENT. ASLEEP DURING SHIFT CHANGE. AGGRESSIVELY DEMANDED STAFF "LEAVE HIM ALONE". DECLINED GLUCOSE CHECK AND VITALS.
[2024-10-28 08:26] VITALS: BP 132/76
[2024-10-28 10:41] LABS: Vancomycin, Trough 18.7 ug/mL (5.0-10.0)
[2024-10-28] MEDS ORDERED: CeFAZolin Sodium 1,000 MG in NS 50 ML IV SCH (16:00)
[2024-10-28 19:26] VITALS: BP 160/82
--- NOTE | 2024-10-28 19:37 | NUR ---
END OF SHIFT SUMMARY: A&Ox3-+4. OBSTINANT. UNCOOPERATIVE c CARE. UTILIZES CALL LIGHT FOR SNACKS AND PAIN, BUT DOES NOT USE CALL LIGHT FOR ASSISTANCE c VOIDING. CONTINENT BUT WILL OFTEN NOT CALL AND SLEEP THORUGH INCONTINENCE. HAS NOT BEEN OUT OF BED AND SLEPT MOST OF DAY. DR. BAILEY TO BEDSIDE FOR WOUND ASSESSMENT; PT VERY UPSET REGARDING THIS AND WAS GIVEN PAIN MEDICATIONS. MEDS WHOLE c FLUIDS. POWERGLIDE DOLORES PATENT; DRAWS AND FLUSHES. SIMONE AND MARCUS DCd TODAY. PICS OF STUMP UPDATED IN CHART. BED IN LOWEST POSITION, CALL LIGHT WITHIN REACH, ALL NEEDS MET. REPORT TO ONCOMING NURSE.
[2024-10-28] MEDS ORDERED: NS 250 ML IV PRN (23:10)
--- NOTE | 2024-10-29 04:11 | NUR ---
SHIFT SUMMARY: Pt is admitted for sepsis and is a full code. Is alert and able to make needs known. Has been 1-2 for ADLs depending on activity. On ISO for ESBL and MRSA. pain has been managed with PRN medications.
[2024-10-29 04:22] VITALS: BP 152/72
[2024-10-29 08:31] VITALS: BP 149/70
[2024-10-29 15:51] VITALS: BP 152/100
--- NOTE | 2024-10-29 19:13 | NUR ---
PT A/O X3 BUT TEARFUL AT TIMES. PAIN MANAGED TO PT SATISFACTION WITH AVAILABLE MEDIATIONS. HE INTENT ON LEAVING THIS AM. CALMED HIM BACK DOWN. WE DID DISCUSS WITH DR AT BEDSIDE. HE AGREES SHOULD TRY TO FINISH ABX. IV REPLACED TODAY. NO OTHER NEW CONCERNS NOTED. BED IN LOW POSITION,. CALL LITE IN REACH, CALLS APPROP
[2024-10-29 19:26] VITALS: BP 173/95
[2024-10-30 04:24] VITALS: BP 158/75
[2024-10-30 10:01] VITALS: BP 132/69
[2024-10-30 15:30] VITALS: BP 130/71
--- NOTE | 2024-10-30 18:02 | NUR ---
pt mostly pleasant today. pain managed with avail meds. did a lot of sleeping today. antibiotic medications per emar. presented some better with attitude today. no new concerns noted. bed inlow positioin, call lite in reach, calls approp
[2024-10-30 19:11] VITALS: BP 114/62
[2024-10-31 05:16] VITALS: BP 119/56
[2024-10-31 07:19] LABS: BASOPHILS ABSOLUTE AUTO 0.06 K/mm3 (0.00-0.23); BASOPHILS PERCENT AUTO 1 % (0-2); EOSINOPHILS PERCENT AUTO 3 % (0-6); Hematocrit 38.2 % (37.0-53.0); Hemoglobin 12.8 g/dL (13.5-17.5); IMMATURE GRAN ABSOLUTE AUTO 0.02 K/mm3 (0.00-0.10); IMMATURE GRAN PERCENT AUTO 0 % (0-1); LYMPHOCYTES ABSOLUTE AUTO 1.72 K/mm3 (0.84-5.20); LYMPHOCYTES PERCENT AUTO 24 % (21-46); MONOCYTES ABSOLUTE AUTO 0.64 K/mm3 (0.16-1.47); MONOCYTES PERCENT AUTO 9 % (4-13); Mean Corpuscular HGB 28.4 pg (26.0-34.0); Mean Corpuscular HGB Conc 33.5 g/dL (31.5-36.5); Mean Corpuscular Volume 85 fL (80-100); Mean Platelet Volume 8.8 fL (9.1-12.4); NEUTROPHILS ABSOLUTE AUTO 4.43 K/mm3 (1.96-9.15); NEUTROPHILS PERCENT AUTO 63 % (41-73); Platelet Count 302 K/mm3 (150-400); RDW Coefficient Variation 13.8 % (11.7-14.2); Red Blood Cell Count 4.51 M/mm3 (4.30-5.90); White Blood Cell Count 7.07 K/mm3 (4.00-11.30)
[2024-10-31 07:31] VITALS: BP 134/76
[2024-10-31 07:39] LABS: Albumin, Blood 3.4 g/dL (3.4-5.0); Albumin/Globulin Ratio 0.8 (0.8-1.8); Bilirubin, Total 0.2 mg/dL (0.1-1.0); Bun/Creatinine Ratio 32.1 (12.0-20.0); Calcium, Blood 8.8 mg/dL (8.5-10.1); Creatinine, Blood 0.69 mg/dL (0.60-1.20); Potassium, Blood 3.8 mmol/L (3.5-5.5); Total Protein, Blood 7.4 g/dL (6.4-8.2)
[2024-10-31] MEDS ORDERED: JARDIANCE25 MG PO (12:23)
[2024-10-31] MEDS ORDERED: NICO21TP TOP (12:23)
[2024-10-31] MEDS ORDERED: ONDA4ODT MM (12:25)
== END 2024-10-31 15:22 | disposition home or self-care (01) | DRG 871 ==
LOC: ER 14:11 → MEDS 20:58 → PCU 20:58 → ERHOLD 20:58 → PCU 22:30 → MEDS 22:43 → PCU 10-23 09:06 → MEDS 10-23 18:10
PROVIDERS: Emergency Medicine; Family Medicine; Nurse Practitioner Acute Care; ADMIT Internal Medicine
DX: A41.9 Sepsis, unspecified organism (principal); G92.8 Other toxic encephalopathy; I50.32 Chronic diastolic (congestive) heart failure; Z59.00 Homelessness unspecified; M86.8X7 Other osteomyelitis, ankle and foot; E87.1 Hypo-osmolality and hyponatremia; T87.43 Infection of amputation stump, right lower extremity; L97.528 Non-pressure chronic ulcer of other part of left foot with other specified severity; E87.20 Acidosis, unspecified; Z96.651 Presence of right artificial knee joint; E11.42 Type 2 diabetes mellitus with diabetic polyneuropathy; E87.6 Hypokalemia; F41.9 Anxiety disorder, unspecified; M54.50 Low back pain, unspecified; S91.102A Unspecified open wound of left great toe without damage to nail, initial encounter; I11.0 Hypertensive heart disease with heart failure; E78.5 Hyperlipidemia, unspecified; D63.8 Anemia in other chronic diseases classified elsewhere; G47.00 Insomnia, unspecified; E11.69 Type 2 diabetes mellitus with other specified complication; F32.A Depression, unspecified; K74.60 Unspecified cirrhosis of liver; F17.290 Nicotine dependence, other tobacco product, uncomplicated; F15.90 Other stimulant use, unspecified, uncomplicated; F10.10 Alcohol abuse, uncomplicated; E11.65 Type 2 diabetes mellitus with hyperglycemia; R45.1 Restlessness and agitation; R65.20 Severe sepsis without septic shock; E11.621 Type 2 diabetes mellitus with foot ulcer; Z89.422 Acquired absence of other left toe(s); Z88.8 Allergy status to other drugs, medicaments and biological substances; Z79.85 Long-term (current) use of injectable non-insulin antidiabetic drugs; Z79.899 Other long term (current) drug therapy; Z87.440 Personal history of urinary (tract) infections; Z79.811 Long term (current) use of aromatase inhibitors; Z79.84 Long term (current) use of oral hypoglycemic drugs; Z99.3 Dependence on wheelchair; Z86.14 Personal history of Methicillin resistant Staphylococcus aureus infection; Z89.431 Acquired absence of right foot; X58.XXXS Exposure to other specified factors, sequela
CPT/HCPCS: 36415; 51702; 70450; 71045; 73560-RT; 73630; 73701; 80048; 80053; 80202; 80320; 81001; 82010; 82140; 82565; 82803; 82947; 83036; 83605; 83735; 84100; 84145; 85025; 85610; 87040; 87070; 87075; 87077; 87147; 87186; 87205; 93005; 93010; 96374-59; 96375-59; 99285-25; A9270; J0690; J1171; J1200; J1630; J1650; J1815; J1885; J2060; J2405; J2543; J3010; J3370; J3475; J3480; J7030; J7040; J7050; J7120; Q9967

== ENCOUNTER 2024-11-05 08:12 | Emergency (ER) | payer OTHER ==
[~2024-11-05] VITALS: Ht 177.8 cm; Wt 70.3 kg
[~2024-11-05 08:12] MED LIST changes: +JARDIANCE25 MG PO; +NICO21TP TOP; +ONDA4ODT MM
[2024-11-05] MEDS ORDERED: OxyCODONE HCL 5 MG TAB PO ONE (09:00)
[2024-11-05 09:24] LABS: BASOPHILS ABSOLUTE AUTO 0.07 K/mm3 (0.00-0.23); BASOPHILS PERCENT AUTO 1 % (0-2); EOSINOPHILS ABSOLUTE AUTO 0.14 K/mm3 (0.00-0.68); EOSINOPHILS PERCENT AUTO 2 % (0-6); Hematocrit 37.5 % (37.0-53.0); Hemoglobin 13.2 g/dL (13.5-17.5); IMMATURE GRAN ABSOLUTE AUTO 0.06 K/mm3 (0.00-0.10); IMMATURE GRAN PERCENT AUTO 1 % (0-1); LYMPHOCYTES PERCENT AUTO 11 % (21-46); MONOCYTES ABSOLUTE AUTO 0.47 K/mm3 (0.16-1.47); MONOCYTES PERCENT AUTO 5 % (4-13); Mean Corpuscular HGB Conc 35.2 g/dL (31.5-36.5); Mean Corpuscular Volume 82 fL (80-100); NEUTROPHILS ABSOLUTE AUTO 7.45 K/mm3 (1.96-9.15); NEUTROPHILS PERCENT AUTO 81 % (41-73); RDW Coefficient Variation 13.4 % (11.7-14.2); RDW Standard Deviation 40.1 fL (35.1-46.3); Red Blood Cell Count 4.55 M/mm3 (4.30-5.90); White Blood Cell Count 9.19 K/mm3 (4.00-11.30)
[2024-11-05 09:45] LABS: Mean Platelet Volume 9.3 fL (9.1-12.4); Platelet Count 301 K/mm3 (150-400)
[2024-11-05 09:46] LABS: C-REACTIVE PROTEIN, EXT RANGE 5.32 mg/dL (0.000-0.300)
[2024-11-05 09:47] LABS: Albumin, Blood 3.6 g/dL (3.4-5.0); Albumin/Globulin Ratio 0.8 (0.8-1.8); Bilirubin, Total 0.5 mg/dL (0.1-1.0); Bun/Creatinine Ratio 17.2 (12.0-20.0); Calcium, Blood 8.8 mg/dL (8.5-10.1); Creatinine, Blood 0.52 mg/dL (0.60-1.20); Globulin, Blood 4.3 g/dL (2.2-4.0); Potassium, Blood 3.7 mmol/L (3.5-5.5); Total Protein, Blood 7.9 g/dL (6.4-8.2)
[2024-11-05] MEDS ORDERED: Amoxicillin875 MG PO (10:28)
[2024-11-05 10:30] VITALS: BP 144/84
[2024-11-05] MEDS ORDERED: Amoxicillin 875 MG Tab PO ONE (10:30)
== END 2024-11-05 10:57 | disposition home or self-care (01) ==
LOC: ER 08:12
PROVIDERS: Emergency Medicine
DX: M25.561 Pain in right knee (principal); S91.102A Unspecified open wound of left great toe without damage to nail, initial encounter; E11.42 Type 2 diabetes mellitus with diabetic polyneuropathy; I11.0 Hypertensive heart disease with heart failure; I50.30 Unspecified diastolic (congestive) heart failure; G47.00 Insomnia, unspecified; F17.290 Nicotine dependence, other tobacco product, uncomplicated; X58.XXXA Exposure to other specified factors, initial encounter; Z79.899 Other long term (current) drug therapy; Z79.84 Long term (current) use of oral hypoglycemic drugs; Z79.4 Long term (current) use of insulin
CPT/HCPCS: 36415; 73562-RT; 73620; 80053; 85025; 86140; 99284-25; A9270

== ENCOUNTER 2024-11-07 09:54 | Emergency (ER) | payer OTHER ==
[~2024-11-07] VITALS: Ht 177.8 cm; Wt 95.2 kg
[~2024-11-07 09:54] MED LIST changes: +Amoxicillin875 MG PO
[2024-11-07 11:04] VITALS: BP 150/92
[2024-11-07] MEDS ORDERED: Ketorolac Tromethamine 15mg Vial IV ONE (11:05)
[2024-11-07] MEDS ORDERED: Amoxicillin 500 MG Cap PO ONE (14:30)
[2024-11-07] MEDS ORDERED: Acetaminophen 325 MG TABLET PO ONE (14:35)
== END 2024-11-07 14:34 | disposition left against medical advice (07) ==
LOC: ER 09:54
DX: M79.604 Pain in right leg (principal); Z59.89 Other problems related to housing and economic circumstances; F17.290 Nicotine dependence, other tobacco product, uncomplicated; I11.0 Hypertensive heart disease with heart failure; I50.30 Unspecified diastolic (congestive) heart failure; E11.40 Type 2 diabetes mellitus with diabetic neuropathy, unspecified; Z88.8 Allergy status to other drugs, medicaments and biological substances; Z79.899 Other long term (current) drug therapy; Z79.890 Hormone replacement therapy; Z79.891 Long term (current) use of opiate analgesic; Z79.1 Long term (current) use of non-steroidal anti-inflammatories (NSAID); Z79.2 Long term (current) use of antibiotics; Z79.02 Long term (current) use of antithrombotics/antiplatelets
CPT/HCPCS: 99282

== ENCOUNTER 2024-11-09 09:18 | Emergency (ER) | payer OTHER ==
[~2024-11-09] VITALS: Ht 172.7 cm; Wt 74.8 kg
[2024-11-09 09:27] VITALS: BP 185/97
[2024-11-14] MEDS ORDERED: SULTRIDS PO ×2 (13:40)
== END 2024-11-09 09:28 | disposition home or self-care (01) ==
LOC: ER 09:18
DX: Z02.89 Encounter for other administrative examinations (principal); M79.605 Pain in left leg; E11.42 Type 2 diabetes mellitus with diabetic polyneuropathy; I11.0 Hypertensive heart disease with heart failure; I50.30 Unspecified diastolic (congestive) heart failure; F17.210 Nicotine dependence, cigarettes, uncomplicated; F17.290 Nicotine dependence, other tobacco product, uncomplicated; E78.5 Hyperlipidemia, unspecified; Z89.422 Acquired absence of other left toe(s); Z89.511 Acquired absence of right leg below knee; Z79.899 Other long term (current) drug therapy; Z79.84 Long term (current) use of oral hypoglycemic drugs; Z79.4 Long term (current) use of insulin
CPT/HCPCS: 99282

== ENCOUNTER 2024-11-09 14:53 | Emergency (ER) | payer OTHER ==
[~2024-11-09] VITALS: Ht 167.6 cm; Wt 68.0 kg
[2024-11-09 16:08] VITALS: BP 169/70
[2024-12-19] MEDS ORDERED: VITAMIN C125 MG PO (10:50)
[2024-12-19] MEDS ORDERED: ZINCTRAL57 GM (10:52)
[2024-12-19] MEDS ORDERED: OXAYDO5 M1 PO (10:53)
[2024-12-19] MEDS ORDERED: INSULANI SC (10:57)
== END 2024-11-09 16:11 | disposition left against medical advice (07) ==
LOC: ER 14:53
DX: Z53.21 Procedure and treatment not carried out due to patient leaving prior to being seen by health care provider (principal)

== ENCOUNTER 2024-11-10 14:14 | Observation (INO) | payer OTHER ==
[~2024-11-10] VITALS: Ht 167.6 cm; Wt 69.0 kg
[2024-11-10 15:49] LABS: BASOPHILS ABSOLUTE AUTO 0.05 K/mm3 (0.00-0.23); BASOPHILS PERCENT AUTO 1 % (0-2); EOSINOPHILS PERCENT AUTO 1 % (0-6); Hematocrit 38.1 % (37.0-53.0); IMMATURE GRAN ABSOLUTE AUTO 0.04 K/mm3 (0.00-0.10); IMMATURE GRAN PERCENT AUTO 1 % (0-1); LYMPHOCYTES ABSOLUTE AUTO 1.01 K/mm3 (0.84-5.20); LYMPHOCYTES PERCENT AUTO 12 % (21-46); MONOCYTES ABSOLUTE AUTO 0.57 K/mm3 (0.16-1.47); MONOCYTES PERCENT AUTO 7 % (4-13); Mean Corpuscular HGB 28.8 pg (26.0-34.0); Mean Corpuscular HGB Conc 34.1 g/dL (31.5-36.5); Mean Corpuscular Volume 84 fL (80-100); Mean Platelet Volume 9.3 fL (9.1-12.4); NEUTROPHILS ABSOLUTE AUTO 6.75 K/mm3 (1.96-9.15); NEUTROPHILS PERCENT AUTO 79 % (41-73); Platelet Count 332 K/mm3 (150-400); RDW Coefficient Variation 13.3 % (11.7-14.2); RDW Standard Deviation 40.7 fL (35.1-46.3); Red Blood Cell Count 4.52 M/mm3 (4.30-5.90); White Blood Cell Count 8.52 K/mm3 (4.00-11.30)
[2024-11-10 16:05] LABS: Albumin/Globulin Ratio 0.9 (0.8-1.8); Bilirubin, Total 0.4 mg/dL (0.1-1.0); Bun/Creatinine Ratio 23.1 (12.0-20.0); Calcium, Blood 9.8 mg/dL (8.5-10.1); Creatinine, Blood 0.56 mg/dL (0.60-1.20); Globulin, Blood 4.4 g/dL (2.2-4.0); Potassium, Blood 3.6 mmol/L (3.5-5.5); Total Protein, Blood 8.4 g/dL (6.4-8.2)
[2024-11-10] MEDS ORDERED: Lactated Ringer's 1,000 ML IV ONE (17:25)
[2024-11-10] MEDS ORDERED: Vancomycin HCL 2,000 MG in NS 500 ML IV ONE (18:55)
[2024-11-10] MEDS ORDERED: Acetaminophen 500 MG Tab PO ONE (19:50)
[2024-11-10] MEDS ORDERED: Insulin Glargine-Yfgn 100 Unit/mL 3 ML SYR SC ONE (23:00)
[2024-11-10] MEDS ORDERED: CefTRIAXone Sodium 2,000 MG in NS 100 ML IV SCH (23:15)
[2024-11-10 23:25] VITALS: BP 151/77
[2024-11-11] MEDS ORDERED: HYDROmorphone HCl/Pf 1MG SYR IV PRN (04:05)
[2024-11-11] MEDS ORDERED: Acetaminophen 325 MG TABLET PO PRN (04:05)
[2024-11-11 04:45] VITALS: BP 148/67
--- NOTE | 2024-11-11 04:50 | NUR ---
2315: REC'D PT FROM ER FOR CELLULITIS R STUMP AND L BIG TOE ULCER. AAOX4, WC BOUND AT BASELINE. RA. MALE PERWICK IN PLACE FROM ER. 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 #20 L HAND FOR VANCO AND ROCEPHIN. RESIDENT CAME TO ASSESS WOUNDS AND PAIN MEDICATION. ON ADMIT DISCUSSED BG WITH DR. SÁNCHEZ ADVIESED TO USE SLIDING SCALE FOR 2100 AND SCHEDULED LANTUS. PT SLEPT AND ATE WELL WITHOUT CONCERNS.
[2024-11-11] MEDS ORDERED: Vancomycin HCL 1,000 MG in NS 250 ML IV SCH (06:00)
[2024-11-11] MEDS ORDERED: Insulin Human Lispro 100 Units/ML 3ML Syringe SC SCH (07:30)
[2024-11-11] MEDS ORDERED: Insulin Glargine-Yfgn 100 Unit/mL 3 ML SYR SC SCH (08:00)
[2024-11-11 08:29] VITALS: BP 153/83
[2024-11-11 08:41] LABS: BASOPHILS ABSOLUTE AUTO 0.03 K/mm3 (0.00-0.23); BASOPHILS PERCENT AUTO 1 % (0-2); EOSINOPHILS ABSOLUTE AUTO 0.19 K/mm3 (0.00-0.68); EOSINOPHILS PERCENT AUTO 3 % (0-6); Hematocrit 33.5 % (37.0-53.0); Hemoglobin 11.6 g/dL (13.5-17.5); IMMATURE GRAN ABSOLUTE AUTO 0.01 K/mm3 (0.00-0.10); IMMATURE GRAN PERCENT AUTO 0 % (0-1); LYMPHOCYTES ABSOLUTE AUTO 1.18 K/mm3 (0.84-5.20); LYMPHOCYTES PERCENT AUTO 18 % (21-46); MONOCYTES ABSOLUTE AUTO 0.43 K/mm3 (0.16-1.47); MONOCYTES PERCENT AUTO 7 % (4-13); Mean Corpuscular HGB 28.6 pg (26.0-34.0); Mean Corpuscular HGB Conc 34.6 g/dL (31.5-36.5); Mean Corpuscular Volume 83 fL (80-100); Mean Platelet Volume 8.9 fL (9.1-12.4); NEUTROPHILS ABSOLUTE AUTO 4.82 K/mm3 (1.96-9.15); NEUTROPHILS PERCENT AUTO 72 % (41-73); Platelet Count 254 K/mm3 (150-400); RDW Coefficient Variation 13.3 % (11.7-14.2); RDW Standard Deviation 39.7 fL (35.1-46.3); Red Blood Cell Count 4.06 M/mm3 (4.30-5.90); White Blood Cell Count 6.66 K/mm3 (4.00-11.30)
[2024-11-11] MEDS ORDERED: Lactobacil 2-S.Thermo-Bifido 1 1 Cap PO SCH (09:00)
[2024-11-11] MEDS ORDERED: Heparin Sodium,Porcine 5,000 UNIT/0.5 ML SDV SC SCH (09:00)
[2024-11-11 09:25] LABS: Albumin/Globulin Ratio 0.8 (0.8-1.8); Bilirubin, Total 0.3 mg/dL (0.1-1.0); Bun/Creatinine Ratio 18.1 (12.0-20.0); Calcium, Blood 8.6 mg/dL (8.5-10.1); Creatinine, Blood 0.5 mg/dL (0.60-1.20); Globulin, Blood 3.6 g/dL (2.2-4.0); Potassium, Blood 3.1 mmol/L (3.5-5.5); Total Protein, Blood 6.6 g/dL (6.4-8.2)
[2024-11-11] MEDS ORDERED: Potassium Chloride 20 MEQ TabCR PO ONE (12:00)
--- NOTE | 2024-11-11 12:14 | NUR ---
note notified of 370 blood sugar. stated will adjust insulin and to give meal time coverage of lispro
[2024-11-11] MEDS ORDERED: Empagliflozin 25 MG TAB PO SCH (15:00)
[2024-11-11 15:12] VITALS: BP 133/79
[2024-11-11] MEDS ORDERED: Ketorolac Tromethamine 30mg Vial IV PRN (16:45)
[2024-11-11] MEDS ORDERED: NS 250 ML IV PRN (17:55)
--- NOTE | 2024-11-11 18:14 | NUR ---
PATIENT IV LEFT DORSAL HAND RED AND TENDER. UNABLE TO TOLERATE FLUSH. UNABLE TO ADMINISTER IV VANCOMYCIN. Hx DIFFICULT NEEDLE STICK; CHARGE NURSE NOTIFIED AND WILL COORDINATE EXTENDED DWELL INSERTION LATER THIS EVENING. WILL NOT RECEIVE VANCO AT SCHEDULED TIME OF 1800. PHARMACY AND DR. MARIANO NOTIFIED.
--- NOTE | 2024-11-11 19:52 | NUR ---
SHIFT SUMMARY PT A&OX4. PT ADMITTED DUE TO CELLULITIS OF STUMP. PT REPORTS PAIN, PAIN MANAGED PER EMAR. ASKED DR. NATARAJAN FOR IMPROVED PAIN MANAGEMENT, ORDERED TORADOL. PT EATS ADEQUET. PT ON BEDREST. PT HAS MALE PERWICK. PT IS ACHS. PT RECEIVED LONG ACTING INSULIN. BLOOD SUGAR ALSO CORRECTED WITH CORRECTION SCALE. DINNER BLOOD SUGAR WAS 100. STAFF REPORTED PT STATED "SUICIDAL IDEATION WITH PLAN". REPORTED IDEATION TO DR. MARIANO, DR. MARIANO CAME TO ASSESS PT, PSYCIATRY CONSULTED. PT HAS ONE ON ONE SITTER. PLAN IS PT WILL TRANSFER TO [facility] ROOM W SITTER. PT REPORTS PAIN AT IV SITE. PT VANCO WAS DELAYED, REPORTED DELAY TO NIGHT NURSE. DR. NATARAJAN NOTIFIED ABOUT DELAY, CHARGE NURSE CONSULTED ABOUT POWERGLIDE DUE TO HX OF BEING A HARD STICK. PT IN BED, BED IN LOWEST POSITION, CALL LIGHT IN REACH. VSS.
--- NOTE | 2024-11-11 20:46 | NUR ---
PATIENT TRANSFER RN TO RN FROM ROOM 336. REPORT TAKEN FROM TRACY CANSECO. ALERT ORIENTED AND BEDREST. RIGHT BKA WITH STUMP WOUNDS AND WOUNDS TO LEFT GREAT FIRST AND SECOND TOE. PICTURES IN CHART. SITTER 1:1 PRESENT. PIV INFILTRATED ON DAY SHIFT AND NOT ABLE TO RESTART. INTERNET MARKETING INTERN AND PLASTIC EYE TECHNICIAN AWARE. DENIES CHEST PAIN, SOB, AND N/V. PERSONAL BELONGINGS WITH PATIENT. ON ROOM AIR. MONIKA.
[2024-11-11 20:48] VITALS: BP 142/79
--- NOTE | 2024-11-12 04:28 | NUR ---
SHIFT SUMMARY PATIENT HAD NO ACUTE CHANGES. ALERT AND ORIENTED. BED REST WITH RIGHT BKA. CBG 189. NEW POWERGLIDE PLACED THIS SHIFT. IV ABX INFUSED. SITTER 1:1. NO SI OBSERVED. DENIES CHEST PAIN, SOB, AND N/V. VSS/AFEBRILE. CALL LIGHT IN REACH. BED IN LOWEST POSITION. WILL CONTINUE TO MONITOR UNTIL DAY SHIFT NURSE ASSUMES CARE.
[2024-11-12 05:40] VITALS: BP 148/87
[2024-11-12 08:14] VITALS: BP 146/85
[2024-11-12] MEDS ORDERED: Lisinopril 20 MG Tab PO SCH (09:00)
[2024-11-12 09:06] LABS: Bun/Creatinine Ratio 30.5 (12.0-20.0); Calcium, Blood 9.1 mg/dL (8.5-10.1); Creatinine, Blood 0.56 mg/dL (0.60-1.20); Potassium, Blood 3.1 mmol/L (3.5-5.5)
[2024-11-12] MEDS ORDERED: Potassium Chloride 20 MEQ TabCR PO SCH (13:00)
[2024-11-12 15:03] VITALS: BP 142/93
[2024-11-12] MEDS ORDERED: Ondansetron 4 MG SoluTab MM PRN (15:30)
[2024-11-12] MEDS ORDERED: Methocarbamol 500 MG Tab PO PRN (15:30)
[2024-11-12] MEDS ORDERED: MetFORMIN HCl 500 mg PO SCH (17:00)
--- NOTE | 2024-11-12 18:25 | NUR ---
NO ACUTE CHANGES, PATIENT STATES HE IS GOING TO KILL HIMELF IF HE GETS DISCHARGED BECAUSE HE DOESNT HAVE ANYWHERE TO GO" AND PSHY AWARE, LUMBAR SPINE XRAYS DONE, POSSIBLE MRI TOMORROW, PATIENT ALERT AND ORIENTED X3, CLEARLY MAKES NEEDS KNOWN, PATIENT CRYES AND DOES NOT WANT TO GO HOME, 1:1 FOR LOW SI, PURWIK IN PLACE, MEDICATED FOR PAIN WITH TORADOL AND ROBAXIN, PATIENT WANTS THE PAIN IN R STUMP TO COMPLETELY GO AWAY AND WANTS MEDICATIONS TO "KNOCK ME OUT". WILL RELAY TO PM AJITH
[2024-11-12 20:04] VITALS: BP 123/101
[2024-11-12] MEDS ORDERED: Silver Sulfadiazine 1% Cream 25 APPLIC/25 GM Tube TOP SCH (21:00)
[2024-11-12] MEDS ORDERED: Gabapentin 300 MG Cap PO SCH (21:00)
[2024-11-12] MEDS ORDERED: Mupirocin 2% Ointment 22 GM TOP SCH (21:00)
[2024-11-12] MEDS ORDERED: Arginine/Glutamine/Calcium Hmb 1 Packet PO SCH (21:00)
[2024-11-12] MEDS ORDERED: Sennosides 8.6 MG Tab PO SCH (21:00)
[2024-11-12] MEDS ORDERED: Mirtazapine 30 MG Tab PO SCH (21:00)
--- NOTE | 2024-11-13 04:12 | NUR ---
SHIFT SUMMARY PATIENT HAD NO ACUTE CHANGES.AXOX 4. NO SUICIDAL IDEATION OBSERVED. SITTER 1:1. AGITATED AT TIMES WHEN HE KEEPS ASKING FOR FOOD. CBG 227. RIGHT BKA. POWERGLIDE LEFT UPPER ARM INTACT. IV ABXS INFUSED. DENIES CHEST PAIN, SOB, AND N/V. VSS/AFEBRILE. PUREWICK IN PLACE. CALL LIGHT IN REACH. BED IN LOWEST POSITION. WILL CONTINUE TO MONITOR UNTIL DAY SHIFT NURSE ASSUMES CARE.
[2024-11-13 05:35] VITALS: BP 168/87
--- NOTE | 2024-11-13 06:08 | NUR ---
PATIENT REFUSED LAB DRAW AT THIS TIME.
[2024-11-13] MEDS ORDERED: Rosuvastatin Calcium 10 MG Tab PO SCH (09:00)
[2024-11-13] MEDS ORDERED: Ferrous Sulfate 325 MG Tab PO SCH (09:00)
[2024-11-13] MEDS ORDERED: Nicotine 21 MG PATCH TOP SCH (09:00)
[2024-11-13] MEDS ORDERED: Tamsulosin HCl 0.4 MG Cap PO SCH (09:00)
[2024-11-13] MEDS ORDERED: LORazepam 2 MG/ML 1ML Injection IV ONE ×2 (09:25→12:30)
--- NOTE | 2024-11-13 13:23 | NUR ---
PATIENT INCREASED AGITATION ALL MORNING, EASILY ESCILATES, TO MRI NOW, OT DOSE OF ATIVAN FOR MRI
--- NOTE | 2024-11-13 17:44 | NUR ---
NO CHANGES, MRI DONE TODAY, PATIETN DONITNUES TO BE ARGUMENTATIVE, DEMANDING AND YELLING AT STAFF, PATIENT EASILY FAUSTO AND BECOMES ANGER THEN REFUSING ALL CARE. CALL LIGHT WITH IN REACH
[2024-11-13 18:42] VITALS: BP 122/71
[2024-11-14 02:11] VITALS: BP 156/85
--- NOTE | 2024-11-14 04:13 | NUR ---
SHIFT SUMMARY PATIENT HAD NO ACUTE CHANGES. NO SUICIDAL IDEATION OBSERVED. SITTER 1:1. ALERT ORIENTED AND BEDREST. RIGHT BKA. POWERGLIDE MARGARITA ARM INTACT. IV ABXS INFUSED. DENIES CHEST PAIN, SOB, AND N/V. VSS/AFEBRILE. CBG 211. PUREWICK IN PLACE. SLEPT MOST OF THE SHIFT AND AGITATED WHEN AWAKE. CALL LIGHT IN REACH. BED IN LOWEST POSITION. WILL CONTINUE TO MONITOR UNTIL DAY SHIFT NURSE ASSUMES CARE.
[2024-11-14 05:29] LABS: BASOPHILS ABSOLUTE AUTO 0.04 K/mm3 (0.00-0.23); BASOPHILS PERCENT AUTO 0 % (0-2); EOSINOPHILS ABSOLUTE AUTO 0.16 K/mm3 (0.00-0.68); EOSINOPHILS PERCENT AUTO 2 % (0-6); Hemoglobin 11.6 g/dL (13.5-17.5); IMMATURE GRAN ABSOLUTE AUTO 0.02 K/mm3 (0.00-0.10); IMMATURE GRAN PERCENT AUTO 0 % (0-1); LYMPHOCYTES ABSOLUTE AUTO 1.57 K/mm3 (0.84-5.20); LYMPHOCYTES PERCENT AUTO 18 % (21-46); MONOCYTES ABSOLUTE AUTO 0.56 K/mm3 (0.16-1.47); MONOCYTES PERCENT AUTO 6 % (4-13); Mean Corpuscular HGB 28.9 pg (26.0-34.0); Mean Corpuscular HGB Conc 34.1 g/dL (31.5-36.5); Mean Corpuscular Volume 85 fL (80-100); NEUTROPHILS ABSOLUTE AUTO 6.54 K/mm3 (1.96-9.15); NEUTROPHILS PERCENT AUTO 74 % (41-73); Platelet Count 240 K/mm3 (150-400); RDW Coefficient Variation 13.5 % (11.7-14.2); RDW Standard Deviation 41.4 fL (35.1-46.3); Red Blood Cell Count 4.01 M/mm3 (4.30-5.90); White Blood Cell Count 8.89 K/mm3 (4.00-11.30)
[2024-11-14 05:52] LABS: Anion Gap 12 mmol/L (3-11); Blood Urea Nitrogen 21 mg/dL (8-24); Bun/Creatinine Ratio 34.9 (12.0-20.0); CO2, Blood 24 mmol/L (21-32); Calcium, Blood 8.5 mg/dL (8.5-10.1); Chloride, Blood 102 mmol/L (98-108); Glomerular Filtration Rate 112 (60-); Glucose, Blood 300 mg/dL (70-99); Potassium, Blood 3.4 mmol/L (3.5-5.5); Sodium, Blood 135 mmol/L (136-145); Vancomycin, Trough 11.6 ug/mL (5.0-10.0)
[2024-11-14 07:26] VITALS: BP 149/88
[2024-11-14] MEDS ORDERED: Potassium Chloride 20 MEQ TabCR PO SCH (08:00)
[2024-11-14] MEDS ORDERED: SULTRIDS PO (13:40)
--- NOTE | 2024-11-14 15:46 | NUR ---
PATIENT D/C'D TO HOME VIA W/C TRANFER. PATIENT SENT WITH BELONGINGS. PATIENT DENIES ANY FURHTER QUESTIONS OR CONCERNS. RX MEDICATIONS FAXED TO [facility]. PATIENT TO FOLLOW UP WITH PCP.
== END 2024-11-14 15:37 | disposition home or self-care (01) ==
LOC: ER 14:14 → MEDS 14:15 → ERHOLD 14:15 → MEDS 23:21
PROVIDERS: Family Medicine; Student in an Organized Health Care Education/Training Program; ADMIT Internal Medicine
DX: T87.43 Infection of amputation stump, right lower extremity (principal); E11.65 Type 2 diabetes mellitus with hyperglycemia; E87.1 Hypo-osmolality and hyponatremia; E87.20 Acidosis, unspecified; I11.0 Hypertensive heart disease with heart failure; I50.32 Chronic diastolic (congestive) heart failure; L03.115 Cellulitis of right lower limb; R45.851 Suicidal ideations; Z59.00 Homelessness unspecified; Z89.511 Acquired absence of right leg below knee; Y83.8 Other surgical procedures as the cause of abnormal reaction of the patient, or of later complication, without mention of misadventure at the time of the procedure
CPT/HCPCS: 36415; 72100; 72148; 73560-RT; 73701; 80048; 80053; 80202; 82947; 83605; 85025; 85651; 86140; 87040; 96365; 96366; 96367; 96372; 96375; 96376; 99285-25; A6590; A9270; G0378; J0696; J1171; J1644; J1815; J1885; J2060; J3370; J7040; J7050; J7120; Q9967

== ENCOUNTER 2024-11-14 19:43 | Emergency (ER) | payer OTHER ==
[~2024-11-14] VITALS: Ht 177.8 cm; Wt 86.2 kg
[2024-11-14 19:47] VITALS: BP 155/93
[2024-11-14] MEDS ORDERED: Ketorolac Tromethamine 15mg Vial IM ONE (20:30)
[2024-11-14 20:37] LABS: BASOPHILS ABSOLUTE AUTO 0.05 K/mm3 (0.00-0.23); BASOPHILS PERCENT AUTO 1 % (0-2); EOSINOPHILS ABSOLUTE AUTO 0.14 K/mm3 (0.00-0.68); EOSINOPHILS PERCENT AUTO 2 % (0-6); Hematocrit 32.8 % (37.0-53.0); Hemoglobin 11.3 g/dL (13.5-17.5); IMMATURE GRAN ABSOLUTE AUTO 0.04 K/mm3 (0.00-0.10); IMMATURE GRAN PERCENT AUTO 1 % (0-1); LYMPHOCYTES ABSOLUTE AUTO 1.12 K/mm3 (0.84-5.20); LYMPHOCYTES PERCENT AUTO 13 % (21-46); MONOCYTES ABSOLUTE AUTO 0.42 K/mm3 (0.16-1.47); MONOCYTES PERCENT AUTO 5 % (4-13); Mean Corpuscular HGB Conc 34.5 g/dL (31.5-36.5); Mean Corpuscular Volume 84 fL (80-100); Mean Platelet Volume 9.1 fL (9.1-12.4); NEUTROPHILS ABSOLUTE AUTO 6.78 K/mm3 (1.96-9.15); NEUTROPHILS PERCENT AUTO 79 % (41-73); Platelet Count 247 K/mm3 (150-400); RDW Coefficient Variation 13.4 % (11.7-14.2); RDW Standard Deviation 40.9 fL (35.1-46.3); White Blood Cell Count 8.55 K/mm3 (4.00-11.30)
[2024-11-14 20:50] LABS: Salicylate 1.9 mg/dL (2.8-20.0)
[2024-11-14 20:52] LABS: Alanine Aminotransfer (ALT/SGP 14 U/L (12-78); Albumin, Blood 3.3 g/dL (3.4-5.0); Albumin/Globulin Ratio 0.9 (0.8-1.8); Alk Phos 90 U/L (50-136); Anion Gap 13 mmol/L (3-11); Aspartate Aminotrans (AST/SGOT 18 U/L (12-37); Bilirubin, Total 0.1 mg/dL (0.1-1.0); Blood Urea Nitrogen 28 mg/dL (8-24); Bun/Creatinine Ratio 43.8 (12.0-20.0); CO2, Blood 23 mmol/L (21-32); Calcium, Blood 8.7 mg/dL (8.5-10.1); Chloride, Blood 99 mmol/L (98-108); Creatinine, Blood 0.64 mg/dL (0.60-1.20); Globulin, Blood 3.5 g/dL (2.2-4.0); Glomerular Filtration Rate 110 (60-); Glucose, Blood 429 mg/dL (70-99); Potassium, Blood 3.9 mmol/L (3.5-5.5); Sodium, Blood 131 mmol/L (136-145); Total Protein, Blood 6.8 g/dL (6.4-8.2)
[2024-11-14 20:53] LABS: Acetaminophen, Random <2.0 ug/mL (10.0-30.0)
[2024-11-14 21:43] LABS: Source, Urine Clean Catch
[2024-11-14 21:48] LABS: Bilirubin, Urine Neg (Neg); Blood, Urine 2+ (Neg); Glucose Qualitative, Urine 4+ (Neg); Ketones, Urine Neg (Neg); Leukocyte Esterase, Urine 2+ (Neg); Nitrite, Urine Neg (Neg); Protein, Urine 1+ (Neg); Urobilinogen, Urine NORM (Normal)
[2024-11-14 22:02] LABS: Appearance, Urine Hazy (Clear); Color, Urine Yellow (P-Yellow)
[2024-11-14 22:03] LABS: Bacteria Few /hpf; Red Blood Cells, Urine 0-2 /hpf (0-2); Squamous Epithelial Cells Not Seen /hpf (Few); White Blood Cells, Urine 50-100 /hpf (0-5)
[2024-11-14 22:16] LABS: U Amphetamine Screen Not Detected; U Barbituate Screen Not Detected; U Benzodiazapine Screen Not Detected; U Buprenorphine Screen Not Detected; U Cannabinoids Screen Not Detected; U Cocaine Screen Not Detected; U Methadone Screen Not Detected; U Methamphetamine Screen Not Detected; U Opiates Screen Not Detected; U Oxycodone Screen Not Detected; U Phencyclidine Screen Not Detected
[2024-11-14] MEDS ORDERED: Trimethoprim/Sulfamethoxazole DS Tab PO ONE (23:25)
== END 2024-11-15 01:07 | disposition home or self-care (01) ==
LOC: ER 19:43
PROVIDERS: Student in an Organized Health Care Education/Training Program
DX: L03.115 Cellulitis of right lower limb (principal); E11.42 Type 2 diabetes mellitus with diabetic polyneuropathy; I11.0 Hypertensive heart disease with heart failure; I50.30 Unspecified diastolic (congestive) heart failure; G47.00 Insomnia, unspecified; F17.290 Nicotine dependence, other tobacco product, uncomplicated; Z59.00 Homelessness unspecified; Z79.84 Long term (current) use of oral hypoglycemic drugs; Z79.4 Long term (current) use of insulin; Z79.899 Other long term (current) drug therapy; Z88.8 Allergy status to other drugs, medicaments and biological substances
CPT/HCPCS: 80053; 81001; 85025; 87086; 96372; 99285; A9270; G0480; J1885

== ENCOUNTER 2024-11-29 14:49 | Emergency (ER) | payer OTHER ==
[~2024-11-29] VITALS: Ht 172.7 cm; Wt 74.8 kg
[2024-11-29 19:12] VITALS: BP 126/66
[2024-12-19] MEDS ORDERED: VITAMIN C125 MG PO (10:50)
[2024-12-19] MEDS ORDERED: ZINCTRAL57 GM (10:52)
[2024-12-19] MEDS ORDERED: OXAYDO5 M1 PO (10:53)
[2024-12-19] MEDS ORDERED: INSULANI SC (10:57)
[2025-01-10] MEDS ORDERED: POTA10T PO (17:43)
== END 2024-11-29 19:50 | disposition home or self-care (01) ==
LOC: ER 14:49
DX: S80.211A Abrasion, right knee, initial encounter (principal); S80.212A Abrasion, left knee, initial encounter; E11.9 Type 2 diabetes mellitus without complications; I11.0 Hypertensive heart disease with heart failure; I50.30 Unspecified diastolic (congestive) heart failure; G47.00 Insomnia, unspecified; F17.290 Nicotine dependence, other tobacco product, uncomplicated; X58.XXXA Exposure to other specified factors, initial encounter; Z79.4 Long term (current) use of insulin; Z79.84 Long term (current) use of oral hypoglycemic drugs; Z79.899 Other long term (current) drug therapy; Z88.8 Allergy status to other drugs, medicaments and biological substances
CPT/HCPCS: 73562-RT; 99283-25

== ENCOUNTER 2024-12-07 16:57 | Emergency (ER) | payer OTHER ==
[~2024-12-07] VITALS: Ht 167.6 cm; Wt 90.7 kg
[2024-12-07] MEDS ORDERED: Gabapentin 300 MG Cap PO ONE (17:10)
[2024-12-07] MEDS ORDERED: OxyCODONE HCL 5 MG TAB PO ONE (17:10)
[2024-12-07] MEDS ORDERED: Acetaminophen 500 MG Tab PO ONE (17:10)
[2024-12-07] MEDS ORDERED: Lactated Ringer's 1,000 ML IV SCH (19:10)
[2024-12-07 19:20] LABS: Source, Urine Clean Catch
[2024-12-07 19:39] LABS: Appearance, Urine Clear (Clear); Bilirubin, Urine Neg (Neg); Blood, Urine 3+ (Neg); Glucose Qualitative, Urine 4+ (Neg); Ketones, Urine Neg (Neg); Leukocyte Esterase, Urine Neg (Neg); Nitrite, Urine Neg (Neg); Protein, Urine 1+ (Neg); Urobilinogen, Urine NORM (Normal)
[2024-12-07 19:43] LABS: Base Excess Venous 9.6 mmol/L; Bicarbonate Venous 33.1 mmol/L (24.0-30.0); PCO2 Venous 32.8 mmHg (38-42); pH Blood Venous 7.59 (7.34-7.37)
[2024-12-07 19:49] LABS: BASOPHILS ABSOLUTE AUTO 0.03 K/mm3 (0.00-0.23); BASOPHILS PERCENT AUTO 1 % (0-2); EOSINOPHILS ABSOLUTE AUTO 0.11 K/mm3 (0.00-0.68); EOSINOPHILS PERCENT AUTO 2 % (0-6); Hematocrit 30.4 % (37.0-53.0); Hemoglobin 10.9 g/dL (13.5-17.5); IMMATURE GRAN ABSOLUTE AUTO 0.01 K/mm3 (0.00-0.10); IMMATURE GRAN PERCENT AUTO 0 % (0-1); LYMPHOCYTES ABSOLUTE AUTO 1.35 K/mm3 (0.84-5.20); LYMPHOCYTES PERCENT AUTO 22 % (21-46); MONOCYTES ABSOLUTE AUTO 0.42 K/mm3 (0.16-1.47); MONOCYTES PERCENT AUTO 7 % (4-13); Mean Corpuscular HGB 28.9 pg (26.0-34.0); Mean Corpuscular HGB Conc 35.9 g/dL (31.5-36.5); Mean Corpuscular Volume 81 fL (80-100); Mean Platelet Volume 9.3 fL (9.1-12.4); NEUTROPHILS ABSOLUTE AUTO 4.24 K/mm3 (1.96-9.15); NEUTROPHILS PERCENT AUTO 69 % (41-73); Platelet Count 214 K/mm3 (150-400); RDW Coefficient Variation 13.1 % (11.7-14.2); RDW Standard Deviation 38.5 fL (35.1-46.3); Red Blood Cell Count 3.77 M/mm3 (4.30-5.90); White Blood Cell Count 6.16 K/mm3 (4.00-11.30)
[2024-12-07 19:50] LABS: Color, Urine Pale Yellow (P-Yellow)
[2024-12-07] MEDS ORDERED: HYDROmorphone HCl/Pf 1MG SYR IV ONE (19:50)
[2024-12-07 19:51] LABS: Bacteria Rare /hpf; Squamous Epithelial Cells Rare /hpf (Few); White Blood Cells, Urine 0-2 /hpf (0-5)
[2024-12-07 20:07] LABS: Alanine Aminotransfer (ALT/SGP 17 U/L (12-78); Albumin, Blood 3.3 g/dL (3.4-5.0); Alk Phos 111 U/L (50-136); Anion Gap 10 mmol/L (3-11); Aspartate Aminotrans (AST/SGOT 12 U/L (12-37); Bilirubin, Total 0.4 mg/dL (0.1-1.0); Blood Urea Nitrogen 17 mg/dL (8-24); Bun/Creatinine Ratio 22.8 (12.0-20.0); CO2, Blood 31 mmol/L (21-32); Calcium, Blood 8.7 mg/dL (8.5-10.1); Chloride, Blood 91 mmol/L (98-108); Creatinine, Blood 0.75 mg/dL (0.60-1.20); Globulin, Blood 3.4 g/dL (2.2-4.0); Glomerular Filtration Rate 105 (60-); Glucose, Blood 430 mg/dL (70-99); Potassium, Blood 3.2 mmol/L (3.5-5.5); Sodium, Blood 129 mmol/L (136-145); Total Protein, Blood 6.7 g/dL (6.4-8.2)
[2024-12-07 20:12] LABS: Beta-hydroxybutyrate 1.3 mg/dL (0.2-2.8)
[2024-12-07] MEDS ORDERED: NS 1,000 ML IV SCH (20:20)
[2024-12-07 20:22] LABS: Magnesium, Blood 1.5 mg/dL (1.6-2.4); Phosphorus, Blood 3.5 mg/dL (2.5-4.9)
[2024-12-07] MEDS ORDERED: Magnesium Sulf 2 GM/Water 50ML 50 ML IV ONE (20:35)
[2024-12-07] MEDS ORDERED: Potassium Chloride 40 MEQ in NS 250 ML IV ONE (20:35)
[2024-12-07] MEDS ORDERED: CefTRIAXone Sodium 1,000 MG in NS 100 ML IV ONE (20:45)
[2024-12-07] MEDS ORDERED: JARDIANCE25 MG PO (22:08)
[2024-12-07] MEDS ORDERED: BASAGLAR K100 UNIT/1 SC (22:08)
[2024-12-07] MEDS ORDERED: SULTRIDS PO (22:08)
[2024-12-07] MEDS ORDERED: CEPH500 PO (22:08)
[2024-12-07] MEDS ORDERED: METF500 PO (22:08)
[2024-12-07] MEDS ORDERED: HUMALOG KW100 UNIT/1 SC (22:08)
[2024-12-07] MEDS ORDERED: Potassium Chloride 20 MEQ TabCR PO ONE (22:35)
[2024-12-07] MEDS ORDERED: Potassium Chl 10MEQ/Water100ML 100 ML IV ONE (22:35)
[2024-12-08] VITALS: BP 147/75
== END 2024-12-08 01:19 | disposition home or self-care (01) ==
LOC: ER 16:57
PROVIDERS: Emergency Medicine; Student in an Organized Health Care Education/Training Program
DX: L03.115 Cellulitis of right lower limb (principal); E11.9 Type 2 diabetes mellitus without complications; I11.0 Hypertensive heart disease with heart failure; I50.30 Unspecified diastolic (congestive) heart failure; E11.65 Type 2 diabetes mellitus with hyperglycemia; E87.3 Alkalosis; F17.200 Nicotine dependence, unspecified, uncomplicated; F17.290 Nicotine dependence, other tobacco product, uncomplicated; Z91.148 Patient's other noncompliance with medication regimen for other reason; Z79.899 Other long term (current) drug therapy; Z79.84 Long term (current) use of oral hypoglycemic drugs; Z79.4 Long term (current) use of insulin; Z88.8 Allergy status to other drugs, medicaments and biological substances; Z89.511 Acquired absence of right leg below knee
CPT/HCPCS: 73701; 80053; 81001; 82010; 82803; 82947; 83735; 84100; 85025; 87070; 87075; 87077; 87186; 87205; 96365-59; 96366; 96367; 96375; 99284-25; A9270; J0696; J1171; J3475; J3480; J7030; J7050; J7120; Q9967

== ENCOUNTER 2024-12-09 17:17 | Emergency (ER) | payer OTHER ==
[~2024-12-09] VITALS: Ht 165.1 cm; Wt 86.2 kg
[2024-12-09 20:35] LABS: BASOPHILS ABSOLUTE AUTO 0.06 K/mm3 (0.00-0.23); BASOPHILS PERCENT AUTO 1 % (0-2); EOSINOPHILS ABSOLUTE AUTO 0.16 K/mm3 (0.00-0.68); EOSINOPHILS PERCENT AUTO 3 % (0-6); Hematocrit 36.1 % (37.0-53.0); Hemoglobin 12.6 g/dL (13.5-17.5); IMMATURE GRAN ABSOLUTE AUTO 0.01 K/mm3 (0.00-0.10); IMMATURE GRAN PERCENT AUTO 0 % (0-1); LYMPHOCYTES PERCENT AUTO 21 % (21-46); MONOCYTES ABSOLUTE AUTO 0.41 K/mm3 (0.16-1.47); MONOCYTES PERCENT AUTO 7 % (4-13); Mean Corpuscular HGB 28.5 pg (26.0-34.0); Mean Corpuscular HGB Conc 34.9 g/dL (31.5-36.5); Mean Corpuscular Volume 82 fL (80-100); Mean Platelet Volume 9.5 fL (9.1-12.4); NEUTROPHILS ABSOLUTE AUTO 3.93 K/mm3 (1.96-9.15); NEUTROPHILS PERCENT AUTO 68 % (41-73); Platelet Count 276 K/mm3 (150-400); RDW Coefficient Variation 13.2 % (11.7-14.2); RDW Standard Deviation 39.2 fL (35.1-46.3); Red Blood Cell Count 4.42 M/mm3 (4.30-5.90); White Blood Cell Count 5.77 K/mm3 (4.00-11.30)
[2024-12-09 20:58] LABS: Albumin, Blood 3.9 g/dL (3.4-5.0); Bilirubin, Total 0.4 mg/dL (0.1-1.0); Bun/Creatinine Ratio 24.1 (12.0-20.0); Calcium, Blood 9.7 mg/dL (8.5-10.1); Creatinine, Blood 0.54 mg/dL (0.60-1.20); Globulin, Blood 4.1 g/dL (2.2-4.0); Potassium, Blood 3.2 mmol/L (3.5-5.5)
[2024-12-09 22:30] VITALS: BP 150/82
[2024-12-09] MEDS ORDERED: NS 1,000 ML IV SCH (23:20)
[2024-12-09] MEDS ORDERED: Trimethoprim/Sulfamethoxazole DS Tab PO ONE (23:25)
[2024-12-09] MEDS ORDERED: Potassium Chloride 20 MEQ TabCR PO ONE (23:25)
[2024-12-09] MEDS ORDERED: Cephalexin Monohydrate 500 MG Cap PO ONE (23:25)
== END 2024-12-10 02:16 | disposition home or self-care (01) ==
LOC: ER 17:17
PROVIDERS: Student in an Organized Health Care Education/Training Program
DX: L03.116 Cellulitis of left lower limb (principal); Z79.4 Long term (current) use of insulin; Z79.84 Long term (current) use of oral hypoglycemic drugs; Z79.899 Other long term (current) drug therapy; Z88.8 Allergy status to other drugs, medicaments and biological substances
CPT/HCPCS: 36415; 80053; 83605; 85025; 87040; 93005; 93010; 96360; 99283-25; A9270; J7030

== ENCOUNTER 2024-12-11 19:22 | Inpatient (IN) | payer OTHER ==
[~2024-12-11] VITALS: Ht 165.1 cm; Wt 67.1 kg
[2024-12-19 07:41] VITALS: BP 142/80
== END 2024-12-19 14:08 | disposition home or self-care (01) | DRG 564 ==
LOC: ER 19:22 → MEDS 19:23 → SURS 19:23 → MEDS 12-12 17:45
PROVIDERS: ADMIT Family Medicine
DX: T87.43 Infection of amputation stump, right lower extremity (principal); A41.9 Sepsis, unspecified organism; R65.20 Severe sepsis without septic shock; G92.8 Other toxic encephalopathy; L03.115 Cellulitis of right lower limb; Z59.00 Homelessness unspecified; E87.20 Acidosis, unspecified; I50.32 Chronic diastolic (congestive) heart failure; E87.1 Hypo-osmolality and hyponatremia; L97.818 Non-pressure chronic ulcer of other part of right lower leg with other specified severity; E87.6 Hypokalemia; F15.90 Other stimulant use, unspecified, uncomplicated; Z66 Do not resuscitate; N40.0 Benign prostatic hyperplasia without lower urinary tract symptoms; F10.10 Alcohol abuse, uncomplicated; Y83.5 Amputation of limb(s) as the cause of abnormal reaction of the patient, or of later complication, without mention of misadventure at the time of the procedure; I70.238 Atherosclerosis of native arteries of right leg with ulceration of other part of lower leg; F17.210 Nicotine dependence, cigarettes, uncomplicated; E11.65 Type 2 diabetes mellitus with hyperglycemia; E11.42 Type 2 diabetes mellitus with diabetic polyneuropathy; I11.0 Hypertensive heart disease with heart failure; E78.5 Hyperlipidemia, unspecified; D63.8 Anemia in other chronic diseases classified elsewhere; G47.00 Insomnia, unspecified; F32.A Depression, unspecified; K74.60 Unspecified cirrhosis of liver; Z89.422 Acquired absence of other left toe(s); Z89.431 Acquired absence of right foot; Z89.511 Acquired absence of right leg below knee; Z99.3 Dependence on wheelchair; Z79.899 Other long term (current) drug therapy; Z79.4 Long term (current) use of insulin; Z79.84 Long term (current) use of oral hypoglycemic drugs; Z86.14 Personal history of Methicillin resistant Staphylococcus aureus infection; Z91.119 Patient's noncompliance with dietary regimen due to unspecified reason; Z88.8 Allergy status to other drugs, medicaments and biological substances

== ENCOUNTER 2024-12-21 12:14 | Emergency (ER) | payer OTHER ==
[~2024-12-21] VITALS: Ht 172.7 cm; Wt 68.0 kg
[~2024-12-21 12:14] MED LIST changes: +OXAYDO5 M1 PO; +VITAMIN C125 MG PO; +ZINCTRAL57 GM
[2024-12-21 12:24] VITALS: BP 127/82
[2024-12-21] MEDS ORDERED: Cephalexin Monohydrate 500 MG Cap PO ONE (12:50)
[2024-12-21] MEDS ORDERED: Insulin Human Lispro 100 Units/ML 3ML Syringe SC ONE (12:50)
[2024-12-21] MEDS ORDERED: Cephalexin500 M1 PO (13:34)
== END 2024-12-21 13:53 | disposition home or self-care (01) ==
LOC: ER 12:14
DX: S00.03XA Contusion of scalp, initial encounter (principal); E11.65 Type 2 diabetes mellitus with hyperglycemia; L97.819 Non-pressure chronic ulcer of other part of right lower leg with unspecified severity; E11.42 Type 2 diabetes mellitus with diabetic polyneuropathy; I11.0 Hypertensive heart disease with heart failure; I50.30 Unspecified diastolic (congestive) heart failure; E78.5 Hyperlipidemia, unspecified; F17.210 Nicotine dependence, cigarettes, uncomplicated; F17.290 Nicotine dependence, other tobacco product, uncomplicated; Z89.511 Acquired absence of right leg below knee; Z89.422 Acquired absence of other left toe(s); Z88.8 Allergy status to other drugs, medicaments and biological substances; Z79.2 Long term (current) use of antibiotics; Z79.4 Long term (current) use of insulin; Z79.84 Long term (current) use of oral hypoglycemic drugs; Z79.899 Other long term (current) drug therapy; W05.0XXA Fall from non-moving wheelchair, initial encounter
CPT/HCPCS: 70450; 82947; 99283-25; A9270; J1815

== ENCOUNTER 2025-01-03 13:35 | Emergency (ER) | payer OTHER ==
[~2025-01-03] VITALS: Ht 177.8 cm; Wt 90.7 kg
[~2025-01-03 13:35] MED LIST changes: +Cephalexin500 M1 PO
[2025-01-03 16:30] LABS: BASOPHILS ABSOLUTE AUTO 0.04 K/mm3 (0.00-0.23); BASOPHILS PERCENT AUTO 1 % (0-2); EOSINOPHILS ABSOLUTE AUTO 0.13 K/mm3 (0.00-0.68); EOSINOPHILS PERCENT AUTO 3 % (0-6); Hematocrit 35.4 % (37.0-53.0); Hemoglobin 12.1 g/dL (13.5-17.5); IMMATURE GRAN ABSOLUTE AUTO 0.01 K/mm3 (0.00-0.10); IMMATURE GRAN PERCENT AUTO 0 % (0-1); LYMPHOCYTES PERCENT AUTO 26 % (21-46); MONOCYTES ABSOLUTE AUTO 0.34 K/mm3 (0.16-1.47); MONOCYTES PERCENT AUTO 7 % (4-13); Mean Corpuscular HGB 28.9 pg (26.0-34.0); Mean Corpuscular HGB Conc 34.2 g/dL (31.5-36.5); Mean Corpuscular Volume 85 fL (80-100); Mean Platelet Volume 9.6 fL (9.1-12.4); NEUTROPHILS PERCENT AUTO 64 % (41-73); Platelet Count 249 K/mm3 (150-400); RDW Coefficient Variation 13.2 % (11.7-14.2); RDW Standard Deviation 41.1 fL (35.1-46.3); Red Blood Cell Count 4.19 M/mm3 (4.30-5.90); White Blood Cell Count 5.02 K/mm3 (4.00-11.30)
[2025-01-03 17:11] LABS: Albumin, Blood 3.4 g/dL (3.4-5.0); Bilirubin, Total 0.3 mg/dL (0.1-1.0); Bun/Creatinine Ratio 15.1 (12.0-20.0); Creatinine, Blood 0.73 mg/dL (0.60-1.20); Globulin, Blood 3.5 g/dL (2.2-4.0); Potassium, Blood 3.4 mmol/L (3.5-5.5); Total Protein, Blood 6.9 g/dL (6.4-8.2)
[2025-01-03 17:30] LABS: C-REACTIVE PROTEIN, EXT RANGE 0.321 mg/dL (0.000-0.300); Calcium, Blood 8.3 mg/dL (8.5-10.1)
[2025-01-03] MEDS ORDERED: Trimethoprim/Sulfamethoxazole DS Tab PO ONE (17:30)
[2025-01-03] MEDS ORDERED: BACTRIM DS TAB1 EAC1 PO (17:37)
[2025-01-03 21:10] VITALS: BP 167/97
[2025-01-10] MEDS ORDERED: POTA10T PO (17:43)
== END 2025-01-03 21:16 | disposition home or self-care (01) ==
LOC: ER 13:35
PROVIDERS: Emergency Medicine
DX: E11.69 Type 2 diabetes mellitus with other specified complication (principal); M86.9 Osteomyelitis, unspecified; E11.65 Type 2 diabetes mellitus with hyperglycemia; E11.622 Type 2 diabetes mellitus with other skin ulcer; L97.819 Non-pressure chronic ulcer of other part of right lower leg with unspecified severity; E11.42 Type 2 diabetes mellitus with diabetic polyneuropathy; I11.0 Hypertensive heart disease with heart failure; I50.30 Unspecified diastolic (congestive) heart failure; E78.5 Hyperlipidemia, unspecified; F17.210 Nicotine dependence, cigarettes, uncomplicated; F17.290 Nicotine dependence, other tobacco product, uncomplicated; Z89.511 Acquired absence of right leg below knee; Z91.148 Patient's other noncompliance with medication regimen for other reason; Z88.8 Allergy status to other drugs, medicaments and biological substances; Z79.4 Long term (current) use of insulin; Z79.84 Long term (current) use of oral hypoglycemic drugs; Z79.899 Other long term (current) drug therapy
CPT/HCPCS: 73620; 80053; 83930; 85025; 86140; 99284-25; A9270

== ENCOUNTER 2025-01-09 11:10 | Emergency (ER) | payer OTHER ==
[~2025-01-09] VITALS: Ht 172.7 cm; Wt 68.0 kg
[2025-01-09 13:07] LABS: Base Excess Venous 7.5 mmol/L; Bicarbonate Venous 30.2 mmol/L (24.0-30.0); PCO2 Venous 50.3 mmHg (38-42); pH Blood Venous 7.41 (7.34-7.37)
[2025-01-09 13:10] LABS: BASOPHILS ABSOLUTE AUTO 0.03 K/mm3 (0.00-0.23); BASOPHILS PERCENT AUTO 1 % (0-2); EOSINOPHILS PERCENT AUTO 2 % (0-6); Hematocrit 34.2 % (37.0-53.0); Hemoglobin 11.6 g/dL (13.5-17.5); IMMATURE GRAN ABSOLUTE AUTO 0.01 K/mm3 (0.00-0.10); IMMATURE GRAN PERCENT AUTO 0 % (0-1); LYMPHOCYTES ABSOLUTE AUTO 1.01 K/mm3 (0.84-5.20); LYMPHOCYTES PERCENT AUTO 19 % (21-46); MONOCYTES ABSOLUTE AUTO 0.34 K/mm3 (0.16-1.47); MONOCYTES PERCENT AUTO 6 % (4-13); Mean Corpuscular HGB 28.4 pg (26.0-34.0); Mean Corpuscular HGB Conc 33.9 g/dL (31.5-36.5); Mean Corpuscular Volume 84 fL (80-100); Mean Platelet Volume 9.5 fL (9.1-12.4); NEUTROPHILS ABSOLUTE AUTO 3.98 K/mm3 (1.96-9.15); NEUTROPHILS PERCENT AUTO 73 % (41-73); Platelet Count 218 K/mm3 (150-400); RDW Coefficient Variation 13.3 % (11.7-14.2); RDW Standard Deviation 41.1 fL (35.1-46.3); Red Blood Cell Count 4.08 M/mm3 (4.30-5.90); White Blood Cell Count 5.47 K/mm3 (4.00-11.30)
[2025-01-09 13:15] VITALS: BP 158/98
[2025-01-09 13:38] LABS: Albumin, Blood 3.6 g/dL (3.4-5.0); Albumin/Globulin Ratio 1.1 (0.8-1.8); Beta-hydroxybutyrate 1.5 mg/dL (0.2-2.8); Bilirubin, Total 0.3 mg/dL (0.1-1.0); Bun/Creatinine Ratio 17.1 (12.0-20.0); Calcium, Blood 9.1 mg/dL (8.5-10.1); Creatinine, Blood 0.59 mg/dL (0.60-1.20); Globulin, Blood 3.3 g/dL (2.2-4.0); Magnesium, Blood 1.8 mg/dL (1.6-2.4); Phosphorus, Blood 2.9 mg/dL (2.5-4.9); Potassium, Blood 3.2 mmol/L (3.5-5.5); Total Protein, Blood 6.9 g/dL (6.4-8.2)
[2025-01-09] MEDS ORDERED: CEPH500 PO (14:08)
[2025-01-09] MEDS ORDERED: Cephalexin Monohydrate 500 MG Cap PO ONE (14:10)
[2025-01-09] MEDS ORDERED: Trimethoprim/Sulfamethoxazole DS Tab PO ONE (14:10)
[2025-01-10] MEDS ORDERED: POTA10T PO (17:43)
== END 2025-01-09 14:47 | disposition home or self-care (01) ==
LOC: ER 11:10
PROVIDERS: Student in an Organized Health Care Education/Training Program
DX: L03.116 Cellulitis of left lower limb (principal); T87.43 Infection of amputation stump, right lower extremity; E86.0 Dehydration; E11.65 Type 2 diabetes mellitus with hyperglycemia; E11.42 Type 2 diabetes mellitus with diabetic polyneuropathy; I11.0 Hypertensive heart disease with heart failure; I50.30 Unspecified diastolic (congestive) heart failure; E78.5 Hyperlipidemia, unspecified; F17.210 Nicotine dependence, cigarettes, uncomplicated; F17.290 Nicotine dependence, other tobacco product, uncomplicated; Z88.8 Allergy status to other drugs, medicaments and biological substances; Z79.4 Long term (current) use of insulin; Z79.84 Long term (current) use of oral hypoglycemic drugs; Z79.899 Other long term (current) drug therapy
CPT/HCPCS: 73630; 80053; 82010; 82803; 82947; 83605; 83735; 84100; 85025; 85651; 86140; 99285-25

== ENCOUNTER 2025-01-15 19:38 | Observation (INO) | payer OTHER ==
[~2025-01-15] VITALS: Ht 175.3 cm; Wt 68.0 kg
[~2025-01-15 19:38] MED LIST changes: +POTA10T PO
[2025-01-15] MEDS ORDERED: Lactated Ringer's 1,000 ML IV ONE (20:40)
[2025-01-15 21:12] LABS: BASOPHILS ABSOLUTE AUTO 0.04 K/mm3 (0.00-0.23); BASOPHILS PERCENT AUTO 1 % (0-2); EOSINOPHILS ABSOLUTE AUTO 0.11 K/mm3 (0.00-0.68); EOSINOPHILS PERCENT AUTO 2 % (0-6); Hematocrit 34.3 % (37.0-53.0); Hemoglobin 11.7 g/dL (13.5-17.5); IMMATURE GRAN ABSOLUTE AUTO 0.01 K/mm3 (0.00-0.10); IMMATURE GRAN PERCENT AUTO 0 % (0-1); LYMPHOCYTES ABSOLUTE AUTO 1.13 K/mm3 (0.84-5.20); LYMPHOCYTES PERCENT AUTO 19 % (21-46); MONOCYTES ABSOLUTE AUTO 0.49 K/mm3 (0.16-1.47); MONOCYTES PERCENT AUTO 8 % (4-13); Mean Corpuscular HGB 28.5 pg (26.0-34.0); Mean Corpuscular HGB Conc 34.1 g/dL (31.5-36.5); Mean Corpuscular Volume 84 fL (80-100); Mean Platelet Volume 9.3 fL (9.1-12.4); NEUTROPHILS ABSOLUTE AUTO 4.09 K/mm3 (1.96-9.15); NEUTROPHILS PERCENT AUTO 70 % (41-73); Platelet Count 253 K/mm3 (150-400); RDW Standard Deviation 39.6 fL (35.1-46.3); White Blood Cell Count 5.87 K/mm3 (4.00-11.30)
[2025-01-15 21:43] LABS: Alanine Aminotransfer (ALT/SGP 18 U/L (12-78); Albumin, Blood 3.7 g/dL (3.4-5.0); Albumin/Globulin Ratio 1.1 (0.8-1.8); Alk Phos 122 U/L (50-136); Anion Gap 9 mmol/L (3-11); Aspartate Aminotrans (AST/SGOT 17 U/L (12-37); Beta-hydroxybutyrate 1.2 mg/dL (0.2-2.8); Bilirubin, Total 0.4 mg/dL (0.1-1.0); Blood Urea Nitrogen 14 mg/dL (8-24); CO2, Blood 30 mmol/L (21-32); Calcium, Blood 8.6 mg/dL (8.5-10.1); Chloride, Blood 96 mmol/L (98-108); Creatinine, Blood 0.61 mg/dL (0.60-1.20); Ethanol (Alcohol), Blood, Med <3 mg/dL; Globulin, Blood 3.5 g/dL (2.2-4.0); Glomerular Filtration Rate 111 (60-); Glucose, Blood 408 mg/dL (70-99); Potassium, Blood 3.3 mmol/L (3.5-5.5); Sodium, Blood 132 mmol/L (136-145); Total Protein, Blood 7.2 g/dL (6.4-8.2)
[2025-01-15 21:55] LABS: Source, Urine Clean Catch
[2025-01-15 21:59] LABS: Bilirubin, Urine Neg (Neg); Blood, Urine 2+ (Neg); Glucose Qualitative, Urine 4+ (Neg); Ketones, Urine Neg (Neg); Leukocyte Esterase, Urine Neg (Neg); Nitrite, Urine Neg (Neg); Protein, Urine 1+ (Neg); Specific Gravity, Urine 1.015 (1.003-1.022); Urobilinogen, Urine NORM (Normal); pH, Urine 6.5 (5.0-8.0)
[2025-01-15 22:07] LABS: Appearance, Urine Hazy (Clear); Color, Urine Yellow (P-Yellow)
[2025-01-15 22:08] LABS: Bacteria Rare /hpf; Squamous Epithelial Cells Rare /hpf (Few); White Blood Cells, Urine Not Seen /hpf (0-5); Yeast/Fungi Urine Many /hpf
[2025-01-15 22:08] LABS: Base Excess Venous 11.3 mmol/L; Bicarbonate Venous 32.5 mmol/L (24.0-30.0); PCO2 Venous 57.2 mmHg (38-42); pH Blood Venous 7.41 (7.34-7.37)
[2025-01-15 22:16] LABS: U Amphetamine Screen DETECTED; U Barbituate Screen Not Detected; U Benzodiazapine Screen Not Detected; U Buprenorphine Screen Not Detected; U Cannabinoids Screen DETECTED; U Cocaine Screen Not Detected; U Methadone Screen Not Detected; U Methamphetamine Screen DETECTED; U Opiates Screen Not Detected; U Oxycodone Screen Not Detected; U Phencyclidine Screen Not Detected
[2025-01-15] MEDS ORDERED: Cephalexin Monohydrate 500 MG Cap PO ONE (22:25)
[2025-01-15] MEDS ORDERED: Insulin Regular 100 Unit/ML 1ML Dose SC ONE (22:30)
[2025-01-15] MEDS ORDERED: Insulin Glargine-Yfgn 100 Unit/mL 3 ML SYR SC ONE (23:50)
[2025-01-16] MEDS ORDERED: Empagliflozin 25 MG TAB PO SCH (09:00)
[2025-01-16] MEDS ORDERED: Cephalexin Monohydrate 500 MG Cap PO SCH (09:00)
[2025-01-16 11:27] VITALS: BP 148/79
[2025-01-16] MEDS ORDERED: Insulin Glargine-Yfgn 100 Unit/mL 3 ML SYR SC SCH (21:00)
== END 2025-01-16 22:40 | disposition home or self-care (01) ==
LOC: ER 19:38 → EOR 19:39
PROVIDERS: ADMIT Emergency Medicine
DX: R45.851 Suicidal ideations (principal); L03.116 Cellulitis of left lower limb; E11.9 Type 2 diabetes mellitus without complications; Z79.4 Long term (current) use of insulin; Z89.512 Acquired absence of left leg below knee
CPT/HCPCS: 73660; 80053; 80320; 81001; 82010; 82803; 82947; 83605; 85025; 93005; 93010; 96360; 99285-25; A9270; G0378; J1815; J7120

== ENCOUNTER 2025-01-30 15:42 | Inpatient (IN) | payer OTHER ==
[~2025-01-30] VITALS: Ht 177.8 cm; Wt 68.8 kg
[2025-01-30 16:10] LABS: BASOPHILS ABSOLUTE AUTO 0.05 K/mm3 (0.00-0.23); BASOPHILS PERCENT AUTO 1 % (0-2); EOSINOPHILS ABSOLUTE AUTO 0.11 K/mm3 (0.00-0.68); EOSINOPHILS PERCENT AUTO 1 % (0-6); Hematocrit 36.9 % (37.0-53.0); Hemoglobin 12.8 g/dL (13.5-17.5); IMMATURE GRAN ABSOLUTE AUTO 0.02 K/mm3 (0.00-0.10); IMMATURE GRAN PERCENT AUTO 0 % (0-1); LYMPHOCYTES ABSOLUTE AUTO 1.19 K/mm3 (0.84-5.20); LYMPHOCYTES PERCENT AUTO 15 % (21-46); MONOCYTES ABSOLUTE AUTO 0.51 K/mm3 (0.16-1.47); MONOCYTES PERCENT AUTO 6 % (4-13); Mean Corpuscular HGB Conc 34.7 g/dL (31.5-36.5); Mean Corpuscular Volume 84 fL (80-100); NEUTROPHILS ABSOLUTE AUTO 6.13 K/mm3 (1.96-9.15); NEUTROPHILS PERCENT AUTO 77 % (41-73); NRBC ABSOLUTE 0.00 K/mm3 (0.00-0.02); NRBC Auto 0.0 /100 WBC (0.0-0.2); Platelet Count 269 K/mm3 (150-400); RDW Coefficient Variation 13.6 % (11.7-14.2); RDW Standard Deviation 41.8 fL (35.1-46.3)
[2025-01-30 16:17] LABS: pH Blood Venous 7.47 (7.34-7.37)
[2025-01-30 16:34] LABS: Alanine Aminotransfer (ALT/SGP 20.0 U/L (12-78); Albumin, Blood 3.5 g/dL (3.4-5.0); Albumin/Globulin Ratio 1.0 (0.8-1.8); Anion Gap 13.0 mmol/L (3-11); Aspartate Aminotrans (AST/SGOT 22.0 U/L (12-37); Bilirubin, Total 0.4 mg/dL (0.1-1.0); Blood Urea Nitrogen 9.0 mg/dL (8-24); CO2, Blood 27.0 mmol/L (21-32); Calcium, Blood 8.3 mg/dL (8.5-10.1); Chloride, Blood 94.0 mmol/L (98-108); Creatinine, Blood 0.68 mg/dL (0.60-1.20); Globulin, Blood 3.6 g/dL (2.2-4.0); Glucose, Blood 497.0 mg/dL (70-99); Magnesium, Blood 1.4 mg/dL (1.6-2.4); Phosphorus, Blood 2.4 mg/dL (2.5-4.9); Potassium, Blood 2.7 mmol/L (3.5-5.5); Sodium, Blood 131.0 mmol/L (136-145); Total Protein, Blood 7.1 g/dL (6.4-8.2)
[2025-01-30 16:35] LABS: Osmolality, Serum 303.0 mos/KG (275-300)
[2025-01-30] MEDS ORDERED: Potassium Chloride 10 Meq Tablet SA PO ONE (19:50)
[2025-01-30] MEDS ORDERED: CefTRIAXone Sodium 1,000 MG in NS 100 ML IV ONE (23:25)
[2025-01-30] MEDS ORDERED: Vancomycin (Pharmacy Consult) IV PRN (23:25)
[2025-01-31] MEDS ORDERED: Mag Sulfate 1 GM/D5% 100ML 100 ML IV STA (01:47)
[2025-01-31] MEDS ORDERED: Potassium Phosphate Dibasic 15 MM in Dextrose 5% 250 ML IV STA (01:48)
[2025-01-31] MEDS ORDERED: Vancomycin (Pharmacy Consult) IV SCH (02:00)
[2025-01-31] MEDS ORDERED: NS 1,000 ML IV SCH (02:00)
[2025-01-31 02:51] VITALS: BP 137/59
[2025-01-31 04:37] LABS: BASOPHILS ABSOLUTE AUTO 0.05 K/mm3 (0.00-0.23); BASOPHILS PERCENT AUTO 1 % (0-2); EOSINOPHILS ABSOLUTE AUTO 0.14 K/mm3 (0.00-0.68); EOSINOPHILS PERCENT AUTO 3 % (0-6); Hematocrit 34.6 % (37.0-53.0); Hemoglobin 11.9 g/dL (13.5-17.5); IMMATURE GRAN ABSOLUTE AUTO 0.01 K/mm3 (0.00-0.10); IMMATURE GRAN PERCENT AUTO 0 % (0-1); LYMPHOCYTES ABSOLUTE AUTO 1.38 K/mm3 (0.84-5.20); LYMPHOCYTES PERCENT AUTO 26 % (21-46); MONOCYTES ABSOLUTE AUTO 0.33 K/mm3 (0.16-1.47); MONOCYTES PERCENT AUTO 6 % (4-13); Mean Corpuscular HGB Conc 34.4 g/dL (31.5-36.5); Mean Corpuscular Volume 84 fL (80-100); NEUTROPHILS ABSOLUTE AUTO 3.36 K/mm3 (1.96-9.15); NEUTROPHILS PERCENT AUTO 64 % (41-73); NRBC ABSOLUTE 0.00 K/mm3 (0.00-0.02); NRBC Auto 0.0 /100 WBC (0.0-0.2); Platelet Count 224 K/mm3 (150-400); RDW Coefficient Variation 13.7 % (11.7-14.2); RDW Standard Deviation 42.4 fL (35.1-46.3)
[2025-01-31 04:58] LABS: Alanine Aminotransfer (ALT/SGP 16.0 U/L (12-78); Albumin, Blood 3.2 g/dL (3.4-5.0); Albumin/Globulin Ratio 1.0 (0.8-1.8); Anion Gap 6.0 mmol/L (3-11); Aspartate Aminotrans (AST/SGOT 15.0 U/L (12-37); Bilirubin, Total 0.3 mg/dL (0.1-1.0); Blood Urea Nitrogen 7.0 mg/dL (8-24); CO2, Blood 33.0 mmol/L (21-32); Calcium, Blood 8.3 mg/dL (8.5-10.1); Chloride, Blood 101.0 mmol/L (98-108); Creatinine, Blood 0.54 mg/dL (0.60-1.20); Globulin, Blood 3.1 g/dL (2.2-4.0); Glucose, Blood 317.0 mg/dL (70-99); Magnesium, Blood 1.9 mg/dL (1.6-2.4); Phosphorus, Blood 2.8 mg/dL (2.5-4.9); Potassium, Blood 3.0 mmol/L (3.5-5.5); Sodium, Blood 137.0 mmol/L (136-145); Total Protein, Blood 6.3 g/dL (6.4-8.2)
--- NOTE | 2025-01-31 05:36 | NUR ---
SUMMARY: PT AOX2. ABLE TO STATE HIS NAME AND WHERE HE IS BUT REFUSING TO ANSWER FURTHER QUESTIONS. PT IS SELECTIVE WITH QUESTIONS HE WILL ANSWER. HE HAS BEEN COMPLIANT WITH ALLOWING LAB TO DRAW AND NURSING TO ASSESS BODY. PT HAD ATTENDS AND BEDDING CHANGED UPON ARRIVAL TO FLOOR. PT WAS MODERATE ASSIST OF TWO DUE TO RELUCTANCE TO ASSIST STAFF WITH TURNING. ORDERS FOR BEDREST. PT HAS BEEN RESTING COMFORTABLY, EQUAL RESPIRATIONS, NSR ON TELE, BED IN LOW POSITION, CALL LIGHT WTIHIN REACH. ON ROOM AIR- SATURATONS ABOVE 90% ON SPOT CHECK.
[2025-01-31] MEDS ORDERED: Insulin Human Lispro 100 Units/ML 3ML Syringe SC SCH (07:30)
[2025-01-31] MEDS ORDERED: Polyethylene Glycol 3350 17 gm PO PRN (07:35)
[2025-01-31 07:55] VITALS: BP 167/85
[2025-01-31] MEDS ORDERED: Enoxaparin 40 MG/0.4 ML SYR SC SCH (09:00)
[2025-01-31] MEDS ORDERED: Lactobacil 2-S.Thermo-Bifido 1 1 Cap PO SCH (09:00)
[2025-01-31 15:08] VITALS: BP 131/71
--- NOTE | 2025-01-31 18:19 | NUR ---
DAY SUMMARY PT SLEPT THROUGH MOST OF SHIFT, WAKING FOR MEALS, REFUSING CARES IN THE AM, MORE COOPERATIVE THIS AFTERNOON, VSS, NO C/O PAIN, REFSES ROPOSITIONS, LOST IV ACCESS THIS SHIFT, REFUSED NEW IV AT THIS TIME, PT EATING DINNER AT THIS TIME, CALL LIGHT IN REACH, BED ALARM ACTIVE, WILL CONT TO MONITOR UNTIL REPORT GIVEN TO ONCOMING NURSE.
[2025-01-31 19:36] VITALS: BP 138/70
[2025-01-31] MEDS ORDERED: Docusate Sodium/Senna 1 Tab PO SCH (21:00)
[2025-01-31] MEDS ORDERED: Insulin Glargine-Yfgn 100 Unit/mL 3 ML SYR SC SCH (21:00)
--- NOTE | 2025-02-01 04:48 | NUR ---
SHIFT SUMMARY ADMITTED FOR SUSPECTED CELLULITIS OF RIGHT BKA STUMP. DNR CODE. CONTACT ISOLATION FOR MRSA-WOUND AND ESBL-URINE. IV ANTIB RX ARE SCHEDULED. HE REFUSES CARE, MEDICATIONS, ASSESSMENTS. CURRENTLY HE IS REFUSING A NEW IV, THAT WAS REMOVED ON THE PREVIOUS SHIFT. HE IS ON RA, BEDREST, ADA DIET. ACHS - LOW SS. HE REQUESTED PAIN MEDICATION AT BEGINNING OF SHIFT, BUT REFUSED TYLENOL WHEN I BROUGHT IT TO HIM. HE REQUESTS FREQUENT SNACKS THROUGHOUT SHIFT. LABILE MOODS.
[2025-02-01 05:16] VITALS: BP 149/72
[2025-02-01 08:11] VITALS: BP 148/76
[2025-02-01 11:29] LABS: Hematocrit 37.6 % (37.0-53.0); Hemoglobin 12.9 g/dL (13.5-17.5); Mean Corpuscular HGB Conc 34.3 g/dL (31.5-36.5); Mean Corpuscular Volume 84 fL (80-100); NRBC ABSOLUTE 0.00 K/mm3 (0.00-0.02); NRBC Auto 0.0 /100 WBC (0.0-0.2); Platelet Count 232 K/mm3 (150-400); RDW Coefficient Variation 13.3 % (11.7-14.2); RDW Standard Deviation 40.6 fL (35.1-46.3)
[2025-02-01 11:58] LABS: Vancomycin, Trough 3.3 ug/mL (5.0-10.0)
[2025-02-01 12:21] LABS: Albumin, Blood 3.3 g/dL (3.4-5.0); Anion Gap 7 mmol/L (3-11); Blood Urea Nitrogen 14 mg/dL (8-24); CO2, Blood 31 mmol/L (21-32); Calcium, Blood 8.6 mg/dL (8.5-10.1); Chloride, Blood 103 mmol/L (98-108); Creatinine, Blood 0.59 mg/dL (0.60-1.20); Glucose, Blood 145 mg/dL (70-99); Magnesium, Blood 1.6 mg/dL (1.6-2.4); Phosphorus, Blood 3.3 mg/dL (2.5-4.9); Potassium, Blood 3.2 mmol/L (3.5-5.5); Sodium, Blood 138 mmol/L (136-145)
--- NOTE | 2025-02-01 12:48 | NUR ---
Call placed to Dr. Reza regarding Vancomycin IV order and pt with no IV access. Pt allowed attempt for IV x2 and then declined further attempts. Dr. Reza updated and new orders to DC IV fluids/Antibiotics and new oral antibiotics placed.
[2025-02-01 13:29] VITALS: BP 159/83
--- NOTE | 2025-02-01 17:16 | NUR ---
END OF SHIFT SUMMARY: PT A/O X2 THIS AM AND REFUSED TO ANSWERE MOST QUESTIONS. PT ALLOWED FOR ASSESSMENT AND MEDICATIONS. PT WITHOUT IV ACCESS AND ATTEMPT X2 COMPLETED AND PT REFUSED FOR FURTHER ATTEMPTS. ORDERS OBTAINED FOR ORAL MEDICATIONS. PT CONSISTENTLY CALLS REQUESTING DIET PEPSI AND SNACKS; STATES HE IS STARVING AND EATS ALL THE TIME WHEN NOT IN HOSPITAL. SNACKS AND DRINKS HAVE BEEN PROVIDED. PT HAD [facility] VISIT AND DISCUSSION WITH THEM REGARDING HIS REFUSAL OF CARES; MEDICATIONS; PROCEDURES AND NEED FOR PLACEMENT BEING HINDERED. AFTER DISUCUSSION WITH [facility] ABOUT HIS NEEDS; PT WAS MORE AWAKE AND COOPERATIVE TODAY AND ANSWERED QUESTIONS APPROPRIATELY AT END OF SHIFT. CALL LIGHT WITHIN REACH; BED IN LOWEST POSITION.
--- NOTE | 2025-02-01 18:12 | NUR ---
Emptied urinal and checked attends. Encouraged patient to reposition in bed. The patient is eating dinner and all needs have been met at this time. Brought fresh drinks and cleaned room. Call light is in reach.
--- NOTE | 2025-02-01 18:36 | NUR ---
PT WITH COMPLAINT OF PAIN. TYLENOL OFFERED PER EMAR. PT REFUSED, STATING THAT IT UPSET HIS STOMACH. ICE AND HEAT BOTH OFFERED AND PT REFUSED. WILL REPORT TO ONCOMING RN AT SHIFT REPORT.
[2025-02-01 20:30] VITALS: BP 156/75
--- NOTE | 2025-02-02 04:30 | NUR ---
SHIFT SUMMARY ADMITTED FOR RIGHT STUMP CELLULITIS. DNR CODE. PO ANTIB ARE SCHEDULED. PLAN IS FOR PLACEMENT. ISOLATION FOR MRSA-WOUND & ESBL-URINE. HE IS ON RA, BEDREST, A&O X?. ACHS CBG'S- LOW SS. RIGHT BKA 2023. ADA DIET. HE USES A WHEELCHAIR AT BASELINE AND IS UNSURE OF WHERE IT IS NOW. HE IS HOMELESS. NO NEW CONCERNS THIS SHIFT.
[2025-02-02 05:23] LABS: Hematocrit 36.7 % (37.0-53.0); Hemoglobin 12.8 g/dL (13.5-17.5); Mean Corpuscular HGB Conc 34.9 g/dL (31.5-36.5); Mean Corpuscular Volume 83 fL (80-100); NRBC ABSOLUTE 0.00 K/mm3 (0.00-0.02); NRBC Auto 0.0 /100 WBC (0.0-0.2); Platelet Count 228 K/mm3 (150-400); RDW Coefficient Variation 13.2 % (11.7-14.2); RDW Standard Deviation 39.8 fL (35.1-46.3)
[2025-02-02 05:47] LABS: Anion Gap 7.0 mmol/L (3-11); Blood Urea Nitrogen 18.0 mg/dL (8-24); CO2, Blood 30.0 mmol/L (21-32); Calcium, Blood 8.6 mg/dL (8.5-10.1); Chloride, Blood 103.0 mmol/L (98-108); Creatinine, Blood 0.62 mg/dL (0.60-1.20); Glucose, Blood 222.0 mg/dL (70-99); Potassium, Blood 2.8 mmol/L (3.5-5.5); Sodium, Blood 137.0 mmol/L (136-145)
[2025-02-02 07:13] VITALS: BP 152/77
[2025-02-02] MEDS ORDERED: Potassium Chl 20MEQ/Water100ML 100 ML IV SCH (07:40)
--- NOTE | 2025-02-02 11:59 | NUR ---
[id number]. CALLED DR PLEITEZ PER PARAMETERS. HE TO RESTART JARDIANCE AND METFORMIN TODAY. WILL REVIEW TOMORROW. NO CHANGE IN INSULIN AT THIS TIME.
[2025-02-02 15:35] VITALS: BP 136/61
[2025-02-02] MEDS ORDERED: MetFORMIN HCl 500 mg PO SCH (17:00)
--- NOTE | 2025-02-02 18:13 | NUR ---
SHIFT SUMMARY PT A&OX4, VSS, BEDREST, TOLERATING PO, VOIDING, AND DENIED PAIN. K 2.8 THIS AM, ORAL K GIVEN PER PROVIDER ORDER. PT COOPERATIVE W/ MOST CARE W/ NO VERBAL AGGRESSION. PT PLAN FOR D/C TO [facility] NEXT WEEK. CALL LIGHT WITHIN REACH AND PT ABLE TO MAKE NEEDS KNOWN.
[2025-02-02 20:35] VITALS: BP 155/84
--- NOTE | 2025-02-03 04:46 | NUR ---
SHIFT SUMMARY ADMITTED FOR RIGHT STUMP CELLULITIS. DNR CODE. PO ANTIB ARE SCHEDULED. AWAITING PLACEMENT, HOPEFULLY THE BEGINNING OF NEXT WEEK DUE TO THE HOLIDAY WEEKEND. HE IS A&O X?, ON RA, ON BEDREST. ADA DIET. ACHS - CBG'S, LOW SS. REFUSES CARE AND MEDS AT TIMES. HE SLEPT WELL THIS SHIFT, THE REMERON WAS EFFECTIVE. NO NEW CONCERNS.
[2025-02-03 08:43] LABS: Anion Gap 5.0 mmol/L (3-11); Blood Urea Nitrogen 23.0 mg/dL (8-24); CO2, Blood 31.0 mmol/L (21-32); Calcium, Blood 9.2 mg/dL (8.5-10.1); Chloride, Blood 105.0 mmol/L (98-108); Creatinine, Blood 0.69 mg/dL (0.60-1.20); Glucose, Blood 202.0 mg/dL (70-99); Potassium, Blood 3.1 mmol/L (3.5-5.5); Sodium, Blood 138.0 mmol/L (136-145)
[2025-02-03 12:54] VITALS: BP 173/78
[2025-02-03 14:59] VITALS: BP 167/91
--- NOTE | 2025-02-03 17:31 | NUR ---
SHIFT SUMMARY PT K LAB IMPROVED, BUT STILL LOW W/ THIS AM LAB. ORAL K GIVEN PER ORDER. PT REMAINS COOPERATIVE W/ CARE FROM THIS RN. NO OTHER ACUTE CHANGES. CALL LIGHT WITHIN REACH AND PT ABLE TO MAKE NEEDS KNOWN.
[2025-02-03 19:47] VITALS: BP 162/84
[2025-02-03] MEDS ORDERED: Insulin Glargine-Yfgn 100 Unit/mL 3 ML SYR SC SCH (21:00)
--- NOTE | 2025-02-04 04:11 | NUR ---
SHIFT SUMMARY PATIENT HAD NO ACUTE CHANGES. ALERT ORIENTED AND BEDREST WITH RIGHT BKA. DENIES CHEST PAIN, SOB, AND N/V. CBG 166. VSS/AFEBRILE. NO IV ACCESS. REFUSES CARE AT TIMES. CALL LIGHT IN REACH. BED IN LOWEST POSITION. WILL CONTINUE TO MONITOR UNTIL DAY SHIFT NURSE ASSUMES CARE.
--- NOTE | 2025-02-04 05:55 | NUR ---
PATIENT REFUSED MORNING LABS. LAB REPORTS WILL TRY AGAIN 08:00.
[2025-02-04 08:23] VITALS: BP 123/73
--- NOTE | 2025-02-04 09:34 | NUR ---
MORNING MED PASS: PT REFUSED MORNING MEDS WITH THE EXCEPTION OF INSULIN. OFFERED PT MEDS 2X AND REFUSED BOTH TIMES. MEDS RETURNED BACK TO [facility]. MEDS CHARTED REFUSED.
[2025-02-04 15:53] VITALS: BP 125/70
--- NOTE | 2025-02-04 17:31 | NUR ---
A&O4. PT UNCOOPERATIVE WITH CARE. CONTINENT OF BOWEL AND BLADDER. PT REFUSED MORNING MEDS. PT REFUSES TO TALK TO STAFF OFF AND ON AND TO PARTICPATE IN CARE. CALL PLACED TO DR. PLEITEZ TO ASK FOR DOUBLE PORTIONS TO KEEP SNACKING DOWN AND HELP WITH BLOOD SUGARS. DR. PLEITEZ DECLINED REQUEST DUE TO PT CBGS TOO HIGH AND ASKED TO ORDER DOUBLE PROTEIN INSTEAD. ORDER PLACED FOR EXTRA PROTIEN AT MEALS IF POSSIBLE. BED IN LOWEST POSITION, CALL LIGHT WITHIN REACH, ALL NEEDS MET. REPORT TO ONCOMING NURSE.
[2025-02-04 19:38] VITALS: BP 139/71
[2025-02-05 04:09] VITALS: BP 139/87
--- NOTE | 2025-02-05 04:12 | NUR ---
SHIFT SUMMARY PATIENT HAD NO ACUTE CHANGES. ALERT ORIENTED AND BEDREST WITH RIGHT BKA. CBG 283. NO IV ACCESS. DENIES CHEST PAIN, SOB, AND N/V. VSS/AFEBRILE. AWAKE FIRST PART OF SHIFT ASKING FOR SNACKS AND LIMITED. CALL LIGHT IN REACH. BED IN LOWEST POSITION. WILL CONTINUE TO MONITOR UNTIL DAY SHIFT NURSE ASSUMES CARE.
[2025-02-05 07:49] VITALS: BP 144/74
[2025-02-05 15:04] VITALS: BP 131/77
[2025-02-05] MEDS ORDERED: Insulin Human Lispro 100 Units/ML 3ML Syringe SC SCH (16:30)
--- NOTE | 2025-02-05 18:19 | NUR ---
SHIFT SUMMARY: PT REFUSED BLOOD THINNER THIS MORNING. AWARE. NO ACUTE CHANGES. PT WAITING ON PLACEMENT.
[2025-02-05 19:22] VITALS: BP 139/91
[2025-02-05] MEDS ORDERED: Insulin Glargine-Yfgn 100 Unit/mL 3 ML SYR SC SCH (21:00)
--- NOTE | 2025-02-06 05:35 | NUR ---
SHIFT SUMMARY PT A&Ox4, REFUSED MORNING VS, NO ACUTE CHANGES OVERNIGHT. PT REPORTS 10/10 R STUMP PAIN, PRN TYLENOL PROVIDED SOME RELIEF. UP TO BEDSIDE COMMODE WITH MINIMAL ASSIST. PT HAS BELONGINGS IN LOCKED DRAWER. CALL LIGHT IN REACH, NO FURTHER NEEDS AT THIS TIME.
[2025-02-06] MEDS ORDERED: MetFORMIN HCl 500 mg PO SCH (08:00)
[2025-02-06 09:09] VITALS: BP 146/82
[2025-02-06 15:27] VITALS: BP 132/84
--- NOTE | 2025-02-06 18:50 | NUR ---
NO ACUTE CHANGES THIS SHIFT. PATIENT A/OX4, ABLE TO MAKE NEEDS KNOWN. BLOOD SUGARS WELL CONTROLED. AWAITING PLACEMENT AT [facility].
[2025-02-06 19:04] VITALS: BP 128/58
[2025-02-06] MEDS ORDERED: Insulin Glargine-Yfgn 100 Unit/mL 3 ML SYR SC SCH (21:00)
[2025-02-07 03:36] VITALS: BP 129/70
--- NOTE | 2025-02-07 04:00 | NUR ---
SHIFT SUMMARY 59 YR M ADMITTED ON 01/31/25. DNR. NO ACUTE CHANGES THIS SHIFT. PT APPEARS TO HAVE RESTED COMFORTABLY THROUGHOUT THE NIGHT. NO C/O PAIN OR DISCOMFORT. ABLE TO MAKE NEEDS KNOWN. BED IN LOW POSITION AND CALL LIGHT IN REACH.
[2025-02-07 08:03] VITALS: BP 138/70
[2025-02-07] MEDS ORDERED: HUMALOG KW100 UNIT/1 SC (10:22)
[2025-02-07] MEDS ORDERED: LISI20 PO (10:22)
[2025-02-07] MEDS ORDERED: METF500 PO (10:22)
[2025-02-07] MEDS ORDERED: MIRALAX17 GM PO (10:25)
[2025-02-07] MEDS ORDERED: DOCUZEN 8.6-501 EACH PO (10:25)
[2025-02-07 11:28] LABS: Anion Gap 11.0 mmol/L (3-11); Blood Urea Nitrogen 28.0 mg/dL (8-24); CO2, Blood 27.0 mmol/L (21-32); Calcium, Blood 9.5 mg/dL (8.5-10.1); Chloride, Blood 106.0 mmol/L (98-108); Creatinine, Blood 0.63 mg/dL (0.60-1.20); Glucose, Blood 148.0 mg/dL (70-99); Potassium, Blood 3.9 mmol/L (3.5-5.5); Sodium, Blood 140.0 mmol/L (136-145)
--- NOTE | 2025-02-07 17:10 | NUR ---
PATIENT RESTED MOST OF DAY WITH NO COMPLAINTS. PER REPORT PATIENT WILL BE LEAVING ON THURSDAY FOR [facility] IN [place]. CALL LIGHT WITHIN REACH. PATIENT COOPERATIVE WITH CARE.
[2025-02-07 20:15] VITALS: BP 138/77
[2025-02-08 03:58] VITALS: BP 117/55
--- NOTE | 2025-02-08 04:53 | NUR ---
SHIFT SUMMARY NO ACUTE CHANGES THIS SHIFT. PT HAS HAD NO C/O PAIN OR DISCOMFORT THIS SHIFT. HE HAS SLEPT FOR MOST OF THE NIGHT. CALLS APPROPRIATELY FOR ASSISTANCE. BED IN LOW POSITION AND CALL LIGHT IN REACH.
[2025-02-08 07:31] VITALS: BP 146/75
[2025-02-08 15:40] VITALS: BP 125/77
--- NOTE | 2025-02-08 18:20 | NUR ---
PATIENT RESTED IN BED TODAY AND COOPERATIVE WITH CARE. PATIENT VERBALIZED HE IS HERE UNTIL THURSDAY BUT DOES NOT KNOW IF HE IS GOING TO [facility] OR NOT. PATIENT VERBALIZED HE IS READY TO GO. CALL LIGHT WITHIN REACH.
[2025-02-08 20:14] VITALS: BP 147/79
--- NOTE | 2025-02-09 05:31 | NUR ---
SHIFT SUMMARY 59 YR M ADMITTED ON 01/31/25. DNR. PT WAS UP IN HIS WHEELCHAIR TODAY AND TOOK A COUPLE OF STROLLS DOWN THE HALLWAY. HE STATED IT FELT GOOD TO BE OUT OF HIS ROOM AND HE APPEARED TO BE IN A GOOD MOOD, STOPPING AT THE NURSES STATION TO CHAT. HE THEN SLEPT FOR MOST OF THE NIGHT. REFUSED MORNING VITALS. NO NEW CHANGES TO REPORT. BED IN LOW POSITION AND CALL LIGHT IN REACH.
[2025-02-09 07:38] VITALS: BP 144/80
[2025-02-09 16:12] VITALS: BP 140/70
--- NOTE | 2025-02-09 18:38 | NUR ---
PATIENT COOPERATIVE WITH CARE DURING DAY SHIFT, SECONDARY RN ABLE TO SPEND TIME IN ROOM CLEANING PATIENTS PERSONAL BELONGINGS AND GIVING PATIENT BED BATH. PATIENT TOLERATED WELL. PATIENT AWARE AND AGREEABLE TO TRANSFERRING ON THURSDAY.CALL LIGHT WITHIN REACH
[2025-02-09 20:04] VITALS: BP 142/73
--- NOTE | 2025-02-10 06:28 | NUR ---
SHIFT SUMMARY PT IS ALERT AND ORIENTED TIMES 3. PT IS FULL CODE. ADMITTED FOR CELLUTIS RIGHT BKA WOUND. PT REFUSED IV AND HAS NO IV ORDER. PT IS SELECTIVE WITH CARE. PT IS AC/HS, TAKES MEDICATION WHOLE WITH WATER. PT TO DC TO [facility] ON THURSDAY. PT APPEARED TO SLEEP ON AND OFF THROUGH THE NIGHT. BED IS IN LOW POSITION, RAILS TIMES TWO, AND CALL LIGHT WITHIN REACH.
[2025-02-10 07:15] VITALS: BP 142/79
--- NOTE | 2025-02-10 17:32 | NUR ---
End of shift report: Pt is alert and oriented x3 with continued bouts of anger noted towards staff r/t medications/CBG checks and refused his 1630 CBG and insulin, his 0900 Lovenox. Doctor is aware and no new orders received. Pt continues to request snacks/drinks repeatedly throughout the day and continued discussion with pt regarding risk of increasing his blood sugars. Pt verbalizes his understanding and is okay with risk. Pt denies CP, SOB, N/V/D, or pain today except for slight headache this am which resolved with sleep. Pt declines IV insertion and order still in place for no IV access needed. Pt utilizing call light appropriately; call light within reach and bed in lowest position. Will continue to monitor until next shift nurse arrives and report given.
[2025-02-10 17:44] VITALS: BP 126/79
[2025-02-10 19:29] VITALS: BP 137/73
[2025-02-11 03:25] VITALS: BP 131/92
[2025-02-11 08:19] VITALS: BP 144/91
[2025-02-11 17:10] VITALS: BP 145/79
--- NOTE | 2025-02-11 17:14 | NUR ---
End of shift summary: Pt is alert and oriented x3 with continued angry behavior towards staff. Pt is able to be reoriented quickly and has agreed to all cares today. Pt continues to call for snacks frequently and has been counseled on risks d/t diabetes. Pt denies CP, SOB, N/V/D, or any pain today and was up in his wheelchair independently. All medications administered per EMAR. Pt utilizing call light appropriately; call light within reach and bed in lowest position. Will continue to monitor until next shift nurse arrives and report is given.
[2025-02-11 19:49] VITALS: BP 139/80
[2025-02-12 02:20] VITALS: BP 128/83
--- NOTE | 2025-02-12 05:21 | NUR ---
SHIFT SUMMARY PT IS ALERT AND ORIENTED TIMES 3. PT IS FULL CODE. ADMITTED FOR CELLUTIS RIGHT BKA WOUND. PT REFUSED IV AND HAS NO IV ORDER. PT IS SELECTIVE WITH CARE. PT IS AC/HS, TAKES MEDICATION WHOLE WITH WATER. PT TO DC TO [facility] ON THURSDAY. PT APPEARED TO SLEEP ON AND OFF THROUGH THE NIGHT. BED IS IN LOW POSITION, RAILS TIMES TWO, AND CALL LIGHT WITHIN REACH.
[2025-02-12 08:15] VITALS: BP 133/88
[2025-02-12 15:00] VITALS: BP 141/80
--- NOTE | 2025-02-12 17:37 | NUR ---
Pt is alert and oriented x3; has been pleasant and cooperative today. Pt up in wheelchair today independently. Pt excited about probability of being discharged tomorrow. Pt has denied SOB, CP, N/V/D, or pain today. All medications administered per EMAR. No acute changes this shift. Call light within reach; bed in lowest position. Will continue to monitor until next shift nurse arrives and report is given.
[2025-02-12 19:38] VITALS: BP 140/83
--- NOTE | 2025-02-13 03:32 | NUR ---
SUMMARY: PT A/OX3 AND CALLS APPROPRIATELY TO ENDORSE NEEDS. MOOD CAN BE VERY LABILE AND HE BEGAN SHIFT PLEASANT AND COOPERATIVE BUT BECAME VERY ANGRY WHEN STAFF ATTEMPTED TO ADMINISTER HS INSULIN. PT REFUSED MED DESPITE REQUESTING FREQ SNACKS AND ADA EDUCATION. HE ALSO REFUSED AM VITALS AND IS KNOWN TO BE NONCOMPLIANT W/ASPECTS OF CARE, ASSESSMENTS AND MEDS AT TIMES. HE USES URINAL AD EMELY AND REQUESTED NEW LINENS AT HS. PT HAS R.BKA AND IS AWARE OF LIMITATIONS. HE INDEPENDENTLY T/F'S SELF TO W/C OR REQUESTS ASSIST PRN. NO ACUTE CHANGES, VSS/AFEBRILE AND PT IS PROBABLE D/C TODAY. WILL REPORT TO DAY RN.
[2025-02-13 07:34] VITALS: BP 119/92
--- NOTE | 2025-02-13 11:24 | NUR ---
DISCHARGE NOTE PATIENT BEING TRANSFERRED TO [facility] REPORT CALLED TO [facility]. NO IV TO REMOVE. PACKET FROM [facility] SENT WITH PATIENT. NEW WHEELCHAIR DELIVERED AND PT WENT IN THAT WITH TRANSPORT. ALL BELONGINGS GATHERED AND RETURNED. NO QUESTIONS PRIOR TO DC.
== END 2025-02-13 11:00 | DRG 565 ==
LOC: ER 15:42 → MEDS 15:43 → ENPENDDIS 02-07 11:33 → MEDS 02-13 11:00
PROVIDERS: Internal Medicine; Student in an Organized Health Care Education/Training Program; ADMIT Student in an Organized Health Care Education/Training Program
DX: T87.43 Infection of amputation stump, right lower extremity (principal); E87.1 Hypo-osmolality and hyponatremia; E87.20 Acidosis, unspecified; I50.32 Chronic diastolic (congestive) heart failure; Z59.00 Homelessness unspecified; L03.115 Cellulitis of right lower limb; E11.42 Type 2 diabetes mellitus with diabetic polyneuropathy; Z66 Do not resuscitate; Z99.3 Dependence on wheelchair; I11.0 Hypertensive heart disease with heart failure; E78.5 Hyperlipidemia, unspecified; G47.00 Insomnia, unspecified; E83.39 Other disorders of phosphorus metabolism; E83.42 Hypomagnesemia; D63.8 Anemia in other chronic diseases classified elsewhere; N40.0 Benign prostatic hyperplasia without lower urinary tract symptoms; F32.A Depression, unspecified; E87.6 Hypokalemia; E11.65 Type 2 diabetes mellitus with hyperglycemia; F15.10 Other stimulant abuse, uncomplicated; Z89.422 Acquired absence of other left toe(s); Z89.431 Acquired absence of right foot; Z79.4 Long term (current) use of insulin; Z79.84 Long term (current) use of oral hypoglycemic drugs; Z79.899 Other long term (current) drug therapy; Z88.8 Allergy status to other drugs, medicaments and biological substances; Y83.8 Other surgical procedures as the cause of abnormal reaction of the patient, or of later complication, without mention of misadventure at the time of the procedure
CPT/HCPCS: 36415; 73701; 80048; 80053; 80069; 80202; 82803; 82947; 83605; 83690; 83735; 83930; 84100; 85025; 85027; 87040; 93005; 93010; 96365-59; 96367; 96375; 96376; 99285-25; A9270; G0378; J0696; J1650; J1815; J3373; J3475; J7030; J7040; J7050; J7060; J7120; Q9967